=== PATIENT | female | born 1960 | race Caucasian/White ===

== ENCOUNTER → 2016-06-24 | Outpatient (CLI) | payer OTHER ==
[~2016-06-24] MED LIST: ALBU17IN INH; BIOT2500 PO; BUPIVACAINE HCL 0.25% 10 ML VIAL As Ordered ONE; BUPIVACAINE HCL 0.25% 30 ML VIAL As Ordered ONE; CALCTAB29 PO; FEXO180T58 PO; IPRASOL4 INH; MOME50SP; MULT1TAB10 PO; OXYC-517 PO; OXYC1TAB23 PO; PROBCAP4 PO; PROM50TA2 PO; QVAR80AE7 INH; SING10TA32 PO; SKEL-29 PO; TRIAMCINOLONE ACETONIDE SUSP 40 MG/ML VIAL (J3301) As Ordered ONE; VITA100037 PO; diazePAM 5 MG TAB As Ordered ONE; oxyCODONE 5MG TAB As Ordered ONE
--- NOTE | 2016-06-26 00:18 | ECWPNPC ---
PATIENT NAME: JOSE EDUARDO DICK : 1960 GENDER: FEMALE VISIT DATE: 06/24/2016 DISCHARGE DATE: 06/24/16 1151 VISIT LOCKED DATE TIME: PHYSICIAN: ZEINA SCHMIDT RESOURCE: ZEINA SCHMIDT REASON FOR APPOINTMENT 1. TPI NECK HISTORY OF PRESENT ILLNESS HISTORY OF PRESENT ILLNESS: PAIN THE PATIENT DESCRIBES THE PAIN... FALL RISK SCREENING: SCREENING :NO FALLS IN THE PAST YEAR CURRENT MEDICATIONS TAKING NASONEX 50 MCG/ACT SUSPENSION 2 SPRAYS IN EACH NOSTRIL NASALLY ONCE A DAY, NOTES: 06-23-16 AM TAKING FEXOFENADINE HCL 180 MG TABLET 1 TABLET NEEDED ORALLY ONCE A DAY, NOTES: 06-23-16 1500 TAKING PROBIOTIC - TABLET DELAYED RELEASE ORALLY ONCE DAILY, NOTES: 06-23-16 1900 TAKING PROMETHAZINE HCL 25 MG TABLET 1 TABLET NEEDED ORALLY EVERY 12 HRS, NOTES: COUPLE WEEKS AGO TAKING VITAMIN D-3 2000 MG ONCE A DAY, NOTES: 06-23-16 AM TAKING CALCIUM/VITAMIN D/MINERALS 600-200 MG-UNIT TABLET 1 TABLET WITH FOOD ORALLY ONCE DAILY, NOTES: 06-23-16 AM TAKING HYDROCODONE-ACETAMINOPHEN 5-325 MG TABLET 1 TABLET NEEDED FOR PAIN ORALLY EVERY 6 HRS; MDD 2, NOTES: OUT OF MEDS TAKING SKELAXIN 800 MG TABLET 1 TABLET ORALLY THREE TIMES A DAY NEEDED FOR SPASMS AND PAIN MDD3, NOTES: OUT OF MEDS TAKING TYLENOL/CODEINE #3 300-30 MG TABLET 1 TABLET NEEDED FOR PAIN ORALLY EVERY 6 HRS MDD2, NOTES: 06-23-16 1800 TAKING QVAR 80 MCG/ACT AEROSOL SOLUTION 1 PUFF INHALATION TWICE A DAY, NOTES: 06-24-16 0800 TAKING VENTOLIN HFA 108 (90 BASE) MCG/ACT AEROSOL SOLUTION 2 PUFFS NEEDED INHALATION EVERY 4 HRS, NOTES: NONE TAKING SINGULAIR 10 MG TABLET 1 TABLET IN THE EVENING ORALLY ONCE A DAY, NOTES: 06-23-16 2230 DISCONTINUED OXYCODONE HCL 5 MG CAPSULE 1 CAPSULE NEEDED ORALLY EVERY 6 HRS (MDD;2) MEDICATION LIST REVIEWED AND RECONCILED WITH THE PATIENT PAST MEDICAL HISTORY CELIAC DISEASE ASTHMA MILD INTERMITTENT DEPRESSION CERVICAL RADICULOPATHY BILATERAL DUPLICATE URETERS ALLERGIES BETADINE: HIVES/BREATHING PROBLEM: ALLERGY FLEXERIL: HEART STOPS: ALLERGY NAPROXEN: ANAPHYLAXIS/HIVES: ALLERGY ASPIRIN: HIVES: ALLERGY MOTRIN: HIVES: ALLERGY COMPAZINE: UNKNOWN: ALLERGY MORPHINE SULFATE: HIVES: ALLERGY PAXIL: THROAT SWELLING: ALLERGY TRAMADOL: SEIZURES: ALLERGY WELLBUTRIN: HIVES: ALLERGY CYMBALTA: ANAPHYLAXIS: ALLERGY AMOXICILLIN: HIVES: ALLERGY IV DYE: BREATHING PROBLEMS: ALLERGY FENTANYL: THROAT SWELLING: ALLERGY METOCLOPRAMIDE HCL: SEIZURES: ALLERGY ZOLOFT: THROAT SWELLING: ALLERGY SOCIAL HISTORY GENERAL: TOBACCO USE ARE YOU A:NONSMOKER LEARNING BARRIERS / SPECIAL NEEDS ORIENTED TO PLAN OF CARE: PATIENT, PAIN MANAGEMENT PATIENT, ORIENTED TO PLAN OF CARE: PATIENT, PAIN MANAGEMENT PATIENT. NEW PATIENT PAIN DIARY TODAY'S VISITNOTES FROM 0-10, WHAT LEVEL IS YOUR PAIN TODAY?0 PAIN CLINIC PFS, CLERGY, PUBLIC HEALTH REFERRALS PFS REFERRAL NEEDED?NO CLERGY REFERRAL NEEDED?NO PUBLIC HEALTH REFERRAL NEEDED?NO WAS THE PROVIDER NOTIFIED OF ANY PERTINENT INFO?NO PFS REFERRAL NEEDED?NO CLERGY REFERRAL NEEDED?NO PUBLIC HEALTH REFERRAL NEEDED?NO WAS THE PROVIDER NOTIFIED OF ANY PERTINENT INFO?NO REVIEW OF SYSTEMS CONSTITUTIONAL: ANY CHANGE IN YOUR MEDICAL CONDITION? YES, SURGERY IN MAY . CHILLS NO . FEVER NO . INFECTION: DO YOU HAVE NEW INFECTIONS? NO . DO YOU HAVE HISTORY OF MRSA? NO . MUSCULOSKELETAL: ANY NEW PATTERNS OF PAIN OR NUMBNESS? NO . GASTROENTEROLOGY: ANY NEW CHANGE IN BOWEL CONTROL? NO . GENITOURINARY: ANY NEW CHANGE IN BLADDER CONTROL? NO . IS THERE A CHANCE YOU COULD BE ? NO . HEMATOLOGY/LYMPH: DO YOU TAKE ANY BLOOD THINNERS? (FOR EXAMPLE- COUMADIN, PLAVIX, AGGRENOX, PLATEL, PRADAXA, OR XARELTO) NO . WHEN WAS YOUR LAST DOSE? DATE: TIME: . NEUROLOGY: HAVE YOU FALLEN IN THE PAST 6 MONTHS? NO . ANY NEW EXTREMITY NUMBNESS OR WEAKNESS? NO . CARDIOLOGY: DO YOU HAVE A PACEMAKER OR DEFIBRILLATOR? NO . RESPIRATORY: HAVE YOU BEEN SICK IN THE PAST WEEK? NO . FEVER NO . FLU LIKE SYMPTOMS? NO . COUGH NO . INTEGUMENTARY: DO YOU HAVE ANY RASHES OR OPEN SORES? NO . ALLERGIC/IMMUNO: ARE YOU ALLERGIC TO SHELLFISH OR IV DYE? YES, IV DYE . ANY NEW ALLERGIES? NO . PSYCHIATRIC: DO YOU HAVE THOUGHTS OF HURTING YOURSELF OR SOMEONE ELSE? NO . ARE YOU ABUSED, NEGLECTED, OR IN AN UNSAFE ENVIRONMENT? NO . ENDOCRINOLOGY: ARE YOU DIABETIC? NO . OTHER: DO YOU NEED ANY PRESCRIPTIONS? YES . IF YES, PLEASE LIST: SKELAXIN, HYDROCODONE, TYLENOL#3 . ANY NEW PROBLEMS WITH YOUR MEDICATIONS? NO . WHEN DID YOU LAST EAT? 06-23-16 1900 . WHEN DID YOU LAST DRINK? 06-24-16 0200 . WHAT DID YOU LAST DRINK? WATER . NAME OF PERSON DRIVING YOU HOME? RADHA . DO YOU HAVE ANY OTHER QUESTIONS OR CONCERNS NO . REVIEWED BY: PROVIDER: . VITAL SIGNS WT 196 LBS, HT 63 IN, BMI 34.72 INDEX, BP 123/93 MM HG, HR 83 /MIN, RR 18 /MIN, TEMP 96.0 F, OXYGEN SAT % 98, NA INITIALS TL 1015, REVIEWED BY: CM. ASSESSMENTS MYALGIA - M79.1 (PRIMARY) TREATMENT OTHERS REFILL HYDROCODONE-ACETAMINOPHEN TABLET, 5-325 MG, 1 TABLET NEEDED FOR PAIN, ORALLY, EVERY 6 HRS; MDD 2, 30 DAY(S), 10, REFILLS 0 PROCEDURES PN TRIGGER POINT INJECTION WITH STEROIDS PRE PROCEDURE DIAGNOSIS 1. MYALGIA 2. PAIN AT LEFT NECK AREA POST PROCEDURE DIAGNOSIS 1. MYALGIA 2. PAIN AT LEFT NECK AREA PROCEDURE TRIGGER POINT INJECTION AT LEFT NECK AREA SURGEON DR. ZEINA SCHMIDT REJECTED ITEMS CLERK NONE ANESTHESIA LOCAL PRE PROCEDURE NOTE THE PATIENT HAS A HISTORY OF CHRONIC PAIN AT THE LEFT NECK AREA. I EVALUATE THE PATIENT AND REVIEWED THE CHART. THERE IS EVIDENCE OF BANDS OF TISSUE WITH RESTRICTION OF MOVEMENT AND PRESENCE OF TRIGGER POINT AT THE AFFECTED AREA. I WENT OVER THE RISKS, ALTERNATIVES, AND BENEFITS ASSOCIATED WITH THIS PROCEDURE. THE PATIENT WOULD LIKE TO PROCEED AND GIVE CONSENT TO PERFORMED THE PROCEDURE. THE PATIENT DENIES UNEXPLAINABLE WEIGHT LOSS, FEVER, CHILLS, OR NEW CHANGES IN URINARY OR BOWEL CONTROL DESCRIPTION OF PROCEDURE THE PATIENT WAS BROUGHT TO THE PROCEDURE ROOM AND PLACED IN THE SITTING POSITION. THE AREA WAS CLEANED WITH ALCOHOL. THE PROCEDURE WAS DONE USING ASEPTIC STERILE TECHNIQUE. I CHECKED LATERALITY AND THE LEVEL WHERE THE PROCEDURE WAS GOING TO BE PERFORMED WITH THE PATIENT AND THE SUPPORTING STAFF AT THE MOMENT OF THE TIME OUT IN THE PROCEDURE ROOM. USING A 25-GAUGE NEEDLE, TRIGGER POINTS WERE INJECTED AT THE LEFT NECK AREA WITH A TOTAL OF 40 ML OF BUPIVACAINE 0.25% AND KENALOG 40 MG. THERE WAS NO EVIDENCE OF BLOOD, PARESTHESIA OR CEREBROSPINAL FLUID DURING THE PROCEDURE. THE PATIENT WAS SENT TO THE RECOVERY ROOM. THE PATIENT WAS MOVING THE EXTREMITIES AND DOING WELL. THERE WAS NO COMPLICATION DURING THE PROCEDURE POST PROCEDURE NOTE THE PATIENT WILL BE SEEN IN A FOLLOW UP IN THE NEXT FEW WEEKS. INSTRUCTIONS WERE GIVEN, QUESTIONS WERE ANSWERED, AND THE PATIENT EXPRESSED UNDERSTANDING AND AGREES WITH THE PLAN. INSTRUCTIONS WERE GIVEN, QUESTIONS WERE ANSWERED, PATIENT REPORTS UNDERSTANDING AND AGREES WITH THE PLAN. I, JANETTE AREVALO, DOCUMENTED THE ABOVE INFORMATION ACTING A SCRIBE FOR DR. SCHMIDT. I HAVE REVIEWED THE ABOVE DOCUMENT, WRITTEN BY JANETTE AREVALO SCRIBE AND I VERIFY THAT IT IS ACCURATE. PROCEDURE CODES 23111 INJ TRIGGER POINT / MUSCL FOLLOW UP 3 WEEKS ELECTRONICALLY SIGNED BY ZEINA SCHMIDT MD ON 06/25/2016 AT 08:13 PM EST DISCLAIMER : THIS IS A VISIT SUMMARY EXTRACTED FROM THE [employer] CHART. IT IS NOT A COPY OF THE [employer] PROGRESS NOTE. YAN
== END ==
LOC: M PAIN 10:00
PROVIDERS: ATTEND Anesthesiology
DX: G89.29 Other chronic pain (principal); M54.12 Radiculopathy, cervical region; M79.1 Myalgia; K90.0 Celiac disease; J45.909 Unspecified asthma, uncomplicated; F32.9 Major depressive disorder, single episode, unspecified; Z88.5 Allergy status to narcotic agent; Z88.1 Allergy status to other antibiotic agents; Z91.041 Radiographic dye allergy status; Z88.8 Allergy status to other drugs, medicaments and biological substances; Z79.891 Long term (current) use of opiate analgesic; Z79.899 Other long term (current) drug therapy
CPT/HCPCS: 20552; J3301

== ENCOUNTER → 2016-07-18 | Outpatient (CLI) | payer OTHER ==
[~2016-07-18] MED LIST changes: -BUPIVACAINE HCL 0.25% 10 ML VIAL As Ordered ONE; -BUPIVACAINE HCL 0.25% 30 ML VIAL As Ordered ONE; -TRIAMCINOLONE ACETONIDE SUSP 40 MG/ML VIAL (J3301) As Ordered ONE; -diazePAM 5 MG TAB As Ordered ONE; -oxyCODONE 5MG TAB As Ordered ONE
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
== END ==
LOC: M PAIN 09:20
PROVIDERS: ATTEND Nurse Practitioner Family
DX: Z09 Encounter for follow-up examination after completed treatment for conditions other than malignant neoplasm (principal); G89.29 Other chronic pain; M79.1 Myalgia; M54.81 Occipital neuralgia; K90.0 Celiac disease; J45.909 Unspecified asthma, uncomplicated; F32.9 Major depressive disorder, single episode, unspecified; Z88.3 Allergy status to other anti-infective agents; Z88.8 Allergy status to other drugs, medicaments and biological substances; Z88.6 Allergy status to analgesic agent; Z88.5 Allergy status to narcotic agent; Z91.041 Radiographic dye allergy status; Z79.891 Long term (current) use of opiate analgesic; Z79.899 Other long term (current) drug therapy

== ENCOUNTER → 2016-08-26 | Outpatient (CLI) | payer OTHER ==
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
== END ==
LOC: M PAIN 11:00
PROVIDERS: ATTEND Nurse Practitioner Family
DX: Z09 Encounter for follow-up examination after completed treatment for conditions other than malignant neoplasm (principal); G89.29 Other chronic pain; M79.1 Myalgia; M54.81 Occipital neuralgia; K90.0 Celiac disease; J45.20 Mild intermittent asthma, uncomplicated; F32.9 Major depressive disorder, single episode, unspecified; Z88.8 Allergy status to other drugs, medicaments and biological substances; Z88.6 Allergy status to analgesic agent; Z88.5 Allergy status to narcotic agent; Z88.1 Allergy status to other antibiotic agents; Z91.041 Radiographic dye allergy status; B97.4 Respiratory syncytial virus as the cause of diseases classified elsewhere; Z79.899 Other long term (current) drug therapy

== ENCOUNTER → 2016-09-12 | Outpatient (CLI) | payer OTHER ==
--- NOTE | 2016-09-12 16:09 | REP ---
Paranasal sinuses, five views: The frontal, ethmoid, maxillary and sphenoid sinuses are clear. The skull base and sella are unremarkable. The orbital rims are unremarkable. The adenoids are not hypertrophied. Impression: Negative paranasal sinus series. Signed by Keo Leonard MD 09/12/2016 04:01 P
== END ==
LOC: M LRY 15:26
PROVIDERS: ATTEND Nurse Practitioner Family
DX: R09.81 Nasal congestion (principal)

== ENCOUNTER → 2016-10-30 | Outpatient (CLI) | payer OTHER ==
[~2016-10-30] MED LIST changes: +PERC5TAB6 PO
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
== END ==
LOC: M PAIN 14:20
PROVIDERS: ATTEND Nurse Practitioner Family
DX: G89.29 Other chronic pain (principal); M79.1 Myalgia; M54.81 Occipital neuralgia; K90.0 Celiac disease; J45.20 Mild intermittent asthma, uncomplicated; F32.9 Major depressive disorder, single episode, unspecified; F41.9 Anxiety disorder, unspecified; R56.9 Unspecified convulsions; M85.80 Other specified disorders of bone density and structure, unspecified site; Z91.041 Radiographic dye allergy status; Z88.3 Allergy status to other anti-infective agents; Z88.6 Allergy status to analgesic agent; Z88.5 Allergy status to narcotic agent; Z88.8 Allergy status to other drugs, medicaments and biological substances; Z79.899 Other long term (current) drug therapy

== ENCOUNTER 2016-11-08 14:18 | Emergency (ER) | payer OTHER ==
[~2016-11-08] VITALS: Ht 160 cm; Wt 88.5 kg
[~2016-11-08 14:18] MED LIST changes: -PERC5TAB6 PO
[2016-11-08] MEDS ORDERED: PERCOCET 5MG/325MG TAB PO ONE (15:15)
--- NOTE | 2016-11-08 15:50 | REP ---
CT Head without contrast HISTORY: Trauma COMPARISON: 01/20/2016 There is no intraparenchymal hemorrhage, acute infarct, mass or midline shift. The ventricular system is normal in appearance. There is no extra cerebral collection. There is no fracture. The visualized sinuses are clear. IMPRESSION: There is no intracranial lesion. Signed by Garry Tobar MD 11/08/2016 03:41 P
[2016-11-08 16:06] VITALS: BP 135/77
[2016-11-08] MEDS ORDERED: PERC5TAB6 PO (16:16)
--- NOTE | 2016-11-09 08:54 | REP ---
CT CERVICAL SPINE WITHOUT CONTRAST: HISTORY: Trauma. COMPARISON: 09/16/2015 There is no acute fracture. Disc bulges are present at the C3-4 and C4-5 levels. Posterior osteophytes are present at the C5-6 level. A disc bulge with associated osteophyte formation is present at the C6-7 level. There is minimal narrowing of the spinal canal. Uncinate process and/or facet hypertrophy are present at the C2-3 and C4-5 through C6-7 levels. These findings produce minimal to mild narrowing of the neural foramina. There is fusion of the C5 and C6 vertebral bodies. The C4-5 and C6-7 intervertebral discs are decreased in height, consistent with disc degeneration. There is loss of the normal lordotic curve. IMPRESSION: 1. There is no acute fracture or subluxation. 2. There is cervical spondylosis at the C3-4 through C6-7 levels. Signed by Garry Tobar MD 11/09/2016 08:59 A
== END 2016-11-08 16:52 | disposition home or self-care (01) ==
LOC: EDBD 14:18 → EDSEX 14:18 → M ED 15:25
DX: S13.4XXA Sprain of ligaments of cervical spine, initial encounter (principal); S09.90XA Unspecified injury of head, initial encounter; V43.62XA Car passenger injured in collision with other type car in traffic accident, initial encounter; Y92.410 Unspecified street and highway as the place of occurrence of the external cause; Y93.89 Activity, other specified; Y99.9 Unspecified external cause status; M47.12 Other spondylosis with myelopathy, cervical region; G89.29 Other chronic pain; J45.909 Unspecified asthma, uncomplicated; Z86.73 Personal history of transient ischemic attack (TIA), and cerebral infarction without residual deficits; Z79.899 Other long term (current) drug therapy; Z88.1 Allergy status to other antibiotic agents; Z88.5 Allergy status to narcotic agent; Z88.6 Allergy status to analgesic agent; Z88.8 Allergy status to other drugs, medicaments and biological substances; Z91.09 Other allergy status, other than to drugs and biological substances

== ENCOUNTER → 2016-11-17 | Outpatient (CLI) | payer OTHER ==
[~2016-11-17] MED LIST changes: +PERC5TAB6 PO
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
== END ==
LOC: M PAIN 08:30
PROVIDERS: ATTEND Anesthesiology
DX: M96.1 Postlaminectomy syndrome, not elsewhere classified (principal); M79.1 Myalgia; M54.2 Cervicalgia; K90.0 Celiac disease; J45.20 Mild intermittent asthma, uncomplicated; F32.9 Major depressive disorder, single episode, unspecified; Z91.041 Radiographic dye allergy status; Z88.6 Allergy status to analgesic agent; Z88.5 Allergy status to narcotic agent; Z88.1 Allergy status to other antibiotic agents; Z88.8 Allergy status to other drugs, medicaments and biological substances; Z79.899 Other long term (current) drug therapy

== ENCOUNTER → 2016-11-18 | Outpatient (CLI) | payer OTHER ==
--- NOTE | 2016-11-19 09:24 | REP ---
MRI CERVICAL SPINE WITHOUT CONTRAST: HISTORY: Neck pain. COMPARISON: 09/24/2015. A disc bulge is present at the C3-4 level. There is minimal effacement of the thecal sac without spinal cord compression. The C3 neural foramina are patent. A disc bulge with associated osteophyte formation is present at the C4-5 level. There is moderate effacement of the thecal sac without spinal cord compression. Bilateral uncinate process hypertrophy is present. This produces mild narrowing of the C4 neural foramina. There is fusion of the C5 and 6 vertebral bodies. Posterior osteophytes are present. There is minimal spinal cord compression. Uncinate process hypertrophy is present on the left. This produces mild narrowing of the left C5 neural foramen. The right C5 neural foramen is patent. A disc bulge with associated osteophyte formation is present at the C6-7 level. There is moderate effacement of the thecal sac without spinal cord compression. Bilateral uncinate process hypertrophy is present. This produces mild narrowing of the C6 neural foramina. There is no other disc bulge or herniation. The remaining neural foramina are patent. The spinal cord is normal in signal intensity. The C4-5 and C6-7 intervertebral discs are decreased in height consistent with disc degeneration. Normal signal intensity is present in the cervical vertebral bodies. There is no subluxation. IMPRESSION: 1. The patient is status post C5-6 anterior spinal fusion. There is anatomic alignment of the cervical spine. 2. There is cervical spondylosis at the C4-5 through C6-7 levels most significant at the C5-6 level where there is minimal spinal cord compression. There is no significant change compared to the previous study. Signed by Garry Tobar MD 11/19/2016 09:30 A
== END ==
LOC: M RAD 18:04
PROVIDERS: ATTEND Family Medicine
DX: M47.812 Spondylosis without myelopathy or radiculopathy, cervical region (principal)

== ENCOUNTER → 2016-11-19 | Outpatient (REF) | payer OTHER ==
[2016-11-19 20:21] LABS: ALBUMIN 3.9 GM/DL (3.2-5.2); ALBUMIN/GLOBULIN RATIO 1.11 (1.00-1.93); ALKALINE PHOSPHATASE 79 U/L (45-117); ALT/SGPT 54 U/L (12-78); ANION GAP 6 MEQ/L (8-16); AST/SGOT 20 U/L (15-37); BILIRUBIN,TOTAL 0.3 MG/DL (0.2-1.0); BLOOD UREA NITROGEN 12 MG/DL (7-18); CALCIUM LEVEL 9.4 MG/DL (8.5-10.1); CARBON DIOXIDE LEVEL 31 MEQ/L (21-32); CHLORIDE LEVEL 100 MEQ/L (98-107); GLOMERULAR FILTRATION RATE > 60.0 (>51); GLUCOSE, FASTING 87 MG/DL (70-105); SODIUM LEVEL 137 MEQ/L (136-145); TOTAL PROTEIN 7.4 GM/DL (6.4-8.2)
== END ==
LOC: M SFHCLERA 16:20
PROVIDERS: ATTEND Family Medicine
DX: M79.7 Fibromyalgia (principal)

== ENCOUNTER → 2016-12-01 | Outpatient (CLI) | payer OTHER ==
[~2016-12-01] MED LIST changes: +PERC5TAB12 PO; -PERC5TAB6 PO; -PROM50TA2 PO; +PROM50TA4 PO; +QVAR1AER2 INH; -QVAR80AE7 INH; -SKEL-29 PO; +SKEL800T97 PO; -VITA100037 PO; +VITA100067 PO
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
== END ==
LOC: M PAIN 14:00
PROVIDERS: ATTEND Nurse Practitioner Family
DX: G89.29 Other chronic pain (principal); M79.7 Fibromyalgia; M47.22 Other spondylosis with radiculopathy, cervical region; K90.0 Celiac disease; J45.20 Mild intermittent asthma, uncomplicated; F32.9 Major depressive disorder, single episode, unspecified; Z88.0 Allergy status to penicillin; Z88.6 Allergy status to analgesic agent; Z88.5 Allergy status to narcotic agent; Z88.8 Allergy status to other drugs, medicaments and biological substances; Z79.899 Other long term (current) drug therapy; Z79.891 Long term (current) use of opiate analgesic; Z79.52 Long term (current) use of systemic steroids; Z79.51 Long term (current) use of inhaled steroids

== ENCOUNTER → 2016-12-19 | Outpatient (CLI) | payer OTHER ==
[~2016-12-19] MED LIST changes: +BUPIVACAINE HCL 0.25% 10 ML VIAL As Ordered ONE; +BUPIVACAINE HCL 0.25% 30 ML VIAL As Ordered ONE; +TRIAMCINOLONE ACETONIDE SUSP 40 MG/ML VIAL (J3301) As Ordered ONE; +diazePAM 5 MG TAB As Ordered ONE
--- NOTE | 2016-12-31 00:25 | ECWPNPC ---
PATIENT NAME: JOSE EDUARDO DICK : 1960 GENDER: FEMALE VISIT DATE: 12/19/2016 DISCHARGE DATE: 12/19/16 1611 VISIT LOCKED DATE TIME: PHYSICIAN: ZEINA SCHMIDT RESOURCE: ZEINA SCHMIDT REASON FOR APPOINTMENT 1. TPI HISTORY OF PRESENT ILLNESS HISTORY OF PRESENT ILLNESS: PAIN THE PATIENT DESCRIBES THE PAIN... FALL RISK SCREENING: SCREENING :NO FALLS IN THE PAST YEAR CURRENT MEDICATIONS TAKING NASONEX 50 MCG/ACT SUSPENSION 2 SPRAYS IN EACH NOSTRIL NASALLY ONCE A DAY, NOTES: 12-18-16 0800 TAKING FEXOFENADINE HCL 180 MG TABLET 1 TABLET ORALLY BID, NOTES: 12-18-16 1200 TAKING PROBIOTIC - TABLET DELAYED RELEASE ORALLY ONCE DAILY, NOTES: 12-18-16 1830 TAKING PROMETHAZINE HCL 25 MG TABLET 1 TABLET NEEDED ORALLY EVERY 12 HRS, NOTES: NONE RECENT TAKING VITAMIN D-3 2000 UNITS ONCE A DAY, NOTES: 12-18-16 1800 TAKING CALCIUM/VITAMIN D/MINERALS 600-200 MG-UNIT TABLET 1 TABLET WITH FOOD ORALLY ONCE DAILY, NOTES: NONE RECENT TAKING QVAR 80 MCG/ACT AEROSOL SOLUTION 2 PUFFS INHALATION TWICE A DAY, NOTES: 12-18-162199 TAKING VENTOLIN HFA 108 (90 BASE) MCG/ACT AEROSOL SOLUTION 2 PUFFS NEEDED INHALATION EVERY 4 HRS, NOTES: NONE NEEDED TAKING SINGULAIR 10 MG TABLET 1 TABLET IN THE EVENING ORALLY ONCE A DAY, NOTES: 12-19-16 0100 TAKING IPRATROPIUM-ALBUTEROL 0.5-2.5 (3) MG/3ML SOLUTION 3 ML INHALATION EVERY 4 HRS NEEDED TAKING BENADRYL 25 MG CAPSULE 1 CAPSULE NEEDED ORALLY NIGHTLY, NOTES: NONE NEEDED TAKING SKELAXIN 800 MG TABLET 1 TABLET ORALLY THREE TIMES A DAY NEEDED FOR SPASMS AND PAIN MDD3, NOTES: 12-18-16 0730 TAKING NORCO 5-325 MG TABLET 1 TABLET NEEDED ORALLY Q8H PRN MDD3, NOTES: 12-18-162199 TAKING DIFLUCAN 150 MG TABLET 1 TABLET ORALLY QOD, NOTES: 12-17-16 NOT-TAKING TYLENOL WITH CODEINE #3 300-30 MG TABLET 1 TABLET NEEDED FOR PAIN ORALLY EVERY 6 HRS MDD2 NOT-TAKING OXYCODONE-ACETAMINOPHEN 5-325 MG TABLET 1 TABLET NEEDED ORALLY EVERY 6 HRS (MDD:4) NOT-TAKING PREDNISONE 10 MG TABLET 1 TABLET FOR SEVEN DAYS, THEN 1/2 TABLET FOR SEVEN DAYS ORALLY ONCE A DAY DISCONTINUED SKELAXIN 800 MG TABLET 1 TABLET ORALLY BID PRN MEDICATION LIST REVIEWED AND RECONCILED WITH THE PATIENT PAST MEDICAL HISTORY CELIAC DISEASE ASTHMA MILD INTERMITTENT DEPRESSION CERVICAL RADICULOPATHY BILATERAL DUPLICATE URETERS RSV ALLERGIES BETADINE: HIVES/BREATHING PROBLEM: ALLERGY FLEXERIL: HEART STOPS: ALLERGY NAPROXEN: ANAPHYLAXIS/HIVES: ALLERGY ASPIRIN: HIVES: ALLERGY MOTRIN: HIVES: ALLERGY COMPAZINE: UNKNOWN: ALLERGY MORPHINE SULFATE: HIVES: ALLERGY PAXIL: THROAT SWELLING: ALLERGY TRAMADOL: SEIZURES: ALLERGY WELLBUTRIN: HIVES: ALLERGY CYMBALTA: ANAPHYLAXIS: ALLERGY AMOXICILLIN: HIVES: ALLERGY IV DYE: BREATHING PROBLEMS: ALLERGY FENTANYL: THROAT SWELLING: ALLERGY METOCLOPRAMIDE HCL: SEIZURES: ALLERGY ZOLOFT: THROAT SWELLING: ALLERGY DILUTING SOLUTION FOR ALLERGY SHOTS: SWELLING: ALLERGY REVIEW OF SYSTEMS REVIEWED BY: PROVIDER: . CONSTITUTIONAL: ANY CHANGE IN YOUR MEDICAL CONDITION? NO . CHILLS NO . FEVER NO . INFECTION: DO YOU HAVE NEW INFECTIONS? NO . DO YOU HAVE HISTORY OF MRSA? NO . MUSCULOSKELETAL: ANY NEW PATTERNS OF PAIN OR NUMBNESS? NO . GASTROENTEROLOGY: ANY NEW CHANGE IN BOWEL CONTROL? NO . GENITOURINARY: ANY NEW CHANGE IN BLADDER CONTROL? NO . IS THERE A CHANCE YOU COULD BE ? NO . HEMATOLOGY/LYMPH: DO YOU TAKE ANY BLOOD THINNERS? (FOR EXAMPLE- COUMADIN, PLAVIX, AGGRENOX, PLATEL, PRADAXA, OR XARELTO) NO . WHEN WAS YOUR LAST DOSE? DATE: TIME: . NEUROLOGY: HAVE YOU FALLEN IN THE PAST 6 MONTHS? NO . ANY NEW EXTREMITY NUMBNESS OR WEAKNESS? NO . CARDIOLOGY: DO YOU HAVE A PACEMAKER OR DEFIBRILLATOR? NO . RESPIRATORY: HAVE YOU BEEN SICK IN THE PAST WEEK? NO . FEVER NO . FLU LIKE SYMPTOMS? NO . COUGH NO . INTEGUMENTARY: DO YOU HAVE ANY RASHES OR OPEN SORES? NO . ALLERGIC/IMMUNO: ARE YOU ALLERGIC TO SHELLFISH OR IV DYE? YES, IV DYE . ANY NEW ALLERGIES? NO . PSYCHIATRIC: DO YOU HAVE THOUGHTS OF HURTING YOURSELF OR SOMEONE ELSE? NO . ARE YOU ABUSED, NEGLECTED, OR IN AN UNSAFE ENVIRONMENT? NO . ENDOCRINOLOGY: ARE YOU DIABETIC? NO . OTHER: DO YOU NEED ANY PRESCRIPTIONS? YES, . IF YES, PLEASE LIST: HYDROCODONE . ANY NEW PROBLEMS WITH YOUR MEDICATIONS? NO . WHEN DID YOU LAST EAT? 12-19-16 0230 . WHEN DID YOU LAST DRINK? 12-19-16 1000 . WHAT DID YOU LAST DRINK? WATER . NAME OF PERSON DRIVING YOU HOME? RADHA DELCID . DO YOU HAVE ANY OTHER QUESTIONS OR CONCERNS NO . VITAL SIGNS WT 201.0 LBS, HT 63 IN, BMI 35.60 INDEX, BP 141/78 MM HG, HR 88 /MIN, RR 18 /MIN, TEMP 97.6 F, OXYGEN SAT % 98%, NA INITIALS TL 1330, REVIEWED BY: CM. ASSESSMENTS MYALGIA - M79.1 (PRIMARY) PROCEDURES PN TRIGGER POINT INJECTION WITH STEROIDS PRE PROCEDURE DIAGNOSIS 1. MYALGIA 2. PAIN AT LEFT NECK AREA POST PROCEDURE DIAGNOSIS 1. MYALGIA 2. PAIN AT LEFT NECK AREA PROCEDURE TRIGGER POINT INJECTION AT LEFT NECK AREA SURGEON DR. ZEINA SCHMIDT SENIOR ATTORNEY NONE ANESTHESIA LOCAL PRE PROCEDURE NOTE THE PATIENT HAS A HISTORY OF CHRONIC PAIN AT THE LEFT NECK AREA. I EVALUATE THE PATIENT AND REVIEWED THE CHART. THERE IS EVIDENCE OF BANDS OF TISSUE WITH RESTRICTION OF MOVEMENT AND PRESENCE OF TRIGGER POINT AT THE AFFECTED AREA. I WENT OVER THE RISKS, ALTERNATIVES, AND BENEFITS ASSOCIATED WITH THIS PROCEDURE. THE PATIENT WOULD LIKE TO PROCEED AND GIVE CONSENT TO PERFORMED THE PROCEDURE. THE PATIENT DENIES UNEXPLAINABLE WEIGHT LOSS, FEVER, CHILLS, OR NEW CHANGES IN URINARY OR BOWEL CONTROL DESCRIPTION OF PROCEDURE THE PATIENT WAS BROUGHT TO THE PROCEDURE ROOM AND PLACED IN THE SITTING POSITION. THE AREA WAS CLEANED WITH ALCOHOL. THE PROCEDURE WAS DONE USING ASEPTIC STERILE TECHNIQUE. I CHECKED LATERALITY AND THE LEVEL WHERE THE PROCEDURE WAS GOING TO BE PERFORMED WITH THE PATIENT AND THE SUPPORTING STAFF AT THE MOMENT OF THE TIME OUT IN THE PROCEDURE ROOM. USING A 25-GAUGE NEEDLE, TRIGGER POINTS WERE INJECTED AT THE LEFT KNEE AREA WITH A TOTAL OF 40 ML OF BUPIVACAINE 0.25% AND KENALOG 40 MG. THERE WAS NO EVIDENCE OF BLOOD, PARESTHESIA OR CEREBROSPINAL FLUID DURING THE PROCEDURE. THE PATIENT WAS SENT TO THE RECOVERY ROOM. THE PATIENT WAS MOVING THE EXTREMITIES AND DOING WELL. THERE WAS NO COMPLICATION DURING THE PROCEDURE POST PROCEDURE NOTE THE PATIENT WILL BE SEEN IN A FOLLOW UP IN THE NEXT FEW WEEKS. INSTRUCTIONS WERE GIVEN, QUESTIONS WERE ANSWERED, AND THE PATIENT EXPRESSED UNDERSTANDING AND AGREES WITH THE PLAN. I, PATTY HERMOSILLO, DOCUMENTED THE ABOVE INFORMATION ACTING A SCRIBE FOR DR. SCHMIDT. I, DR. SCHMIDT, HAVE REVIEWED THE ABOVE DOCUMENT, SCRIBED BY PATTY HERMOSILLO, AND I VERIFY THAT IT IS ACCURATE PROCEDURE CODES 45842 INJ TRIGGER POINT / [facility] DISPOSITION & COMMUNICATION FOLLOW UP 3 WEEKS ELECTRONICALLY SIGNED BY ZEINA SCHMIDT MD ON 12/30/2016 AT 08:58 PM EDT DISCLAIMER : THIS IS A VISIT SUMMARY EXTRACTED FROM THE [employer] CHART. IT IS NOT A COPY OF THE [employer] PROGRESS NOTE. MTDD
== END ==
LOC: M PAIN 13:00
PROVIDERS: ATTEND Anesthesiology
DX: G89.29 Other chronic pain (principal); M54.2 Cervicalgia; M79.1 Myalgia; K90.0 Celiac disease; J45.20 Mild intermittent asthma, uncomplicated; F32.9 Major depressive disorder, single episode, unspecified; E66.9 Obesity, unspecified; Z68.35 Body mass index [BMI] 35.0-35.9, adult; F41.9 Anxiety disorder, unspecified; Z91.041 Radiographic dye allergy status; Z88.1 Allergy status to other antibiotic agents; Z88.3 Allergy status to other anti-infective agents; Z88.8 Allergy status to other drugs, medicaments and biological substances; Z88.6 Allergy status to analgesic agent; Z88.5 Allergy status to narcotic agent; Z79.899 Other long term (current) drug therapy

== ENCOUNTER → 2017-01-02 | Outpatient (CLI) | payer OTHER, MEDICAID ==
[~2017-01-02] MED LIST changes: -BUPIVACAINE HCL 0.25% 10 ML VIAL As Ordered ONE; -BUPIVACAINE HCL 0.25% 30 ML VIAL As Ordered ONE; -TRIAMCINOLONE ACETONIDE SUSP 40 MG/ML VIAL (J3301) As Ordered ONE; -diazePAM 5 MG TAB As Ordered ONE
--- NOTE | 2017-01-02 20:04 | REP ---
HISTORY: Nausea COMPARISON: None. FINDINGS: KUB shows the intestinal gas pattern to be nonspecific. The organ silhouettes insofar as delineated are unremarkable. There is no evidence of free intraperitoneal air. IMPRESSION: Nonspecific. Signed by Miller Jett DO 01/03/2017 09:15 A
== END ==
LOC: M LRY 18:35
PROVIDERS: ATTEND Nurse Practitioner Family
DX: R11.0 Nausea (principal)

== ENCOUNTER → 2017-01-05 | Outpatient (CLI) | payer OTHER ==
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
== END ==
LOC: M PAIN 14:00
PROVIDERS: ATTEND Nurse Practitioner Family
DX: M79.7 Fibromyalgia (principal); M47.812 Spondylosis without myelopathy or radiculopathy, cervical region; G89.29 Other chronic pain; F32.9 Major depressive disorder, single episode, unspecified; J45.41 Moderate persistent asthma with (acute) exacerbation; F41.9 Anxiety disorder, unspecified; K90.0 Celiac disease; Z79.899 Other long term (current) drug therapy; Z88.8 Allergy status to other drugs, medicaments and biological substances; Z88.6 Allergy status to analgesic agent; Z88.5 Allergy status to narcotic agent; Z88.0 Allergy status to penicillin; Z91.041 Radiographic dye allergy status

== ENCOUNTER → 2017-01-14 | Outpatient (CLI) | payer OTHER ==
[~2017-01-14] MED LIST changes: +BUPIVACAINE HCL 0.25% 10 ML VIAL As Ordered ONE; +BUPIVACAINE HCL 0.25% 30 ML VIAL As Ordered ONE; +TRIAMCINOLONE ACETONIDE SUSP 40 MG/ML VIAL (J3301) As Ordered ONE; +diazePAM 5 MG TAB As Ordered ONE; +oxyCODONE 5MG TAB As Ordered ONE
--- NOTE | 2017-02-03 01:08 | ECWPNPC ---
PATIENT NAME: JOSE EDUARDO DICK : 1960 GENDER: FEMALE VISIT DATE: 01/14/2017 DISCHARGE DATE: 01/14/17 1117 VISIT LOCKED DATE TIME: PHYSICIAN: ZEINA SCHMIDT RESOURCE: ZEINA SCHMIDT REASON FOR APPOINTMENT 1. TPI HISTORY OF PRESENT ILLNESS HISTORY OF PRESENT ILLNESS: PAIN THE PATIENT DESCRIBES THE PAIN... FALL RISK SCREENING: SCREENING :NO FALLS IN THE PAST YEAR CURRENT MEDICATIONS TAKING VENTOLIN HFA 108 (90 BASE) MCG/ACT AEROSOL SOLUTION 2 PUFFS NEEDED INHALATION EVERY 4 HRS, NOTES: 01/09 TAKING SINGULAIR 10 MG TABLET 1 TABLET IN THE EVENING ORALLY ONCE A DAY, NOTES: 01/14/17 0630 TAKING IPRATROPIUM-ALBUTEROL 0.5-2.5 (3) MG/3ML SOLUTION 3 ML INHALATION EVERY 4 HRS NEEDED, NOTES: NONE RECENT TAKING BENADRYL 25 MG CAPSULE 1 CAPSULE NEEDED ORALLY NIGHTLY, NOTES: NONE RECENT TAKING ZOFRAN ODT 4 MG TABLET DISINTEGRATING 1 TABLET ON THE TONGUE AND ALLOW TO DISSOLVE ORALLY EVERY 8 HRS, NOTES: 2 WEEKS AGO TAKING TYLENOL WITH CODEINE #3 300-30 MG TABLET 1 TABLET NEEDED ORALLY EVERY 8H PRN MDD3, NOTES: 01/13/17 1100 TAKING NORCO 5-325 MG TABLET 1 TABLET NEEDED ORALLY Q8H PRN MDD3, NOTES: 3 WEEKS AGO TAKING QVAR 80 MCG/ACT AEROSOL SOLUTION 2 PUFFS INHALATION TWICE A DAY, NOTES: 01/13/17 2330 NOT-TAKING NASONEX 50 MCG/ACT SUSPENSION 2 SPRAYS IN EACH NOSTRIL NASALLY ONCE A DAY NOT-TAKING FEXOFENADINE HCL 180 MG TABLET 1 TABLET ORALLY BID NOT-TAKING PROBIOTIC - TABLET DELAYED RELEASE ORALLY ONCE DAILY NOT-TAKING PROMETHAZINE HCL 25 MG TABLET 1 TABLET NEEDED ORALLY EVERY 12 HRS NOT-TAKING VITAMIN D-3 2000 UNITS ONCE A DAY NOT-TAKING CALCIUM/VITAMIN D/MINERALS 600-200 MG-UNIT TABLET 1 TABLET WITH FOOD ORALLY ONCE DAILY NOT-TAKING SKELAXIN 800 MG TABLET 1 TABLET ORALLY THREE TIMES A DAY NEEDED FOR SPASMS AND PAIN MDD3 NOT-TAKING DIFLUCAN 150 MG TABLET 1 TABLET ORALLY QOD NOT-TAKING POLYETHYLENE GLYCOL 3350 - POWDER 1 CAPFUL ORALLY MIX WITH 8 OZ OF LIQUID ONCE DAILY NOT-TAKING TYLENOL WITH CODEINE #3 300-30 MG TABLET 1 TABLET NEEDED FOR PAIN ORALLY EVERY 6 HRS MDD2 NOT-TAKING OXYCODONE-ACETAMINOPHEN 5-325 MG TABLET 1 TABLET NEEDED ORALLY EVERY 6 HRS (MDD:4) NOT-TAKING PREDNISONE 10 MG TABLET 1 TABLET FOR SEVEN DAYS, THEN 1/2 TABLET FOR SEVEN DAYS ORALLY ONCE A DAY MEDICATION LIST REVIEWED AND RECONCILED WITH THE PATIENT PAST MEDICAL HISTORY CELIAC DISEASE ASTHMA MILD INTERMITTENT DEPRESSION CERVICAL RADICULOPATHY BILATERAL DUPLICATE URETERS RSV ALLERGIES BETADINE: HIVES/BREATHING PROBLEM: ALLERGY FLEXERIL: HEART STOPS: ALLERGY NAPROXEN: ANAPHYLAXIS/HIVES: ALLERGY ASPIRIN: HIVES: ALLERGY MOTRIN: HIVES: ALLERGY COMPAZINE: UNKNOWN: ALLERGY MORPHINE SULFATE: HIVES: ALLERGY PAXIL: THROAT SWELLING: ALLERGY TRAMADOL: SEIZURES: ALLERGY WELLBUTRIN: HIVES: ALLERGY CYMBALTA: ANAPHYLAXIS: ALLERGY AMOXICILLIN: HIVES: ALLERGY IV DYE: BREATHING PROBLEMS: ALLERGY FENTANYL: THROAT SWELLING: ALLERGY METOCLOPRAMIDE HCL: SEIZURES: ALLERGY ZOLOFT: THROAT SWELLING: ALLERGY DILUTING SOLUTION FOR ALLERGY SHOTS: SWELLING: ALLERGY FLU SHOT: SWELLING: ALLERGY REVIEW OF SYSTEMS REVIEWED BY: PROVIDER: . CONSTITUTIONAL: ANY CHANGE IN YOUR MEDICAL CONDITION? NO . CHILLS NO . FEVER NO . INFECTION: DO YOU HAVE NEW INFECTIONS? NO . DO YOU HAVE HISTORY OF MRSA? NO . MUSCULOSKELETAL: ANY NEW PATTERNS OF PAIN OR NUMBNESS? NO . GASTROENTEROLOGY: ANY NEW CHANGE IN BOWEL CONTROL? NO . GENITOURINARY: ANY NEW CHANGE IN BLADDER CONTROL? NO . IS THERE A CHANCE YOU COULD BE ? NO . HEMATOLOGY/LYMPH: DO YOU TAKE ANY BLOOD THINNERS? (FOR EXAMPLE- COUMADIN, PLAVIX, AGGRENOX, PLATEL, PRADAXA, OR XARELTO) NO . WHEN WAS YOUR LAST DOSE? DATE: TIME: . NEUROLOGY: HAVE YOU FALLEN IN THE PAST 6 MONTHS? NO . ANY NEW EXTREMITY NUMBNESS OR WEAKNESS? NO . CARDIOLOGY: DO YOU HAVE A PACEMAKER OR DEFIBRILLATOR? NO . RESPIRATORY: HAVE YOU BEEN SICK IN THE PAST WEEK? NO . FEVER NO . FLU LIKE SYMPTOMS? NO . COUGH NO . INTEGUMENTARY: DO YOU HAVE ANY RASHES OR OPEN SORES? NO . ALLERGIC/IMMUNO: ARE YOU ALLERGIC TO SHELLFISH OR IV DYE? YES, IV DYE . ANY NEW ALLERGIES? NO . PSYCHIATRIC: DO YOU HAVE THOUGHTS OF HURTING YOURSELF OR SOMEONE ELSE? NO . ARE YOU ABUSED, NEGLECTED, OR IN AN UNSAFE ENVIRONMENT? NO . ENDOCRINOLOGY: ARE YOU DIABETIC? NO . OTHER: DO YOU NEED ANY PRESCRIPTIONS? YES . IF YES, PLEASE LIST: HYDROCODONE . ANY NEW PROBLEMS WITH YOUR MEDICATIONS? NO . WHEN DID YOU LAST EAT? 01/13/17 1900 . WHEN DID YOU LAST DRINK? WATER . WHAT DID YOU LAST DRINK? 01/14/17 0630 . NAME OF PERSON DRIVING YOU HOME? MOM--RADHA . DO YOU HAVE ANY OTHER QUESTIONS OR CONCERNS NO . VITAL SIGNS WT 200 LBS, HT 63 IN, BMI 35.42 INDEX, BP 130/77 MM HG, HR 80 /MIN, RR 18 /MIN, TEMP 97.2 F, OXYGEN SAT % 98%, NA INITIALS AW 0850, REVIEWED BY: ERASMO. ASSESSMENTS MYALGIA - M79.1 (PRIMARY) TREATMENT OTHERS REFILL NORCO TABLET, 5-325 MG, 1 TABLET NEEDED, ORALLY, Q8H PRN MDD3, 7 DAY(S), 21, REFILLS 0, NOTES: 3 WEEKS AGO PROCEDURES PN TRIGGER POINT INJECTION WITH STEROIDS PRE PROCEDURE DIAGNOSIS 1. MYALGIA 2. PAIN AT LEFT NECK AREA POST PROCEDURE DIAGNOSIS 1. MYALGIA 2. PAIN AT LEFT NECK AREA PROCEDURE TRIGGER POINT INJECTION AT LEFT NECK AREA SURGEON DR. ZEINA SCHMIDT ELECTRIC REFRIGERATOR SERVICER NONE ANESTHESIA LOCAL PRE PROCEDURE NOTE THE PATIENT HAS A HISTORY OF CHRONIC PAIN AT THE LEFT NECK AREA. I EVALUATE THE PATIENT AND REVIEWED THE CHART. THERE IS EVIDENCE OF BANDS OF TISSUE WITH RESTRICTION OF MOVEMENT AND PRESENCE OF TRIGGER POINT AT THE AFFECTED AREA. I WENT OVER THE RISKS, ALTERNATIVES, AND BENEFITS ASSOCIATED WITH THIS PROCEDURE. THE PATIENT WOULD LIKE TO PROCEED AND GIVE CONSENT TO PERFORMED THE PROCEDURE. THE PATIENT DENIES UNEXPLAINABLE WEIGHT LOSS, FEVER, CHILLS, OR NEW CHANGES IN URINARY OR BOWEL CONTROL DESCRIPTION OF PROCEDURE THE PATIENT WAS BROUGHT TO THE PROCEDURE ROOM AND PLACED IN THE SITTING POSITION. THE AREA WAS CLEANED WITH ALCOHOL. THE PROCEDURE WAS DONE USING ASEPTIC STERILE TECHNIQUE. I CHECKED LATERALITY AND THE LEVEL WHERE THE PROCEDURE WAS GOING TO BE PERFORMED WITH THE PATIENT AND THE SUPPORTING STAFF AT THE MOMENT OF THE TIME OUT IN THE PROCEDURE ROOM. USING A 25-GAUGE NEEDLE, TRIGGER POINTS WERE INJECTED AT THE LEFT NECK AREA WITH A TOTAL OF 40 ML OF BUPIVACAINE 0.25% AND KENALOG 40 MG. THERE WAS NO EVIDENCE OF BLOOD, PARESTHESIA OR CEREBROSPINAL FLUID DURING THE PROCEDURE. THE PATIENT WAS SENT TO THE RECOVERY ROOM. THE PATIENT WAS MOVING THE EXTREMITIES AND DOING WELL. THERE WAS NO COMPLICATION DURING THE PROCEDURE POST PROCEDURE NOTE THE PATIENT WILL BE SEEN IN A FOLLOW UP IN THE NEXT FEW WEEKS. INSTRUCTIONS WERE GIVEN, QUESTIONS WERE ANSWERED, AND THE PATIENT EXPRESSED UNDERSTANDING AND AGREES WITH THE PLAN. I, PATTY HERMOSILLO, DOCUMENTED THE ABOVE INFORMATION ACTING A SCRIBE FOR DR. SCHMIDT. I, DR. SCHMIDT, HAVE REVIEWED THE ABOVE DOCUMENT, SCRIBED BY PATTY HERMOSILLO, AND I VERIFY THAT IT IS ACCURATE PROCEDURE CODES 09227 INJ TRIGGER POINT / MUSCL DISPOSITION & COMMUNICATION FOLLOW UP 3 WEEKS ELECTRONICALLY SIGNED BY ZEINA SCHMIDT MD ON 02/02/2017 AT 11:19 AM EDT DISCLAIMER : THIS IS A VISIT SUMMARY EXTRACTED FROM THE [email or web address] CHART. IT IS NOT A COPY OF THE [employer] PROGRESS NOTE. YAN
== END ==
LOC: M PAIN 08:30
PROVIDERS: ATTEND Anesthesiology
DX: G89.29 Other chronic pain (principal); M54.2 Cervicalgia; M79.1 Myalgia; K90.0 Celiac disease; J45.41 Moderate persistent asthma with (acute) exacerbation; F32.9 Major depressive disorder, single episode, unspecified; E66.9 Obesity, unspecified; Z68.35 Body mass index [BMI] 35.0-35.9, adult; F41.9 Anxiety disorder, unspecified; Z88.3 Allergy status to other anti-infective agents; Z88.6 Allergy status to analgesic agent; Z88.5 Allergy status to narcotic agent; Z88.1 Allergy status to other antibiotic agents; Z91.041 Radiographic dye allergy status; Z88.8 Allergy status to other drugs, medicaments and biological substances; Z88.7 Allergy status to serum and vaccine; Z79.899 Other long term (current) drug therapy
CPT/HCPCS: 20552; J3301

== ENCOUNTER → 2017-02-16 | Outpatient (REF) | payer OTHER ==
[~2017-02-16] MED LIST changes: -BUPIVACAINE HCL 0.25% 10 ML VIAL As Ordered ONE; -BUPIVACAINE HCL 0.25% 30 ML VIAL As Ordered ONE; -TRIAMCINOLONE ACETONIDE SUSP 40 MG/ML VIAL (J3301) As Ordered ONE; -diazePAM 5 MG TAB As Ordered ONE; -oxyCODONE 5MG TAB As Ordered ONE
[2017-02-16 12:30] LABS: BASO % 0.5 % (0.0-1.0); EOS # 0.2 K/mm3 (0.0-0.50); EOS % 1.6 % (0.0-3.0); LARGE UNSTAINED CELL # 0.1 K/mm3 (0.0-0.4); LARGE UNSTAINED CELL % 1.2 % (0.0-4.0); LYMPH # 2.1 K/mm3 (1.5-4.5); LYMPH % 18.8 % (24.0-44.0); MEAN CORPUSCULAR HGB CONC 32.5 g/dl (32.0-36.5); MEAN CORPUSCULAR VOLUME 89.3 fl (80.0-96.0); MONO # 0.4 K/mm3 (0.0-0.8); MONO % 3.9 % (0.0-5.0); NEUTROPHILS # 7.6 K/mm3 (1.8-7.7); PLATELET COUNT, AUTOMATED 208 k/mm3 (150-450); RED CELL DISTRIBUTION WIDTH 13.8 % (11.5-14.5); WHITE BLOOD COUNT 10.3 K/mm3 (4.0-10.0)
[2017-02-16 12:37] LABS: ALBUMIN 3.7 GM/DL (3.2-5.2); ALBUMIN/GLOBULIN RATIO 1.03 (1.00-1.93); ALKALINE PHOSPHATASE 85 U/L (45-117); ALT/SGPT 47 U/L (12-78); ANION GAP 9 MEQ/L (8-16); AST/SGOT 15 U/L (15-37); BILIRUBIN,TOTAL 0.5 MG/DL (0.2-1.0); BLOOD UREA NITROGEN 7 MG/DL (7-18); CALCIUM LEVEL 9.2 MG/DL (8.5-10.1); CARBON DIOXIDE LEVEL 29 MEQ/L (21-32); CHLORIDE LEVEL 106 MEQ/L (98-107); GLOMERULAR FILTRATION RATE > 60.0 (>51); GLUCOSE, FASTING 97 MG/DL (70-105); POTASSIUM SERUM 4.2 MEQ/L (3.5-5.1); SODIUM LEVEL 144 MEQ/L (136-145); TOTAL PROTEIN 7.3 GM/DL (6.4-8.2)
== END ==
LOC: M SFHCLERA 10:45
PROVIDERS: ATTEND Family Medicine
DX: R19.7 Diarrhea, unspecified (principal)

== ENCOUNTER → 2017-02-24 | Outpatient (CLI) | payer OTHER ==
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
== END ==
LOC: M PAIN 13:45
PROVIDERS: ATTEND Nurse Practitioner Family
DX: G89.29 Other chronic pain (principal); M47.812 Spondylosis without myelopathy or radiculopathy, cervical region; M79.7 Fibromyalgia; J45.41 Moderate persistent asthma with (acute) exacerbation; F41.9 Anxiety disorder, unspecified; Z88.3 Allergy status to other anti-infective agents; Z88.8 Allergy status to other drugs, medicaments and biological substances; Z88.6 Allergy status to analgesic agent; Z88.5 Allergy status to narcotic agent; Z88.1 Allergy status to other antibiotic agents; Z91.041 Radiographic dye allergy status; Z88.7 Allergy status to serum and vaccine; Z91.018 Allergy to other foods; Z79.899 Other long term (current) drug therapy

== ENCOUNTER → 2017-03-12 | Outpatient (CLI) | payer OTHER ==
[~2017-03-12] MED LIST changes: +BUPIVACAINE HCL 0.25% 10 ML VIAL As Ordered ONE; +BUPIVACAINE HCL 0.25% 30 ML VIAL As Ordered ONE; +TRIAMCINOLONE ACETONIDE SUSP 40 MG/ML VIAL (J3301) As Ordered ONE; +diazePAM 5 MG TAB As Ordered ONE; +oxyCODONE 5MG TAB As Ordered ONE
--- NOTE | 2017-03-17 00:38 | ECWPNPC ---
PATIENT NAME: JOSE EDUARDO DICK : 1960 GENDER: FEMALE VISIT DATE: 03/12/2017 DISCHARGE DATE: 03/12/17 1124 VISIT LOCKED DATE TIME: PHYSICIAN: ZEINA SCHMIDT RESOURCE: ZEINA SCHMIDT REASON FOR APPOINTMENT 1. TPI HISTORY OF PRESENT ILLNESS HISTORY OF PRESENT ILLNESS: PAIN THE PATIENT DESCRIBES THE PAIN... FALL RISK SCREENING: SCREENING :NO FALLS IN THE PAST YEAR CURRENT MEDICATIONS TAKING VENTOLIN HFA 108 (90 BASE) MCG/ACT AEROSOL SOLUTION 2 PUFFS NEEDED INHALATION EVERY 4 HRS, NOTES: 03-09-172099 TAKING SINGULAIR 10 MG TABLET 1 TABLET IN THE EVENING ORALLY ONCE A DAY, NOTES: 03-11-172199 TAKING IPRATROPIUM-ALBUTEROL 0.5-2.5 (3) MG/3ML SOLUTION 3 ML INHALATION EVERY 4 HRS NEEDED, NOTES: 03-09-172099 TAKING BENADRYL 25 MG CAPSULE 1 CAPSULE NEEDED ORALLY NIGHTLY, NOTES: A COUPLE DAYS TAKING ZOFRAN ODT 4 MG TABLET DISINTEGRATING 1 TABLET ON THE TONGUE AND ALLOW TO DISSOLVE ORALLY EVERY 8 HRS, NOTES: NOT LATELY TAKING QVAR 80 MCG/ACT AEROSOL SOLUTION 2 PUFFS INHALATION TWICE A DAY, NOTES: 03-11-172099 TAKING NORCO 5-325 MG TABLET 1 TABLET NEEDED ORALLY Q8H PRN MDD3, NOTES: 03-09-172099 TAKING SKELAXIN 800 MG TABLET 1 TABLET ORALLY THREE TIMES A DAY NEEDED FOR SPASMS AND PAIN MDD3, NOTES: 03-11-17 1400 TAKING TYLENOL WITH CODEINE #3 300-30 MG TABLET 1 TABLET NEEDED ORALLY EVERY 8H PRN MDD3, NOTES: 03-11-17 1500 TAKING NASONEX 50 MCG/ACT SUSPENSION 2 SPRAYS IN EACH NOSTRIL NASALLY ONCE A DAY, NOTES: 03-11-17 1900 TAKING FEXOFENADINE HCL 180 MG TABLET 1 TABLET ORALLY BID, NOTES: 03-11-17 0900 TAKING PROBIOTIC - TABLET DELAYED RELEASE ORALLY ONCE DAILY, NOTES: 03-11-17 1700 TAKING VITAMIN D-3 2000 UNITS ONCE A DAY, NOTES: 03-11-17 1800 TAKING CALCIUM/VITAMIN D/MINERALS 600-200 MG-UNIT TABLET 1 TABLET WITH FOOD ORALLY ONCE DAILY, NOTES: 03-11-17 1200 TAKING AZELASTINE HCL 0.1 % SOLUTION 1 PUFF IN EACH NOSTRIL NASALLY TWICE A DAY, NOTES: 03-11-17 0900 NOT-TAKING PREDNISONE 20 MG TABLET 1 TABLET ORALLY ONCE A DAY NOT-TAKING PROMETHAZINE HCL 25 MG TABLET 1 TABLET NEEDED ORALLY EVERY 12 HRS NOT-TAKING DIFLUCAN 150 MG TABLET 1 TABLET ORALLY QOD NOT-TAKING POLYETHYLENE GLYCOL 3350 - POWDER 1 CAPFUL ORALLY MIX WITH 8 OZ OF LIQUID ONCE DAILY NOT-TAKING TYLENOL WITH CODEINE #3 300-30 MG TABLET 1 TABLET NEEDED FOR PAIN ORALLY EVERY 6 HRS MDD2 NOT-TAKING OXYCODONE-ACETAMINOPHEN 5-325 MG TABLET 1 TABLET NEEDED ORALLY EVERY 6 HRS (MDD:4) NOT-TAKING PREDNISONE 10 MG TABLET 1 TABLET FOR SEVEN DAYS, THEN 1/2 TABLET FOR SEVEN DAYS ORALLY ONCE A DAY MEDICATION LIST REVIEWED AND RECONCILED WITH THE PATIENT PAST MEDICAL HISTORY CELIAC DISEASE ASTHMA MILD INTERMITTENT DEPRESSION CERVICAL RADICULOPATHY BILATERAL DUPLICATE URETERS RSV ALLERGIES BETADINE: HIVES/BREATHING PROBLEM: ALLERGY FLEXERIL: HEART STOPS: ALLERGY NAPROXEN: ANAPHYLAXIS/HIVES: ALLERGY ASPIRIN: HIVES: ALLERGY MOTRIN: HIVES: ALLERGY COMPAZINE: UNKNOWN: ALLERGY MORPHINE SULFATE: HIVES: ALLERGY PAXIL: THROAT SWELLING: ALLERGY TRAMADOL: SEIZURES: ALLERGY WELLBUTRIN: HIVES: ALLERGY CYMBALTA: ANAPHYLAXIS: ALLERGY AMOXICILLIN: HIVES: ALLERGY IV DYE: BREATHING PROBLEMS: ALLERGY FENTANYL: THROAT SWELLING: ALLERGY METOCLOPRAMIDE HCL: SEIZURES: ALLERGY ZOLOFT: THROAT SWELLING: ALLERGY DILUTING SOLUTION FOR ALLERGY SHOTS: SWELLING: ALLERGY FLU SHOT: SWELLING: ALLERGY WATERMELON: BRIGHT RED SKIN, IBS FLARE UP, NAUSEA VOMITING: ALLERGY GABAPENTIN: CONFUSION: SIDE EFFECTS NSAIDS: ANAPHYLAXIS: SIDE EFFECTS REVIEW OF SYSTEMS REVIEWED BY: PROVIDER: . CONSTITUTIONAL: ANY CHANGE IN YOUR MEDICAL CONDITION? NO . CHILLS NO . FEVER NO . INFECTION: DO YOU HAVE NEW INFECTIONS? NO . DO YOU HAVE HISTORY OF MRSA? NO . MUSCULOSKELETAL: ANY NEW PATTERNS OF PAIN OR NUMBNESS? NO . GASTROENTEROLOGY: ANY NEW CHANGE IN BOWEL CONTROL? NO . GENITOURINARY: ANY NEW CHANGE IN BLADDER CONTROL? NO . IS THERE A CHANCE YOU COULD BE ? NO . HEMATOLOGY/LYMPH: DO YOU TAKE ANY BLOOD THINNERS? (FOR EXAMPLE- COUMADIN, PLAVIX, AGGRENOX, PLATEL, PRADAXA, OR XARELTO) NO . WHEN WAS YOUR LAST DOSE? DATE: TIME: . NEUROLOGY: HAVE YOU FALLEN IN THE PAST 6 MONTHS? NO . ANY NEW EXTREMITY NUMBNESS OR WEAKNESS? NO . CARDIOLOGY: DO YOU HAVE A PACEMAKER OR DEFIBRILLATOR? NO . RESPIRATORY: HAVE YOU BEEN SICK IN THE PAST WEEK? NO . FEVER NO . FLU LIKE SYMPTOMS? NO . COUGH NO . INTEGUMENTARY: DO YOU HAVE ANY RASHES OR OPEN SORES? NO . ALLERGIC/IMMUNO: ARE YOU ALLERGIC TO SHELLFISH OR IV DYE? YES . ANY NEW ALLERGIES? NO . PSYCHIATRIC: DO YOU HAVE THOUGHTS OF HURTING YOURSELF OR SOMEONE ELSE? NO . ARE YOU ABUSED, NEGLECTED, OR IN AN UNSAFE ENVIRONMENT? NO . ENDOCRINOLOGY: ARE YOU DIABETIC? NO . OTHER: DO YOU NEED ANY PRESCRIPTIONS? NO . IF YES, PLEASE LIST: ____ . ANY NEW PROBLEMS WITH YOUR MEDICATIONS? NO . WHEN DID YOU LAST EAT? ____LAST NIGHT . WHEN DID YOU LAST DRINK? ____THIS MORNING AT 0600 . WHAT DID YOU LAST DRINK? ____WATER . NAME OF PERSON DRIVING YOU HOME? ____MOTHER . DO YOU HAVE ANY OTHER QUESTIONS OR CONCERNS NO . VITAL SIGNS WT 200 LBS, HT 63 IN, BMI 35.42 INDEX, BP 139/91 MM HG, HR 90 /MIN, RR 18 /MIN, TEMP 98.0 F, OXYGEN SAT % 95%, SAFE IN ENV? (Y/N) YES, NA INITIALS AW 0958, REVIEWED BY: KG. ASSESSMENTS MYALGIA - M79.1 (PRIMARY) PROCEDURES PN TRIGGER POINT INJECTION WITH STEROIDS PRE PROCEDURE DIAGNOSIS 1. MYALGIA 2. PAIN AT LEFT NECK AREA POST PROCEDURE DIAGNOSIS 1. MYALGIA 2. PAIN AT LEFT NECK AREA PROCEDURE TRIGGER POINT INJECTION AT LEFT NECK AREA SURGEON DR. ZEINA SCHMIDT DISPLAY DEPARTMENT MANAGER NONE ANESTHESIA LOCAL PRE PROCEDURE NOTE THE PATIENT HAS A HISTORY OF CHRONIC PAIN AT THE LEFT NECK AREA. I EVALUATE THE PATIENT AND REVIEWED THE CHART. THERE IS EVIDENCE OF BANDS OF TISSUE WITH RESTRICTION OF MOVEMENT AND PRESENCE OF TRIGGER POINT AT THE AFFECTED AREA. I WENT OVER THE RISKS, ALTERNATIVES, AND BENEFITS ASSOCIATED WITH THIS PROCEDURE. THE PATIENT WOULD LIKE TO PROCEED AND GIVE CONSENT TO PERFORMED THE PROCEDURE. THE PATIENT DENIES UNEXPLAINABLE WEIGHT LOSS, FEVER, CHILLS, OR NEW CHANGES IN URINARY OR BOWEL CONTROL DESCRIPTION OF PROCEDURE THE PATIENT WAS BROUGHT TO THE PROCEDURE ROOM AND PLACED IN THE SITTING POSITION. THE AREA WAS CLEANED WITH ALCOHOL. THE PROCEDURE WAS DONE USING ASEPTIC STERILE TECHNIQUE. I CHECKED LATERALITY AND THE LEVEL WHERE THE PROCEDURE WAS GOING TO BE PERFORMED WITH THE PATIENT AND THE SUPPORTING STAFF AT THE MOMENT OF THE TIME OUT IN THE PROCEDURE ROOM. USING A 25-GAUGE NEEDLE, TRIGGER POINTS WERE INJECTED AT THE LEFT NECK AREA WITH A TOTAL OF 40 ML OF BUPIVACAINE 0.25% AND KENALOG 40 MG. THERE WAS NO EVIDENCE OF BLOOD, PARESTHESIA OR CEREBROSPINAL FLUID DURING THE PROCEDURE. THE PATIENT WAS SENT TO THE RECOVERY ROOM. THE PATIENT WAS MOVING THE EXTREMITIES AND DOING WELL. THERE WAS NO COMPLICATION DURING THE PROCEDURE POST PROCEDURE NOTE THE PATIENT WILL BE SEEN IN A FOLLOW UP IN THE NEXT FEW WEEKS. INSTRUCTIONS WERE GIVEN, QUESTIONS WERE ANSWERED, AND THE PATIENT EXPRESSED UNDERSTANDING AND AGREES WITH THE PLAN. I, PATTY HERMOSILLO, DOCUMENTED THE ABOVE INFORMATION ACTING A SCRIBE FOR DR. SCHMIDT. I HAVE REVIEWED THE ABOVE DOCUMENT, WRITTEN BY PATTY GARCIA AND I VERIFY THAT IT IS ACCURATE PROCEDURE CODES 43829 INJ TRIGGER POINT 06/09 [facility] [place] [facility] COMMUNICATION FOLLOW UP 3 WEEKS ELECTRONICALLY SIGNED BY ZEINA SCHMIDT MD ON 03/16/2017 AT 03:00 PM EDT DISCLAIMER : THIS IS A VISIT SUMMARY EXTRACTED FROM THE [employer] CHART. IT IS NOT A COPY OF THE [employer] PROGRESS NOTE. YAN
== END ==
LOC: M PAIN 10:00
PROVIDERS: ATTEND Anesthesiology
DX: G89.29 Other chronic pain (principal); M54.2 Cervicalgia; M79.1 Myalgia; J45.20 Mild intermittent asthma, uncomplicated; F32.9 Major depressive disorder, single episode, unspecified; F41.9 Anxiety disorder, unspecified; Z88.1 Allergy status to other antibiotic agents; Z88.3 Allergy status to other anti-infective agents; Z88.5 Allergy status to narcotic agent; Z88.6 Allergy status to analgesic agent; Z88.7 Allergy status to serum and vaccine; Z91.041 Radiographic dye allergy status; Z91.018 Allergy to other foods; Z79.891 Long term (current) use of opiate analgesic; Z79.899 Other long term (current) drug therapy
CPT/HCPCS: 20552; J3301

== ENCOUNTER → 2017-05-12 | Outpatient (CLI) | payer OTHER, MEDICAID ==
[~2017-05-12] MED LIST changes: -BUPIVACAINE HCL 0.25% 10 ML VIAL As Ordered ONE; -BUPIVACAINE HCL 0.25% 30 ML VIAL As Ordered ONE; -TRIAMCINOLONE ACETONIDE SUSP 40 MG/ML VIAL (J3301) As Ordered ONE; -diazePAM 5 MG TAB As Ordered ONE; -oxyCODONE 5MG TAB As Ordered ONE
--- NOTE | 2017-05-12 14:53 | REP ---
LEFT KNEE, FIVE VIEWS: HISTORY: Remote patellar fracture. COMPARISON: 10/08/2015. There is no acute fracture or dislocation. The joint spaces are normal in appearance. The osteophyte is present on the inferior patella. IMPRESSION: There is no acute fracture or dislocation. Signed by Garry Tobar MD 05/12/2017 02:56 P
== END ==
LOC: M LRY 13:33
PROVIDERS: ATTEND Physician Assistant
DX: S89.92XA Unspecified injury of left lower leg, initial encounter (principal); X58.XXXA Exposure to other specified factors, initial encounter; Y92.89 Other specified places as the place of occurrence of the external cause; Y93.89 Activity, other specified; Y99.8 Other external cause status

== ENCOUNTER → 2017-09-14 | Outpatient (CLI) | payer OTHER | END | disposition home or self-care (01) | LOC: M PAIN 09:00 | DX: G89.29 Other chronic pain (principal); M79.7 Fibromyalgia; M47.812 Spondylosis without myelopathy or radiculopathy, cervical region; J45.901 Unspecified asthma with (acute) exacerbation; F33.9 Major depressive disorder, recurrent, unspecified; K90.0 Celiac disease; M54.12 Radiculopathy, cervical region; Z79.899 Other long term (current) drug therapy; Z88.0 Allergy status to penicillin; Z88.5 Allergy status to narcotic agent; Z88.6 Allergy status to analgesic agent; Z88.8 Allergy status to other drugs, medicaments and biological substances; Z91.018 Allergy to other foods; Z91.041 Radiographic dye allergy status | CPT/HCPCS: G0463 ==

== ENCOUNTER → 2017-09-18 | Outpatient (CLI) | payer OTHER ==
[~2017-09-18] MED LIST changes: -ALBU17IN INH; -BIOT2500 PO; +BUPIVACAINE HCL 0.25% 10 ML VIAL As Ordered; +BUPIVACAINE HCL 0.25% 30 ML VIAL As Ordered; -CALCTAB29 PO; -FEXO180T58 PO; -IPRASOL4 INH; -MOME50SP; -MULT1TAB10 PO; +ONDANSETRON 4 MG ORAL DISINTEGRATING TAB (Q0162 PER 1MG) As Ordered; -OXYC-517 PO; -OXYC1TAB23 PO; -PERC5TAB12 PO; -PROBCAP4 PO; -PROM50TA4 PO; -QVAR1AER2 INH; -SING10TA32 PO; -SKEL800T97 PO; +TRIAMCINOLONE ACETONIDE SUSP 40 MG/ML VIAL (J3301) As Ordered; -VITA100067 PO; +diazePAM 5 MG TAB As Ordered; +oxyCODONE 5MG TAB As Ordered
== END ==
LOC: M PAIN 09:15
DX: G89.29 Other chronic pain (principal); M79.1 Myalgia; J45.20 Mild intermittent asthma, uncomplicated; F32.9 Major depressive disorder, single episode, unspecified; M54.12 Radiculopathy, cervical region; K90.0 Celiac disease; Z79.891 Long term (current) use of opiate analgesic; Z79.899 Other long term (current) drug therapy; Z88.6 Allergy status to analgesic agent; Z88.5 Allergy status to narcotic agent; Z88.0 Allergy status to penicillin; Z88.8 Allergy status to other drugs, medicaments and biological substances; Z91.041 Radiographic dye allergy status; Z91.018 Allergy to other foods
CPT/HCPCS: J3301

== ENCOUNTER 2017-11-13 10:47 | Outpatient (RCR) | payer OTHER | END 2017-12-05 | LOC: M PT 10:47 | DX: Z47.89 Encounter for other orthopedic aftercare (principal); M70.62 Trochanteric bursitis, left hip | CPT/HCPCS: 97010 ==

== ENCOUNTER → 2017-11-24 | Outpatient (CLI) | payer OTHER | LOC: M PAIN 15:15 | DX: M79.7 Fibromyalgia (principal); M47.812 Spondylosis without myelopathy or radiculopathy, cervical region; J45.909 Unspecified asthma, uncomplicated; Z79.891 Long term (current) use of opiate analgesic; Z79.899 Other long term (current) drug therapy; Z88.8 Allergy status to other drugs, medicaments and biological substances; Z91.041 Radiographic dye allergy status; Z88.7 Allergy status to serum and vaccine; Z91.018 Allergy to other foods | CPT/HCPCS: G0463 ==

== ENCOUNTER 2017-12-01 17:39 | Emergency (ER) | payer OTHER ==
[2017-12-01 19:48] LABS: HEMATOCRIT 42.8 % (36.0-47.0); HEMOGLOBIN 13.9 g/dl (12.0-15.5); MEAN CORPUSCULAR HEMOGLOBIN 27.7 pg (27.0-33.0); MEAN CORPUSCULAR HGB CONC 32.5 g/dl (32.0-36.5); MEAN CORPUSCULAR VOLUME 85.3 fl (80.0-96.0); PLATELET COUNT, AUTOMATED 224 10^3/uL (150-450); RED BLOOD COUNT 5.02 10^6/uL (4.00-5.40); RED CELL DISTRIBUTION WIDTH 14.8 % (11.5-14.5); WHITE BLOOD COUNT 9.7 10^3/uL (4.0-10.0)
[2017-12-01 20:12] LABS: ALBUMIN 3.7 GM/DL (3.2-5.2); ALBUMIN/GLOBULIN RATIO 0.95 (1.00-1.93); ALKALINE PHOSPHATASE 89 U/L (45-117); ALT/SGPT 35 U/L (12-78); ANION GAP 5 MEQ/L (8-16); AST/SGOT 12 U/L (7-37); BILIRUBIN,DIRECT < 0.1 MG/DL (0.0-0.2); BILIRUBIN,TOTAL 0.3 MG/DL (0.2-1.0); BLOOD UREA NITROGEN 12 MG/DL (7-18); CARBON DIOXIDE LEVEL 31 MEQ/L (21-32); CHLORIDE LEVEL 105 MEQ/L (98-107); CREATININE FOR GFR 0.92 MG/DL (0.55-1.30); GLOMERULAR FILTRATION RATE > 60.0 (>51); GLUCOSE, FASTING 88 MG/DL (70-100); LIPASE 125 U/L (73-393); POTASSIUM SERUM 3.8 MEQ/L (3.5-5.1); SODIUM LEVEL 141 MEQ/L (136-145); TOTAL PROTEIN 7.6 GM/DL (6.4-8.2)
== END 2017-12-01 20:44 | disposition home or self-care (01) ==
LOC: M ED 17:39
DX: R53.83 Other fatigue (principal); M79.1 Myalgia; T45.1X5A Adverse effect of antineoplastic and immunosuppressive drugs, initial encounter; M19.90 Unspecified osteoarthritis, unspecified site; K58.9 Irritable bowel syndrome, unspecified; J45.909 Unspecified asthma, uncomplicated; K57.92 Diverticulitis of intestine, part unspecified, without perforation or abscess without bleeding; F32.9 Major depressive disorder, single episode, unspecified; Q63.8 Other specified congenital malformations of kidney; Z86.73 Personal history of transient ischemic attack (TIA), and cerebral infarction without residual deficits; Z88.0 Allergy status to penicillin; Z88.8 Allergy status to other drugs, medicaments and biological substances; Z88.1 Allergy status to other antibiotic agents; Z88.6 Allergy status to analgesic agent; Z88.5 Allergy status to narcotic agent; Z91.02 Food additives allergy status; Z79.899 Other long term (current) drug therapy
CPT/HCPCS: 83690

== ENCOUNTER → 2017-12-04 | Outpatient (CLI) | payer OTHER | LOC: M PAIN 10:30 | DX: M53.3 Sacrococcygeal disorders, not elsewhere classified (principal); G89.29 Other chronic pain; K90.0 Celiac disease; J45.20 Mild intermittent asthma, uncomplicated; F32.9 Major depressive disorder, single episode, unspecified; Z79.899 Other long term (current) drug therapy; Z88.1 Allergy status to other antibiotic agents; Z88.5 Allergy status to narcotic agent; Z88.6 Allergy status to analgesic agent; Z88.7 Allergy status to serum and vaccine; Z88.8 Allergy status to other drugs, medicaments and biological substances; Z91.041 Radiographic dye allergy status; Z91.018 Allergy to other foods | CPT/HCPCS: G0463 ==

== ENCOUNTER 2017-12-08 11:40 | Outpatient (RCR) | payer OTHER | END 2018-01-05 | LOC: M PT 12-10 10:10 | DX: Z51.89 Encounter for other specified aftercare (principal); M70.62 Trochanteric bursitis, left hip ==

== ENCOUNTER → 2017-12-23 | Outpatient (CLI) | payer OTHER ==
[~2017-12-23] MED LIST changes: -BUPIVACAINE HCL 0.25% 10 ML VIAL As Ordered; +ISOVUE-M 300 61% 15ML VIAL (Q9967) As Ordered; +LIDOCAINE 1% SDV INJ 30 ML VIAL As Ordered; -ONDANSETRON 4 MG ORAL DISINTEGRATING TAB (Q0162 PER 1MG) As Ordered; +ONDANSETRON 4MG/2ML VIAL (J2405) As Ordered; +diphenhydrAMINE 25 MG CAP As Ordered; +diphenhydrAMINE INJ 50MG/ML VIAL (J1200) As Ordered
== END ==
LOC: M PAIN 11:30
DX: G89.29 Other chronic pain (principal); M46.1 Sacroiliitis, not elsewhere classified; J45.20 Mild intermittent asthma, uncomplicated; F32.9 Major depressive disorder, single episode, unspecified; Z79.899 Other long term (current) drug therapy; Z88.1 Allergy status to other antibiotic agents; Z88.5 Allergy status to narcotic agent; Z88.6 Allergy status to analgesic agent; Z88.8 Allergy status to other drugs, medicaments and biological substances; Z88.7 Allergy status to serum and vaccine; Z91.041 Radiographic dye allergy status; Z91.018 Allergy to other foods; Z87.19 Personal history of other diseases of the digestive system
CPT/HCPCS: J3301

== ENCOUNTER → 2018-01-06 | Outpatient (CLI) | payer OTHER | LOC: M PAIN 11:15 | DX: M53.3 Sacrococcygeal disorders, not elsewhere classified (principal); M79.7 Fibromyalgia; J45.909 Unspecified asthma, uncomplicated; F32.9 Major depressive disorder, single episode, unspecified; K90.0 Celiac disease; Z79.899 Other long term (current) drug therapy; Z88.1 Allergy status to other antibiotic agents; Z88.5 Allergy status to narcotic agent; Z88.6 Allergy status to analgesic agent; Z88.7 Allergy status to serum and vaccine; Z88.8 Allergy status to other drugs, medicaments and biological substances; Z91.041 Radiographic dye allergy status; Z91.018 Allergy to other foods | CPT/HCPCS: G0463 ==

== ENCOUNTER → 2018-03-25 | Outpatient (CLI) | payer OTHER | LOC: M RAD 17:12 | DX: M12.9 Arthropathy, unspecified (principal); M54.42 Lumbago with sciatica, left side | CPT/HCPCS: 72148 ==

== ENCOUNTER → 2018-04-01 | Outpatient (CLI) | payer OTHER | LOC: M PAIN 15:00 | DX: M79.7 Fibromyalgia (principal); M53.3 Sacrococcygeal disorders, not elsewhere classified; J45.20 Mild intermittent asthma, uncomplicated; F32.9 Major depressive disorder, single episode, unspecified; Z79.899 Other long term (current) drug therapy; Z88.1 Allergy status to other antibiotic agents; Z88.5 Allergy status to narcotic agent; Z88.6 Allergy status to analgesic agent; Z88.7 Allergy status to serum and vaccine; Z88.8 Allergy status to other drugs, medicaments and biological substances; Z91.018 Allergy to other foods; Z91.041 Radiographic dye allergy status; Z87.19 Personal history of other diseases of the digestive system | CPT/HCPCS: G0463 ==

== ENCOUNTER → 2018-04-21 | Outpatient (CLI) | payer OTHER ==
[~2018-04-21] MED LIST changes: -ISOVUE-M 300 61% 15ML VIAL (Q9967) As Ordered; -diphenhydrAMINE INJ 50MG/ML VIAL (J1200) As Ordered
== END ==
LOC: M PAIN 09:30
DX: G89.29 Other chronic pain (principal); M46.1 Sacroiliitis, not elsewhere classified; M53.88 Other specified dorsopathies, sacral and sacrococcygeal region; J45.20 Mild intermittent asthma, uncomplicated; F32.9 Major depressive disorder, single episode, unspecified; Z79.899 Other long term (current) drug therapy; Z88.1 Allergy status to other antibiotic agents; Z88.5 Allergy status to narcotic agent; Z88.6 Allergy status to analgesic agent; Z88.7 Allergy status to serum and vaccine; Z88.8 Allergy status to other drugs, medicaments and biological substances; Z91.041 Radiographic dye allergy status; Z91.018 Allergy to other foods; Z87.19 Personal history of other diseases of the digestive system
CPT/HCPCS: J3301

== ENCOUNTER → 2018-05-08 | Outpatient (CLI) | payer OTHER | LOC: M LRY 14:12 | DX: R05 Cough (principal) | CPT/HCPCS: 71046 ==

== ENCOUNTER → 2018-07-08 | Outpatient (CLI) | payer BC, OTHER ==
[~2018-07-08] MED LIST changes: +ALBU17IN INH; +BIOT2500 PO; -BUPIVACAINE HCL 0.25% 30 ML VIAL As Ordered; +CALCTAB29 PO; +FEXO180T58 PO; +FOLI1TAB11 PO; +IPRA0.00 INH; -LIDOCAINE 1% SDV INJ 30 ML VIAL As Ordered; +METH5INJ SUBQ; +MOME50SP; +MULT1TAB10 PO; -ONDANSETRON 4MG/2ML VIAL (J2405) As Ordered; +OXYC-517 PO; +OXYC1TAB23 PO; +PERC5TAB12 PO; +PROBCAP4 PO; +PROM50TA4 PO; +QVAR80AE10 INH; +SING10TA32 PO; +SKEL800T97 PO; -TRIAMCINOLONE ACETONIDE SUSP 40 MG/ML VIAL (J3301) As Ordered; +VITA100067 PO; +ZOFR4TAB14 PO; -diazePAM 5 MG TAB As Ordered; -diphenhydrAMINE 25 MG CAP As Ordered; -oxyCODONE 5MG TAB As Ordered
--- NOTE | 2018-07-08 09:23 | REP ---
Clinical: Trauma. Contusion. Technique: Frontal view of the chest with multiple views of the right hemithorax. Findings: Frontal view of the chest demonstrates no acute cardiopulmonary process. Multiple views of the right hemithorax demonstrates no obvious acute rib fracture or pathology. Impression: Normal right rib series Electronically Signed by Curtis Yu MD 07/08/2018 09:14 A
== END ==
LOC: M WUC 08:54
PROVIDERS: ATTEND Physician Assistant
DX: S20.221A Contusion of right back wall of thorax, initial encounter (principal); W18.30XA Fall on same level, unspecified, initial encounter; Y92.009 Unspecified place in unspecified non-institutional (private) residence as the place of occurrence of the external cause

== ENCOUNTER → 2018-07-09 | Outpatient (CLI) | payer MEDICARE ==
--- NOTE | 2018-07-19 00:30 | ECWPNPC ---
PATIENT NAME: JOSE EDUARDO DICK : 1960 GENDER: FEMALE VISIT DATE: 07/09/2018 DISCHARGE DATE: 07/09/18 0957 VISIT LOCKED DATE TIME: PHYSICIAN: SONJA DÍAZ RESOURCE: SONJA DÍAZ REASON FOR APPOINTMENT 1. POST PROC-SIJ HISTORY OF PRESENT ILLNESS HISTORY OF PRESENT ILLNESS: HAD LEFT SIJ 04/21/18.OVERALL VERY HELPFUL.OVER THE PAST TWO WEEKS PAIN HAS ESCALATED.RATING PAIN VAS 8/10.PAIN IS LOCATED IN LEFT LOW BACK.PAIN HAS ESCALATED OVER THE PAST 5 DAYS AFTER A FALL ONE WEEK AGO. PAIN THE PATIENT DESCRIBES THE PAIN... FALL RISK SCREENING: SCREENING :NO FALLS IN THE PAST YEAR CURRENT MEDICATIONS TAKING SINGULAIR 10 MG TABLET 1 TABLET IN THE EVENING ORALLY ONCE A DAY TAKING IPRATROPIUM-ALBUTEROL 0.5-2.5 (3) MG/3ML SOLUTION 3 ML INHALATION EVERY 4 HRS NEEDED TAKING BENADRYL 25 MG CAPSULE 1 CAPSULE NEEDED ORALLY NIGHTLY TAKING NASONEX 50 MCG/ACT SUSPENSION 2 SPRAYS IN EACH NOSTRIL NASALLY ONCE A DAY TAKING FEXOFENADINE HCL 180 MG TABLET 1 TABLET ORALLY ONCE A DAY TAKING PROBIOTIC - TABLET DELAYED RELEASE ORALLY ONCE DAILY TAKING VITAMIN D-3 2000 UNITS ONCE A DAY TAKING BIOTIN W/ VITAMINS C & E 1250-7.5-7.5 MCG-MG-UNT TABLET CHEWABLE ORALLY DAILY TAKING DAPSONE 25 MG TABLET 1 TABLET ORALLY ONCE A DAY NEEDED TAKING MULTIVITAMIN ADULTS - TABLET ORALLY DAILY TAKING QVAR 80 MCG/ACT AEROSOL SOLUTION 2 PUFFS INHALATION TWICE A DAY TAKING VENTOLIN HFA 108 (90 BASE) MCG/ACT AEROSOL SOLUTION 2 PUFFS NEEDED INHALATION EVERY 6 HRS TAKING CALCIUM/VITAMIN D/MINERALS 600-200 MG-UNIT TABLET 1 TABLET WITH FOOD ORALLY ONCE DAILY TAKING ZOFRAN ODT 4 MG TABLET DISINTEGRATING 1 TABLET ON THE TONGUE AND ALLOW TO DISSOLVE ORALLY EVERY 8 HRS PRN TAKING METAXALONE 800 MG TABLET 1 TABLET ORALLY BEFORE BEDTIME PRN TAKING TYLENOL WITH CODEINE #3 300-30 MG TABLET 1 TABLET NEEDED ORALLY 1 PO QHS PRN MDD1 TAKING NORCO 5-325 MG TABLET 1 TABLET NEEDED ORALLY Q8H PRN MDD3 NOT-TAKING PREDNISONE 20 MG TABLET 1 TABLET ORALLY BID NOT-TAKING MUCINEX DM 30-600 MG TABLET EXTENDED RELEASE 12 HOUR 1 TABLET NEEDED ORALLY EVERY 12 HRS NOT-TAKING NETI POT SINUS WASH 2300-700 MG KIT DIRECTED NASALLY BID DISCONTINUED NYSTATIN 399935 UNIT/ML SUSPENSION 4 ML MOUTH/THROAT FOUR TIMES A DAY DISCONTINUED PREDNISONE 10 MG TABLET TAKE 5 TABS QD X 2 DAYS, 4 TABS QD X 2 DAYS, 3 TABS QD X 2 DAYS, 2 TABS QD X 2 DAYS, 1 TAB QD X 2 DA ORALLY DAILY DISCONTINUED TESSALON PERLES 100 MG CAPSULE 1 CAPSULE NEEDED ORALLY THREE TIMES A DAY MEDICATION LIST REVIEWED AND RECONCILED WITH THE PATIENT PAST MEDICAL HISTORY CELIAC DISEASE ASTHMA MILD INTERMITTENT DEPRESSION CERVICAL RADICULOPATHY BILATERAL DUPLICATE URETERS RSV ALLERGIES BETADINE: HIVES/BREATHING PROBLEM: ALLERGY FLEXERIL: HEART STOPS: ALLERGY NAPROXEN: ANAPHYLAXIS/HIVES: ALLERGY ASPIRIN: HIVES: ALLERGY MOTRIN: ANAPHYLAXIS/HIVES: ALLERGY COMPAZINE: UNKNOWN: ALLERGY MORPHINE SULFATE: HIVES: ALLERGY PAXIL: THROAT SWELLING: ALLERGY TRAMADOL: SEIZURES: ALLERGY WELLBUTRIN: HIVES: ALLERGY CYMBALTA: ANAPHYLAXIS: ALLERGY AMOXICILLIN: HIVES: ALLERGY FENTANYL: THROAT SWELLING: ALLERGY METOCLOPRAMIDE HCL: SEIZURES: ALLERGY ZOLOFT: THROAT SWELLING: ALLERGY DILUTING SOLUTION FOR ALLERGY SHOTS: SWELLING: ALLERGY WATERMELON: BRIGHT RED SKIN, IBS FLARE UP, NAUSEA VOMITING: ALLERGY NSAIDS: ANAPHYLAXIS: SIDE EFFECTS METHOTREXATE: SORES IN MOUTH, BODY ACHES; LOWER RBC'S COUNT: SIDE EFFECTS FLU VACCINE: SWELLING AT SITE: SIDE EFFECTS INFLUENZA VAC SPLIT QUAD: SWELLING AT SITE: SIDE EFFECTS IV CONTRAST DYE GABAPENTIN: CONFUSION: SIDE EFFECTS WATERMELON FLAVOR: IBS FLARE-UP; REDDENED SKIN: ALLERGY SURGICAL HISTORY TONSILECTOMY 1974 HYSTERECTOMY 1990 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 2 SON(S) , 1 DAUGHTER(S) . DAD- A. FIB, DEMENTIA, ARTHRITISSISTER- THYROID DISEASESISTER - CELIAC, SUICIDEDAUGHTER - A FIBYOUNGEST SON - SEVERE ASTHMA, NIGHTTIME EPILEPSY. SOCIAL HISTORY GENERAL: TOBACCO USE ARE YOU A:NONSMOKER VAPORNO E-CIGARETTENO BMI CARE GOAL FOLLOW-UP ABOVE NORMAL BMI FOLLOW-UPDIETARY MANAGEMENT EDUCATION, GUIDANCE, AND COUNSELING ALCOHOL SCREENING DID YOU HAVE A DRINK CONTAINING ALCOHOL IN THE PAST YEAR?NO POINTS0 INTERPRETATIONNEGATIVE RECREATIONAL DRUG USE DRUG USE?NO CAFFEINE CAFFEINE USE?YES HOW OFTEN AND HOW MUCH? 16 OZ PEPSI PER DAY HIV / HEP-C SCREENING HIV TEST OFFERED TO PATIENT:YES DATE OFFERED:04/06/2018 TEST ACCEPTED:NO REASON:PATIENT DECLINED BROCHURE PROVIDED TO PATIENTYES HEP-C TEST OFFERED TO PATIENT:YES DATE OFFERED:04/06/2018 TEST ACCEPTED:NO REASON:PATIENT DECLINED BUDDHIST [id number] SIKHISM LANGUAGE EGYPTIAN. LEARNING BARRIERS / SPECIAL NEEDS BARRIERS TO LEARNING?NO HEARING IMPAIRED?NO VISION IMPAIRED?YES :CORRECTIVE LENSES GLASSES COGNITIVELY IMPAIRED?NO READINESS TO LEARN?YES LEARNING PREFERENCES?NO LEARNING CAPABILITIES PRESENT?YES EMOTIONAL BARRIERS?NO SPECIAL DEVICES?NO GUIDE WINDER NEEDED?NO OCCUPATION: UNEMPLOYED. DIET: GLUTEN FREE. EXERCISE: WALKS. MARITAL STATUS: . OTHERS AT HOME: FATHER, MOTHER. NEW PATIENT PAIN DIARY FROM 0-10, WHAT LEVEL IS YOUR PAIN TODAY?6 PAIN CLINIC PFS, CLERGY, PUBLIC HEALTH REFERRALS PFS REFERRAL NEEDED?NO CLERGY REFERRAL NEEDED?NO PUBLIC HEALTH REFERRAL NEEDED?NO HAS THE PATIENT BEEN EDUCATED REGARDING HIS/HER PLAN OF CARE?YES HAS THE PATIENT BEEN EDUCATED REGARDING PAIN, THE RISK FOR PAIN, THE IMPORTANCE OF EFFECTIVE PAIN MANAGEMENT, AND THE PAIN ASSESSMENT PROCESS?YES ADVANCE DIRECTIVE ADVANCE DIRECTIVE DISCUSSED WITH PATIENT:YES HCP - LEIGHANN DICK (); ADVISED PATIENT TO BRING TO NECT APPOINTMENT. REVIEWED WITH PATIENT 04/21/18 0945 JS. HOSPITALIZATION/MAJOR DIAGNOSTIC PROCEDURE ACUTE DIVERTICULITIS 06/23 SURGERY RELATED PNEUMONIA / BRONCHIATUS / FLU (2 DAY STAY EACH TIME) 06/2017 REVIEW OF SYSTEMS REVIEWED BY: PROVIDER: SONJA APARICIO . CONSTITUTIONAL: ANY CHANGE IN YOUR MEDICAL CONDITION? NO . CHILLS NO . FEVER NO . INFECTION: DO YOU HAVE NEW INFECTIONS? NO . DO YOU HAVE HISTORY OF MRSA? NO . MUSCULOSKELETAL: ANY NEW PATTERNS OF PAIN OR NUMBNESS? NO . GASTROENTEROLOGY: ANY NEW CHANGE IN BOWEL CONTROL? NO . GENITOURINARY: ANY NEW CHANGE IN BLADDER CONTROL? NO . IS THERE A CHANCE YOU COULD BE ? NO . HEMATOLOGY/LYMPH: DO YOU TAKE ANY BLOOD THINNERS? (FOR EXAMPLE- COUMADIN, PLAVIX, AGGRENOX, PLATEL, PRADAXA, OR XARELTO) NO . WHEN WAS YOUR LAST DOSE? DATE: TIME: . NEUROLOGY: HAVE YOU FALLEN IN THE PAST 12 MONTHS? NO . ANY NEW EXTREMITY NUMBNESS OR WEAKNESS? NO . CARDIOLOGY: DO YOU HAVE A PACEMAKER OR DEFIBRILLATOR? NO . RESPIRATORY: HAVE YOU BEEN SICK IN THE PAST WEEK? NO . FEVER NO . FLU LIKE SYMPTOMS? NO . COUGH NO . INTEGUMENTARY: DO YOU HAVE ANY RASHES OR OPEN SORES? NO . ALLERGIC/IMMUNO: ARE YOU ALLERGIC TO IV DYE? YES . ANY NEW ALLERGIES? NO . PSYCHIATRIC: DO YOU HAVE THOUGHTS OF HURTING YOURSELF OR SOMEONE ELSE? NO . ARE YOU ABUSED, NEGLECTED, OR IN AN UNSAFE ENVIRONMENT? NO . ENDOCRINOLOGY: ARE YOU DIABETIC? NO . OTHER: DO YOU NEED ANY PRESCRIPTIONS? YES . IF YES, PLEASE LIST: TYLENOL #3, SKELAXIN . ANY NEW PROBLEMS WITH YOUR MEDICATIONS? NO . WHEN DID YOU LAST EAT? ____ . WHEN DID YOU LAST DRINK? ____ . WHAT DID YOU LAST DRINK? ____ . NAME OF PERSON DRIVING YOU HOME? ____ . DO YOU HAVE ANY OTHER QUESTIONS OR CONCERNS YES - WOULD IT BE BETTER TO DO ANOTHER BLOCK OR WAIT UNTIL PAIN INCREASES? . VITAL SIGNS WT 204.6 LBS, HT 63 IN, BMI 36.24 INDEX, BP 153/92 MM HG, HR 80 /MIN, RR 18 /MIN, TEMP 96.5 F, OXYGEN SAT % 99%, NA INITIALS SC 08:52, REVIEWED BY: MAR. EXAMINATION GENERAL EXAMINATION: GENERAL APPEARANCE:ALERT. PSYCHAFFECT NORMAL. LUNGS:LUNG WARREN ARE CLEAR TO AUSCULTATION BILATERALLY. GOOD MOVEMENT OF AIR. HEART:S1, S2 IN A REGULAR RATE AND RHYTHM. NO SIGNIFICANT MURMURS, RUBS OR GALLOPS NOTED. LUMBAR SACRAL SPINESPECIFIC POINT TENDERNESS OVER LEFT SIJ , MUSCLE STRENGTH TESTING 5/5 BILATERAL LOWER EXTREMITIES. ASSESSMENTS FIBROMYALGIA - M79.7 (PRIMARY) SACROILIITIS - M46.1 TREATMENT FIBROMYALGIA REFILL TYLENOL WITH CODEINE #3 TABLET, 300-30 MG, 1 TABLET NEEDED, ORALLY, 1 PO QHS PRN MDD1, 30 DAY(S), 30, REFILLS 0 REFILL METAXALONE TABLET, 800 MG, 1 TABLET, ORALLY, BEFORE BEDTIME PRN, 30 DAY(S), 30, REFILLS 2 NOTES: LEFT SIJ, ISTOP REGISTRY REVIEWED AND DEMONSTRATES COMPLLIANCE. BRINGS IN MEDICATIONS WHICH IS APPROPRIATE FOR WHAT WAS DISPENSED. RECENT URINE TOXICOLOGY REVIEWED. NO UNAUTHORIZED MEDICATIONS. NO ILLICIT SUBSTANCES AND PRESCRIBED MEDICATIONS WERE PRESENT. , RISKS AND BENEFITS OF NARCOTIC/OPIOD MEDICATIONS WERE REVIEWED WITH PATIENT - THIS INCLUDES BUT IS NOT LIMITED TO RISK OF DEPENDANCE/DEVELOPMENT OF ADDICTION, MOOD DISTURBANCE AND DEPRESSION, OSTEOPOROSIS, HORMONAL AND LABIDAL CHANGES, RESPIRATORY DEPRESSION AND . PATIENT IS ADVISED NOT TO DRIVE OR DRINK ALCOHOL WHILE ON THESE MEDICATIONS. PREVENTIVE MEDICINE PAIN CLINIC TEACHING: PROCEDURE TEACHING PRE-PROCEDURE INSTRUCTIONS REVIEWED WITH PT. VERBALIZED UNDERSTANDING.. PROCEDURE CODES FA211 ESTABILISHED PATIENT [facility] CHARGE DISPOSITION & COMMUNICATION FOLLOW UP POST (REASON: LEFT SIJ) ELECTRONICALLY SIGNED BY MARKUS KENNY ON 07/18/2018 AT 03:50 PM EST DISCLAIMER : THIS IS A VISIT SUMMARY EXTRACTED FROM THE [employer] CHART. IT IS NOT A COPY OF THE [employer] PROGRESS NOTE. YAN
== END ==
LOC: M PAIN 09:45
PROVIDERS: ATTEND Nurse Practitioner Family
DX: M79.7 Fibromyalgia (principal); M46.1 Sacroiliitis, not elsewhere classified; K90.0 Celiac disease; J45.20 Mild intermittent asthma, uncomplicated; F32.9 Major depressive disorder, single episode, unspecified; Q62.5 Duplication of ureter; M54.12 Radiculopathy, cervical region; Z79.899 Other long term (current) drug therapy; Z98.1 Arthrodesis status; Z90.710 Acquired absence of both cervix and uterus; Z88.6 Allergy status to analgesic agent; Z88.5 Allergy status to narcotic agent; Z88.8 Allergy status to other drugs, medicaments and biological substances; Z88.7 Allergy status to serum and vaccine; Z91.041 Radiographic dye allergy status; Z88.0 Allergy status to penicillin; Z91.018 Allergy to other foods

== ENCOUNTER → 2018-07-21 | Outpatient (CLI) | payer BC, OTHER ==
[~2018-07-21] MED LIST changes: +BUPIVACAINE HCL 0.25% 30 ML VIAL As Ordered ONE; +LIDOCAINE 1% SDV INJ 30 ML VIAL As Ordered ONE; +ONDANSETRON 4MG/2ML VIAL (J2405) As Ordered ONE; +TRIAMCINOLONE ACETONIDE SUSP 40 MG/ML VIAL (J3301) As Ordered ONE; +diazePAM 5 MG TAB As Ordered ONE; +diphenhydrAMINE 25 MG CAP As Ordered ONE; +oxyCODONE 5MG TAB As Ordered ONE
--- NOTE | 2018-07-21 15:02 | REP ---
FLUOROSCOPIC GUIDANCE FOR LEFT SI JOINT INJECTION: 07/21/2018. Clinical history: Low back pain. Findings: Six images from C-arm fluoroscopy provided to Dr. Spangler of the pain clinic for left SI joint injection were reviewed. These images show needle at the lower, mid and upper aspects of the joint. Fluoroscopy time: 34 seconds. Electronically Signed by Bin Allen MD 07/21/2018 03:28 P
--- NOTE | 2018-08-09 00:12 | ECWPNPC ---
PATIENT NAME: JOSE EDUARDO DICK : 1960 GENDER: FEMALE VISIT DATE: 07/21/2018 DISCHARGE DATE: 07/21/18 1111 VISIT LOCKED DATE TIME: PHYSICIAN: ZEINA SCHMIDT MD RESOURCE: ZEINA SCHMIDT MD REASON FOR APPOINTMENT 1. LEFT SIJ HISTORY OF PRESENT ILLNESS HISTORY OF PRESENT ILLNESS: PAIN THE PATIENT DESCRIBES THE PAIN... FALL RISK SCREENING: SCREENING : NO FALLS IN THE PAST YEAR. CURRENT MEDICATIONS TAKING SINGULAIR 10 MG TABLET 1 TABLET IN THE EVENING ORALLY ONCE A DAY, NOTES: 07-20-18 AM TAKING IPRATROPIUM-ALBUTEROL 0.5-2.5 (3) MG/3ML SOLUTION 3 ML INHALATION NEBULIZER EVERY 4 HRS NEEDED, NOTES: NONE IN A MONTH TAKING BENADRYL 25 MG CAPSULE 1 CAPSULE NEEDED ORALLY NIGHTLY, NOTES: NONE IN FEW WEEKS TAKING NASONEX 50 MCG/ACT SUSPENSION 2 SPRAYS IN EACH NOSTRIL NASALLY ONCE A DAY, NOTES: 07/20/182099 TAKING FEXOFENADINE HCL 180 MG TABLET 1 TABLET ORALLY ONCE A DAY, NOTES: 1999 TAKING PROBIOTIC - TABLET DELAYED RELEASE ORALLY ONCE DAILY, NOTES: 07/20/181999 TAKING VITAMIN D-3 2000 UNITS ONCE A DAY, NOTES: 07/20/181999 TAKING BIOTIN W/ VITAMINS C & E 1250-7.5-7.5 MCG-MG-UNT TABLET CHEWABLE ORALLY DAILY, NOTES: 07/20/18 0800 TAKING DAPSONE 25 MG TABLET 1 TABLET ORALLY ONCE A DAY NEEDED, NOTES: NONE IN 2 YEARS TAKING MULTIVITAMIN ADULTS - TABLET ORALLY DAILY, NOTES: 07/20/181999 TAKING QVAR 80 MCG/ACT AEROSOL SOLUTION 2 PUFFS INHALATION TWICE A DAY, NOTES: 07/21/18 0700 TAKING VENTOLIN HFA 108 (90 BASE) MCG/ACT AEROSOL SOLUTION 2 PUFFS NEEDED INHALATION EVERY 6 HRS, NOTES: A WEEK AGO TAKING CALCIUM/VITAMIN D/MINERALS 600-200 MG-UNIT TABLET 1 TABLET WITH FOOD ORALLY ONCE DAILY, NOTES: 07/20/181999 TAKING ZOFRAN ODT 4 MG TABLET DISINTEGRATING 1 TABLET ON THE TONGUE AND ALLOW TO DISSOLVE ORALLY EVERY 8 HRS PRN, NOTES: 3 WEEKS AGO TAKING NORCO 5-325 MG TABLET 1 TABLET NEEDED ORALLY Q8H PRN MDD3, NOTES: NONE IN >1MONTH TAKING TYLENOL WITH CODEINE #3 300-30 MG TABLET 1 TABLET NEEDED ORALLY 1 PO QHS PRN MDD1, NOTES: 07/20/18 1600 TAKING METAXALONE 800 MG TABLET 1 TABLET ORALLY BEFORE BEDTIME PRN, NOTES: 07/20/18 1200 NOT-TAKING PREDNISONE 20 MG TABLET 1 TABLET ORALLY BID NOT-TAKING MUCINEX DM 30-600 MG TABLET EXTENDED RELEASE 12 HOUR 1 TABLET NEEDED ORALLY EVERY 12 HRS NOT-TAKING NETI POT SINUS WASH 2300-700 MG KIT DIRECTED NASALLY BID MEDICATION LIST REVIEWED AND RECONCILED WITH THE PATIENT PAST MEDICAL HISTORY CELIAC DISEASE ASTHMA MILD INTERMITTENT DEPRESSION CERVICAL RADICULOPATHY BILATERAL DUPLICATE URETERS RSV ALLERGIES BETADINE: HIVES/BREATHING PROBLEM: ALLERGY FLEXERIL: HEART STOPS: ALLERGY NAPROXEN: ANAPHYLAXIS/HIVES: ALLERGY ASPIRIN: HIVES: ALLERGY MOTRIN: ANAPHYLAXIS/HIVES: ALLERGY COMPAZINE: UNKNOWN: ALLERGY MORPHINE SULFATE: HIVES: ALLERGY PAXIL: THROAT SWELLING: ALLERGY TRAMADOL: SEIZURES: ALLERGY WELLBUTRIN: HIVES: ALLERGY CYMBALTA: ANAPHYLAXIS: ALLERGY AMOXICILLIN: HIVES: ALLERGY FENTANYL: THROAT SWELLING: ALLERGY METOCLOPRAMIDE HCL: SEIZURES: ALLERGY ZOLOFT: THROAT SWELLING: ALLERGY DILUTING SOLUTION FOR ALLERGY SHOTS: SWELLING: ALLERGY WATERMELON: BRIGHT RED SKIN, IBS FLARE UP, NAUSEA VOMITING: ALLERGY NSAIDS: ANAPHYLAXIS: SIDE EFFECTS METHOTREXATE: SORES IN MOUTH, BODY ACHES; LOWER RBC'S COUNT: SIDE EFFECTS FLU VACCINE: SWELLING AT SITE: SIDE EFFECTS INFLUENZA VAC SPLIT QUAD: SWELLING AT SITE: SIDE EFFECTS IV CONTRAST DYE GABAPENTIN: CONFUSION: SIDE EFFECTS WATERMELON FLAVOR: IBS FLARE-UP; REDDENED SKIN: ALLERGY SURGICAL HISTORY TONSILECTOMY 1974 HYSTERECTOMY 1990 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 2 SON(S) , 1 DAUGHTER(S) . DAD- A. FIB, DEMENTIA, ARTHRITISSISTER- THYROID DISEASESISTER - CELIAC, SUICIDEDAUGHTER - A FIBYOUNGEST SON - SEVERE ASTHMA, NIGHTTIME EPILEPSY. SOCIAL HISTORY GENERAL: TOBACCO USE ARE YOU A:NONSMOKER VAPORNO E-CIGARETTENO BMI CARE GOAL FOLLOW-UP ABOVE NORMAL BMI FOLLOW-UPDIETARY MANAGEMENT EDUCATION, GUIDANCE, AND COUNSELING ALCOHOL SCREENING DID YOU HAVE A DRINK CONTAINING ALCOHOL IN THE PAST YEAR?NO POINTS0 INTERPRETATIONNEGATIVE RECREATIONAL DRUG USE DRUG USE?NO CAFFEINE CAFFEINE USE?YES HOW OFTEN AND HOW MUCH? 16 OZ PEPSI PER DAY HIV / HEP-C SCREENING HIV TEST OFFERED TO PATIENT:YES DATE OFFERED:04/06/2018 TEST ACCEPTED:NO REASON:PATIENT DECLINED BROCHURE PROVIDED TO PATIENTYES HEP-C TEST OFFERED TO PATIENT:YES DATE OFFERED:04/06/2018 TEST ACCEPTED:NO REASON:PATIENT DECLINED GNOSTICIST [id number] HOLINESS LANGUAGE SPANISH. 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 DIET: GLUTEN FREE. EXERCISE: WALKS. MARITAL STATUS: . OTHERS AT HOME: FATHER, MOTHER. NEW PATIENT PAIN DIARY FROM 0-10, WHAT LEVEL IS YOUR PAIN TODAY?6 PAIN CLINIC PFS, CLERGY, PUBLIC HEALTH REFERRALS PFS REFERRAL NEEDED?NO CLERGY REFERRAL NEEDED?NO PUBLIC HEALTH REFERRAL NEEDED?NO HAS THE PATIENT BEEN EDUCATED REGARDING HIS/HER PLAN OF CARE?YES HAS THE PATIENT BEEN EDUCATED REGARDING PAIN, THE RISK FOR PAIN, THE IMPORTANCE OF EFFECTIVE PAIN MANAGEMENT, AND THE PAIN ASSESSMENT PROCESS?YES ADVANCE DIRECTIVE ADVANCE DIRECTIVE DISCUSSED WITH PATIENT:YES HCP - LEIGHANN DICK () REVIEWED WITH PATIENT 04/21/18 0958 JSREVIEWED WITH PT 07/21/18 0909 BV. HOSPITALIZATION/MAJOR DIAGNOSTIC PROCEDURE ACUTE DIVERTICULITIS 06/23 SURGERY RELATED PNEUMONIA / BRONCHIATUS / FLU (2 DAY STAY EACH TIME) 06/2017 REVIEW OF SYSTEMS REVIEWED BY: PROVIDER: . CONSTITUTIONAL: ANY CHANGE IN YOUR MEDICAL CONDITION? NO . CHILLS NO . FEVER NO . INFECTION: DO YOU HAVE NEW INFECTIONS? NO . DO YOU HAVE HISTORY OF MRSA? NO . MUSCULOSKELETAL: ANY NEW PATTERNS OF PAIN OR NUMBNESS? NO . GASTROENTEROLOGY: ANY NEW CHANGE IN BOWEL CONTROL? NO . GENITOURINARY: ANY NEW CHANGE IN BLADDER CONTROL? NO . IS THERE A CHANCE YOU COULD BE ? NO . HEMATOLOGY/LYMPH: DO YOU TAKE ANY BLOOD THINNERS? (FOR EXAMPLE- COUMADIN, PLAVIX, AGGRENOX, PLATEL, PRADAXA, OR XARELTO) NO . WHEN WAS YOUR LAST DOSE? DATE: TIME: . NEUROLOGY: HAVE YOU FALLEN IN THE PAST 12 MONTHS? NO . ANY NEW EXTREMITY NUMBNESS OR WEAKNESS? NO . CARDIOLOGY: DO YOU HAVE A PACEMAKER OR DEFIBRILLATOR? NO . RESPIRATORY: HAVE YOU BEEN SICK IN THE PAST WEEK? NO . FEVER NO . FLU LIKE SYMPTOMS? NO . COUGH NO . INTEGUMENTARY: DO YOU HAVE ANY RASHES OR OPEN SORES? NO . ALLERGIC/IMMUNO: ARE YOU ALLERGIC TO IV DYE? NO . ANY NEW ALLERGIES? NO . PSYCHIATRIC: DO YOU HAVE THOUGHTS OF HURTING YOURSELF OR SOMEONE ELSE? NO . ARE YOU ABUSED, NEGLECTED, OR IN AN UNSAFE ENVIRONMENT? NO . ENDOCRINOLOGY: ARE YOU DIABETIC? NO . OTHER: DO YOU NEED ANY PRESCRIPTIONS? NO . IF YES, PLEASE LIST: ____ . ANY NEW PROBLEMS WITH YOUR MEDICATIONS? NO . WHEN DID YOU LAST EAT? ____ . WHEN DID YOU LAST DRINK? ____ . WHAT DID YOU LAST DRINK? ____ . NAME OF PERSON DRIVING YOU HOME? ____ . DO YOU HAVE ANY OTHER QUESTIONS OR CONCERNS NO . VITAL SIGNS WT 206.4 LBS, HT 63 IN, BMI 36.56 INDEX, BP 141/81 MM HG, HR 82 /MIN, RR 18 /MIN, TEMP 97.9 F, OXYGEN SAT % 100%, NA INITIALS AW 0851, REVIEWED BY: BV. ASSESSMENTS SACROILIITIS, NOT ELSEWHERE CLASSIFIED - M46.1 (PRIMARY) TREATMENT SACROILIITIS, NOT ELSEWHERE CLASSIFIED [facility] FLUORO GUIDANCE (PAIN)[id number] PROCEDURES PN SI PRE PROCEDURE DIAGNOSIS SACROILIITIS, SACROILIAC JOINT DYSFUNCTION POST PROCEDURE DIAGNOSIS SACROILIITIS, SACROILIAC JOINT DYSFUNCTION PROCEDURE LEFT SACROILIAC JOINT BLOCK SURGEON DR. ZEINA SCHMIDT SWIMMING POOL SERVICER NONE ANESTHESIA LOCAL PRE PROCEDURE NOTE PATIENT WITH HISTORY OF CHRONIC LOW BACK PAIN. I EVALUATED THE PATIENT AND REVIEWED THE CHART. I WENT OVER THE RISKS, ALTERNATIVES, AND BENEFITS ASSOCIATED WITH THIS PROCEDURE. THE PATIENT WOULD LIKE TO PROCEED AND GAVE CONSENT TO PERFORM THE PROCEDURE. THE PATIENT DENIES UNEXPLAINABLE WEIGHT LOSS, FEVER, CHILLS, OR NEW CHANGES IN URINARY OR BOWEL CONTROL DESCRIPTION OF PROCEDURE THE PATIENT WAS BROUGHT TO THE PROCEDURE ROOM AND PLACED IN THE PRONE POSITION. THE LUMBOSACRAL AREA WAS CLEANED WITH CHLORAPREP SOLUTION AND DRAPED ASEPTICALLY. THE PROCEDURE WAS DONE UNDER STERILE CONDITIONS. I CHECKED LATERALITY AND THE LEVEL WHERE THE PROCEDURE WAS GOING TO BE PERFORMED WITH THE PATIENT AND THE SUPPORTING STAFF AT THE MOMENT OF THE TIME OUT IN THE PROCEDURE ROOM. UNDER FLUOROSCOPIC GUIDANCE, TARGET POINT WAS SELECTED AT THE LOWER BORDER OF THE LEFT SACROILIAC JOINT. TARGET POINT WAS SELECTED AFTER MEDIAL ROTATION AND TILT OF THE MAGNIFIER OF THE C-ARM. LIDOCAINE WAS USED TO NUMB THE SKIN AND SUBCUTANEOUS TISSUE BELOW IT. A SPINAL NEEDLE, 22-GAUGE, WAS ADVANCED UNDER FLUOROSCOPIC GUIDANCE AND FOLLOWING PATIENT FEEDBACK UNTIL THE TARGET AREA WAS TOUCHED. THE POSITION OF THE NEEDLE WAS VERIFIED WITH AP AND LATERAL VIEWS. NO DYE WAS USED. A SOLUTION OF 20 MG OF KENALOG WAS INJECTED IN LEFT JOINT WITH 3 ML OF BUPIVACAINE 0.125%. THERE WAS NO EVIDENCE OF BLOOD, PARESTHESIA OR CEREBROSPINAL FLUID DURING THE PROCEDURE. THE PATIENT WAS SENT TO THE RECOVERY ROOM. THE PATIENT WAS MOVING THE EXTREMITIES AND DOING WELL. THERE WAS NO COMPLICATION DURING THE PROCEDURE. FLUOROSCOPY TIME WAS 34 SECONDS POST PROCEDURE NOTE THE PATIENT WILL BE SEEN IN A FOLLOW UP IN THE NEXT FEW WEEKS. INSTRUCTIONS WERE GIVEN, QUESTIONS WERE ANSWERED, AND THE PATIENT EXPRESSED UNDERSTANDING AND AGREED WITH THE PLAN. I, ERLIN GALO, DOCUMENTED THE ABOVE INFORMATION ACTING A SCRIBE FOR DR. SCHMIDT. I HAVE REVIEWED THE ABOVE DOCUMENT, WRITTEN BY ERLIN RAZOIBKaren AND I VERIFY THAT IT IS ACCURATE. PROCEDURE CODES 6045F RADXPS IN END [id number] [id number] INJECT SACROILIAC JOINT, MODIFIERS: LT DISPOSITION & COMMUNICATION FOLLOW UP 3 WEEKS ELECTRONICALLY SIGNED BY ZEINA SCHMIDT MD, MD ON 08/08/2018 AT 12:47 PM EST DISCLAIMER : THIS IS A VISIT SUMMARY EXTRACTED FROM THE [employer] CHART. IT IS NOT A COPY OF THE [employer] PROGRESS NOTE. MTDD
== END ==
LOC: M PAIN 08:45
PROVIDERS: ATTEND Anesthesiology
DX: G89.29 Other chronic pain (principal); M46.1 Sacroiliitis, not elsewhere classified; M53.88 Other specified dorsopathies, sacral and sacrococcygeal region; J45.909 Unspecified asthma, uncomplicated; F32.9 Major depressive disorder, single episode, unspecified; Z79.899 Other long term (current) drug therapy; Z88.1 Allergy status to other antibiotic agents; Z88.5 Allergy status to narcotic agent; Z88.6 Allergy status to analgesic agent; Z88.7 Allergy status to serum and vaccine; Z88.8 Allergy status to other drugs, medicaments and biological substances; Z91.02 Food additives allergy status; Z91.018 Allergy to other foods; Z91.041 Radiographic dye allergy status; Z87.19 Personal history of other diseases of the digestive system
CPT/HCPCS: G0260; J2405; J3301

== ENCOUNTER → 2018-09-09 | Outpatient (CLI) | payer BC, OTHER ==
[~2018-09-09] MED LIST changes: +ACET650S3 PR; -BUPIVACAINE HCL 0.25% 30 ML VIAL As Ordered ONE; +HYDROCODONE-ACETAMIN; -LIDOCAINE 1% SDV INJ 30 ML VIAL As Ordered ONE; -ONDANSETRON 4MG/2ML VIAL (J2405) As Ordered ONE; -TRIAMCINOLONE ACETONIDE SUSP 40 MG/ML VIAL (J3301) As Ordered ONE; -diazePAM 5 MG TAB As Ordered ONE; -diphenhydrAMINE 25 MG CAP As Ordered ONE; -oxyCODONE 5MG TAB As Ordered ONE
--- NOTE | 2018-09-18 00:24 | ECWPNPC ---
PATIENT NAME: JOSE EDUARDO DICK : 1960 GENDER: FEMALE VISIT DATE: 09/09/2018 DISCHARGE DATE: 09/09/18 1157 VISIT LOCKED DATE TIME: PHYSICIAN: SONJA DÍAZ RESOURCE: SONJA DÍAZ REASON FOR APPOINTMENT 1. POST PROC HISTORY OF PRESENT ILLNESS HISTORY OF PRESENT ILLNESS: HERE FOR POST PROCEDURE .HAD LEFT SIJ ON 07/21/18.REPORTING >6 WEEKS IMPROVEMENT IN PAIN.HAS HAD A SEVERE FLARE UP OF LEFT LOW BACK PAIN OVER THE PAST 2 WEEKS.RATING PAIN VAS 8/10. PAIN THE PATIENT DESCRIBES THE PAIN... FALL RISK SCREENING: SCREENING :NO FALLS REPORTED IN THE LAST YEAR CURRENT MEDICATIONS TAKING SINGULAIR 10 MG TABLET 1 TABLET IN THE EVENING ORALLY ONCE A DAY TAKING IPRATROPIUM-ALBUTEROL 0.5-2.5 (3) MG/3ML SOLUTION 3 ML INHALATION NEBULIZER EVERY 4 HRS NEEDED TAKING BENADRYL 25 MG CAPSULE 1 CAPSULE NEEDED ORALLY NIGHTLY, NOTES: NONE IN FEW WEEKS TAKING NASONEX 50 MCG/ACT SUSPENSION 2 SPRAYS IN EACH NOSTRIL NASALLY ONCE A DAY TAKING FEXOFENADINE HCL 180 MG TABLET 1 TABLET ORALLY ONCE A DAY TAKING PROBIOTIC - TABLET DELAYED RELEASE ORALLY ONCE DAILY TAKING VITAMIN D-3 2000 UNITS ONCE A DAY TAKING BIOTIN W/ VITAMINS C & E 1250-7.5-7.5 MCG-MG-UNT TABLET CHEWABLE ORALLY DAILY TAKING DAPSONE 25 MG TABLET 1 TABLET ORALLY ONCE A DAY NEEDED, NOTES: NONE IN 2 YEARS TAKING MULTIVITAMIN ADULTS - TABLET ORALLY DAILY TAKING QVAR 80 MCG/ACT AEROSOL SOLUTION 2 PUFFS INHALATION TWICE A DAY TAKING VENTOLIN HFA 108 (90 BASE) MCG/ACT AEROSOL SOLUTION 2 PUFFS NEEDED INHALATION EVERY 6 HRS TAKING CALCIUM/VITAMIN D/MINERALS 600-200 MG-UNIT TABLET 1 TABLET WITH FOOD ORALLY ONCE DAILY TAKING ZOFRAN ODT 4 MG TABLET DISINTEGRATING 1 TABLET ON THE TONGUE AND ALLOW TO DISSOLVE ORALLY EVERY 8 HRS PRN TAKING TYLENOL WITH CODEINE #3 300-30 MG TABLET 1 TABLET NEEDED ORALLY 1 PO QHS PRN MDD1 TAKING METAXALONE 800 MG TABLET 1 TABLET ORALLY BEFORE BEDTIME PRN TAKING NORCO 5-325 MG TABLET 1 TABLET NEEDED ORALLY Q8H PRN MDD3 NOT-TAKING DEXAMETHASONE SODIUM PHOSPHATE 0.1 % SOLUTION 2 DROPS INTO RIGHT EAR OTIC THREE TIMES A DAY NOT-TAKING PREDNISONE 10 MG TABLET 4 TABS X 3 DAYS, THEN 3 TABS X 3 DAYS, THEN 2 TABS X 3 DAYS THEN 1 TAB X 3 DAYS THEN OFF ORALLY ONCE A DAY NOT-TAKING PREDNISONE 20 MG TABLET 1 TABLET ORALLY BID NOT-TAKING MUCINEX DM 30-600 MG TABLET EXTENDED RELEASE 12 HOUR 1 TABLET NEEDED ORALLY EVERY 12 HRS NOT-TAKING NETI POT SINUS WASH 2300-700 MG KIT DIRECTED NASALLY BID MEDICATION LIST REVIEWED AND RECONCILED WITH THE PATIENT PAST MEDICAL HISTORY CELIAC DISEASE ASTHMA MILD INTERMITTENT DEPRESSION CERVICAL RADICULOPATHY BILATERAL DUPLICATE URETERS RSV ALLERGIES BETADINE: HIVES/BREATHING PROBLEM - ALLERGY FLEXERIL: HEART STOPS - ALLERGY NAPROXEN: ANAPHYLAXIS/HIVES - ALLERGY ASPIRIN: HIVES - ALLERGY MOTRIN: ANAPHYLAXIS/HIVES - ALLERGY COMPAZINE: UNKNOWN - ALLERGY MORPHINE SULFATE: HIVES - ALLERGY PAXIL: THROAT SWELLING - ALLERGY TRAMADOL: SEIZURES - ALLERGY WELLBUTRIN: HIVES - ALLERGY CYMBALTA: ANAPHYLAXIS - ALLERGY AMOXICILLIN: HIVES - ALLERGY FENTANYL: THROAT SWELLING - ALLERGY METOCLOPRAMIDE HCL: SEIZURES - ALLERGY ZOLOFT: THROAT SWELLING - ALLERGY DILUTING SOLUTION FOR ALLERGY SHOTS: SWELLING - ALLERGY WATERMELON: BRIGHT RED SKIN, IBS FLARE UP, NAUSEA VOMITING - ALLERGY NSAIDS: ANAPHYLAXIS - SIDE EFFECTS METHOTREXATE: SORES IN MOUTH, BODY ACHES; LOWER RBC'S COUNT - SIDE EFFECTS FLU VACCINE: SWELLING AT SITE - SIDE EFFECTS INFLUENZA VAC SPLIT QUAD: SWELLING AT SITE - SIDE EFFECTS IV CONTRAST DYE GABAPENTIN: CONFUSION - SIDE EFFECTS WATERMELON FLAVOR: IBS FLARE-UP; REDDENED SKIN - ALLERGY SURGICAL HISTORY TONSILECTOMY 1974 HYSTERECTOMY 1990 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 2 SON(S) , 1 DAUGHTER(S) . DAD- A. FIB, DEMENTIA, ARTHRITIS\NSISTER- THYROID DISEASE\NSISTER - CELIAC, SUICIDE\NDAUGHTER - A FIB\NYOUNGEST SON - SEVERE ASTHMA, NIGHTTIME EPILEPSY. SOCIAL HISTORY GENERAL: TOBACCO USE ARE YOU A:NONSMOKER LATEX QUESTIONNAIRE LATEX ALLERGY : HAVE YOU EVER DEVELOPED ANY TYPE OF REACTION AFTER HANDLING LATEX PRODUCTS SUCH RUBBER GLOVES, CONDOMS, DIAPHRAGMS, BALLOONS, SOCKS, OR UNDERWEAR?NO LATEX ALLERGY : HAVE YOU EVER DEVELOPED ANY TYPE OF REACTION DURING OR AFTER DENTAL APPOINTMENT, VAGINAL/RECTAL EXAMINATION, SURGICAL PROCEDURE, OR ANY OTHER EXPOSURE?NO LATEX RISK : HAVE YOU EVER HAD ANY DIFFICULTY BREATHING OR HIVES AFTER EATING OR HANDLING ANY FRUITS, OR VEGETABLES; SUCH KIWI, BANANAS, STONE FRUITS, OR CHESTNUTSNO LATEX RISK : DO YOU HAVE A PREVIOUS PERSONAL HISTORY OF MORE THAN NINE SURGERIES, SPINA BIFIDA, OR REPEATED CATHERTIZATIONS? NO LATEX RISK : ARE YOU FREQUENTLY EXPOSED TO LATEX PRODUCTS IN YOUR OCCUPATION?NO DATE ASKED : 09/09/2018 BMI CARE GOAL FOLLOW-UP ABOVE NORMAL BMI FOLLOW-UPDIETARY MANAGEMENT EDUCATION, GUIDANCE, AND COUNSELING ALCOHOL SCREENING DID YOU HAVE A DRINK CONTAINING ALCOHOL IN THE PAST YEAR?NO POINTS0 INTERPRETATIONNEGATIVE RECREATIONAL DRUG USE DRUG USE?NO CAFFEINE CAFFEINE USE?YES HOW OFTEN AND HOW MUCH? 16 OZ PEPSI PER DAY SEXUAL HX HAD SEX IN THE LAST 12 MONTHS (VAGINAL, ORAL, OR ANAL)?YES WITHMEN ONLY PREVENTION STRATEGIES DISCUSSED:OTHER USE PROTECTION?NO HAVE YOU EVER HAD AN STD?NO HIV / HEP-C SCREENING HIV TEST OFFERED TO PATIENT:YES DATE OFFERED:04/06/2018 TEST ACCEPTED:NO HEP-C TEST OFFERED TO PATIENT:YES DATE OFFERED:04/06/2018 REASON:PATIENT DECLINED TEST ACCEPTED:NO REASON:PATIENT DECLINED BROCHURE PROVIDED TO PATIENTYES [employer]OASTRIAN [id number] [employer]ERIAN LANGUAGE LANGUAGES SPOKEN:UZBEK EDUCATION LEVEL OF EDUCATION:COLLEGE LEARNING BARRIERS / SPECIAL NEEDS CHANGE FROM LAST VISIT?NO BARRIERS TO LEARNING?NO HEARING IMPAIRED?NO VISION IMPAIRED?YES COGNITIVELY IMPAIRED?NO :CORRECTIVE LENSES GLASSES READINESS TO LEARN?YES LEARNING PREFERENCES?NO LEARNING CAPABILITIES PRESENT?YES EMOTIONAL BARRIERS?NO SPECIAL DEVICES?NO [employer] SUPERVISOR NEEDED?NO DOMESTIC VIOLENCE DO YOU FEEL SAFE IN YOUR ENVIRONMENT?YES OCCUPATION: UNEMPLOYED. DIET: GLUTEN FREE. EXERCISE: WALKS. MARITAL STATUS: . OTHERS AT HOME: FATHER, MOTHER. NEW PATIENT PAIN DIARY FROM 0-10, WHAT LEVEL IS YOUR PAIN TODAY?6 PAIN CLINIC PFS, CLERGY, PUBLIC HEALTH REFERRALS PFS REFERRAL NEEDED?NO CLERGY REFERRAL NEEDED?NO PUBLIC HEALTH REFERRAL NEEDED?NO HAS THE PATIENT BEEN EDUCATED REGARDING HIS/HER PLAN OF CARE?YES HAS THE PATIENT BEEN EDUCATED REGARDING PAIN, THE RISK FOR PAIN, THE IMPORTANCE OF EFFECTIVE PAIN MANAGEMENT, AND THE PAIN ASSESSMENT PROCESS?YES ADVANCE DIRECTIVE ADVANCE DIRECTIVE DISCUSSED WITH PATIENT:YES HCP - LEIGHANN Stiles KAPIL () REVIEWED WITH PATIENT 04/21/18 0920 JSREVIEWED WITH PT 07/21/18 0909 BV. HOSPITALIZATION/MAJOR DIAGNOSTIC PROCEDURE ACUTE DIVERTICULITIS 06/23 SURGERY RELATED PNEUMONIA / BRONCHIATUS / FLU (2 DAY STAY EACH TIME) 06/2017 REVIEW OF SYSTEMS REVIEWED BY: PROVIDER: SONJA APARICIO . CONSTITUTIONAL: ANY CHANGE IN YOUR MEDICAL CONDITION? NO . CHILLS NO . FEVER NO . INFECTION: DO YOU HAVE NEW INFECTIONS? NO . DO YOU HAVE HISTORY OF MRSA? NO . MUSCULOSKELETAL: ANY NEW PATTERNS OF PAIN OR NUMBNESS? NO . GASTROENTEROLOGY: ANY NEW CHANGE IN BOWEL CONTROL? NO . GENITOURINARY: ANY NEW CHANGE IN BLADDER CONTROL? YES, LOST ALL BLADDER CONTROL YESTERDAY, WENT TO ED DUE TO PAIN ISSUES . IS THERE A CHANCE YOU COULD BE ? NO . HEMATOLOGY/LYMPH: DO YOU TAKE ANY BLOOD THINNERS? (FOR EXAMPLE- COUMADIN, PLAVIX, AGGRENOX, PLATEL, PRADAXA, OR XARELTO) NO . WHEN WAS YOUR LAST DOSE? DATE: TIME: . NEUROLOGY: HAVE YOU FALLEN IN THE PAST 12 MONTHS? NO . ANY NEW EXTREMITY NUMBNESS OR WEAKNESS? NO . CARDIOLOGY: DO YOU HAVE A PACEMAKER OR DEFIBRILLATOR? NO . RESPIRATORY: HAVE YOU BEEN SICK IN THE PAST WEEK? NO . FEVER NO . FLU LIKE SYMPTOMS? NO . COUGH NO . INTEGUMENTARY: DO YOU HAVE ANY RASHES OR OPEN SORES? NO . ALLERGIC/IMMUNO: ARE YOU ALLERGIC TO IV DYE? YES . ANY NEW ALLERGIES? NO . PSYCHIATRIC: DO YOU HAVE THOUGHTS OF HURTING YOURSELF OR SOMEONE ELSE? NO . ARE YOU ABUSED, NEGLECTED, OR IN AN UNSAFE ENVIRONMENT? NO . ENDOCRINOLOGY: ARE YOU DIABETIC? NO . OTHER: DO YOU NEED ANY PRESCRIPTIONS? TYLENOL 3, SKELAXIN 800 . IF YES, PLEASE LIST: ____ . ANY NEW PROBLEMS WITH YOUR MEDICATIONS? NO . WHEN DID YOU LAST EAT? ____ . WHEN DID YOU LAST DRINK? ____ . WHAT DID YOU LAST DRINK? ____ . NAME OF PERSON DRIVING YOU HOME? ____ . DO YOU HAVE ANY OTHER QUESTIONS OR CONCERNS PT IN ED LAST NIGHT, CONCERNED WITH PAIN AND WHAT IS AGGRAVATING IT, WALKING AND LIFTING AT WORK . VITAL SIGNS WT 202 LBS, HT 63 IN, BMI 35.78 INDEX, BP 163/93 MM HG, HR 115 /MIN, RR 18 /MIN, TEMP 97.6 F, OXYGEN SAT % 98%, SAFE IN ENV? (Y/N) Y, NA INITIALS IN 09:01, REVIEWED BY: LILLY. EXAMINATION GENERAL EXAMINATION: GENERAL APPEARANCE: ALERT. PSYCH AFFECT NORMAL. LUNGS: LUNG WARREN ARE CLEAR TO AUSCULTATION BILATERALLY. GOOD MOVEMENT OF AIR. HEART: S1, S2 IN A REGULAR RATE AND RHYTHM. NO SIGNIFICANT MURMURS, RUBS OR GALLOPS NOTED. LUMBAR SACRAL SPINESPECIFIC POINT TENDERNESS OVER LEFT L3/4-L4/5 LUMBAR FACETS , MUSCLE STRENGTH TESTING 5/5 BILATERAL LOWER EXTREMITIES. DIAGNOSTIC TESTS REVIEWED MRI L/S SPINE-03/25/18. ASSESSMENTS FIBROMYALGIA - M79.7 (PRIMARY) SACROILIITIS - M46.1 OSTEOARTHRITIS OF SPINE WITH RADICULOPATHY, CERVICAL REGION - M47.22 TREATMENT FIBROMYALGIA REFILL TYLENOL WITH CODEINE #3 TABLET, 300-30 MG, 1 TABLET NEEDED, ORALLY, 1 PO QHS PRN MDD1, 30 DAY(S), 30, REFILLS 2 REFILL METAXALONE TABLET, 800 MG, 1 TABLET, ORALLY, BEFORE BEDTIME PRN, 30 DAY(S), 30, REFILLS 2 NOTES: LEFT L3/4-L4/5 THERAPEUTIC FACET BLOCK, ISTOP REGISTRY REVIEWED AND DEMONSTRATES COMPLLIANCE. BRINGS IN MEDICATIONS WHICH IS APPROPRIATE FOR WHAT WAS DISPENSED. RECENT URINE TOXICOLOGY REVIEWED. NO UNAUTHORIZED MEDICATIONS. NO ILLICIT SUBSTANCES AND PRESCRIBED MEDICATIONS WERE PRESENT. URINE TOX TODAY, RISKS AND BENEFITS OF NARCOTIC/OPIOD MEDICATIONS WERE REVIEWED WITH PATIENT - THIS INCLUDES BUT IS NOT LIMITED TO RISK OF DEPENDANCE/DEVELOPMENT OF ADDICTION, MOOD DISTURBANCE AND DEPRESSION, OSTEOPOROSIS, HORMONAL AND LABIDAL CHANGES, RESPIRATORY DEPRESSION AND . PATIENT IS ADVISED NOT TO DRIVE OR DRINK ALCOHOL WHILE ON THESE MEDICATIONS. PROCEDURE CODES FA211 ESTABILISHED PATIENT [facility] CHARGE DISPOSITION & COMMUNICATION FOLLOW UP 2WKS POST (REASON: LEFT L3/4-L4/5 THERAPEUTIC FACET BLOCK) ELECTRONICALLY SIGNED BY MARKUS KENNY ON 09/17/2018 AT 03:38 PM EDT DISCLAIMER : THIS IS A VISIT SUMMARY EXTRACTED FROM THE [employer] CHART. IT IS NOT A COPY OF THE [employer] PROGRESS NOTE. MTDD
== END ==
LOC: M PAIN 09:00
PROVIDERS: ATTEND Nurse Practitioner Family
DX: M79.7 Fibromyalgia (principal); M46.1 Sacroiliitis, not elsewhere classified; M47.22 Other spondylosis with radiculopathy, cervical region; J44.9 Chronic obstructive pulmonary disease, unspecified; F32.9 Major depressive disorder, single episode, unspecified; Z79.899 Other long term (current) drug therapy; Z88.1 Allergy status to other antibiotic agents; Z88.5 Allergy status to narcotic agent; Z88.6 Allergy status to analgesic agent; Z88.7 Allergy status to serum and vaccine; Z88.8 Allergy status to other drugs, medicaments and biological substances; Z91.041 Radiographic dye allergy status; Z91.018 Allergy to other foods; Z86.79 Personal history of other diseases of the circulatory system

== ENCOUNTER → 2018-09-30 | Outpatient (CLI) | payer BC ==
--- NOTE | 2018-09-30 12:03 | REPMRS ---
Patient History The patient states she has not had a clinical breast exam in over a year. Family history of colorectal cancer at age 80 in father. No Hormone Replacement Therapy 3D TOMOSYNTHESIS WAS PERFORMED. Digital Woman Screen Mammo: September 30, 2018 - Exam #: [id number] Bilateral CC and MLO view(s) were taken. Technologist: Daniela Colrey, Technologist Prior study comparison: March 04, 2016, digital woman screen mammo performed at [facility]. 2009, bilateral screening mammogram. FINDINGS: The breast tissue is heterogeneously dense. This may lower the sensitivity of mammography. There has been no change in the appearance of the mammogram from the prior studies. There is a moderate amount of residual fibroglandular tissue which is fairly symmetric. There is no interval development of dominant mass, areas of architectural distortion, or clustered microcalcification typical of malignancy. Assessment: BI-RADS/ACR category 1 mammogram. Negative Mammogram. Recommendation Routine screening mammogram in 1 year (for women over age 40). This mammogram was interpreted with the aid of an FDA-approved computer-aided dectection system. Electronically Signed By: Keo Lopez MD 09/30/18 [id number]
--- NOTE | 2018-10-04 11:25 | DEXA ---
AP SPINE L1 - L4 1.015 -1.4 -0.6 LT FEMUR TOTAL 1.000 -0.1 0.7 LT NECK 0.887 -1.1 0.0 RT FEMUR TOTAL 0.950 -0.5 0.3 RT NECK 0.781 -1.9 -0.8 TOTAL BODY TOTAL OTHER COMMENTS: There is low bone density of the spine and hips. The density of the spine has decreased 11.6% since 03/04/2016. The density of the left hip has decreased 2.3% since 03/04/2016. The density of the right hip has decreased 5.1% since 03/04/2016. The decreased density of the spine does represent a significant change. The decreased density of the left hip does represent a significant change. The decreased density of the right hip does represent a significant change. FOLLOW-UP: Recommendation for the next bone density exam: 2 years. YAN
== END ==
LOC: M WHC 10:54
PROVIDERS: ATTEND Family Medicine
DX: Z12.31 Encounter for screening mammogram for malignant neoplasm of breast (principal); Z13.820 Encounter for screening for osteoporosis; Z80.0 Family history of malignant neoplasm of digestive organs; M85.89 Other specified disorders of bone density and structure, multiple sites

== ENCOUNTER → 2018-10-13 | Outpatient (CLI) | payer BC ==
[~2018-10-13] MED LIST changes: +BUPIVACAINE HCL 0.25% 30 ML VIAL As Ordered ONE; +ISOVUE-M 300 61% 15ML VIAL (Q9967) As Ordered ONE; +LIDOCAINE 1% SDV INJ 30 ML VIAL As Ordered ONE; +ONDANSETRON 4 MG ORAL DISINTEGRATING TAB (Q0162 PER 1MG) As Ordered ONE; +TRIAMCINOLONE ACETONIDE SUSP 40 MG/ML VIAL (J3301) As Ordered ONE; +diazePAM 5 MG TAB As Ordered ONE; +diphenhydrAMINE 25 MG CAP As Ordered ONE; +oxyCODONE 5MG TAB As Ordered ONE
--- NOTE | 2018-10-13 15:46 | REP ---
Partial lumbar spine series: Single view. History: Therapeutic L lumbar injection for pain. 22 seconds of fluoroscopy time is reported. Findings: A single last image hold fluoroscopically obtained spot radiograph of the lumbar spine documents needle position for lumbar facet injection procedure. Electronically Signed by Duane Smith MD 10/13/2018 03:35 P
--- NOTE | 2018-10-30 23:40 | ECWPNPC ---
PATIENT NAME: JOSE EDUARDO DICK : 1960 GENDER: FEMALE VISIT DATE: 10/13/2018 DISCHARGE DATE: 10/13/18 1529 VISIT LOCKED DATE TIME: PHYSICIAN: ZEINA SCHMIDT MD RESOURCE: ZEINA SCHMIDT MD REASON FOR APPOINTMENT 1. LEFT L5-S1 THERAPEUTIC FACET BLOCK HISTORY OF PRESENT ILLNESS HISTORY OF PRESENT ILLNESS: PAIN THE PATIENT DESCRIBES THE PAIN... FALL RISK SCREENING: SCREENING :NO FALLS REPORTED IN THE LAST YEAR CURRENT MEDICATIONS TAKING SINGULAIR 10 MG TABLET 1 TABLET IN THE EVENING ORALLY ONCE A DAY, NOTES: 10/12/18899 TAKING IPRATROPIUM-ALBUTEROL 0.5-2.5 (3) MG/3ML SOLUTION 3 ML INHALATION NEBULIZER EVERY 4 HRS NEEDED, NOTES: MONTH AGO TAKING BENADRYL 25 MG CAPSULE 1 CAPSULE NEEDED ORALLY NIGHTLY, NOTES: MONTH AGO TAKING NASONEX 50 MCG/ACT SUSPENSION 2 SPRAYS IN EACH NOSTRIL NASALLY ONCE A DAY, NOTES: 10/12/18899 TAKING FEXOFENADINE HCL 180 MG TABLET 1 TABLET ORALLY ONCE A DAY, NOTES: 10/12/181999 TAKING PROBIOTIC - TABLET DELAYED RELEASE ORALLY ONCE DAILY, NOTES: 10/12/181999 TAKING VITAMIN D-3 2000 UNITS ONCE A DAY, NOTES: 10/12/181999 TAKING BIOTIN W/ VITAMINS C & E 1250-7.5-7.5 MCG-MG-UNT TABLET CHEWABLE ORALLY DAILY, NOTES: 10/12/181999 TAKING DAPSONE 25 MG TABLET 1 TABLET ORALLY ONCE A DAY NEEDED, NOTES: NONE IN 3 YEARS TAKING MULTIVITAMIN ADULTS - TABLET ORALLY DAILY, NOTES: 10/12/181999 TAKING QVAR 80 MCG/ACT AEROSOL SOLUTION 2 PUFFS INHALATION TWICE A DAY, NOTES: 10/12/182129 TAKING VENTOLIN HFA 108 (90 BASE) MCG/ACT AEROSOL SOLUTION 2 PUFFS NEEDED INHALATION EVERY 6 HRS, NOTES: 3 WEEKS AGO TAKING ZOFRAN ODT 4 MG TABLET DISINTEGRATING 1 TABLET ON THE TONGUE AND ALLOW TO DISSOLVE ORALLY EVERY 8 HRS PRN, NOTES: 10/08/18 TAKING NORCO 5-325 MG TABLET 1 TABLET NEEDED ORALLY Q8H PRN MDD3, NOTES: 2 WEEKS AGO TAKING METAXALONE 800 MG TABLET 1 TABLET ORALLY BID, NOTES: 10/11/18 TAKING TYLENOL WITH CODEINE #3 300-30 MG TABLET 1 TABLET NEEDED ORALLY Q8HR PRN MDD3, NOTES: 10/11/18 TAKING CALCIUM 600 MG TABLET 1 TABLET WITH MEALS ORALLY TWICE A DAY, NOTES: 10/12/181999 NOT-TAKING CALCIUM , NOTES: DUPLICATE MEDICATION LIST REVIEWED AND RECONCILED WITH THE PATIENT PAST MEDICAL HISTORY CELIAC DISEASE ASTHMA MILD INTERMITTENT DEPRESSION CERVICAL RADICULOPATHY BILATERAL DUPLICATE URETERS RSV ALLERGIES BETADINE: HIVES/BREATHING PROBLEM - ALLERGY FLEXERIL: HEART STOPS - ALLERGY NAPROXEN: ANAPHYLAXIS/HIVES - ALLERGY ASPIRIN: HIVES - ALLERGY MOTRIN: ANAPHYLAXIS/HIVES - ALLERGY COMPAZINE: UNKNOWN - ALLERGY MORPHINE SULFATE: HIVES - ALLERGY PAXIL: THROAT SWELLING - ALLERGY TRAMADOL: SEIZURES - ALLERGY WELLBUTRIN: HIVES - ALLERGY CYMBALTA: ANAPHYLAXIS - ALLERGY AMOXICILLIN: HIVES - ALLERGY FENTANYL: THROAT SWELLING - ALLERGY METOCLOPRAMIDE HCL: SEIZURES - ALLERGY ZOLOFT: THROAT SWELLING - ALLERGY DILUTING SOLUTION FOR ALLERGY SHOTS: SWELLING - ALLERGY WATERMELON: BRIGHT RED SKIN, IBS FLARE UP, NAUSEA VOMITING - ALLERGY NSAIDS: ANAPHYLAXIS - SIDE EFFECTS METHOTREXATE: SORES IN MOUTH, BODY ACHES; LOWER RBC'S COUNT - SIDE EFFECTS FLU VACCINE: SWELLING AT SITE - SIDE EFFECTS INFLUENZA VAC SPLIT QUAD: SWELLING AT SITE - SIDE EFFECTS IV CONTRAST DYE GABAPENTIN: CONFUSION - SIDE EFFECTS WATERMELON FLAVOR: IBS FLARE-UP; REDDENED SKIN - ALLERGY SURGICAL HISTORY TONSILECTOMY 1974 HYSTERECTOMY 1990 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 2 SON(S) , 1 DAUGHTER(S) . DAD- A. FIB, DEMENTIA, ARTHRITIS\\\\NSISTER- THYROID DISEASE\\\\NSISTER - CELIAC, SUICIDE\\\\NDAUGHTER - A FIB\\\\NYOUNGEST SON - SEVERE ASTHMA, NIGHTTIME EPILEPSY. SOCIAL HISTORY GENERAL: TOBACCO USE ARE YOU A:NONSMOKER HIV / HEP-C SCREENING HIV TEST OFFERED TO PATIENT:YES DATE OFFERED:04/06/2018 TEST ACCEPTED:NO HEP-C TEST OFFERED TO PATIENT:YES DATE OFFERED:04/06/2018 REASON:PATIENT DECLINED TEST ACCEPTED:NO REASON:PATIENT DECLINED BROCHURE PROVIDED TO PATIENTYES OTHERS AT HOME: FATHER, MOTHER. EDUCATION LEVEL OF EDUCATION:COLLEGE DIET: GLUTEN FREE. LANGUAGE LANGUAGES SPOKEN:BULGARIAN DOMESTIC VIOLENCE DO YOU FEEL SAFE IN YOUR ENVIRONMENT?YES NEW PATIENT PAIN DIARY FROM 0-10, WHAT LEVEL IS YOUR PAIN TODAY?6 BMI CARE GOAL FOLLOW-UP ABOVE NORMAL BMI FOLLOW-UPDIETARY MANAGEMENT EDUCATION, GUIDANCE, AND COUNSELING RECREATIONAL DRUG USE DRUG USE?NO EXERCISE: WALKS. LEARNING BARRIERS / SPECIAL NEEDS CHANGE FROM LAST VISIT?NO BARRIERS TO LEARNING?NO HEARING IMPAIRED?NO VISION IMPAIRED?YES COGNITIVELY IMPAIRED?NO :CORRECTIVE LENSES GLASSES READINESS TO LEARN?YES LEARNING PREFERENCES?NO LEARNING CAPABILITIES PRESENT?YES EMOTIONAL BARRIERS?NO SPECIAL DEVICES?NO PODIATRIST ASSISTANT NEEDED?NO PAIN CLINIC PFS, CLERGY, PUBLIC HEALTH REFERRALS PFS REFERRAL NEEDED?NO CLERGY REFERRAL NEEDED?NO PUBLIC HEALTH REFERRAL NEEDED?NO HAS THE PATIENT BEEN EDUCATED REGARDING HIS/HER PLAN OF CARE?YES HAS THE PATIENT BEEN EDUCATED REGARDING PAIN, THE RISK FOR PAIN, THE IMPORTANCE OF EFFECTIVE PAIN MANAGEMENT, AND THE PAIN ASSESSMENT PROCESS?YES LATEX QUESTIONNAIRE LATEX ALLERGY : HAVE YOU EVER DEVELOPED ANY TYPE OF REACTION AFTER HANDLING LATEX PRODUCTS SUCH RUBBER GLOVES, CONDOMS, DIAPHRAGMS, BALLOONS, SOCKS, OR UNDERWEAR?NO LATEX ALLERGY : HAVE YOU EVER DEVELOPED ANY TYPE OF REACTION DURING OR AFTER DENTAL APPOINTMENT, VAGINAL/RECTAL EXAMINATION, SURGICAL PROCEDURE, OR ANY OTHER EXPOSURE?NO DATE ASKED : 09/09/2018 LATEX RISK : HAVE YOU EVER HAD ANY DIFFICULTY BREATHING OR HIVES AFTER EATING OR HANDLING ANY FRUITS, OR VEGETABLES; SUCH KIWI, BANANAS, STONE FRUITS, OR CHESTNUTSNO LATEX RISK : DO YOU HAVE A PREVIOUS PERSONAL HISTORY OF MORE THAN NINE SURGERIES, SPINA BIFIDA, OR REPEATED CATHERTIZATIONS? NO LATEX RISK : ARE YOU FREQUENTLY EXPOSED TO LATEX PRODUCTS IN YOUR OCCUPATION?NO CAFFEINE CAFFEINE USE?YES HOW OFTEN AND HOW MUCH? 16 OZ PEPSI PER DAY ADVANCE DIRECTIVE ADVANCE DIRECTIVE DISCUSSED WITH PATIENT:YES HCP - LEIGHANN DICK () [facility] [id number] DRUZE MARITAL STATUS: . ALCOHOL SCREENING DID YOU HAVE A DRINK CONTAINING ALCOHOL IN THE PAST YEAR?NO POINTS0 INTERPRETATIONNEGATIVE OCCUPATION: UNEMPLOYED. SEXUAL HX HAD SEX IN THE LAST 12 MONTHS (VAGINAL, ORAL, OR ANAL)?YES WITHMEN ONLY PREVENTION STRATEGIES DISCUSSED:OTHER USE PROTECTION?NO HAVE YOU EVER HAD AN STD?NO REVIEWED WITH PATIENT 04/21/18 0945 JSREVIEWED WITH PT 07/21/18 0909 BVREVIEWED WITH PATIENT 10/13/18 1249 JS. HOSPITALIZATION/MAJOR DIAGNOSTIC PROCEDURE ACUTE DIVERTICULITIS 06/23 SURGERY RELATED PNEUMONIA / BRONCHIATUS / FLU (2 DAY STAY EACH TIME) 06/2017 REVIEW OF SYSTEMS REVIEWED BY: PROVIDER: . CONSTITUTIONAL: ANY CHANGE IN YOUR MEDICAL CONDITION? NO . CHILLS NO . FEVER NO . INFECTION: DO YOU HAVE NEW INFECTIONS? NO . DO YOU HAVE HISTORY OF MRSA? NO . MUSCULOSKELETAL: ANY NEW PATTERNS OF PAIN OR NUMBNESS? NO . GASTROENTEROLOGY: ANY NEW CHANGE IN BOWEL CONTROL? NO . GENITOURINARY: ANY NEW CHANGE IN BLADDER CONTROL? NO . IS THERE A CHANCE YOU COULD BE ? NO . HEMATOLOGY/LYMPH: DO YOU TAKE ANY BLOOD THINNERS? (FOR EXAMPLE- COUMADIN, PLAVIX, AGGRENOX, PLATEL, PRADAXA, OR XARELTO) NO . WHEN WAS YOUR LAST DOSE? DATE: TIME: . NEUROLOGY: HAVE YOU FALLEN IN THE PAST 12 MONTHS? NO . ANY NEW EXTREMITY NUMBNESS OR WEAKNESS? NO . CARDIOLOGY: DO YOU HAVE A PACEMAKER OR DEFIBRILLATOR? NO . RESPIRATORY: HAVE YOU BEEN SICK IN THE PAST WEEK? NO . FEVER NO . FLU LIKE SYMPTOMS? NO . COUGH NO . INTEGUMENTARY: DO YOU HAVE ANY RASHES OR OPEN SORES? NO . ALLERGIC/IMMUNO: ARE YOU ALLERGIC TO IV DYE? YES . ANY NEW ALLERGIES? NO . PSYCHIATRIC: DO YOU HAVE THOUGHTS OF HURTING YOURSELF OR SOMEONE ELSE? NO . ARE YOU ABUSED, NEGLECTED, OR IN AN UNSAFE ENVIRONMENT? NO . ENDOCRINOLOGY: ARE YOU DIABETIC? NO . OTHER: DO YOU NEED ANY PRESCRIPTIONS? NO . IF YES, PLEASE LIST: ____ . ANY NEW PROBLEMS WITH YOUR MEDICATIONS? NO . WHEN DID YOU LAST EAT? ____10/13/18 0100 . WHEN DID YOU LAST DRINK? ____10/13/18 0730 . WHAT DID YOU LAST DRINK? ____WATER . NAME OF PERSON DRIVING YOU HOME? ____ARDHA DELCID . DO YOU HAVE ANY OTHER QUESTIONS OR CONCERNS NO . VITAL SIGNS WT 204.4 LBS, HT 63 IN, BMI 36.20 INDEX, BP 145/103 MM HG, REPEAT BP 158/100MANUAL, HR 84 /MIN, RR 18 /MIN, TEMP 98.0 F, OXYGEN SAT % 100%, SAFE IN ENV? (Y/N) YES, NA INITIALS WV 11:09, REVIEWED BY: BONITARWillis IS AWARE OF PT'S BP10/13/18 1312 REPEAT B/P 134/96 MANUAL RIGHT ARM AD. ASSESSMENTS SPONDYLOSIS OF LUMBOSACRAL REGION WITHOUT MYELOPATHY OR RADICULOPATHY - M47.817 (PRIMARY) TREATMENT OTHERS NOTES: FACET JOINT INJECTION MATERIAL WAS PRINTED,FACET JOINT INJECTION: YOUR EXPERIENCE MATERIAL WAS PRINTED. PROCEDURES PN LUMBAR FACET BLOCK THERAPEUTIC PRE PROCEDURE DIAGNOSIS LUMBOSACRAL SPONDYLOSIS POST PROCEDURE DIAGNOSIS LUMBOSACRAL SPONDYLOSIS PROCEDURE LEFT L5-S1 LUMBAR FACET THERAPEUTIC BLOCK SURGEON DR. ZEINA SCHMIDT [employer] NONE ANESTHESIA LOCAL PRE PROCEDURE NOTE THE PATIENT HAS A HISTORY OF CHRONIC LOW BACK PAIN. I EVALUATE THE PATIENT AND REVIEWED THE CHART. I WENT OVER THE RISKS, ALTERNATIVES, AND BENEFITS ASSOCIATED WITH THIS PROCEDURE. THE PATIENT WOULD LIKE TO PROCEED AND GIVE CONSENT TO PERFORMED THE PROCEDURE. THE PATIENT DENIES UNEXPLAINABLE WEIGHT LOSS, FEVER, CHILLS, OR NEW CHANGES IN URINARY OR BOWEL CONTROL DESCRIPTION OF PROCEDURE THE PATIENT WAS BROUGHT TO THE PROCEDURE ROOM AND PLACED IN THE PRONE POSITION. THE LUMBOSACRAL AREA WAS CLEANED WITH CHLORAPREP SOLUTION AND DRAPED ASEPTICALLY. THE PROCEDURE WAS DONE UNDER STERILE CONDITIONS. I CHECKED LATERALITY AND THE LEVEL WHERE THE PROCEDURE WAS GOING TO BE PERFORMED WITH THE PATIENT AND THE SUPPORTING STAFF AT THE MOMENT OF THE TIME OUT IN THE PROCEDURE ROOM. UNDER FLUOROSCOPIC GUIDANCE, THE TARGET POINT WAS SELECTED AT THE LEFT L5-S1 FACET JOINT. TARGET POINT WAS SELECTED AFTER LATERAL ROTATION AND TILT OF THE MAGNIFIER OF THE C-ARM. LIDOCAINE 0.5% WAS USED TO NUMB THE SKIN AND THE SUBCUTANEOUS TISSUE BELOW IT. SPINAL NEEDLES, 22-GAUGE, WERE ADVANCED UNDER FLUOROSCOPIC GUIDANCE AND FOLLOWING PATIENT FEEDBACK UNTIL THE TARGETS WERE TOUCHED. THE POSITION OF THE NEEDLES WAS VERIFIED WITH AP AND LATERAL VIEWS. AFTER PROPER POSITION OF THE NEEDLES WAS ACHIEVED, ISOVUE-M DYE 30% 0.1 ML WAS INJECTED SHOWING ADEQUATE SPREAD OF THE DYE. THEN A SOLUTION OF 1.9 ML OF BUPIVACAINE 0.125% OF KENALOG 10 MG WAS INJECTED AT EACH SITE. THERE WAS NO EVIDENCE OF BLOOD, PARESTHESIA OR CEREBROSPINAL FLUID DURING THE PROCEDURE. THE PATIENT WAS SENT TO THE RECOVERY ROOM. THE PATIENT WAS MOVING THE EXTREMITIES AND DOING WELL. THERE WAS NO COMPLICATION DURING THE PROCEDURE. FLUOROSCOPY TIME WAS 22 SECONDS POST PROCEDURE NOTE THE PATIENT WILL BE SEEN IN A FOLLOW UP IN THE NEXT FEW WEEKS. INSTRUCTIONS WERE GIVEN, QUESTIONS WERE ANSWERED, AND THE PATIENT EXPRESSED UNDERSTANDING AND AGREES WITH THE PLAN. I, ERLIN GALO, DOCUMENTED THE ABOVE INFORMATION ACTING A SCRIBE FOR DR. SCHMIDT. I HAVE REVIEWED THE ABOVE DOCUMENT, WRITTEN BY ERLIN RAZOIBKaren AND I VERIFY THAT IT IS ACCURATE. DIAGNOSTIC IM[facility] FACET BLOCK (PAIN)[id number] PROCEDURE CODES 6045F RADXPS IN END [id number] PXD [id number] INJ PARAVERT F JNT L/S 1 LEV, MODIFIERS: LT DISPOSITION & COMMUNICATION FOLLOW UP 3 WEEKS ELECTRONICALLY SIGNED BY ZEINA SCHMIDT MD, MD ON 10/30/2018 AT 04:07 PM EDT DISCLAIMER : THIS IS A VISIT SUMMARY EXTRACTED FROM THE [employer] CHART. IT IS NOT A COPY OF THE [facility] PROGRESS NOTE. MTDD
== END ==
LOC: M PAIN 11:00
PROVIDERS: ATTEND Anesthesiology
DX: G89.29 Other chronic pain (principal); M47.817 Spondylosis without myelopathy or radiculopathy, lumbosacral region; J45.909 Unspecified asthma, uncomplicated; F32.9 Major depressive disorder, single episode, unspecified; Z79.899 Other long term (current) drug therapy; Z88.1 Allergy status to other antibiotic agents; Z88.3 Allergy status to other anti-infective agents; Z88.5 Allergy status to narcotic agent; Z88.6 Allergy status to analgesic agent; Z88.7 Allergy status to serum and vaccine; Z88.8 Allergy status to other drugs, medicaments and biological substances; Z91.018 Allergy to other foods; Z91.041 Radiographic dye allergy status; Z86.79 Personal history of other diseases of the circulatory system
CPT/HCPCS: 64493; J3301; Q0162; Q9967

== ENCOUNTER → 2018-11-05 | Outpatient (CLI) | payer BC ==
[~2018-11-05] MED LIST changes: -BUPIVACAINE HCL 0.25% 30 ML VIAL As Ordered ONE; -ISOVUE-M 300 61% 15ML VIAL (Q9967) As Ordered ONE; -LIDOCAINE 1% SDV INJ 30 ML VIAL As Ordered ONE; -ONDANSETRON 4 MG ORAL DISINTEGRATING TAB (Q0162 PER 1MG) As Ordered ONE; -TRIAMCINOLONE ACETONIDE SUSP 40 MG/ML VIAL (J3301) As Ordered ONE; -diazePAM 5 MG TAB As Ordered ONE; -diphenhydrAMINE 25 MG CAP As Ordered ONE; -oxyCODONE 5MG TAB As Ordered ONE
--- NOTE | 2018-11-23 02:25 | ECWPNPC ---
PATIENT NAME: JOSE EDUARDO DICK : 1960 GENDER: FEMALE VISIT DATE: 11/05/2018 DISCHARGE DATE: 11/05/18 1149 VISIT LOCKED DATE TIME: PHYSICIAN: SONJA DÍAZ RESOURCE: SONJA DÍAZ REASON FOR APPOINTMENT 1. POST PROC HISTORY OF PRESENT ILLNESS HISTORY OF PRESENT ILLNESS: HERE FOR POST PROCEDURE F/U.HAD LEFT L5/S1 THERAPEUTIC FACET BLOCK ON 10/13/18.HAS NOT NEEDED TO TAKE PAIN MEDICATION OR MUSCLE RELAXANT FREQUENTLY.RATING PAIN VAS 4/10. PAIN THE PATIENT DESCRIBES THE PAIN... FALL RISK SCREENING: SCREENING :NO FALLS REPORTED IN THE LAST YEAR CURRENT MEDICATIONS TAKING SINGULAIR 10 MG TABLET 1 TABLET IN THE EVENING ORALLY ONCE A DAY TAKING IPRATROPIUM-ALBUTEROL 0.5-2.5 (3) MG/3ML SOLUTION 3 ML INHALATION NEBULIZER EVERY 4 HRS NEEDED TAKING BENADRYL 25 MG CAPSULE 1 CAPSULE NEEDED ORALLY NIGHTLY TAKING NASONEX 50 MCG/ACT SUSPENSION 2 SPRAYS IN EACH NOSTRIL NASALLY ONCE A DAY TAKING FEXOFENADINE HCL 180 MG TABLET 1 TABLET ORALLY ONCE A DAY TAKING PROBIOTIC - TABLET DELAYED RELEASE ORALLY ONCE DAILY TAKING VITAMIN D-3 2000 UNITS ONCE A DAY TAKING BIOTIN W/ VITAMINS C & E 1250-7.5-7.5 MCG-MG-UNT TABLET CHEWABLE ORALLY DAILY TAKING DAPSONE 25 MG TABLET 1 TABLET ORALLY ONCE A DAY NEEDED, NOTES: NONE IN 3 YEARS TAKING MULTIVITAMIN ADULTS - TABLET ORALLY DAILY TAKING QVAR 80 MCG/ACT AEROSOL SOLUTION 2 PUFFS INHALATION TWICE A DAY TAKING VENTOLIN HFA 108 (90 BASE) MCG/ACT AEROSOL SOLUTION 2 PUFFS NEEDED INHALATION EVERY 6 HRS TAKING ZOFRAN ODT 4 MG TABLET DISINTEGRATING 1 TABLET ON THE TONGUE AND ALLOW TO DISSOLVE ORALLY EVERY 8 HRS PRN TAKING NORCO 5-325 MG TABLET 1 TABLET NEEDED ORALLY Q8H PRN MDD3 TAKING METAXALONE 800 MG TABLET 1 TABLET ORALLY BID NEEDED, NOTES: TAKING ONCE A DAY TAKING TYLENOL WITH CODEINE #3 300-30 MG TABLET 1 TABLET NEEDED ORALLY Q8HR PRN MDD3 TAKING CALCIUM 0153-2842 MG-UNIT TABLET CHEWABLE 2 CAPSULES ORALLY ONCE A DAY NOT-TAKING CALCIUM 600 MG TABLET 1 TABLET WITH MEALS ORALLY TWICE A DAY, NOTES: 10/12/181999 NOT-TAKING CALCIUM , NOTES: DUPLICATE MEDICATION LIST REVIEWED AND RECONCILED WITH THE PATIENT PAST MEDICAL HISTORY CELIAC DISEASE ASTHMA MILD INTERMITTENT DEPRESSION CERVICAL RADICULOPATHY BILATERAL DUPLICATE URETERS RSV ALLERGIES BETADINE: HIVES/BREATHING PROBLEM - ALLERGY FLEXERIL: HEART STOPS - ALLERGY NAPROXEN: ANAPHYLAXIS/HIVES - ALLERGY ASPIRIN: HIVES - ALLERGY MOTRIN: ANAPHYLAXIS/HIVES - ALLERGY COMPAZINE: UNKNOWN - ALLERGY MORPHINE SULFATE: HIVES - ALLERGY PAXIL: THROAT SWELLING - ALLERGY TRAMADOL: SEIZURES - ALLERGY WELLBUTRIN: HIVES - ALLERGY CYMBALTA: ANAPHYLAXIS - ALLERGY AMOXICILLIN: HIVES - ALLERGY FENTANYL: THROAT SWELLING - ALLERGY METOCLOPRAMIDE HCL: SEIZURES - ALLERGY ZOLOFT: THROAT SWELLING - ALLERGY DILUTING SOLUTION FOR ALLERGY SHOTS: SWELLING - ALLERGY WATERMELON: BRIGHT RED SKIN, IBS FLARE UP, NAUSEA VOMITING - ALLERGY NSAIDS: ANAPHYLAXIS - SIDE EFFECTS METHOTREXATE: SORES IN MOUTH, BODY ACHES; LOWER RBC'S COUNT - SIDE EFFECTS FLU VACCINE: SWELLING AT SITE - SIDE EFFECTS INFLUENZA VAC SPLIT QUAD: SWELLING AT SITE - SIDE EFFECTS IV CONTRAST DYE GABAPENTIN: CONFUSION - SIDE EFFECTS WATERMELON FLAVOR: IBS FLARE-UP; REDDENED SKIN - ALLERGY SURGICAL HISTORY TONSILECTOMY 1973 HYSTERECTOMY 1990 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 2 SON(S) , 1 DAUGHTER(S) . DAD- A. FIB, DEMENTIA, ARTHRITIS\\\\NSISTER- THYROID DISEASE\\\\NSISTER - CELIAC, SUICIDE\\\\NDAUGHTER - A FIB\\\\NYOUNGEST SON - SEVERE ASTHMA, NIGHTTIME EPILEPSY. SOCIAL HISTORY GENERAL: TOBACCO USE ARE YOU A:NONSMOKER HIV / HEP-C SCREENING HIV TEST OFFERED TO PATIENT:YES DATE OFFERED:04/06/2018 TEST ACCEPTED:NO HEP-C TEST OFFERED TO PATIENT:YES DATE OFFERED:04/06/2018 REASON:PATIENT DECLINED TEST ACCEPTED:NO REASON:PATIENT DECLINED BROCHURE PROVIDED TO PATIENTYES OTHERS AT HOME: FATHER, MOTHER. EDUCATION LEVEL OF EDUCATION:COLLEGE DIET: GLUTEN FREE. LANGUAGE LANGUAGES SPOKEN:NEPALI DOMESTIC VIOLENCE DO YOU FEEL SAFE IN YOUR ENVIRONMENT?YES NEW PATIENT PAIN DIARY FROM 0-10, WHAT LEVEL IS YOUR PAIN TODAY?6 BMI CARE GOAL FOLLOW-UP ABOVE NORMAL BMI FOLLOW-UPDIETARY MANAGEMENT EDUCATION, GUIDANCE, AND COUNSELING RECREATIONAL DRUG USE DRUG USE?NO EXERCISE: WALKS. LEARNING BARRIERS / SPECIAL NEEDS CHANGE FROM LAST VISIT?NO BARRIERS TO LEARNING?NO HEARING IMPAIRED?NO VISION IMPAIRED?YES COGNITIVELY IMPAIRED?NO :CORRECTIVE LENSES GLASSES READINESS TO LEARN?YES LEARNING PREFERENCES?NO LEARNING CAPABILITIES PRESENT?YES EMOTIONAL BARRIERS?NO SPECIAL DEVICES?NO ROAD SUPERVISOR OF ENGINES NEEDED?NO PAIN CLINIC PFS, CLERGY, PUBLIC HEALTH REFERRALS PFS REFERRAL NEEDED?NO CLERGY REFERRAL NEEDED?NO PUBLIC HEALTH REFERRAL NEEDED?NO HAS THE PATIENT BEEN EDUCATED REGARDING HIS/HER PLAN OF CARE?YES HAS THE PATIENT BEEN EDUCATED REGARDING PAIN, THE RISK FOR PAIN, THE IMPORTANCE OF EFFECTIVE PAIN MANAGEMENT, AND THE PAIN ASSESSMENT PROCESS?YES LATEX QUESTIONNAIRE LATEX ALLERGY : HAVE YOU EVER DEVELOPED ANY TYPE OF REACTION AFTER HANDLING LATEX PRODUCTS SUCH RUBBER GLOVES, CONDOMS, DIAPHRAGMS, BALLOONS, SOCKS, OR UNDERWEAR?NO LATEX ALLERGY : HAVE YOU EVER DEVELOPED ANY TYPE OF REACTION DURING OR AFTER DENTAL APPOINTMENT, VAGINAL/RECTAL EXAMINATION, SURGICAL PROCEDURE, OR ANY OTHER EXPOSURE?NO DATE ASKED : 09/09/2018 LATEX RISK : HAVE YOU EVER HAD ANY DIFFICULTY BREATHING OR HIVES AFTER EATING OR HANDLING ANY FRUITS, OR VEGETABLES; SUCH KIWI, BANANAS, STONE FRUITS, OR CHESTNUTSNO LATEX RISK : DO YOU HAVE A PREVIOUS PERSONAL HISTORY OF MORE THAN NINE SURGERIES, SPINA BIFIDA, OR REPEATED CATHERTIZATIONS? NO LATEX RISK : ARE YOU FREQUENTLY EXPOSED TO LATEX PRODUCTS IN YOUR OCCUPATION?NO CAFFEINE CAFFEINE USE?YES HOW OFTEN AND HOW MUCH? 16 OZ PEPSI PER DAY ADVANCE DIRECTIVE ADVANCE DIRECTIVE DISCUSSED WITH PATIENT:YES HCP - LEIGHANN DICK () TAOIST [id number] BUDDHISM MARITAL STATUS: . ALCOHOL SCREENING DID YOU HAVE A DRINK CONTAINING ALCOHOL IN THE PAST YEAR?NO POINTS0 INTERPRETATIONNEGATIVE OCCUPATION: UNEMPLOYED. SEXUAL HX HAD SEX IN THE LAST 12 MONTHS (VAGINAL, ORAL, OR ANAL)?YES WITHMEN ONLY PREVENTION STRATEGIES DISCUSSED:OTHER USE PROTECTION?NO HAVE YOU EVER HAD AN STD?NO REVIEWED WITH PATIENT 04/21/18 0945 JSREVIEWED WITH PT 07/21/18 0909 BVREVIEWED WITH PATIENT 10/13/18 1249 JS. HOSPITALIZATION/MAJOR DIAGNOSTIC PROCEDURE ACUTE DIVERTICULITIS 06/23 SURGERY RELATED PNEUMONIA / BRONCHITIS / FLU (2 DAY STAY EACH TIME) 06/2017 REVIEW OF SYSTEMS REVIEWED BY: PROVIDER: SONJA APARICIO . CONSTITUTIONAL: ANY CHANGE IN YOUR MEDICAL CONDITION? NO . CHILLS NO . FEVER NO . INFECTION: DO YOU HAVE NEW INFECTIONS? NO . DO YOU HAVE HISTORY OF MRSA? NO . MUSCULOSKELETAL: ANY NEW PATTERNS OF PAIN OR NUMBNESS? NO . GASTROENTEROLOGY: ANY NEW CHANGE IN BOWEL CONTROL? NO . GENITOURINARY: ANY NEW CHANGE IN BLADDER CONTROL? NO . IS THERE A CHANCE YOU COULD BE ? NO . HEMATOLOGY/LYMPH: DO YOU TAKE ANY BLOOD THINNERS? (FOR EXAMPLE- COUMADIN, PLAVIX, AGGRENOX, PLATEL, PRADAXA, OR XARELTO) NO . WHEN WAS YOUR LAST DOSE? DATE: TIME: . NEUROLOGY: HAVE YOU FALLEN IN THE PAST 12 MONTHS? NO . ANY NEW EXTREMITY NUMBNESS OR WEAKNESS? NO . CARDIOLOGY: DO YOU HAVE A PACEMAKER OR DEFIBRILLATOR? NO . RESPIRATORY: HAVE YOU BEEN SICK IN THE PAST WEEK? NO . FEVER NO . FLU LIKE SYMPTOMS? NO . COUGH NO . INTEGUMENTARY: DO YOU HAVE ANY RASHES OR OPEN SORES? NO . ALLERGIC/IMMUNO: ARE YOU ALLERGIC TO IV DYE? YES . ANY NEW ALLERGIES? NO . PSYCHIATRIC: DO YOU HAVE THOUGHTS OF HURTING YOURSELF OR SOMEONE ELSE? NO . ARE YOU ABUSED, NEGLECTED, OR IN AN UNSAFE ENVIRONMENT? NO . ENDOCRINOLOGY: ARE YOU DIABETIC? NO . OTHER: DO YOU NEED ANY PRESCRIPTIONS? NO . IF YES, PLEASE LIST: ____ . ANY NEW PROBLEMS WITH YOUR MEDICATIONS? NO . WHEN DID YOU LAST EAT? ____ . WHEN DID YOU LAST DRINK? ____ . WHAT DID YOU LAST DRINK? ____ . NAME OF PERSON DRIVING YOU HOME? ____ . DO YOU HAVE ANY OTHER QUESTIONS OR CONCERNS NO . VITAL SIGNS WT 196.8 LBS, HT 63 IN, BMI 34.86 INDEX, BP 126/59 MM HG, HR 64 /MIN, RR 18 /MIN, TEMP 97.2 F, OXYGEN SAT % 100%, NA INITIALS SC 10:51. EXAMINATION GENERAL EXAMINATION: GENERAL APPEARANCE:AWAKE,ALERT ,PLEAASANT . PSYCHAFFECT NORMAL . LUNGS:LUNG WARREN ARE CLEAR TO AUSCULTATION BILATERALLY. GOOD MOVEMENT OF AIR . HEART:S1, S2 IN A REGULAR RATE AND RHYTHM. NO SIGNIFICANT MURMURS, RUBS OR GALLOPS NOTED . ASSESSMENTS SPONDYLOSIS OF LUMBOSACRAL REGION WITHOUT MYELOPATHY OR RADICULOPATHY - M47.817 (PRIMARY) TREATMENT SPONDYLOSIS OF LUMBOSACRAL REGION WITHOUT MYELOPATHY OR RADICULOPATHY CONTINUE NORCO TABLET, 5-325 MG, 1 TABLET NEEDED, ORALLY, Q8H PRN MDD3 CONTINUE METAXALONE TABLET, 800 MG, 1 TABLET, ORALLY, BID NEEDED, NOTES: TAKING ONCE A DAY CONTINUE TYLENOL WITH CODEINE #3 TABLET, 300-30 MG, 1 TABLET NEEDED, ORALLY, Q8HR PRN MDD3 NOTES: ISTOP REGISTRY REVIEWED AND DEMONSTRATES COMPLLIANCE. BRINGS IN MEDICATIONS WHICH IS APPROPRIATE FOR WHAT WAS DISPENSED. RECENT URINE TOXICOLOGY REVIEWED. NO UNAUTHORIZED MEDICATIONS. NO ILLICIT SUBSTANCES AND PRESCRIBED MEDICATIONS WERE PRESENT. , RISKS AND BENEFITS OF NARCOTIC/OPIOD MEDICATIONS WERE REVIEWED WITH PATIENT - THIS INCLUDES BUT IS NOT LIMITED TO RISK OF DEPENDANCE/DEVELOPMENT OF ADDICTION, MOOD DISTURBANCE AND DEPRESSION, OSTEOPOROSIS, HORMONAL AND LABIDAL CHANGES, RESPIRATORY DEPRESSION AND . PATIENT IS ADVISED NOT TO DRIVE OR DRINK ALCOHOL WHILE ON THESE MEDICATIONS. PROCEDURE CODES FA211 ESTABILISHED PATIENT [facility] CHARGE DISPOSITION & COMMUNICATION FOLLOW UP 3 MONTHS ELECTRONICALLY SIGNED BY MARKUS KENNY ON 11/22/2018 AT 03:10 PM EDT DISCLAIMER : THIS IS A VISIT SUMMARY EXTRACTED FROM THE [employer]ICAL[employer]KS CHART. IT IS NOT A COPY OF THE [employer]KS PROGRESS NOTE. MTDD
== END ==
LOC: M PAIN 10:45
PROVIDERS: ATTEND Nurse Practitioner Family
DX: M47.817 Spondylosis without myelopathy or radiculopathy, lumbosacral region (principal); J45.20 Mild intermittent asthma, uncomplicated; Z86.59 Personal history of other mental and behavioral disorders; Z88.1 Allergy status to other antibiotic agents; Z88.5 Allergy status to narcotic agent; Z88.6 Allergy status to analgesic agent; Z88.3 Allergy status to other anti-infective agents; Z88.7 Allergy status to serum and vaccine; Z91.018 Allergy to other foods; Z91.041 Radiographic dye allergy status; Z79.899 Other long term (current) drug therapy

== ENCOUNTER → 2019-01-13 | Outpatient (REF) | payer BC ==
[2019-01-13 20:10] LABS: BASO # 0.1 10^3/uL (0.0-0.2); BASO % 0.5 % (0.0-1.0); EOS # 0.2 10^3/uL (0.0-0.50); EOS % 1.9 % (0.0-3.0); HEMATOCRIT 40.6 % (36.0-47.0); LYMPH # 3.1 10^3/uL (1.5-4.5); LYMPH % 27.2 % (24.0-44.0); MEAN CORPUSCULAR HEMOGLOBIN 27.1 pg (27.0-33.0); MEAN CORPUSCULAR VOLUME 84.8 fl (80.0-96.0); MONO # 0.8 10^3/uL (0.0-0.8); MONO % 6.9 % (0.0-5.0); NEUTROPHILS # 7.2 10^3/uL (1.8-7.7); PLATELET COUNT, AUTOMATED 225 10^3/uL (150-450); RED BLOOD COUNT 4.79 10^6/uL (4.00-5.40); WHITE BLOOD COUNT 11.4 10^3/uL (4.0-10.0)
[2019-01-13 20:21] LABS: BLOOD UREA NITROGEN 11 MG/DL (7-18); CALCIUM LEVEL 9.4 MG/DL (8.5-10.1); CARBON DIOXIDE LEVEL 29 MEQ/L (21-32); CHLORIDE LEVEL 107 MEQ/L (98-107); CREATININE FOR GFR 0.96 MG/DL (0.55-1.30); GLOMERULAR FILTRATION RATE > 60.0 (>51); GLUCOSE, FASTING 80 MG/DL (70-100); POTASSIUM SERUM 3.8 MEQ/L (3.5-5.1); SODIUM LEVEL 143 MEQ/L (136-145)
== END ==
LOC: M SFHCLERA 15:06
PROVIDERS: ATTEND Family Medicine
DX: R11.0 Nausea (principal)

== ENCOUNTER → 2019-02-02 | Outpatient (CLI) | payer BC | LOC: M PAIN 11:15 | PROVIDERS: ATTEND Nurse Practitioner Family | DX: M47.817 Spondylosis without myelopathy or radiculopathy, lumbosacral region (principal); G89.29 Other chronic pain; J45.20 Mild intermittent asthma, uncomplicated; Z86.59 Personal history of other mental and behavioral disorders; Z88.1 Allergy status to other antibiotic agents; Z88.5 Allergy status to narcotic agent; Z88.6 Allergy status to analgesic agent; Z88.7 Allergy status to serum and vaccine; Z88.8 Allergy status to other drugs, medicaments and biological substances; Z91.018 Allergy to other foods; Z91.041 Radiographic dye allergy status; Z79.899 Other long term (current) drug therapy ==

== ENCOUNTER 2019-04-05 23:30 | Emergency (ER) | payer BC ==
[~2019-04-05] VITALS: Ht 160 cm; Wt 88.2 kg
[2019-04-05] MEDS ORDERED: ACET1TAB16 PO (23:42)
[2019-04-06 00:48] LABS: BASO % 0.5 % (0.0-1.0); EOS # 0.2 10^3/uL (0.0-0.5); HEMOGLOBIN 13.3 g/dl (12.0-15.5); LYMPH # 2.1 10^3/uL (1.5-5.0); LYMPH % 26.8 % (24.0-44.0); MEAN CORPUSCULAR HGB CONC 31.7 g/dl (32.0-36.5); MEAN CORPUSCULAR VOLUME 85.2 fl (80.0-96.0); MONO # 0.6 10^3/uL (0.0-0.8); MONO % 7.7 % (0.0-5.0); NEUTROPHILS # 4.9 10^3/uL (1.5-8.5); NEUTROPHILS % 61.9 % (36.0-66.0); PLATELET COUNT, AUTOMATED 228 10^3/uL (150-450); RED BLOOD COUNT 4.93 10^6/uL (4.00-5.40); WHITE BLOOD COUNT 7.9 10^3/uL (4.0-10.0)
[2019-04-06 01:04] LABS: ALBUMIN 3.8 GM/DL (3.2-5.2); ALT/SGPT 27 U/L (12-78); BILIRUBIN,DIRECT < 0.1 MG/DL (0.0-0.2); BILIRUBIN,TOTAL 0.3 MG/DL (0.2-1.0); CK-MB VALUE MASS 1.3 NG/ML (<3.6); CPK CREATINE PHOSPHOKINASE 72 U/L (26-192); INR 1.01; LIPASE 65 U/L (73-393); MB/CK RELATIVE INDEX 1.81 (< OR =4); TROPONIN I < 0.02 NG/ML (< 0.10)
[2019-04-06] MEDS ORDERED: methylPREDNISolone INJ 125 MG/2 ML VIAL (J2930) IV ONE (01:45)
[2019-04-06] MEDS ORDERED: IPRATROPIUM 0.5MG/ALBUTEROL 2.5MG INH SOL UD 3ML (DUONEB)(J7620) NEB ONE (01:45)
[2019-04-06 02:16] LABS: POTASSIUM SERUM 3.9 MEQ/L (3.5-5.1)
[2019-04-06] MEDS ORDERED: PRED20TA PO (03:58)
[2019-04-06 04:09] VITALS: BP 121/61
--- NOTE | 2019-04-06 08:03 | REP ---
Clinical: Chest pain . Comparison: 05/08/2018 . Findings: The mediastinum and cardiac silhouette are stable and within normal limits for portable technique. The lung sun are clear without acute consolidation, effusion, or pneumothorax. Skeletal structures are intact. Impression: No acute cardiopulmonary process appreciated. Electronically Signed by Curtis Yu MD 04/06/2019 07:55 A
--- NOTE | 2019-04-07 06:55 | ECGEPIP ---
[facility] - ED Test Date: 2019-04-05 Pat Name: JOSE EDUARDO DICK Department: Room: - Gender: Female Obstetrics Specialist: CT : 1960 Requested By: LAURA Oleary Order Number: [id number] Reading MD: Nellie Raymundo Measurements Intervals Vaughn Rate: 71 P: 49 MA: 175 QRS: 27 QRSD: 101 T: 41 QT: 395 QTc: 431 Interpretive Statements SINUS RHYTHM NSTTW abnormalities LOW VOLTAGE LIMB NO PRIOR Electronically Signed on 04-07-2019 6:55:08 EDT by Nellie Raymundo
== END 2019-04-06 04:37 | disposition home or self-care (01) ==
LOC: M ED 23:30
DX: J45.901 Unspecified asthma with (acute) exacerbation (principal); R05 Cough; Z79.51 Long term (current) use of inhaled steroids; Z79.52 Long term (current) use of systemic steroids; Z88.0 Allergy status to penicillin; Z88.8 Allergy status to other drugs, medicaments and biological substances; Z88.5 Allergy status to narcotic agent
CPT/HCPCS: 36415; 71045; 80047; 80076; 82550; 82553; 83690; 84132; 84484; 85025; 85610; 93005; 93041; 94760; 96374; 99285; J2930

== ENCOUNTER → 2019-05-23 | Outpatient (CLI) | payer BC ==
[~2019-05-23] MED LIST changes: +ACET1TAB16 PO; +BUPIVACAINE HCL 0.25% 30 ML VIAL As Ordered ONE; +LIDOCAINE 1% SDV INJ 30 ML VIAL As Ordered ONE; +PRED20TA PO
--- NOTE | 2019-05-23 13:15 | REP ---
Partial lumbar spine series: Single view . History: Injection procedure for pain. 27 seconds of fluoroscopy time is reported. Findings: A single fluoroscopically obtained last image hold procedural spot radiograph of the lumbar spine documents needle position and contrast injection associated with injection procedure. Electronically Signed by Duane Smith MD 05/23/2019 01:07 P
--- NOTE | 2019-05-25 02:09 | ECWPNPC ---
PATIENT NAME: JOSE EDUARDO DICK : 1960 GENDER: FEMALE VISIT DATE: 05/23/2019 DISCHARGE DATE: 05/23/19 1302 VISIT LOCKED DATE TIME: PHYSICIAN: ZEINA SCHMIDT MD RESOURCE: ZEINA SCHMIDT MD REASON FOR APPOINTMENT 1. LEFT L3/4, L4/5 DIAGNOSTIC FACET BLOCK HISTORY OF PRESENT ILLNESS HISTORY OF PRESENT ILLNESS: PAIN THE PATIENT DESCRIBES THE PAIN... FALL RISK SCREENING: SCREENING :NO FALLS REPORTED IN THE LAST YEAR CURRENT MEDICATIONS TAKING SINGULAIR 10 MG TABLET 1 TABLET IN THE EVENING ORALLY ONCE A DAY, NOTES: 05/22 2030 TAKING BENADRYL 25 MG CAPSULE 1 CAPSULE NEEDED ORALLY NIGHTLY, NOTES: NONE RECENT TAKING NASONEX 50 MCG/ACT SUSPENSION 2 SPRAYS IN EACH NOSTRIL NASALLY ONCE A DAY, NOTES: 05/22 06 TAKING FEXOFENADINE HCL 180 MG TABLET 1 TABLET ORALLY ONCE A DAY, NOTES: 05/22 07 TAKING PROBIOTIC - TABLET DELAYED RELEASE ORALLY ONCE DAILY, NOTES: 05/22 2000 TAKING VITAMIN D-3 2000 UNITS ONCE A DAY, NOTES: 05/22 1500 TAKING BIOTIN W/ VITAMINS C & E 1250-7.5-7.5 MCG-MG-UNT TABLET CHEWABLE ORALLY DAILY, NOTES: 05/22 1500 TAKING MULTIVITAMIN ADULTS - TABLET ORALLY DAILY, NOTES: 05/22 2000 TAKING VENTOLIN HFA 108 (90 BASE) MCG/ACT AEROSOL SOLUTION 2 PUFFS NEEDED INHALATION EVERY 6 HRS, NOTES: 05/22 530 TAKING CALCIUM 2182-0309 MG-UNIT TABLET CHEWABLE 1 CAPSULE ORALLY ONCE A DAY, NOTES: 05/22 1500 TAKING ZOFRAN ODT 4 MG TABLET DISINTEGRATING 1 TABLET ON THE TONGUE AND ALLOW TO DISSOLVE ORALLY EVERY 8 HRS PRN, NOTES: NONE RECENT TAKING NORCO 5-325 MG TABLET 1 TABLET NEEDED ORALLY Q8H PRN MDD3, NOTES: 05/19 TAKING QVAR REDIHALER 80 MCG/ACT AEROSOL BREATH ACTIVATED INHALE 2 PUFFS (160 MCG) BY INHALATION ROUTE TWICE A DAY. INHALATION , NOTES: 05/22 0500 TAKING IPRATROPIUM-ALBUTEROL 0.5-2.5 (3) MG/3ML SOLUTION 3 ML INHALATION EVERY 6 HRS, NOTES: 05/22 0800 TAKING CLONAZEPAM 0.5 MG TABLET 1 TABLET AT BEDTIME NEEDED ORALLY DIRECTED, NOTES: HAS NOT STARTED YET TAKING TYLENOL WITH CODEINE #3 300-30 MG TABLET 1 TABLET NEEDED ORALLY Q8HR PRN MDD3, NOTES: 05/21 1500 TAKING METAXALONE 800 MG TABLET 1 TABLET ORALLY BID NEEDED, NOTES: 05/21 1500 TAKING DICYCLOMINE HCL 20 MG TABLET 1 TABLET ORALLY FOUR TIMES DAILY NEEDED, NOTES: 1 WEEK AGO NOT-TAKING HYDROXYZINE HCL 25 MG TABLET 1 TABLET NEEDED ANXIETY ORALLY EVERY 8 HRS NOT-TAKING ERYTHROMYCIN 5 MG/GM OINTMENT 1 APPLICATION INTO THE LOWER EYELID OF AFFECTED EYE OPHTHALMIC FOUR TIMES A DAY NOT-TAKING PREDNISONE 20 MG TABLET 2 TABLET ORALLY ONCE A DAY, NOTES: FOR 4 DAYS TIL 04-09-19 NOT-TAKING PREDNISONE 20 MG TABLET 2 TABLET ORALLY ONCE A DAY NOT-TAKING AZITHROMYCIN 250 MG TABLET 2 TABLET ON THE FIRST DAY, THEN 1 TABLET DAILY FOR 4 DAYS ORALLY ONCE A DAY NOT-TAKING DIFLUCAN 150 MG TABLET 2 TABLETS ORALLY TAKE 1 TABLET, REPEAT IN 72 HOURS NOT-TAKING DAPSONE 25 MG TABLET 1 TABLET ORALLY ONCE A DAY NEEDED, NOTES: NONE IN 3 YEARS NOT-TAKING DOXYCYCLINE MONOHYDRATE 100 MG CAPSULE 1 CAPSULE ORALLY TWICE DAILY DISCONTINUED QVAR 80 MCG/ACT AEROSOL SOLUTION 2 PUFFS INHALATION TWICE A DAY, NOTES: DUPLICATE DISCONTINUED DIFLUCAN 150 MG TABLET DIRECTED ORALLY DAILY DISCONTINUED ALBUTEROL SULFATE HFA 108 (90 BASE) MCG/ACT AEROSOL SOLUTION 2 PUFFS NEEDED INHALATION EVERY 6 HRS, NOTES: DUPLICATE DISCONTINUED CALCIUM 600 MG TABLET 1 TABLET WITH MEALS ORALLY TWICE A DAY, NOTES: DUPLICATE DISCONTINUED CALCIUM , NOTES: DUPLICATE MEDICATION LIST REVIEWED AND RECONCILED WITH THE PATIENT PAST MEDICAL HISTORY CELIAC DISEASE ASTHMA MILD INTERMITTENT DEPRESSION CERVICAL RADICULOPATHY BILATERAL DUPLICATE URETERS RSV IBS ALLERGIES BETADINE: HIVES/BREATHING PROBLEM - ALLERGY FLEXERIL: HEART STOPS - ALLERGY NAPROXEN: ANAPHYLAXIS/HIVES - ALLERGY ASPIRIN: HIVES - ALLERGY MOTRIN: ANAPHYLAXIS/HIVES - ALLERGY COMPAZINE: UNKNOWN - ALLERGY MORPHINE SULFATE: HIVES - ALLERGY PAXIL: THROAT SWELLING - ALLERGY TRAMADOL: SEIZURES - ALLERGY WELLBUTRIN: HIVES - ALLERGY CYMBALTA: ANAPHYLAXIS - ALLERGY AMOXICILLIN: HIVES - ALLERGY FENTANYL: THROAT SWELLING - ALLERGY METOCLOPRAMIDE HCL: SEIZURES - ALLERGY ZOLOFT: THROAT SWELLING - ALLERGY DILUTING SOLUTION FOR ALLERGY SHOTS: SWELLING - ALLERGY WATERMELON: BRIGHT RED SKIN, IBS FLARE UP, NAUSEA VOMITING - ALLERGY NSAIDS: ANAPHYLAXIS - SIDE EFFECTS METHOTREXATE: SORES IN MOUTH, BODY ACHES; LOWER RBC'S COUNT - SIDE EFFECTS FLU VACCINE: SWELLING AT SITE - SIDE EFFECTS INFLUENZA VAC SPLIT QUAD: SWELLING AT SITE - SIDE EFFECTS IV CONTRAST DYE GABAPENTIN: CONFUSION - SIDE EFFECTS WATERMELON FLAVOR: IBS FLARE-UP; REDDENED SKIN - ALLERGY SURGICAL HISTORY TONSILECTOMY 1974 HYSTERECTOMY 1990 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 2 SON(S) , 1 DAUGHTER(S) . DAD- A. FIB, DEMENTIA, ARTHRITIS\\\\NSISTER- THYROID DISEASE\\\\NSISTER - CELIAC, SUICIDE\\\\NDAUGHTER - A FIB\\\\NYOUNGEST SON - SEVERE ASTHMA, NIGHTTIME EPILEPSY. SOCIAL HISTORY GENERAL: TOBACCO USE ARE YOU A:NONSMOKER HIV / HEP-C SCREENING HIV TEST OFFERED TO PATIENT:YES DATE OFFERED:04/04/2019 TEST ACCEPTED:NO HEP-C TEST OFFERED TO PATIENT:NO REASON:PATIENT DECLINED BROCHURE PROVIDED TO PATIENTYES OTHERS AT HOME: FATHER, MOTHER. EDUCATION LEVEL OF EDUCATION:COLLEGE DIET: GLUTEN FREE. LANGUAGE LANGUAGES SPOKEN:SRI LANKAN DOMESTIC VIOLENCE DO YOU FEEL SAFE IN YOUR ENVIRONMENT?YES BMI CARE GOAL FOLLOW-UP ABOVE NORMAL BMI FOLLOW-UPDIETARY MANAGEMENT EDUCATION, GUIDANCE, AND COUNSELING RECREATIONAL DRUG USE DRUG USE?NO EXERCISE: WALKS. 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 CLINIC PFS, CLERGY, PUBLIC HEALTH REFERRALS PFS REFERRAL NEEDED?NO CLERGY REFERRAL NEEDED?NO PUBLIC HEALTH REFERRAL NEEDED?NO HAS THE PATIENT BEEN EDUCATED REGARDING HIS/HER PLAN OF CARE?YES HAS THE PATIENT BEEN EDUCATED REGARDING PAIN, THE RISK FOR PAIN, THE IMPORTANCE OF EFFECTIVE PAIN MANAGEMENT, AND THE PAIN ASSESSMENT PROCESS?YES LATEX QUESTIONNAIRE LATEX ALLERGY : HAVE YOU EVER DEVELOPED ANY TYPE OF REACTION AFTER HANDLING LATEX PRODUCTS SUCH RUBBER GLOVES, CONDOMS, DIAPHRAGMS, BALLOONS, SOCKS, OR UNDERWEAR?NO LATEX ALLERGY : HAVE YOU EVER DEVELOPED ANY TYPE OF REACTION DURING OR AFTER DENTAL APPOINTMENT, VAGINAL/RECTAL EXAMINATION, SURGICAL PROCEDURE, OR ANY OTHER EXPOSURE?NO LATEX RISK : HAVE YOU EVER HAD ANY DIFFICULTY BREATHING OR HIVES AFTER EATING OR HANDLING ANY FRUITS, OR VEGETABLES; SUCH KIWI, BANANAS, STONE FRUITS, OR CHESTNUTSNO LATEX RISK : DO YOU HAVE A PREVIOUS PERSONAL HISTORY OF MORE THAN NINE SURGERIES, SPINA BIFIDA, OR REPEATED CATHERIZATIONS? NO LATEX RISK : ARE YOU FREQUENTLY EXPOSED TO LATEX PRODUCTS IN YOUR OCCUPATION?YES DATE ASKED : 05/23/2019 CAFFEINE CAFFEINE USE?YES HOW OFTEN AND HOW MUCH? 16 OZ PEPSI PER DAY ADVANCE DIRECTIVE ADVANCE DIRECTIVE DISCUSSED WITH PATIENT:YES HCP - LEIGHANN DICK () [phone](H) [phone] (C) CHRISTIAN [id number] LATTER-DAY MARITAL STATUS: . ALCOHOL SCREENING DID YOU HAVE A DRINK CONTAINING ALCOHOL IN THE PAST YEAR?NO POINTS0 INTERPRETATIONNEGATIVE OCCUPATION: UNEMPLOYED. SEXUAL HX HAD SEX IN THE LAST 12 MONTHS (VAGINAL, ORAL, OR ANAL)?YES WITHMEN ONLY PREVENTION STRATEGIES DISCUSSED:OTHER USE PROTECTION?NO HAVE YOU EVER HAD AN STD?NO REVIEWED WITH PATIENT 04/21/18 0945 JSREVIEWED WITH PT 07/21/18 0909 BVREVIEWED WITH PATIENT 10/13/18 1249 JSPRE-SCREENING PHONE CALL COMPLETED 05/18/19 1257 JS05/23/19 1010 REVIEWED WITH PT. AD. HOSPITALIZATION/MAJOR DIAGNOSTIC PROCEDURE ACUTE DIVERTICULITIS 06/23 SURGERY RELATED PNEUMONIA / BRONCHITIS / FLU (2 DAY STAY EACH TIME) 06/2017 ASTHMA/PNEUMONIA - UNSURE OF YEARS REVIEW OF SYSTEMS REVIEWED BY: PROVIDER: . CONSTITUTIONAL: ANY CHANGE IN YOUR MEDICAL CONDITION? NO . CHILLS NO . FEVER NO . INFECTION: DO YOU HAVE NEW INFECTIONS? NO . DO YOU HAVE HISTORY OF MRSA? NO . MUSCULOSKELETAL: ANY NEW PATTERNS OF PAIN OR NUMBNESS? NO . GASTROENTEROLOGY: ANY NEW CHANGE IN BOWEL CONTROL? NO . GENITOURINARY: ANY NEW CHANGE IN BLADDER CONTROL? NO . IS THERE A CHANCE YOU COULD BE ? NO . HEMATOLOGY/LYMPH: DO YOU TAKE ANY BLOOD THINNERS? (FOR EXAMPLE- COUMADIN, PLAVIX, AGGRENOX, PLATEL, PRADAXA, OR XARELTO) NO . WHEN WAS YOUR LAST DOSE? DATE: TIME: . NEUROLOGY: HAVE YOU FALLEN IN THE PAST 12 MONTHS? NO . ANY NEW EXTREMITY NUMBNESS OR WEAKNESS? NO . CARDIOLOGY: DO YOU HAVE A PACEMAKER OR DEFIBRILLATOR? NO . RESPIRATORY: HAVE YOU BEEN SICK IN THE PAST WEEK? NO . FEVER NO . FLU LIKE SYMPTOMS? NO . COUGH NO . INTEGUMENTARY: DO YOU HAVE ANY RASHES OR OPEN SORES? NO . ALLERGIC/IMMUNO: ARE YOU ALLERGIC TO IV DYE? YES PER DR. SCHMIDT WE WILL NOT USE CONTRAST DYE DURING THE PROCEDURE. . ANY NEW ALLERGIES? NO . PSYCHIATRIC: DO YOU HAVE THOUGHTS OF HURTING YOURSELF OR SOMEONE ELSE? NO . ARE YOU ABUSED, NEGLECTED, OR IN AN UNSAFE ENVIRONMENT? NO . ENDOCRINOLOGY: ARE YOU DIABETIC? NO . OTHER: DO YOU NEED ANY PRESCRIPTIONS? NO . IF YES, PLEASE LIST: ____ . ANY NEW PROBLEMS WITH YOUR MEDICATIONS? NO . WHEN DID YOU LAST EAT? 05/22 2000 . WHEN DID YOU LAST DRINK? 05/23 06 . WHAT DID YOU LAST DRINK? WATER . NAME OF PERSON DRIVING YOU HOME? LEIGHANN-SPOUSE . DO YOU HAVE ANY OTHER QUESTIONS OR CONCERNS NO PT HAS NOT HAD ANY VACCINES IN THE PAST 30 DAYS . VITAL SIGNS WT 198 LBS, HT 63 IN, BMI 35.07 INDEX, BP 172/90 MM HG, REPEAT BP 158/94 MM HG, HR 70 /MIN, RR 18 /MIN, TEMP 97.1 F, OXYGEN SAT % 99%, SAFE IN ENV? (Y/N) Y, NA INITIALS MA 09:26, REVIEWED BY: ERASMO. ASSESSMENTS SPONDYLOSIS WITHOUT MYELOPATHY OR RADICULOPATHY, LUMBAR REGION - M47.816 (PRIMARY) PROCEDURES PN LUMBAR FACET BLOCK DIAGNOSTIC PRE PROCEDURE DIAGNOSIS LUMBAR SPONDYLOSIS POST PROCEDURE DIAGNOSIS LUMBAR SPONDYLOSIS PROCEDURE LEFT L3-L4 AND LEFT L4-L5 FACET BLOCK DIAGNOSTIC NUMBER [address] ZEINA SCHMIDT IC DESIGNER GATE ARRAYS NONE ANESTHESIA LOCAL PRE PROCEDURE NOTE THE PATIENT WITH HISTORY OF CHRONIC LOW BACK PAIN. I EVALUATED THE PATIENT AND REVIEWED THE CHART. I WENT OVER THE RISKS, ALTERNATIVES, AND BENEFITS ASSOCIATED WITH THIS PROCEDURE. THE PATIENT WOULD LIKE TO PROCEED AND GAVE CONSENT TO PERFORM THE PROCEDURE. AGREED WITH THE PATIENT WE ARE DOING THIS PROCEDURE TO DETERMINE IF THE PATIENT IS A CANDIDATE FOR A RADIOFREQUENCY ABLATION OF THE FACETS JOINTS. THE PATIENT DENIES UNEXPLAINABLE WEIGHT LOSS, FEVER, CHILLS, OR NEW CHANGES IN URINARY OR BOWEL CONTROL DESCRIPTION OF PROCEDURE THE PATIENT WAS BROUGHT TO THE PROCEDURE ROOM AND PLACED IN THE PRONE POSITION. THE LUMBOSACRAL AREA WAS CLEANED WITH CHLORAPREP SOLUTION AND DRAPED ASEPTICALLY. THE PROCEDURE WAS DONE UNDER STERILE CONDITIONS. I CHECKED LATERALITY AND THE LEVEL WHERE THE PROCEDURE WAS GOING TO BE PERFORMED WITH THE PATIENT AND THE SUPPORTING STAFF AT THE MOMENT OF THE TIME OUT IN THE PROCEDURE ROOM. UNDER FLUOROSCOPIC GUIDANCE, TARGETS WERE SELECTED AT THE INTERSECTION OF THE LEFT TRANSVERSE PROCESS OF L4, L5 AND ALA OF S1 WITH ITS RESPECTIVE SUPERIOR ARTICULAR PROCESS. LIDOCAINE WAS USED TO NUMB THE SKIN AND THE SUBCUTANEOUS TISSUE BELOW IT. SPINAL NEEDLE, 22-GAUGE WAS ADVANCED UNDER FLUOROSCOPIC GUIDANCE AND FOLLOWING PATIENT FEEDBACK UNTIL THE TARGETS WERE REACHED. POSITION OF THE NEEDLES WAS VERIFIED WITH AP AND LATERAL VIEWS. THEN A SOLUTION OF 0.4 ML OF BUPIVACAINE 0.25% WAS INJECTED AT EACH SITE. THERE WAS NO EVIDENCE OF BLOOD, PARESTHESIA OR CEREBROSPINAL FLUID DURING THE PROCEDURE. THE PATIENT WAS SENT TO THE RECOVERY ROOM. THE PATIENT WAS MOVING THE EXTREMITIES AND DOING WELL. THERE WAS NO COMPLICATION DURING THE PROCEDURE. FLUOROSCOPY TIME WAS 27 SECONDS POST PROCEDURE NOTE I AM LOOKING FOR LONG LASTING PAIN RELIEF WITH THIS INTERVENTION. THE PATIENT WILL DOCUMENT HIS PAIN LEVEL AND RESPONSE TO THIS PROCEDURE EVERY 30 MINUTES. THE PATIENT WILL BE SEEN IN A FOLLOW UP IN THE NEXT FEW WEEKS. DEPENDING ON THE LUMBAR FACET BLOCK RESULTS, I MAY CONSIDER DOING TRIGGER POINT INJECTIONS IN THE FUTURE. FURTHER DETERMINATION FOR HIS CASE WILL BE DONE AT THE NEXT VISIT. INSTRUCTIONS WERE GIVEN, QUESTIONS WERE ANSWERED, AND THE PATIENT EXPRESSED UNDERSTANDING AND AGREED WITH THE PLAN. I, CHEIKH RECIO, DOCUMENTED THE ABOVE INFORMATION ACTING A SCRIBE FOR DR. SCHMIDT. I HAVE REVIEWED THE ABOVE DOCUMENT, WRITTEN BY CHEIKH RECIO SCRIBKaren AND I VERIFY THAT IT IS ACCURATE. DIAGNOSTIC IM[facility] FACET BLOCK (PAIN)[id number] PROCEDURE CODES 11307 INJ PARAVERT F JNT L/S 1 LEV, [place]: [place] [address] INJ PARAVERT F JNT L/S 2 LEV, MODIFIERS: LT [id number] RADXPS IN END [id number] PXD DISPOSITION & COMMUNICATION FOLLOW UP 3 WEEKS ELECTRONICALLY SIGNED BY ZEINA SCHMIDT MD, MD ON 05/24/2019 AT 05:20 PM EST DISCLAIMER : THIS IS A VISIT SUMMARY EXTRACTED FROM THE [employer] CHART. IT IS NOT A COPY OF THE [employer] PROGRESS NOTE. YAN
== END ==
LOC: M PAIN 09:15
PROVIDERS: ATTEND Anesthesiology
DX: M47.816 Spondylosis without myelopathy or radiculopathy, lumbar region (principal); J45.20 Mild intermittent asthma, uncomplicated; Z86.59 Personal history of other mental and behavioral disorders; Z88.1 Allergy status to other antibiotic agents; Z88.3 Allergy status to other anti-infective agents; Z88.5 Allergy status to narcotic agent; Z88.6 Allergy status to analgesic agent; Z88.7 Allergy status to serum and vaccine; Z88.8 Allergy status to other drugs, medicaments and biological substances; Z91.018 Allergy to other foods; Z91.041 Radiographic dye allergy status; Z79.899 Other long term (current) drug therapy

== ENCOUNTER → 2019-06-06 | Outpatient (CLI) | payer BC ==
[~2019-06-06] MED LIST changes: -BUPIVACAINE HCL 0.25% 30 ML VIAL As Ordered ONE; -LIDOCAINE 1% SDV INJ 30 ML VIAL As Ordered ONE
--- NOTE | 2019-06-10 01:24 | ECWPNPC ---
PATIENT NAME: JOSE EDUARDO DICK : 1960 GENDER: FEMALE VISIT DATE: 06/06/2019 DISCHARGE DATE: 06/06/19 1033 VISIT LOCKED DATE TIME: PHYSICIAN: SONJA DÍAZ RESOURCE: SONJA DÍAZ REASON FOR APPOINTMENT 1. POST PROC HISTORY OF PRESENT ILLNESS HISTORY OF PRESENT ILLNESS: HERE FOR POST PROCEDURE F/U.HAD LEFT L3/4-L4/5 LFBDX ON 05/23/19.REPORTING SEVERE INCREASE IN PAIN DURING PROCEDURE AND AFTER PROCEDURE.HAS LEFT LOW BACK PAIN THAT RADIATES INTO LEFT LEG.RATING PAIN VAS 7-10/10.USING TYLENOL #3 OR HYDROCODONE 5/325 PERIODICALLY AND INFREQUENTLY FOR SEVERE PAIN EPISODES. PAIN THE PATIENT DESCRIBES THE PAIN... FALL RISK SCREENING: SCREENING :NO FALLS REPORTED IN THE LAST YEAR CURRENT MEDICATIONS TAKING SINGULAIR 10 MG TABLET 1 TABLET IN THE EVENING ORALLY ONCE A DAY TAKING BENADRYL 25 MG CAPSULE 1 CAPSULE NEEDED ORALLY NIGHTLY TAKING NASONEX 50 MCG/ACT SUSPENSION 2 SPRAYS IN EACH NOSTRIL NASALLY ONCE A DAY TAKING FEXOFENADINE HCL 180 MG TABLET 1 TABLET ORALLY ONCE A DAY TAKING PROBIOTIC - TABLET DELAYED RELEASE ORALLY ONCE DAILY TAKING VITAMIN D-3 2000 UNITS ONCE A DAY TAKING BIOTIN W/ VITAMINS C & E 1250-7.5-7.5 MCG-MG-UNT TABLET CHEWABLE ORALLY DAILY TAKING MULTIVITAMIN ADULTS - TABLET ORALLY DAILY TAKING VENTOLIN HFA 108 (90 BASE) MCG/ACT AEROSOL SOLUTION 2 PUFFS NEEDED INHALATION EVERY 6 HRS TAKING CALCIUM 4201-1302 MG-UNIT TABLET CHEWABLE 1 CAPSULE ORALLY ONCE A DAY TAKING ZOFRAN ODT 4 MG TABLET DISINTEGRATING 1 TABLET ON THE TONGUE AND ALLOW TO DISSOLVE ORALLY EVERY 8 HRS PRN TAKING QVAR REDIHALER 80 MCG/ACT AEROSOL BREATH ACTIVATED INHALE 2 PUFFS (160 MCG) BY INHALATION ROUTE TWICE A DAY. INHALATION TAKING IPRATROPIUM-ALBUTEROL 0.5-2.5 (3) MG/3ML SOLUTION 3 ML INHALATION EVERY 6 HRS TAKING CLONAZEPAM 0.5 MG TABLET 1 TABLET AT BEDTIME NEEDED ORALLY DIRECTED, NOTES: HAS NOT STARTED YET TAKING TYLENOL WITH CODEINE #3 300-30 MG TABLET 1 TABLET NEEDED ORALLY Q8HR PRN MDD3 TAKING METAXALONE 800 MG TABLET 1 TABLET ORALLY BID NEEDED TAKING DICYCLOMINE HCL 20 MG TABLET 1 TABLET ORALLY FOUR TIMES DAILY NEEDED TAKING CARISOPRODOL 350 MG TABLET 1 TABLET NEEDED ORALLY FOR SPASMS AND PAIN EVERY 8 HOURS NEEDED MDD 2 TAKING NORCO 5-325 MG TABLET 1 TABLET NEEDED ORALLY Q8H PRN MDD3 NOT-TAKING HYDROXYZINE HCL 25 MG TABLET 1 TABLET NEEDED ANXIETY ORALLY EVERY 8 HRS NOT-TAKING ERYTHROMYCIN 5 MG/GM OINTMENT 1 APPLICATION INTO THE LOWER EYELID OF AFFECTED EYE OPHTHALMIC FOUR TIMES A DAY NOT-TAKING PREDNISONE 20 MG TABLET 2 TABLET ORALLY ONCE A DAY, NOTES: FOR 4 DAYS TIL 04-09-19 NOT-TAKING PREDNISONE 20 MG TABLET 2 TABLET ORALLY ONCE A DAY NOT-TAKING AZITHROMYCIN 250 MG TABLET 2 TABLET ON THE FIRST DAY, THEN 1 TABLET DAILY FOR 4 DAYS ORALLY ONCE A DAY NOT-TAKING DIFLUCAN 150 MG TABLET 2 TABLETS ORALLY TAKE 1 TABLET, REPEAT IN 72 HOURS NOT-TAKING DAPSONE 25 MG TABLET 1 TABLET ORALLY ONCE A DAY NEEDED, NOTES: NONE IN 3 YEARS NOT-TAKING DOXYCYCLINE MONOHYDRATE 100 MG CAPSULE 1 CAPSULE ORALLY TWICE DAILY MEDICATION LIST REVIEWED AND RECONCILED WITH THE PATIENT PAST MEDICAL HISTORY CELIAC DISEASE ASTHMA MILD INTERMITTENT DEPRESSION CERVICAL RADICULOPATHY BILATERAL DUPLICATE URETERS RSV IBS ALLERGIES BETADINE: HIVES/BREATHING PROBLEM - ALLERGY FLEXERIL: HEART STOPS - ALLERGY NAPROXEN: ANAPHYLAXIS/HIVES - ALLERGY ASPIRIN: HIVES - ALLERGY MOTRIN: ANAPHYLAXIS/HIVES - ALLERGY COMPAZINE: UNKNOWN - ALLERGY MORPHINE SULFATE: HIVES - ALLERGY PAXIL: THROAT SWELLING - ALLERGY TRAMADOL: SEIZURES - ALLERGY WELLBUTRIN: HIVES - ALLERGY CYMBALTA: ANAPHYLAXIS - ALLERGY AMOXICILLIN: HIVES - ALLERGY FENTANYL: THROAT SWELLING - ALLERGY METOCLOPRAMIDE HCL: SEIZURES - ALLERGY ZOLOFT: THROAT SWELLING - ALLERGY DILUTING SOLUTION FOR ALLERGY SHOTS: SWELLING - ALLERGY WATERMELON: BRIGHT RED SKIN, IBS FLARE UP, NAUSEA VOMITING - ALLERGY NSAIDS: ANAPHYLAXIS - SIDE EFFECTS METHOTREXATE: SORES IN MOUTH, BODY ACHES; LOWER RBC'S COUNT - SIDE EFFECTS FLU VACCINE: SWELLING AT SITE - SIDE EFFECTS INFLUENZA VAC SPLIT QUAD: SWELLING AT SITE - SIDE EFFECTS IV CONTRAST DYE GABAPENTIN: CONFUSION - SIDE EFFECTS WATERMELON FLAVOR: IBS FLARE-UP; REDDENED SKIN - ALLERGY SURGICAL HISTORY TONSILECTOMY 1973 HYSTERECTOMY 1990 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 2 SON(S) , 1 DAUGHTER(S) . DAD- A. FIB, DEMENTIA, ARTHRITIS\\\\NSISTER- THYROID DISEASE\\\\NSISTER - CELIAC, SUICIDE\\\\NDAUGHTER - A FIB\\\\NYOUNGEST SON - SEVERE ASTHMA, NIGHTTIME EPILEPSY. SOCIAL HISTORY GENERAL: TOBACCO USE ARE YOU A:NONSMOKER HIV / HEP-C SCREENING HIV TEST OFFERED TO PATIENT:YES DATE OFFERED:04/04/2019 TEST ACCEPTED:NO HEP-C TEST OFFERED TO PATIENT:NO REASON:PATIENT DECLINED BROCHURE PROVIDED TO PATIENTYES OTHERS AT HOME: FATHER, MOTHER. EDUCATION LEVEL OF EDUCATION:COLLEGE DIET: GLUTEN FREE. LANGUAGE LANGUAGES SPOKEN:ROMANSH DOMESTIC VIOLENCE DO YOU FEEL SAFE IN YOUR ENVIRONMENT?YES BMI CARE GOAL FOLLOW-UP ABOVE NORMAL BMI FOLLOW-UPDIETARY MANAGEMENT EDUCATION, GUIDANCE, AND COUNSELING RECREATIONAL DRUG USE DRUG USE?NO EXERCISE: WALKS. LEARNING BARRIERS / SPECIAL NEEDS CHANGE FROM LAST VISIT?NO BARRIERS TO LEARNING?NO HEARING IMPAIRED?NO VISION IMPAIRED?YES COGNITIVELY IMPAIRED?NO :CORRECTIVE LENSES GLASSES READINESS TO LEARN?YES LEARNING PREFERENCES?NO LEARNING CAPABILITIES PRESENT?YES EMOTIONAL BARRIERS?NO SPECIAL DEVICES?NO MANAGING DIRECTOR NEEDED?NO PAIN CLINIC PFS, CLERGY, PUBLIC HEALTH REFERRALS PFS REFERRAL NEEDED?NO CLERGY REFERRAL NEEDED?NO PUBLIC HEALTH REFERRAL NEEDED?NO HAS THE PATIENT BEEN EDUCATED REGARDING HIS/HER PLAN OF CARE?YES HAS THE PATIENT BEEN EDUCATED REGARDING PAIN, THE RISK FOR PAIN, THE IMPORTANCE OF EFFECTIVE PAIN MANAGEMENT, AND THE PAIN ASSESSMENT PROCESS?YES LATEX QUESTIONNAIRE LATEX ALLERGY : HAVE YOU EVER DEVELOPED ANY TYPE OF REACTION AFTER HANDLING LATEX PRODUCTS SUCH RUBBER GLOVES, CONDOMS, DIAPHRAGMS, BALLOONS, SOCKS, OR UNDERWEAR?NO LATEX ALLERGY : HAVE YOU EVER DEVELOPED ANY TYPE OF REACTION DURING OR AFTER DENTAL APPOINTMENT, VAGINAL/RECTAL EXAMINATION, SURGICAL PROCEDURE, OR ANY OTHER EXPOSURE?NO LATEX RISK : HAVE YOU EVER HAD ANY DIFFICULTY BREATHING OR HIVES AFTER EATING OR HANDLING ANY FRUITS, OR VEGETABLES; SUCH KIWI, BANANAS, STONE FRUITS, OR CHESTNUTSNO LATEX RISK : DO YOU HAVE A PREVIOUS PERSONAL HISTORY OF MORE THAN NINE SURGERIES, SPINA BIFIDA, OR REPEATED CATHERIZATIONS? NO LATEX RISK : ARE YOU FREQUENTLY EXPOSED TO LATEX PRODUCTS IN YOUR OCCUPATION?YES DATE ASKED : 05/23/2019 CAFFEINE CAFFEINE USE?YES HOW OFTEN AND HOW MUCH? 16 OZ PEPSI PER DAY ADVANCE DIRECTIVE ADVANCE DIRECTIVE DISCUSSED WITH PATIENT:YES HCP - LEIGHANN Stiles [facility] () [phone](H) [phone] (C) MANDAEN [id number] RESTORATION MARITAL STATUS: . ALCOHOL SCREENING DID YOU HAVE A DRINK CONTAINING ALCOHOL IN THE PAST YEAR?NO POINTS0 INTERPRETATIONNEGATIVE OCCUPATION: UNEMPLOYED. SEXUAL HX HAD SEX IN THE LAST 12 MONTHS (VAGINAL, ORAL, OR ANAL)?YES WITHMEN ONLY PREVENTION STRATEGIES DISCUSSED:OTHER USE PROTECTION?NO HAVE YOU EVER HAD AN STD?NO REVIEWED WITH PATIENT 04/21/18 0945 JSREVIEWED WITH PT 07/21/18 0909 BVREVIEWED WITH PATIENT 10/13/18 1249 JSPRE-SCREENING PHONE CALL COMPLETED 05/18/19 1257 JS05/23/19 1010 REVIEWED WITH PT. ADREVIEWED WITH PATIENT 06/06/19 0947 JS. HOSPITALIZATION/MAJOR DIAGNOSTIC PROCEDURE ACUTE DIVERTICULITIS 06/23 SURGERY RELATED PNEUMONIA / BRONCHITIS / FLU (2 DAY STAY EACH TIME) 06/2017 ASTHMA/PNEUMONIA - UNSURE OF YEARS REVIEW OF SYSTEMS REVIEWED BY: PROVIDER: SONJA APARICIO . CONSTITUTIONAL: ANY CHANGE IN YOUR MEDICAL CONDITION? NO . CHILLS NO . FEVER NO . INFECTION: DO YOU HAVE NEW INFECTIONS? NO . DO YOU HAVE HISTORY OF MRSA? NO . MUSCULOSKELETAL: ANY NEW PATTERNS OF PAIN OR NUMBNESS? YES, STATES INCREASED PAIN SINCE THE PROCEDURE . GASTROENTEROLOGY: ANY NEW CHANGE IN BOWEL CONTROL? NO . GENITOURINARY: ANY NEW CHANGE IN BLADDER CONTROL? NO . IS THERE A CHANCE YOU COULD BE ? NO . HEMATOLOGY/LYMPH: DO YOU TAKE ANY BLOOD THINNERS? (FOR EXAMPLE- COUMADIN, PLAVIX, AGGRENOX, PLATEL, PRADAXA, OR XARELTO) NO . WHEN WAS YOUR LAST DOSE? DATE: TIME: . NEUROLOGY: HAVE YOU FALLEN IN THE PAST 12 MONTHS? NO . ANY NEW EXTREMITY NUMBNESS OR WEAKNESS? NO . CARDIOLOGY: DO YOU HAVE A PACEMAKER OR DEFIBRILLATOR? NO . RESPIRATORY: HAVE YOU BEEN SICK IN THE PAST WEEK? NO . FEVER NO . FLU LIKE SYMPTOMS? NO . COUGH NO . INTEGUMENTARY: DO YOU HAVE ANY RASHES OR OPEN SORES? NO . ALLERGIC/IMMUNO: ARE YOU ALLERGIC TO IV DYE? YES . ANY NEW ALLERGIES? NO . PSYCHIATRIC: DO YOU HAVE THOUGHTS OF HURTING YOURSELF OR SOMEONE ELSE? NO . ARE YOU ABUSED, NEGLECTED, OR IN AN UNSAFE ENVIRONMENT? NO . ENDOCRINOLOGY: ARE YOU DIABETIC? NO . OTHER: DO YOU NEED ANY PRESCRIPTIONS? YES . IF YES, PLEASE LIST: ____WANTS TO DISCUSS OPTIONS . ANY NEW PROBLEMS WITH YOUR MEDICATIONS? NO . WHEN DID YOU LAST EAT? ____ . WHEN DID YOU LAST DRINK? ____ . WHAT DID YOU LAST DRINK? ____ . NAME OF PERSON DRIVING YOU HOME? ____ . DO YOU HAVE ANY OTHER QUESTIONS OR CONCERNS NO . VITAL SIGNS WT 199.4 LBS, HT 63 IN, BMI 35.32 INDEX, BP 144/81 MM HG, HR 84 /MIN, RR 18 /MIN, TEMP 97.3 F, OXYGEN SAT % 98%, SAFE IN ENV? (Y/N) YES, NA INITIALS SC 09:44, REVIEWED BY: BONITA. EXAMINATION GENERAL EXAMINATION: GENERAL ALERT. PSYCH AFFECT NORMAL. LUNGS: LUNG WARREN ARE CLEAR TO AUSCULTATION BILATERALLY. GOOD MOVEMENT OF AIR. HEART: S1, S2 IN A REGULAR RATE AND RHYTHM. NO SIGNIFICANT MURMURS, RUBS OR GALLOPS NOTED. FOR BILAT. SIJ SPECIFIC POINT TENDERNESS OVER LEFT SIJ.POSITIVE PIERO TESTING LEFT LEG. DIAGNOSTIC TESTS REVIEWED MRI L/S SPINE-03/25/18. ASSESSMENTS SACROILIITIS, NOT ELSEWHERE CLASSIFIED - M46.1 (PRIMARY) TREATMENT SACROILIITIS, NOT ELSEWHERE CLASSIFIED CONTINUE NORCO TABLET, 5-325 MG, 1 TABLET NEEDED, ORALLY, Q8H PRN MDD3 CONTINUE TYLENOL WITH CODEINE #3 TABLET, 300-30 MG, 1 TABLET NEEDED, ORALLY, Q8HR PRN MDD3 NOTES: LEFT SIJ, ISTOP REGISTRY REVIEWED AND DEMONSTRATES COMPLLIANCE.BRINGS IN MEDICATIONS WHICH IS APPROPRIATE FOR WHAT WAS DISPENSED. RECENT URINE TOXICOLOGY REVIEWED. NO UNAUTHORIZED MEDICATIONS. NO ILLICIT SUBSTANCES AND PRESCRIBED MEDICATIONS WERE PRESENT. URINE TOX TODAY, RISKS OF NARCOTIC/OPIOD MEDICATIONS INCLUDES BUT IS NOT LIMITED TO RISK OF DEPENDANCE/DEVELOPMENT OF ADDICTION, MOOD DISTURBANCE AND DEPRESSION, OSTEOPOROSIS, HORMONAL AND LABIDAL CHANGES, RESPIRATORY DEPRESSION AND . PATIENT IS ADVISED NOT TO DRIVE OR DRINK ALCOHOL WHILE ON THESE MEDICATIONS. PREVENTIVE MEDICINE PAIN CLINIC TEACHING: PROCEDURE TEACHING REVIEWED INFORMATION ON SACROILIAC JOINT INJECTION PROCEDURE WITH PATIENT. ALSO REVIEWED PRE-PROCEDURE INSTRUCTIONS. PATIENT VERBALIZED AN UNDERSTANDING. TAYOKIMBERLYLEE L 06/06/2019 11:27:02 AM > . PROCEDURE CODES FA211 ESTABILISHED PATIENT [facility] CHARGE DISPOSITION & COMMUNICATION FOLLOW UP POST (REASON: LEFT SIJ) ELECTRONICALLY SIGNED BY MARKUS KENNY ON 06/09/2019 AT 01:49 PM EST DISCLAIMER : THIS IS A VISIT SUMMARY EXTRACTED FROM THE [employer] CHART. IT IS NOT A COPY OF THE [employer] PROGRESS NOTE. YAN
== END ==
LOC: M PAIN 09:45
PROVIDERS: ATTEND Nurse Practitioner Family
DX: M46.1 Sacroiliitis, not elsewhere classified (principal)

== ENCOUNTER → 2019-06-15 | Outpatient (CLI) | payer BC ==
[~2019-06-15] MED LIST changes: +BUPIVACAINE HCL 0.25% 30 ML VIAL As Ordered ONE; +LIDOCAINE 1% SDV INJ 30 ML VIAL As Ordered ONE; +ONDANSETRON 4 MG ORAL DISINTEGRATING TAB (Q0162 PER 1MG) As Ordered ONE; +TRIAMCINOLONE ACETONIDE SUSP 40 MG/ML VIAL (J3301) As Ordered ONE; +diazePAM 5 MG TAB As Ordered ONE; +diphenhydrAMINE 25 MG CAP As Ordered ONE; +oxyCODONE 5MG TAB As Ordered ONE
--- NOTE | 2019-06-15 16:39 | REP ---
Left SI joint series: Three views. History: Left sacroiliac joint injection for pain. 12 seconds of fluoroscopy time is reported. Findings: A sequence of three last image hold fluoroscopically obtained spot radiographs of the left SI joint document various needle positions. Electronically Signed by Duane Smith MD 06/15/2019 04:30 P
--- NOTE | 2019-06-22 23:26 | ECWPNPC ---
PATIENT NAME: JOSE EDUARDO DICK : 1960 GENDER: FEMALE VISIT DATE: 06/15/2019 DISCHARGE DATE: 06/15/19 1621 VISIT LOCKED DATE TIME: PHYSICIAN: ZEINA SCHMIDT MD RESOURCE: ZEINA SCHMIDT MD REASON FOR APPOINTMENT 1. LEFT SIJ HISTORY OF PRESENT ILLNESS HISTORY OF PRESENT ILLNESS: PAIN THE PATIENT DESCRIBES THE PAIN... FALL RISK SCREENING: SCREENING :NO FALLS REPORTED IN THE LAST YEAR CURRENT MEDICATIONS TAKING SINGULAIR 10 MG TABLET 1 TABLET IN THE EVENING ORALLY ONCE A DAY, NOTES: 06/14 2300 TAKING BENADRYL 25 MG CAPSULE 1 CAPSULE NEEDED ORALLY NIGHTLY, NOTES: 3-4 WEEKS AGO TAKING NASONEX 50 MCG/ACT SUSPENSION 2 SPRAYS IN EACH NOSTRIL NASALLY ONCE A DAY, NOTES: 06/14 07 TAKING FEXOFENADINE HCL 180 MG TABLET 1 TABLET ORALLY ONCE A DAY, NOTES: 06/14 09 TAKING PROBIOTIC - TABLET DELAYED RELEASE ORALLY ONCE DAILY, NOTES: 06/14 1800 TAKING VITAMIN D-3 2000 UNITS ONCE A DAY, NOTES: 06/14 1800 TAKING BIOTIN W/ VITAMINS C & E 1250-7.5-7.5 MCG-MG-UNT TABLET CHEWABLE ORALLY DAILY, NOTES: 06/14 1800 TAKING MULTIVITAMIN ADULTS - TABLET ORALLY DAILY, NOTES: 06/14 1800 TAKING VENTOLIN HFA 108 (90 BASE) MCG/ACT AEROSOL SOLUTION 2 PUFFS NEEDED INHALATION EVERY 6 HRS, NOTES: NONE RECENT TAKING CALCIUM 6373-2063 MG-UNIT TABLET CHEWABLE 1 CAPSULE ORALLY ONCE A DAY, NOTES: 06/14 1800 TAKING ZOFRAN ODT 4 MG TABLET DISINTEGRATING 1 TABLET ON THE TONGUE AND ALLOW TO DISSOLVE ORALLY EVERY 8 HRS PRN, NOTES: NONE RECENT TAKING QVAR REDIHALER 80 MCG/ACT AEROSOL BREATH ACTIVATED INHALE 2 PUFFS (160 MCG) BY INHALATION ROUTE TWICE A DAY. INHALATION , NOTES: 06/15 529 TAKING IPRATROPIUM-ALBUTEROL 0.5-2.5 (3) MG/3ML SOLUTION 3 ML INHALATION EVERY 6 HRS, NOTES: NONE RECENT TAKING CLONAZEPAM 0.5 MG TABLET 1 TABLET AT BEDTIME NEEDED ORALLY DIRECTED, NOTES: > 1 WEEK AGO TAKING METAXALONE 800 MG TABLET 1 TABLET ORALLY BID NEEDED, NOTES: 06/14 529 TAKING DICYCLOMINE HCL 20 MG TABLET 1 TABLET ORALLY FOUR TIMES DAILY NEEDED, NOTES: NONE RECENT TAKING CARISOPRODOL 350 MG TABLET 1 TABLET NEEDED ORALLY FOR SPASMS AND PAIN EVERY 8 HOURS NEEDED MDD 2, NOTES: NONE RECENT TAKING NORCO 5-325 MG TABLET 1 TABLET NEEDED ORALLY Q8H PRN MDD3, NOTES: 06/13 2199 TAKING TYLENOL WITH CODEINE #3 300-30 MG TABLET 1 TABLET NEEDED ORALLY Q8HR PRN MDD3, NOTES: 06/14 1999 NOT-TAKING HYDROXYZINE HCL 25 MG TABLET 1 TABLET NEEDED ANXIETY ORALLY EVERY 8 HRS NOT-TAKING ERYTHROMYCIN 5 MG/GM OINTMENT 1 APPLICATION INTO THE LOWER EYELID OF AFFECTED EYE OPHTHALMIC FOUR TIMES A DAY NOT-TAKING PREDNISONE 20 MG TABLET 2 TABLET ORALLY ONCE A DAY, NOTES: FOR 4 DAYS TIL 04-09-19 NOT-TAKING PREDNISONE 20 MG TABLET 2 TABLET ORALLY ONCE A DAY NOT-TAKING AZITHROMYCIN 250 MG TABLET 2 TABLET ON THE FIRST DAY, THEN 1 TABLET DAILY FOR 4 DAYS ORALLY ONCE A DAY NOT-TAKING DIFLUCAN 150 MG TABLET 2 TABLETS ORALLY TAKE 1 TABLET, REPEAT IN 72 HOURS NOT-TAKING DAPSONE 25 MG TABLET 1 TABLET ORALLY ONCE A DAY NEEDED, NOTES: NONE IN 3 YEARS NOT-TAKING DOXYCYCLINE MONOHYDRATE 100 MG CAPSULE 1 CAPSULE ORALLY TWICE DAILY MEDICATION LIST REVIEWED AND RECONCILED WITH THE PATIENT PAST MEDICAL HISTORY CELIAC DISEASE ASTHMA MILD INTERMITTENT DEPRESSION CERVICAL RADICULOPATHY BILATERAL DUPLICATE URETERS RSV IBS LOW BACK PAIN ANXIETY MYALGIA FIBROMYALGIA POST LAMINECTOMY SYNDROME OBESITY ALLERGIC RHINITIS INFLAMMATORY POLYARTHRITIS SACROILIITIS ALLERGIES BETADINE: HIVES/BREATHING PROBLEM - ALLERGY FLEXERIL: HEART STOPS - ALLERGY NAPROXEN: ANAPHYLAXIS/HIVES - ALLERGY ASPIRIN: HIVES - ALLERGY MOTRIN: ANAPHYLAXIS/HIVES - ALLERGY COMPAZINE: UNKNOWN - ALLERGY MORPHINE SULFATE: HIVES - ALLERGY PAXIL: THROAT SWELLING - ALLERGY TRAMADOL: SEIZURES - ALLERGY WELLBUTRIN: HIVES - ALLERGY CYMBALTA: ANAPHYLAXIS - ALLERGY AMOXICILLIN: HIVES - ALLERGY FENTANYL: THROAT SWELLING - ALLERGY METOCLOPRAMIDE HCL: SEIZURES - ALLERGY ZOLOFT: THROAT SWELLING - ALLERGY DILUTING SOLUTION FOR ALLERGY SHOTS: SWELLING - ALLERGY WATERMELON: BRIGHT RED SKIN, IBS FLARE UP, NAUSEA VOMITING - ALLERGY NSAIDS: ANAPHYLAXIS - SIDE EFFECTS METHOTREXATE: SORES IN MOUTH, BODY ACHES; LOWER RBC'S COUNT - SIDE EFFECTS FLU VACCINE: SWELLING AT SITE - SIDE EFFECTS INFLUENZA VAC SPLIT QUAD: SWELLING AT SITE - SIDE EFFECTS IV CONTRAST DYE: HIVES, BREATHING DIFFICULTIES - ALLERGY GABAPENTIN: CONFUSION - SIDE EFFECTS WATERMELON FLAVOR: IBS FLARE-UP; REDDENED SKIN - ALLERGY SURGICAL HISTORY TONSILLECTOMY 1974 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 FIB, DEMENTIA, ARTHRITIS, VERTIGO, PASSSED AWAY FROM METATASTIC COLON CAMOM-HYPERLIPIDEMIA, DEMENTIA\\\\NSISTER- THYROID DISEASE, HEART MURMUR\\\\NSISTER - CELIAC, SUICIDE\\\\SISTER-MULTIPLE KIDNEY STONES, HEART MURMUR////SISTER-SEVERE UTERINE FIBROIDS, LUNGS ISSUES DUE TO SMOKING, DEPRESSIONDAUGHTER - A FIB\\\\NYOUNGEST SON - SEVERE ASTHMA, NIGHTTIME EPILEPSY. SOCIAL HISTORY GENERAL: TOBACCO USE ARE YOU A:NONSMOKER HIV / HEP-C SCREENING HIV TEST OFFERED TO PATIENT:YES DATE OFFERED: 04/04/19 HEP-C TEST OFFERED TO PATIENT: 2019 WAS NEG EDUCATION LEVEL OF EDUCATION:NOT FINISHED COLLEGE 6 YEARS OF COLLEGE DIET: GLUTEN FREE. LANGUAGE LANGUAGES SPOKEN:PORTUGUESE DOMESTIC VIOLENCE DO YOU FEEL SAFE IN YOUR ENVIRONMENT?YES RECREATIONAL DRUG USE DRUG USE?NO EXERCISE: WALKS. LEARNING BARRIERS / SPECIAL NEEDS VISION IMPAIRED?YES :CORRECTIVE LENSES PAIN CLINIC PFS, CLERGY, PUBLIC HEALTH REFERRALS HAS THE PATIENT BEEN EDUCATED REGARDING HIS/HER PLAN OF CARE?YES HAS THE PATIENT BEEN EDUCATED REGARDING PAIN, THE RISK FOR PAIN, THE IMPORTANCE OF EFFECTIVE PAIN MANAGEMENT, AND THE PAIN ASSESSMENT PROCESS?YES LATEX QUESTIONNAIRE LATEX ALLERGY : HAVE YOU EVER DEVELOPED ANY TYPE OF REACTION AFTER HANDLING LATEX PRODUCTS SUCH RUBBER GLOVES, CONDOMS, DIAPHRAGMS, BALLOONS, SOCKS, OR UNDERWEAR?NO LATEX ALLERGY : HAVE YOU EVER DEVELOPED ANY TYPE OF REACTION DURING OR AFTER DENTAL APPOINTMENT, VAGINAL/RECTAL EXAMINATION, SURGICAL PROCEDURE, OR ANY OTHER EXPOSURE?NO LATEX RISK : HAVE YOU EVER HAD ANY DIFFICULTY BREATHING OR HIVES AFTER EATING OR HANDLING ANY FRUITS, OR VEGETABLES; SUCH KIWI, BANANAS, STONE FRUITS, OR CHESTNUTSNO LATEX RISK : DO YOU HAVE A PREVIOUS PERSONAL HISTORY OF MORE THAN NINE SURGERIES, SPINA BIFIDA, OR REPEATED CATHERIZATIONS? NO LATEX RISK : ARE YOU FREQUENTLY EXPOSED TO LATEX PRODUCTS IN YOUR OCCUPATION?YES DATE ASKED : 06/15/2019 CAFFEINE CAFFEINE USE?YES HOW OFTEN AND HOW MUCH? 1 CAN PEPSI/DAY ADVANCE DIRECTIVE ADVANCE DIRECTIVE DISCUSSED WITH PATIENT:YES 06/15/2019 STATES SHE HAS HCP- LEIGHANN [phone] PT WILL BRING A COPY IN TO US [employer]QUE [id number] CHEONDOISM MARITAL STATUS: . 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 REVIEWED WITH PATIENT 04/21/18 0945 JSREVIEWED WITH PT 07/21/18 0909 BVREVIEWED WITH PATIENT 10/13/18 1249 JSPRE-SCREENING PHONE CALL COMPLETED 05/18/19 1257 JS05/23/19 1010 REVIEWED WITH PT. ADREVIEWED WITH PATIENT 06/06/19 0947 JS. HOSPITALIZATION/MAJOR DIAGNOSTIC PROCEDURE SURGERIES ASTHMA/PNEUMONIA ? ACUTE DIVERTICULITIS 06/2015 PNEUMONIA/BRONCHITIS/FLU 06/2017 REVIEW OF SYSTEMS REVIEWED BY: PROVIDER: . CONSTITUTIONAL: ANY CHANGE IN YOUR MEDICAL CONDITION? NO . CHILLS NO . FEVER NO . INFECTION: DO YOU HAVE NEW INFECTIONS? NO . DO YOU HAVE HISTORY OF MRSA? NO . MUSCULOSKELETAL: ANY NEW PATTERNS OF PAIN OR NUMBNESS? NO . GASTROENTEROLOGY: ANY NEW CHANGE IN BOWEL CONTROL? NO . GENITOURINARY: ANY NEW CHANGE IN BLADDER CONTROL? NO . IS THERE A CHANCE YOU COULD BE ? NO . HEMATOLOGY/LYMPH: DO YOU TAKE ANY BLOOD THINNERS? (FOR EXAMPLE- COUMADIN, PLAVIX, AGGRENOX, PLATEL, PRADAXA, OR XARELTO) NO . WHEN WAS YOUR LAST DOSE? DATE: TIME: . NEUROLOGY: HAVE YOU FALLEN IN THE PAST 12 MONTHS? NO . ANY NEW EXTREMITY NUMBNESS OR WEAKNESS? NO . CARDIOLOGY: DO YOU HAVE A PACEMAKER OR DEFIBRILLATOR? NO . RESPIRATORY: HAVE YOU BEEN SICK IN THE PAST WEEK? NO . FEVER NO . FLU LIKE SYMPTOMS? NO . COUGH NO . INTEGUMENTARY: DO YOU HAVE ANY RASHES OR OPEN SORES? NO . ALLERGIC/IMMUNO: ARE YOU ALLERGIC TO IV DYE? YES . ANY NEW ALLERGIES? NO . PSYCHIATRIC: DO YOU HAVE THOUGHTS OF HURTING YOURSELF OR SOMEONE ELSE? NO . ARE YOU ABUSED, NEGLECTED, OR IN AN UNSAFE ENVIRONMENT? NO . ENDOCRINOLOGY: ARE YOU DIABETIC? NO . OTHER: DO YOU NEED ANY PRESCRIPTIONS? NO . IF YES, PLEASE LIST: ____ . ANY NEW PROBLEMS WITH YOUR MEDICATIONS? NO . WHEN DID YOU LAST EAT? 06/15 0530 . WHEN DID YOU LAST DRINK? 06/15 1030 . WHAT DID YOU LAST DRINK? WATER . NAME OF PERSON DRIVING YOU HOME? LEIGHANN DICK . DO YOU HAVE ANY OTHER QUESTIONS OR CONCERNS NO PT HAS NOT HAD ANY VACCINES IN THE PAST 30 DAYS . VITAL SIGNS WT 198.4 LBS, HT 63 IN, BMI 35.14 INDEX, BP 141/82 MM HG, HR 70 /MIN, RR 18 /MIN, TEMP 96.9 F, OXYGEN SAT % 100%, SAFE IN ENV? (Y/N) Y, NA INITIALS SC 13:30, REVIEWED BY: AD. ASSESSMENTS SACROILIITIS, NOT ELSEWHERE CLASSIFIED - M46.1 (PRIMARY) TREATMENT SACROILIITIS, NOT ELSEWHERE CLASSIFIED [facility] FLUORO GUIDANCE (PAIN)[id number] PROCEDURES PN SI PRE PROCEDURE DIAGNOSIS SACROILIITIS, SACROILIAC JOINT DYSFUNCTION POST PROCEDURE DIAGNOSIS SACROILIITIS, SACROILIAC JOINT DYSFUNCTION PROCEDURE LEFT SACROILIAC JOINT BLOCK SURGEON DR. ZEINA SCHMIDT BLUEPRINT TRIMMER NONE ANESTHESIA LOCAL PRE PROCEDURE NOTE PATIENT WITH HISTORY OF CHRONIC LOW BACK PAIN. I EVALUATED THE PATIENT AND REVIEWED THE CHART. I WENT OVER THE RISKS, ALTERNATIVES, AND BENEFITS ASSOCIATED WITH THIS PROCEDURE. THE PATIENT WOULD LIKE TO PROCEED AND GAVE CONSENT TO PERFORM THE PROCEDURE. THE PATIENT DENIES UNEXPLAINABLE WEIGHT LOSS, FEVER, CHILLS, OR NEW CHANGES IN URINARY OR BOWEL CONTROL DESCRIPTION OF PROCEDURE THE PATIENT WAS BROUGHT TO THE PROCEDURE ROOM AND PLACED IN THE PRONE POSITION. THE LUMBOSACRAL AREA WAS CLEANED WITH CHLORAPREP SOLUTION AND DRAPED ASEPTICALLY. THE PROCEDURE WAS DONE UNDER STERILE CONDITIONS. I CHECKED LATERALITY AND THE LEVEL WHERE THE PROCEDURE WAS GOING TO BE PERFORMED WITH THE PATIENT AND THE SUPPORTING STAFF AT THE MOMENT OF THE TIME OUT IN THE PROCEDURE ROOM. UNDER FLUOROSCOPIC GUIDANCE, TARGET POINT WAS SELECTED AT THE LOWER BORDER OF THE LEFT SACROILIAC JOINT. TARGET POINT WAS SELECTED AFTER MEDIAL ROTATION AND TILT OF THE MAGNIFIER OF THE C-ARM. LIDOCAINE WAS USED TO NUMB THE SKIN AND SUBCUTANEOUS TISSUE BELOW IT. A SPINAL NEEDLE, 22-GAUGE, WAS ADVANCED UNDER FLUOROSCOPIC GUIDANCE AND FOLLOWING PATIENT FEEDBACK UNTIL THE TARGET AREA WAS TOUCHED. THE POSITION OF THE NEEDLE WAS VERIFIED WITH AP AND LATERAL VIEWS. AFTER PROPER POSITION OF THE NEEDLE WAS ACHIEVED, ISOVUE M DYE 30%, 0.25 ML, WAS INJECTED SHOWING SPREAD OF THE DYE. THEN, A SOLUTION OF 40 MG OF KENALOG WAS INJECTED IN LEFT JOINT WITH 3 ML OF BUPIVACAINE 0.125%. THERE WAS NO EVIDENCE OF BLOOD, PARESTHESIA OR CEREBROSPINAL FLUID DURING THE PROCEDURE. THE PATIENT WAS SENT TO THE RECOVERY ROOM. THE PATIENT WAS MOVING THE EXTREMITIES AND DOING WELL. THERE WAS NO COMPLICATION DURING THE PROCEDURE. FLUOROSCOPY TIME WAS 12 SECONDS POST PROCEDURE NOTE THE PATIENT WILL BE SEEN IN A FOLLOW UP IN THE NEXT FEW WEEKS. I LOOK FORWARD TO LONG-LASTING PAIN RELIEF WITH THIS PROCEDURE. INSTRUCTIONS WERE GIVEN, QUESTIONS WERE ANSWERED, AND THE PATIENT EXPRESSED UNDERSTANDING AND AGREED WITH THE PLAN. I, DAWNA DANG, DOCUMENTED THE ABOVE INFORMATION ACTING A SCRIBE FOR DR. SCHMIDT. I HAVE REVIEWED THE ABOVE DOCUMENT, WRITTEN BY RADHA MAHMOOD, AND I VERIFY THAT IT IS ACCURATE PROCEDURE CODES 83314 INJECT SACROILIAC JOINT, MODIFIERS: LT [id number] RADXPS IN END [id number] PXD DISPOSITION & COMMUNICATION FOLLOW UP 3 WEEKS ELECTRONICALLY SIGNED BY ZEINA SCHMIDT MD, MD ON 06/22/2019 AT 11:29 AM EST DISCLAIMER : THIS IS A VISIT SUMMARY EXTRACTED FROM THE [employer] CHART. IT IS NOT A COPY OF THE [employer] PROGRESS NOTE. YAN
== END ==
LOC: M PAIN 13:15
PROVIDERS: ATTEND Anesthesiology
DX: M46.1 Sacroiliitis, not elsewhere classified (principal); J45.20 Mild intermittent asthma, uncomplicated; Z86.59 Personal history of other mental and behavioral disorders; M79.7 Fibromyalgia; Z88.1 Allergy status to other antibiotic agents; Z88.3 Allergy status to other anti-infective agents; Z88.5 Allergy status to narcotic agent; Z88.6 Allergy status to analgesic agent; Z88.7 Allergy status to serum and vaccine; Z88.8 Allergy status to other drugs, medicaments and biological substances; Z91.018 Allergy to other foods; Z91.041 Radiographic dye allergy status; Z79.899 Other long term (current) drug therapy
CPT/HCPCS: G0260; J3301; Q0162

== ENCOUNTER → 2019-06-30 | Outpatient (CLI) | payer BC ==
[~2019-06-30] MED LIST changes: -BUPIVACAINE HCL 0.25% 30 ML VIAL As Ordered ONE; -LIDOCAINE 1% SDV INJ 30 ML VIAL As Ordered ONE; -ONDANSETRON 4 MG ORAL DISINTEGRATING TAB (Q0162 PER 1MG) As Ordered ONE; -TRIAMCINOLONE ACETONIDE SUSP 40 MG/ML VIAL (J3301) As Ordered ONE; -diazePAM 5 MG TAB As Ordered ONE; -diphenhydrAMINE 25 MG CAP As Ordered ONE; -oxyCODONE 5MG TAB As Ordered ONE
--- NOTE | 2019-07-01 02:00 | ECWPNPC ---
PATIENT NAME: JOSE EDUARDO DICK : 1960 GENDER: FEMALE VISIT DATE: 06/30/2019 DISCHARGE DATE: 06/30/19 1139 VISIT LOCKED DATE TIME: PHYSICIAN: SONJA DÍAZ RESOURCE: SONJA DÍAZ REASON FOR APPOINTMENT 1. POST SIJ HISTORY OF PRESENT ILLNESS HISTORY OF PRESENT ILLNESS: HERE FOR POST PROCEDURE F/U.HAD LEFT SIJ ON 06/15/2019.REPORTING SIGNIFICANT REDUCTION IN PAIN POST PROCEDURE.RATING PAIN VAS 2/10.USING TYLENOL #3 OR HYDROCODONE 5/325 PERIODICALLY AND INFREQUENTLY FOR SEVERE PAIN EPISODES. PAIN THE PATIENT DESCRIBES THE PAIN... FALL RISK SCREENING: SCREENING :NO FALLS REPORTED IN THE LAST YEAR CURRENT MEDICATIONS TAKING SINGULAIR 10 MG TABLET 1 TABLET IN THE EVENING ORALLY ONCE A DAY TAKING BENADRYL 25 MG CAPSULE 1 CAPSULE NEEDED ORALLY NIGHTLY TAKING NASONEX 50 MCG/ACT SUSPENSION 2 SPRAYS IN EACH NOSTRIL NASALLY ONCE A DAY TAKING FEXOFENADINE HCL 180 MG TABLET 1 TABLET ORALLY ONCE A DAY TAKING PROBIOTIC - TABLET DELAYED RELEASE ORALLY ONCE DAILY TAKING VITAMIN D-3 2000 UNITS ONCE A DAY TAKING BIOTIN W/ VITAMINS C & E 1250-7.5-7.5 MCG-MG-UNT TABLET CHEWABLE ORALLY DAILY TAKING MULTIVITAMIN ADULTS - TABLET ORALLY DAILY TAKING VENTOLIN HFA 108 (90 BASE) MCG/ACT AEROSOL SOLUTION 2 PUFFS NEEDED INHALATION EVERY 6 HRS TAKING CALCIUM 1286-8168 MG-UNIT TABLET CHEWABLE 1 CAPSULE ORALLY ONCE A DAY TAKING ZOFRAN ODT 4 MG TABLET DISINTEGRATING 1 TABLET ON THE TONGUE AND ALLOW TO DISSOLVE ORALLY EVERY 8 HRS PRN TAKING QVAR REDIHALER 80 MCG/ACT AEROSOL BREATH ACTIVATED INHALE 2 PUFFS (160 MCG) BY INHALATION ROUTE TWICE A DAY. INHALATION TAKING IPRATROPIUM-ALBUTEROL 0.5-2.5 (3) MG/3ML SOLUTION 3 ML INHALATION EVERY 6 HRS TAKING CLONAZEPAM 0.5 MG TABLET 1 TABLET AT BEDTIME NEEDED ORALLY DIRECTED TAKING DICYCLOMINE HCL 20 MG TABLET 1 TABLET ORALLY FOUR TIMES DAILY NEEDED TAKING TYLENOL WITH CODEINE #3 300-30 MG TABLET 1 TABLET NEEDED ORALLY Q8HR PRN MDD3 TAKING METAXALONE 800 MG TABLET 1 TABLET ORALLY BID NEEDED TAKING CARISOPRODOL 350 MG TABLET 1 TABLET NEEDED ORALLY FOR SPASMS AND PAIN EVERY 8 HOURS NEEDED MDD 2 TAKING NORCO 5-325 MG TABLET 1 TABLET NEEDED ORALLY Q8H PRN MDD3 NOT-TAKING HYDROXYZINE HCL 25 MG TABLET 1 TABLET NEEDED ANXIETY ORALLY EVERY 8 HRS NOT-TAKING ERYTHROMYCIN 5 MG/GM OINTMENT 1 APPLICATION INTO THE LOWER EYELID OF AFFECTED EYE OPHTHALMIC FOUR TIMES A DAY NOT-TAKING PREDNISONE 20 MG TABLET 2 TABLET ORALLY ONCE A DAY, NOTES: FOR 4 DAYS TIL 04-09-19 NOT-TAKING PREDNISONE 20 MG TABLET 2 TABLET ORALLY ONCE A DAY NOT-TAKING AZITHROMYCIN 250 MG TABLET 2 TABLET ON THE FIRST DAY, THEN 1 TABLET DAILY FOR 4 DAYS ORALLY ONCE A DAY NOT-TAKING DIFLUCAN 150 MG TABLET 2 TABLETS ORALLY TAKE 1 TABLET, REPEAT IN 72 HOURS NOT-TAKING DAPSONE 25 MG TABLET 1 TABLET ORALLY ONCE A DAY NEEDED, NOTES: NONE IN 3 YEARS NOT-TAKING DOXYCYCLINE MONOHYDRATE 100 MG CAPSULE 1 CAPSULE ORALLY TWICE DAILY MEDICATION LIST REVIEWED AND RECONCILED WITH THE PATIENT PAST MEDICAL HISTORY CELIAC DISEASE ASTHMA MILD INTERMITTENT DEPRESSION CERVICAL RADICULOPATHY BILATERAL DUPLICATE URETERS RSV IBS LOW BACK PAIN ANXIETY MYALGIA FIBROMYALGIA POST LAMINECTOMY SYNDROME OBESITY ALLERGIC RHINITIS INFLAMMATORY POLYARTHRITIS SACROILIITIS ALLERGIES BETADINE: HIVES/BREATHING PROBLEM - ALLERGY FLEXERIL: HEART STOPS - ALLERGY NAPROXEN: ANAPHYLAXIS/HIVES - ALLERGY ASPIRIN: HIVES - ALLERGY MOTRIN: ANAPHYLAXIS/HIVES - ALLERGY COMPAZINE: UNKNOWN - ALLERGY MORPHINE SULFATE: HIVES - ALLERGY PAXIL: THROAT SWELLING - ALLERGY TRAMADOL: SEIZURES - ALLERGY WELLBUTRIN: HIVES - ALLERGY CYMBALTA: ANAPHYLAXIS - ALLERGY AMOXICILLIN: HIVES - ALLERGY FENTANYL: THROAT SWELLING - ALLERGY METOCLOPRAMIDE HCL: SEIZURES - ALLERGY ZOLOFT: THROAT SWELLING - ALLERGY DILUTING SOLUTION FOR ALLERGY SHOTS: SWELLING - ALLERGY WATERMELON: BRIGHT RED SKIN, IBS FLARE UP, NAUSEA VOMITING - ALLERGY NSAIDS: ANAPHYLAXIS - SIDE EFFECTS METHOTREXATE: SORES IN MOUTH, BODY ACHES; LOWER RBC'S COUNT - SIDE EFFECTS FLU VACCINE: SWELLING AT SITE - SIDE EFFECTS INFLUENZA VAC SPLIT QUAD: SWELLING AT SITE - SIDE EFFECTS IV CONTRAST DYE: HIVES, BREATHING DIFFICULTIES - ALLERGY GABAPENTIN: CONFUSION - SIDE EFFECTS WATERMELON FLAVOR: IBS FLARE-UP; REDDENED SKIN - ALLERGY SURGICAL HISTORY TONSILLECTOMY 1974 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 FIB, DEMENTIA, ARTHRITIS, VERTIGO, PASSSED AWAY FROM METATASTIC COLON CAMOM-HYPERLIPIDEMIA, DEMENTIA\\\\NSISTER- THYROID DISEASE, HEART MURMUR\\\\NSISTER - CELIAC, SUICIDE\\\\SISTER-MULTIPLE KIDNEY STONES, HEART MURMUR////SISTER-SEVERE UTERINE FIBROIDS, LUNGS ISSUES DUE TO SMOKING, DEPRESSIONDAUGHTER - A FIB\\\\NYOUNGEST SON - SEVERE ASTHMA, NIGHTTIME EPILEPSY. SOCIAL HISTORY GENERAL: TOBACCO USE ARE YOU A:NONSMOKER HIV / HEP-C SCREENING HIV TEST OFFERED TO PATIENT:YES DATE OFFERED: 04/04/19 HEP-C TEST OFFERED TO PATIENT: 2019 WAS NEG EDUCATION LEVEL OF EDUCATION:NOT FINISHED COLLEGE 6 YEARS OF COLLEGE DIET: GLUTEN FREE. LANGUAGE LANGUAGES SPOKEN:BURKINAN DOMESTIC VIOLENCE DO YOU FEEL SAFE IN YOUR ENVIRONMENT?YES RECREATIONAL DRUG USE DRUG USE?NO EXERCISE: WALKS. LEARNING BARRIERS / SPECIAL NEEDS VISION IMPAIRED?YES :CORRECTIVE LENSES PAIN CLINIC PFS, CLERGY, PUBLIC HEALTH REFERRALS HAS THE PATIENT BEEN EDUCATED REGARDING HIS/HER PLAN OF CARE?YES HAS THE PATIENT BEEN EDUCATED REGARDING PAIN, THE RISK FOR PAIN, THE IMPORTANCE OF EFFECTIVE PAIN MANAGEMENT, AND THE PAIN ASSESSMENT PROCESS?YES LATEX QUESTIONNAIRE LATEX ALLERGY : HAVE YOU EVER DEVELOPED ANY TYPE OF REACTION AFTER HANDLING LATEX PRODUCTS SUCH RUBBER GLOVES, CONDOMS, DIAPHRAGMS, BALLOONS, SOCKS, OR UNDERWEAR?NO LATEX ALLERGY : HAVE YOU EVER DEVELOPED ANY TYPE OF REACTION DURING OR AFTER DENTAL APPOINTMENT, VAGINAL/RECTAL EXAMINATION, SURGICAL PROCEDURE, OR ANY OTHER EXPOSURE?NO LATEX RISK : HAVE YOU EVER HAD ANY DIFFICULTY BREATHING OR HIVES AFTER EATING OR HANDLING ANY FRUITS, OR VEGETABLES; SUCH KIWI, BANANAS, STONE FRUITS, OR CHESTNUTSNO LATEX RISK : DO YOU HAVE A PREVIOUS PERSONAL HISTORY OF MORE THAN NINE SURGERIES, SPINA BIFIDA, OR REPEATED CATHERIZATIONS? NO LATEX RISK : ARE YOU FREQUENTLY EXPOSED TO LATEX PRODUCTS IN YOUR OCCUPATION?YES DATE ASKED : 06/15/2019 CAFFEINE CAFFEINE USE?YES HOW OFTEN AND HOW MUCH? 1 CAN PEPSI/DAY ADVANCE DIRECTIVE ADVANCE DIRECTIVE DISCUSSED WITH PATIENT:YES 06/15/2201/29/2020 STATES SHE HAS HCP- LEIGHANN [phone] PT WILL BRING A COPY IN TO US NONDENOMINATIONAL [id number] PENTECOSTALISM MARITAL STATUS: . 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 REVIEWED WITH PATIENT 04/21/18 0945 JSREVIEWED WITH PT 07/21/18 0909 BVREVIEWED WITH PATIENT 10/13/18 1249 JSPRE-SCREENING PHONE CALL COMPLETED 05/18/19 1257 JS05/23/19 1010 REVIEWED WITH PT. ADREVIEWED WITH PATIENT 06/06/19 0947 JSREVIEWED WITH PATIENT 06/30/2019 1124 JS. HOSPITALIZATION/MAJOR DIAGNOSTIC PROCEDURE SURGERIES ASTHMA/PNEUMONIA ? ACUTE DIVERTICULITIS 06/2015 PNEUMONIA/BRONCHITIS/FLU 06/2017 REVIEW OF SYSTEMS REVIEWED BY: PROVIDER: SONJA APARICIO . CONSTITUTIONAL: ANY CHANGE IN YOUR MEDICAL CONDITION? NO . CHILLS NO . FEVER NO . INFECTION: DO YOU HAVE NEW INFECTIONS? NO . DO YOU HAVE HISTORY OF MRSA? NO . MUSCULOSKELETAL: ANY NEW PATTERNS OF PAIN OR NUMBNESS? NO . GASTROENTEROLOGY: ANY NEW CHANGE IN BOWEL CONTROL? NO . GENITOURINARY: ANY NEW CHANGE IN BLADDER CONTROL? NO . IS THERE A CHANCE YOU COULD BE ? NO . HEMATOLOGY/LYMPH: DO YOU TAKE ANY BLOOD THINNERS? (FOR EXAMPLE- COUMADIN, PLAVIX, AGGRENOX, PLATEL, PRADAXA, OR XARELTO) NO . WHEN WAS YOUR LAST DOSE? DATE: TIME: . NEUROLOGY: HAVE YOU FALLEN IN THE PAST 12 MONTHS? NO . ANY NEW EXTREMITY NUMBNESS OR WEAKNESS? NO . CARDIOLOGY: DO YOU HAVE A PACEMAKER OR DEFIBRILLATOR? NO . RESPIRATORY: HAVE YOU BEEN SICK IN THE PAST WEEK? NO . FEVER NO . FLU LIKE SYMPTOMS? NO . COUGH NO . INTEGUMENTARY: DO YOU HAVE ANY RASHES OR OPEN SORES? NO . ALLERGIC/IMMUNO: ARE YOU ALLERGIC TO IV DYE? YES . ANY NEW ALLERGIES? NO . PSYCHIATRIC: DO YOU HAVE THOUGHTS OF HURTING YOURSELF OR SOMEONE ELSE? NO . ARE YOU ABUSED, NEGLECTED, OR IN AN UNSAFE ENVIRONMENT? NO . ENDOCRINOLOGY: ARE YOU DIABETIC? NO . OTHER: DO YOU NEED ANY PRESCRIPTIONS? YES . IF YES, PLEASE LIST: ____TYLENOL #3 . ANY NEW PROBLEMS WITH YOUR MEDICATIONS? NO . WHEN DID YOU LAST EAT? ____ . WHEN DID YOU LAST DRINK? ____ . WHAT DID YOU LAST DRINK? ____ . NAME OF PERSON DRIVING YOU HOME? ____ . DO YOU HAVE ANY OTHER QUESTIONS OR CONCERNS NO . VITAL SIGNS WT 194 LBS, HT 63 IN, BMI 34.36 INDEX, BP 137/79 MM HG, HR 69 /MIN, RR 18 /MIN, TEMP 97.0 F, OXYGEN SAT % 100%, SAFE IN ENV? (Y/N) YES, NA INITIALS AW 1117, REVIEWED BY: BONITA. EXAMINATION GENERAL EXAMINATION: GENERAL ALERT. PSYCH AFFECT NORMAL. LUNGS: LUNG WARREN ARE CLEAR TO AUSCULTATION BILATERALLY. GOOD MOVEMENT OF AIR. HEART: S1, S2 IN A REGULAR RATE AND RHYTHM. NO SIGNIFICANT MURMURS, RUBS OR GALLOPS NOTED. ASSESSMENTS FIBROMYALGIA - M79.7 (PRIMARY) SACROILIITIS, NOT ELSEWHERE CLASSIFIED - M46.1 TREATMENT FIBROMYALGIA NOTES: FOLLOWING WITH DR. MARTINES FOR RIGHT KNEE PAIN OVER THE PAST MONTH. SHE WAS TOLD TO CALL THEM IF PAIN AND SWELLING PERSISTED AFTER BEING DIAGNOSED WITH BURSITIS IN HER RIGHT KNEE. DR. MARTINES OFFICE CONTACTED US REGARDING PATIENT'S REQUEST FOR PAIN MEDICATION. AT THAT POINT, WE CALLED IN HER USUAL PAIN MEDICATIONS THAT WE USE TO TREAT NEEDED FOR PERSISTENT LOW BACK PAIN. SHE RECEIVED EVERYTHING BUT TYLENOL 3, WHICH IS THE MEDICATION THAT SHE USUALLY USES FOR CHRONIC PAIN. SHE WILL BE DISCUSSING PAIN TREATMENT FOR ACUTE RIGHT KNEE PAIN SECONDARY TO BURSITIS WITH DR. MARTINES TODAY. PROCEDURE CODES FA211 ESTABILISHED PATIENT [facility] CHARGE DISPOSITION & COMMUNICATION FOLLOW UP 2 MONTHS (REASON: CHRONIC LOW BACK PAIN) ELECTRONICALLY SIGNED BY MARKUS KENNY ON 06/30/2019 AT 11:48 AM EST DISCLAIMER : THIS IS A VISIT SUMMARY EXTRACTED FROM THE [employer] CHART. IT IS NOT A COPY OF THE [employer] PROGRESS NOTE. YAN
== END ==
LOC: M PAIN 10:45
PROVIDERS: ATTEND Nurse Practitioner Family
DX: M79.7 Fibromyalgia (principal); M46.1 Sacroiliitis, not elsewhere classified

== ENCOUNTER → 2019-06-30 | Outpatient (CLI) | payer BC ==
[~2019-06-30] MED LIST changes: +ACET-683 PO; +AZIT-12 PO; +CARI1TAB7; +DIFL150T PO; +HYDR-3713
--- NOTE | 2019-07-01 01:38 | REP ---
Clinical: Bursitis. Technique: AP, lateral, bilateral oblique and sunrise views of the right knee. Findings: Fontana view demonstrates increase sclerosis, fraying and subtle spurring along the anterior margin of the patella with mild prepatellar soft tissue swelling. Remainder of the examination demonstrates relatively generalized age-related changes without further arthritic findings. Impression: Patellar arthropathy. Electronically Signed by Curtis Yu MD 07/01/2019 01:29 A
== END ==
LOC: M LRY 14:37
PROVIDERS: ATTEND Nurse Practitioner Family
DX: M70.51 Other bursitis of knee, right knee (principal)

== ENCOUNTER 2019-07-04 13:44 | Emergency (ER) | payer BC ==
[~2019-07-04] VITALS: Ht 160 cm; Wt 88.9 kg
[~2019-07-04 13:44] MED LIST changes: -ACET-683 PO; -AZIT-12 PO; -CARI1TAB7; -DIFL150T PO; -HYDR-3713
[2019-07-04] MEDS ORDERED: CARI1TAB7 (16:13)
[2019-07-04] MEDS ORDERED: ACET-683 PO (16:13)
[2019-07-04] MEDS ORDERED: HYDR-3713 (16:13)
[2019-07-04] MEDS ORDERED: predniSONE 20 MG TAB PO ONE (18:00)
[2019-07-04] MEDS: IPRATROPIUM 0.5MG/ALBUTEROL 2.5MG INH SOL UD 3ML (DUONEB)(J7620) NEB PRN ×3 (18:08→18:35)
[2019-07-04 18:10] LABS: VENOUS BASE EXCESS -0.6 (-2.0-2.0); VENOUS O2 SATURATION 73.3 % (60.0-80.0); VENOUS PARTIAL PRESSURE CO2 50.4 mmHg (38.0-50.0); VENOUS PARTIAL PRESSURE O2 41.1 mmHg (30.0-50.0); VENOUS PH 7.331 UNITS (7.330-7.430); VENOUS STANDARD HCO3 23.4 MEQ/L; VENOUS TOTAL CO2 27.6 MEQ/L (24.0-28.0)
[2019-07-04 18:18] LABS: BASO # 0.1 10^3/uL (0.0-0.2); BASO % 0.4 % (0.0-1.0); EOS # 0.1 10^3/uL (0.0-0.5); HEMATOCRIT 47.6 % (36.0-47.0); HEMOGLOBIN 14.4 g/dl (12.0-15.5); LYMPH # 2.5 10^3/uL (1.5-5.0); LYMPH % 19.4 % (24.0-44.0); MEAN CORPUSCULAR HEMOGLOBIN 26.2 pg (27.0-33.0); MEAN CORPUSCULAR HGB CONC 30.3 g/dl (32.0-36.5); MEAN CORPUSCULAR VOLUME 86.7 fl (80.0-96.0); MONO # 0.8 10^3/uL (0.0-0.8); MONO % 6.1 % (0.0-5.0); NEUTROPHILS # 9.2 10^3/uL (1.5-8.5); NEUTROPHILS % 72.7 % (36.0-66.0); PLATELET COUNT, AUTOMATED 242 10^3/uL (150-450); RED BLOOD COUNT 5.49 10^6/uL (4.00-5.40); WHITE BLOOD COUNT 12.7 10^3/uL (4.0-10.0)
[2019-07-04 18:41] LABS: BLOOD UREA NITROGEN 13 MG/DL (7-18); CALCIUM LEVEL 9.7 MG/DL (8.5-10.1); CARBON DIOXIDE LEVEL 29 MEQ/L (21-32); CHLORIDE LEVEL 104 MEQ/L (98-107); CREATININE FOR GFR 0.98 MG/DL (0.55-1.30); GLOMERULAR FILTRATION RATE > 60.0 (>51); GLUCOSE, FASTING 99 MG/DL (70-100); POTASSIUM SERUM 3.6 MEQ/L (3.5-5.1); SODIUM LEVEL 139 MEQ/L (136-145)
[2019-07-04 18:42] LABS: INFLUENZA A AMPLIFICATION NEGATIVE (NEGATIVE); INFLUENZA B AMPLIFICATION NEGATIVE (NEGATIVE)
--- NOTE | 2019-07-04 18:59 | REP ---
The PA and lateral chest: Comparison is 05/08/2018. The lung sun are clear. The cardiac size is normal. The candi, mediastinum, and skeletal structures are unremarkable. Impression: Negative PA and lateral chest. There is no interval change. Electronically Signed by Keo Leonard MD 07/04/2019 06:50 P
[2019-07-04] MEDS ORDERED: PRED20TA PO (19:18)
[2019-07-04] MEDS ORDERED: AZIT-12 PO (19:18)
[2019-07-04] MEDS ORDERED: DIFL150T PO (19:20)
[2019-07-04 19:25] VITALS: BP 123/72
[2019-07-04] MEDS ORDERED: AZITHROMYCIN 250 MG TAB PO ONE (19:30)
== END 2019-07-04 19:32 | disposition home or self-care (01) ==
LOC: M ED 13:44
DX: J45.901 Unspecified asthma with (acute) exacerbation (principal); J06.9 Acute upper respiratory infection, unspecified; Z86.73 Personal history of transient ischemic attack (TIA), and cerebral infarction without residual deficits; K90.0 Celiac disease; K58.9 Irritable bowel syndrome, unspecified; M13.80 Other specified arthritis, unspecified site; Z88.0 Allergy status to penicillin; Z88.1 Allergy status to other antibiotic agents; Z88.5 Allergy status to narcotic agent; Z88.6 Allergy status to analgesic agent; Z88.8 Allergy status to other drugs, medicaments and biological substances; Z91.041 Radiographic dye allergy status; Z79.51 Long term (current) use of inhaled steroids; Z79.899 Other long term (current) drug therapy

== ENCOUNTER 2019-07-18 13:44 | Emergency (ER) | payer BC ==
[~2019-07-18] VITALS: Ht 160 cm; Wt 87.6 kg
[~2019-07-18 13:44] MED LIST changes: +ACET-683 PO; +AZIT-12 PO; +CARI1TAB7; +DIFL150T PO; +HYDR-3713
[2019-07-18 13:45] VITALS: BP 137/81
[2019-07-18 15:05] LABS: BASO # 0.1 10^3/uL (0.0-0.2); BASO % 0.4 % (0.0-1.0); EOS # 0.3 10^3/uL (0.0-0.5); EOS % 2.4 % (0.0-3.0); HEMATOCRIT 47.6 % (36.0-47.0); HEMOGLOBIN 14.7 g/dl (12.0-15.5); LYMPH # 2.3 10^3/uL (1.5-5.0); LYMPH % 19.5 % (24.0-44.0); MEAN CORPUSCULAR HEMOGLOBIN 26.5 pg (27.0-33.0); MEAN CORPUSCULAR HGB CONC 30.9 g/dl (32.0-36.5); MEAN CORPUSCULAR VOLUME 85.8 fl (80.0-96.0); MONO # 0.6 10^3/uL (0.0-0.8); MONO % 5.1 % (0.0-5.0); NEUTROPHILS # 8.2 10^3/uL (1.5-8.5); NEUTROPHILS % 71.4 % (36.0-66.0); PLATELET COUNT, AUTOMATED 233 10^3/uL (150-450); RED BLOOD COUNT 5.55 10^6/uL (4.00-5.40); WHITE BLOOD COUNT 11.5 10^3/uL (4.0-10.0)
[2019-07-18 15:19] LABS: INR 0.93; PROTHROMBIN TIME 12.2 SECONDS (11.8-14.0)
[2019-07-18 15:20] LABS: PARTIAL THROMBOPLASTIN TIME 24.2 SECONDS (25.0-38.4)
[2019-07-18 15:44] LABS: ALBUMIN 3.5 GM/DL (3.2-5.2); ALT/SGPT 38 U/L (12-78); BILIRUBIN,DIRECT 0.1 MG/DL (0.0-0.2); BILIRUBIN,TOTAL 0.4 MG/DL (0.2-1.0); BLOOD UREA NITROGEN 10 MG/DL (7-18); CALCIUM LEVEL 9.6 MG/DL (8.5-10.1); CARBON DIOXIDE LEVEL 29 MEQ/L (21-32); CHLORIDE LEVEL 106 MEQ/L (98-107); CK-MB VALUE MASS < 1.0 NG/ML (<3.6); CPK CREATINE PHOSPHOKINASE 35 U/L (26-192); CREATININE FOR GFR 0.88 MG/DL (0.55-1.30); FREE T4 1.16 NG/DL (0.76-1.46); GLOMERULAR FILTRATION RATE > 60.0 (>51); GLUCOSE, FASTING 81 MG/DL (70-100); LIPASE 105 U/L (73-393); MB/CK RELATIVE INDEX 2.86 (< OR =4); POTASSIUM SERUM 4.2 MEQ/L (3.5-5.1); SODIUM LEVEL 142 MEQ/L (136-145); TROPONIN I < 0.02 NG/ML (< 0.10)
[2019-07-18 16:43] LABS: D-DIMER QUANT < 270 ng/ml (<500)
--- NOTE | 2019-07-18 17:06 | REP ---
Clinical: Chest pain . Comparison: 07/04/2019 . Technique: PA and lateral. Findings: The mediastinum and cardiac silhouette are normal. The lung sun are clear and without acute consolidation, effusion, or pneumothorax. The skeletal structures are intact and normal. Impression: 1. No acute cardiopulmonary process. Electronically Signed by Curtis Yu MD 07/18/2019 04:56 P
[2019-07-18 18:09] LABS: CK-MB VALUE MASS < 1.0 NG/ML (<3.6); CPK CREATINE PHOSPHOKINASE 27 U/L (26-192); TROPONIN I < 0.02 NG/ML (< 0.10)
--- NOTE | 2019-07-18 19:56 | ECGEPIP ---
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
--- NOTE | 2019-07-18 20:02 | ECGEPIP ---
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
== END 2019-07-18 19:18 | disposition home or self-care (01) ==
LOC: M ED 13:44
DX: R07.9 Chest pain, unspecified (principal); F41.1 Generalized anxiety disorder; R94.31 Abnormal electrocardiogram [ECG] [EKG]; M54.2 Cervicalgia; K21.9 Gastro-esophageal reflux disease without esophagitis; J45.909 Unspecified asthma, uncomplicated; Z88.0 Allergy status to penicillin; Z88.1 Allergy status to other antibiotic agents; Z88.2 Allergy status to sulfonamides; Z88.5 Allergy status to narcotic agent; Z88.6 Allergy status to analgesic agent; Z88.8 Allergy status to other drugs, medicaments and biological substances; Z79.51 Long term (current) use of inhaled steroids; Z79.899 Other long term (current) drug therapy

== ENCOUNTER → 2019-08-12 | Outpatient (CLI) | payer BC ==
[~2019-08-12] MED LIST changes: +METHACHOLINE KIT (J7674) INH ONE
--- NOTE | 2019-08-12 13:36 | PFTRPT ---
Site: [facility], [address] [place], [address] ID: [id number] Name: JOSE EDUARDO DICK Visit Date: 08/12/2019 Second ID: [id number] Referring Doctor: Al RAMEY, Shivani Cortez Reviewing Doctor: Veto Pearson MD Insurance Coordinator: Shena MAURO RRT Age: 59 : 1960 Sex: Female Race: Height: 63.00 Inches Weight: 195.00 Lbs BSA: 1.91 Order IDs: [id number] Requested Test(s): <RESP-PFT.METH CHAL> Diagnosis: R06.00 of albuterol for postbronchodilator. Review Status: Not Reviewed Pre-Bronch Post-Bronch Pred Actual %Pred Actual %Chng SPIROMETRY FVC (L) 3.26 2.91 89 2.91 FEV1 (L) 2.54 2.59 101 2.60 FEV1/FVC (%) 79 89 112 89 FEF 25% (L/sec) 4.94 6.16 124 5.52 -10 FEF 50% (L/sec) 3.71 4.90 132 4.23 -13 FEF 75% (L/sec) 1.28 1.70 132 2.12 24 FEF 25-75% (L/sec) 2.41 3.86 160 3.76 -2 FEF Max (L/sec) 6.29 6.27 99 5.58 -11 FIVC (L) 2.63 2.89 10 FIF 50% (L/sec) 3.68 5.40 146 5.78 7 FIF Max (L/sec) 5.58 5.93 6 Expiratory Time (sec) 6.37 6.35 Back Extrap Vol (L) 0.11 0.11 4 Time To FEFmax (sec) 0.091 0.104 14
== END ==
LOC: M CARPUL 08-10 13:47
PROVIDERS: ATTEND Internal Medicine Pulmonary Disease
DX: R06.00 Dyspnea, unspecified (principal)
CPT/HCPCS: 94070; J7674

== ENCOUNTER → 2019-08-29 | Outpatient (CLI) | payer BC ==
[~2019-08-29] MED LIST changes: -METHACHOLINE KIT (J7674) INH ONE
--- NOTE | 2019-08-30 05:25 | ECWPNPC ---
PATIENT NAME: JOSE EDUARDO DICK : 1960 GENDER: FEMALE VISIT DATE: 08/29/2019 DISCHARGE DATE: 08/29/19 0949 VISIT LOCKED DATE TIME: PHYSICIAN: SONJA DÍAZ RESOURCE: SONJA DÍAZ REASON FOR APPOINTMENT 1. BACK HISTORY OF PRESENT ILLNESS HISTORY OF PRESENT ILLNESS: HERE FOR FOLLOW-UP OF CHRONIC LOW BACK PAIN. FOLLOWING WITH [facility] FOR PERSISTENT NECK AND BACK PAIN. RECENTLY STARTED PHYSICAL THERAPY. DOING HOME STRETCHING AND FINDS THIS IS HELPFUL. USES PAIN MEDICATIONS INFREQUENTLY FOR SEVERE PAIN EPISODES. RATING PAIN LEVEL A 7/10. DESCRIBES HER PAIN INTERMITTENT, ACHING AND SHARP. PAIN IS AGGRAVATED WITH INCREASED ACTIVITY. PAIN THE PATIENT DESCRIBES THE PAIN... FALL RISK SCREENING: SCREENING :NO FALLS REPORTED IN THE LAST YEAR CURRENT MEDICATIONS TAKING SINGULAIR 10 MG TABLET 1 TABLET IN THE EVENING ORALLY ONCE A DAY TAKING BENADRYL 25 MG CAPSULE 1 CAPSULE NEEDED ORALLY NIGHTLY TAKING NASONEX 50 MCG/ACT SUSPENSION 2 SPRAYS IN EACH NOSTRIL NASALLY ONCE A DAY TAKING FEXOFENADINE HCL 180 MG TABLET 1 TABLET ORALLY ONCE A DAY TAKING PROBIOTIC - TABLET DELAYED RELEASE ORALLY ONCE DAILY TAKING VITAMIN D-3 2000 UNITS ONCE A DAY TAKING MULTIVITAMIN ADULTS - TABLET ORALLY DAILY TAKING VENTOLIN HFA 108 (90 BASE) MCG/ACT AEROSOL SOLUTION 2 PUFFS NEEDED INHALATION EVERY 6 HRS TAKING CALCIUM 7418-2673 MG-UNIT TABLET CHEWABLE 1 CAPSULE ORALLY ONCE A DAY TAKING ZOFRAN ODT 4 MG TABLET DISINTEGRATING 1 TABLET ON THE TONGUE AND ALLOW TO DISSOLVE ORALLY EVERY 8 HRS PRN TAKING QVAR REDIHALER 80 MCG/ACT AEROSOL BREATH ACTIVATED INHALE 2 PUFFS (160 MCG) BY INHALATION ROUTE TWICE A DAY. INHALATION TAKING CLONAZEPAM 0.5 MG TABLET 1 TABLET AT BEDTIME NEEDED ORALLY DIRECTED TAKING DICYCLOMINE HCL 20 MG TABLET 1 TABLET ORALLY FOUR TIMES DAILY NEEDED TAKING METAXALONE 800 MG TABLET 1 TABLET ORALLY BID NEEDED TAKING CARISOPRODOL 350 MG TABLET 1 TABLET NEEDED ORALLY FOR SPASMS AND PAIN EVERY 8 HOURS NEEDED MDD 2 TAKING NORCO 5-325 MG TABLET 1 TABLET NEEDED ORALLY Q8H PRN MDD3 TAKING IPRATROPIUM-ALBUTEROL 0.5-2.5 (3) MG/3ML SOLUTION 3 ML INHALATION EVERY 6 HRS TAKING TYLENOL WITH CODEINE #3 300-30 MG TABLET 1 TABLET NEEDED ORALLY Q8HR PRN MDD3 NOT-TAKING BIOTIN W/ VITAMINS C & E 1250-7.5-7.5 MCG-MG-UNT TABLET CHEWABLE ORALLY DAILY MEDICATION LIST REVIEWED AND RECONCILED WITH THE PATIENT PAST MEDICAL HISTORY CELIAC DISEASE ASTHMA MILD INTERMITTENT DEPRESSION CERVICAL RADICULOPATHY BILATERAL DUPLICATE URETERS RSV IBS LOW BACK PAIN ANXIETY MYALGIA FIBROMYALGIA POST LAMINECTOMY SYNDROME OBESITY ALLERGIC RHINITIS INFLAMMATORY POLYARTHRITIS SACROILIITIS LEFT KNEE PAIN ALLERGIES BETADINE: HIVES/BREATHING PROBLEM - ALLERGY FLEXERIL: HEART STOPS - ALLERGY NAPROXEN: ANAPHYLAXIS/HIVES - ALLERGY ASPIRIN: HIVES - ALLERGY MOTRIN: ANAPHYLAXIS/HIVES - ALLERGY COMPAZINE: UNKNOWN - ALLERGY MORPHINE SULFATE: HIVES - ALLERGY PAXIL: THROAT SWELLING - ALLERGY TRAMADOL: SEIZURES - ALLERGY WELLBUTRIN: HIVES - ALLERGY CYMBALTA: ANAPHYLAXIS - ALLERGY AMOXICILLIN: HIVES - ALLERGY FENTANYL: THROAT SWELLING - ALLERGY METOCLOPRAMIDE HCL: SEIZURES - ALLERGY ZOLOFT: THROAT SWELLING - ALLERGY DILUTING SOLUTION FOR ALLERGY SHOTS: SWELLING - ALLERGY WATERMELON: BRIGHT RED SKIN, IBS FLARE UP, NAUSEA VOMITING - ALLERGY NSAIDS: ANAPHYLAXIS - SIDE EFFECTS METHOTREXATE: SORES IN MOUTH, BODY ACHES; LOWER RBC'S COUNT - SIDE EFFECTS FLU VACCINE: SWELLING AT SITE - SIDE EFFECTS INFLUENZA VAC SPLIT QUAD: SWELLING AT SITE - SIDE EFFECTS IV CONTRAST DYE: HIVES, BREATHING DIFFICULTIES - ALLERGY GABAPENTIN: CONFUSION - SIDE EFFECTS WATERMELON FLAVOR: IBS FLARE-UP; REDDENED SKIN - ALLERGY SURGICAL HISTORY TONSILLECTOMY 1974 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 FIB, DEMENTIA, ARTHRITIS, VERTIGO, PASSSED AWAY FROM METATASTIC COLON CAMOM-HYPERLIPIDEMIA, DEMENTIA, HEART MURMUR \\\\NSISTER- THYROID DISEASE, HEART MURMUR\\\\NSISTER - CELIAC, SUICIDE\\\\SISTER-MULTIPLE KIDNEY STONES, HEART MURMUR////SISTER-SEVERE UTERINE FIBROIDS, LUNGS ISSUES DUE TO SMOKING, DEPRESSIONDAUGHTER - A FIB\\\\NYOUNGEST SON - SEVERE ASTHMA, NIGHTTIME EPILEPSY. SOCIAL HISTORY GENERAL: TOBACCO USE ARE YOU A:NONSMOKER HIV / HEP-C SCREENING HIV TEST OFFERED TO PATIENT:YES DATE OFFERED:07/05/2019 TEST ACCEPTED:NO HEP-C TEST OFFERED TO PATIENT:NO REASON:PATIENT DECLINED BROCHURE PROVIDED TO PATIENTNO OTHERS AT HOME: SPOUSE. EDUCATION LEVEL OF EDUCATION:NOT FINISHED COLLEGE 6 YEARS OF COLLEGE DIET: GLUTEN FREE. LANGUAGE LANGUAGES SPOKEN:SWEDISH DOMESTIC VIOLENCE DO YOU FEEL SAFE IN YOUR ENVIRONMENT?YES BMI CARE GOAL FOLLOW-UP ABOVE NORMAL BMI FOLLOW-UPDIETARY MANAGEMENT EDUCATION, GUIDANCE, AND COUNSELING, DIETARY NEEDS EDUCATION RECREATIONAL DRUG USE DRUG USE?NO EXERCISE: WALKS. LEARNING BARRIERS / SPECIAL NEEDS CHANGE FROM LAST VISIT?NO BARRIERS TO LEARNING?NO HEARING IMPAIRED?NO VISION IMPAIRED?YES COGNITIVELY IMPAIRED?NO :CORRECTIVE LENSES READINESS TO LEARN?YES LEARNING PREFERENCES?NO LEARNING CAPABILITIES PRESENT?YES EMOTIONAL BARRIERS?NO SPECIAL DEVICES?NO CONTRACTOR BUYER NEEDED?NO PAIN CLINIC PFS, CLERGY, PUBLIC HEALTH REFERRALS HAS THE PATIENT BEEN EDUCATED REGARDING HIS/HER PLAN OF CARE?YES HAS THE PATIENT BEEN EDUCATED REGARDING PAIN, THE RISK FOR PAIN, THE IMPORTANCE OF EFFECTIVE PAIN MANAGEMENT, AND THE PAIN ASSESSMENT PROCESS?YES LATEX QUESTIONNAIRE LATEX ALLERGY : HAVE YOU EVER DEVELOPED ANY TYPE OF REACTION AFTER HANDLING LATEX PRODUCTS SUCH RUBBER GLOVES, CONDOMS, DIAPHRAGMS, BALLOONS, SOCKS, OR UNDERWEAR?NO LATEX ALLERGY : HAVE YOU EVER DEVELOPED ANY TYPE OF REACTION DURING OR AFTER DENTAL APPOINTMENT, VAGINAL/RECTAL EXAMINATION, SURGICAL PROCEDURE, OR ANY OTHER EXPOSURE?NO LATEX RISK : HAVE YOU EVER HAD ANY DIFFICULTY BREATHING OR HIVES AFTER EATING OR HANDLING ANY FRUITS, OR VEGETABLES; SUCH KIWI, BANANAS, STONE FRUITS, OR CHESTNUTSNO LATEX RISK : DO YOU HAVE A PREVIOUS PERSONAL HISTORY OF MORE THAN NINE SURGERIES, SPINA BIFIDA, OR REPEATED CATHERIZATIONS? NO LATEX RISK : ARE YOU FREQUENTLY EXPOSED TO LATEX PRODUCTS IN YOUR OCCUPATION?YES DATE ASKED : 08/29/2019 CAFFEINE CAFFEINE USE?YES HOW OFTEN AND HOW MUCH? 1 CAN PEPSI/DAY ADVANCE DIRECTIVE ADVANCE DIRECTIVE DISCUSSED WITH PATIENT:YES STATES SHE HAS HCP- LEIGHANN [phone] PT WILL BRING A COPY IN TO US CONGREGATIONAL [id number] EPISCOPALIAN MARITAL STATUS: . 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 SEXUAL HX HAD SEX IN THE LAST 12 MONTHS (VAGINAL, ORAL, OR ANAL)?YES WITHMEN ONLY PREVENTION STRATEGIES DISCUSSED:OTHER USE PROTECTION?NO HAVE YOU EVER HAD AN STD?NO HOSPITALIZATION/MAJOR DIAGNOSTIC PROCEDURE SURGERIES ASTHMA/PNEUMONIA ? ACUTE DIVERTICULITIS 06/2015 PNEUMONIA/BRONCHITIS/FLU 06/2017 REVIEW OF SYSTEMS REVIEWED BY: PROVIDER: SONJA APARICIO . CONSTITUTIONAL: ANY CHANGE IN YOUR MEDICAL CONDITION? YES, CHEST PAIN X2 - WENT TO ER, IRREGULAR HEARTBEAT, NO DIAGNOSIS YET, BEING WORKED UP BY CARDIOLOGY . CHILLS NO . FEVER NO . INFECTION: DO YOU HAVE NEW INFECTIONS? NO . DO YOU HAVE HISTORY OF MRSA? NO . MUSCULOSKELETAL: ANY NEW PATTERNS OF PAIN OR NUMBNESS? NO . GASTROENTEROLOGY: ANY NEW CHANGE IN BOWEL CONTROL? NO . GENITOURINARY: ANY NEW CHANGE IN BLADDER CONTROL? NO . IS THERE A CHANCE YOU COULD BE ? NO . HEMATOLOGY/LYMPH: DO YOU TAKE ANY BLOOD THINNERS? (FOR EXAMPLE- COUMADIN, PLAVIX, AGGRENOX, PLATEL, PRADAXA, OR XARELTO) NO . WHEN WAS YOUR LAST DOSE? DATE: TIME: . NEUROLOGY: HAVE YOU FALLEN IN THE PAST 12 MONTHS? YES, STATES A FALL 2 WEEKENDS AGO DOWN THE STAIRS FROM CAT HITTING HER KNEE CAUSING HER KNEE TO GO OUT ON HER - STATES NO MAJOR INJURIES, NO ED VISIT . ANY NEW EXTREMITY NUMBNESS OR WEAKNESS? NO . CARDIOLOGY: DO YOU HAVE A PACEMAKER OR DEFIBRILLATOR? NO . RESPIRATORY: HAVE YOU BEEN SICK IN THE PAST WEEK? NO . FEVER NO . FLU LIKE SYMPTOMS? NO . COUGH NO . INTEGUMENTARY: DO YOU HAVE ANY RASHES OR OPEN SORES? YES, CUT TO RIGHT MIDDLE FINGER . ALLERGIC/IMMUNO: ARE YOU ALLERGIC TO IV DYE? YES . ANY NEW ALLERGIES? NO . PSYCHIATRIC: DO YOU HAVE THOUGHTS OF HURTING YOURSELF OR SOMEONE ELSE? NO . ARE YOU ABUSED, NEGLECTED, OR IN AN UNSAFE ENVIRONMENT? NO . ENDOCRINOLOGY: ARE YOU DIABETIC? NO . OTHER: DO YOU NEED ANY PRESCRIPTIONS? NO . IF YES, PLEASE LIST: ____ . ANY NEW PROBLEMS WITH YOUR MEDICATIONS? NO . WHEN DID YOU LAST EAT? ____ . WHEN DID YOU LAST DRINK? ____ . WHAT DID YOU LAST DRINK? ____ . NAME OF PERSON DRIVING YOU HOME? ____ . DO YOU HAVE ANY OTHER QUESTIONS OR CONCERNS NO . VITAL SIGNS WT 205 LBS, HT 63 IN, BMI 36.31 INDEX, BP 149/78 MM HG, HR 78 /MIN, RR 18 /MIN, TEMP 97.6 F, OXYGEN SAT % 97%, SAFE IN ENV? (Y/N) YES, NA INITIALS AW 0855, REVIEWED BY: BONITA. EXAMINATION GENERAL EXAMINATION: GENERALAWAKE,ALERT ,PLEASANT . PSYCHAFFECT NORMAL . LUNGS:LUNG WARREN ARE CLEAR TO AUSCULTATION BILATERALLY. GOOD MOVEMENT OF AIR . HEART:S1, S2 IN A REGULAR RATE AND RHYTHM. NO SIGNIFICANT MURMURS, RUBS OR GALLOPS NOTED . ASSESSMENTS FIBROMYALGIA - M79.7 (PRIMARY) SACROILIITIS, NOT ELSEWHERE CLASSIFIED - M46.1 TREATMENT FIBROMYALGIA CONTINUE METAXALONE TABLET, 800 MG, 1 TABLET, ORALLY, BID NEEDED CONTINUE CARISOPRODOL TABLET, 350 MG, 1 TABLET NEEDED, ORALLY FOR SPASMS AND PAIN, EVERY 8 HOURS NEEDED MDD 2 CONTINUE NORCO TABLET, 5-325 MG, 1 TABLET NEEDED, ORALLY, Q8H PRN MDD3 CONTINUE TYLENOL WITH CODEINE #3 TABLET, 300-30 MG, 1 TABLET NEEDED, ORALLY, Q8HR PRN MDD3 NOTES: ISTOP REGISTRY REVIEWED AND DEMONSTRATES COMPLLIANCE. BRINGS IN MEDICATIONS WHICH IS APPROPRIATE FOR WHAT WAS DISPENSED. RECENT URINE TOXICOLOGY REVIEWED. NO UNAUTHORIZED MEDICATIONS. NO ILLICIT SUBSTANCES AND PRESCRIBED MEDICATIONS WERE PRESENT. , RISKS OF NARCOTIC/OPIOD MEDICATIONS INCLUDES BUT IS NOT LIMITED TO RISK OF DEPENDANCE/DEVELOPMENT OF ADDICTION, MOOD DISTURBANCE AND DEPRESSION, OSTEOPOROSIS, HORMONAL AND LABIDAL CHANGES, RESPIRATORY DEPRESSION AND . PATIENT IS ADVISED NOT TO DRIVE OR DRINK ALCOHOL WHILE ON THESE MEDICATIONS. PROCEDURE CODES FA211 ESTABILISHED PATIENT [facility] FACILITY CHARGE DISPOSITION & COMMUNICATION FOLLOW UP 3 MONTHS (REASON: MED MGMNT) ELECTRONICALLY SIGNED BY MARKUS KENNY ON 08/29/2019 AT 10:08 AM EDT DISCLAIMER : THIS IS A VISIT SUMMARY EXTRACTED FROM THE [facility] CHART. IT IS NOT A COPY OF THE [facility] PROGRESS NOTE. MTDD
== END ==
LOC: M PAIN 09:00
PROVIDERS: ATTEND Nurse Practitioner Family
DX: M79.7 Fibromyalgia (principal); M46.1 Sacroiliitis, not elsewhere classified; Z79.891 Long term (current) use of opiate analgesic; Z79.899 Other long term (current) drug therapy; Z88.1 Allergy status to other antibiotic agents; Z88.3 Allergy status to other anti-infective agents; Z88.5 Allergy status to narcotic agent; Z88.6 Allergy status to analgesic agent; Z91.040 Latex allergy status; Z91.018 Allergy to other foods

== ENCOUNTER → 2019-10-08 | Outpatient (CLI) | payer BC ==
[~2019-10-08] MED LIST changes: +FLON1SPR NARES; +MOME50SP2
--- NOTE | 2019-10-08 09:57 | REP ---
Clinical: Nontraumatic right foot pain Technique: AP, lateral, bilateral oblique views right foot . Findings: Generalized age-related changes noted. Minimal joint space narrowing involving the interphalangeal joints as well as subtle increase sclerosis and joint space narrowing at the first tarsometatarsal joint. No acute fracture or dislocation. No subcutaneous emphysema. Impression: Age-related degenerative changes. Electronically Signed by Curtis Yu MD 10/08/2019 09:49 A
== END ==
LOC: M WUC 09:28
PROVIDERS: ATTEND Nurse Practitioner Family
DX: M79.671 Pain in right foot (principal); M19.071 Primary osteoarthritis, right ankle and foot

== ENCOUNTER 2019-10-13 10:13 | Emergency (ER) | payer BC ==
[~2019-10-13] VITALS: Ht 160 cm; Wt 91.9 kg
[~2019-10-13 10:13] MED LIST changes: -FLON1SPR NARES; -MOME50SP2
[2019-10-13] MEDS ORDERED: MOME50SP2 (10:24)
[2019-10-13] MEDS ORDERED: dexameTHASONE 20MG/5ML VIAL (J1100 PER 1MG) IV ONE (11:00)
[2019-10-13] MEDS: MAG SULF 1GM/100ML (MAG RUN) 1 GM in IV 1 EA IV SCH ×2 (11:19→11:50)
[2019-10-13 11:27] LABS: BASO # 0.1 10^3/uL (0.0-0.2); BASO % 0.4 % (0.0-1.0); EOS % 0.1 % (0.0-3.0); HEMATOCRIT 43.1 % (36.0-47.0); HEMOGLOBIN 13.8 g/dl (12.0-15.5); LYMPH # 1.4 10^3/uL (1.5-5.0); LYMPH % 12.4 % (24.0-44.0); MEAN CORPUSCULAR HEMOGLOBIN 27.1 pg (27.0-33.0); MEAN CORPUSCULAR VOLUME 84.5 fl (80.0-96.0); MONO # 0.5 10^3/uL (0.0-0.8); MONO % 4.5 % (0.0-5.0); NEUTROPHILS # 9.3 10^3/uL (1.5-8.5); NEUTROPHILS % 81.5 % (36.0-66.0); PLATELET COUNT, AUTOMATED 261 10^3/uL (150-450); WHITE BLOOD COUNT 11.4 10^3/uL (4.0-10.0)
--- NOTE | 2019-10-13 11:58 | REP ---
CHEST X-RAY: Two views. HISTORY: Dyspnea and cough. Comparison chest x-ray: July 18, 2019. FINDINGS: The lungs are symmetrically aerated. No focal infiltrate is seen. Pleural angles are sharp. Heart is not enlarged. The aorta somewhat tortuous. IMPRESSION: No infiltrates seen. No active disease. Electronically Signed by Duane Smith MD 10/13/2019 01:30 P
[2019-10-13 12:04] LABS: BLOOD UREA NITROGEN 16 MG/DL (7-18); CALCIUM LEVEL 9.2 MG/DL (8.5-10.1); CARBON DIOXIDE LEVEL 27 MEQ/L (21-32); CHLORIDE LEVEL 107 MEQ/L (98-107); CREATININE FOR GFR 0.93 MG/DL (0.55-1.30); GLOMERULAR FILTRATION RATE > 60.0 (>51); GLUCOSE, FASTING 112 MG/DL (70-100); POTASSIUM SERUM 4.2 MEQ/L (3.5-5.1); SODIUM LEVEL 142 MEQ/L (136-145)
[2019-10-13 12:13] VITALS: BP 132/78
[2019-10-13] MEDS ORDERED: PRED20TA PO (12:21)
[2019-10-13] MEDS ORDERED: FLON1SPR NARES (12:21)
== END 2019-10-13 12:35 | disposition home or self-care (01) ==
LOC: M ED 10:13
DX: J45.901 Unspecified asthma with (acute) exacerbation (principal); K90.0 Celiac disease; K58.9 Irritable bowel syndrome, unspecified; F41.9 Anxiety disorder, unspecified; F32.9 Major depressive disorder, single episode, unspecified; I69.344 Monoplegia of lower limb following cerebral infarction affecting left non-dominant side; Z88.5 Allergy status to narcotic agent; Z88.6 Allergy status to analgesic agent; Z88.8 Allergy status to other drugs, medicaments and biological substances; Z88.0 Allergy status to penicillin; Z79.899 Other long term (current) drug therapy; Z79.51 Long term (current) use of inhaled steroids
CPT/HCPCS: 71046; 80048; 85025; 94760; 96374; 99284; J1100; J3475

== ENCOUNTER → 2019-10-18 | Outpatient (CLI) | payer BC ==
[~2019-10-18] MED LIST changes: +ALB2.5NEB NEB; +ALIG4CAP PO; +BIOT1CAP2 PO; +CALC600T61 PO; +CLON0.5T17 PO; +FLON1SPR NARES; +MOME50SP2; +NORC1TAB7 PO; +ONDA4TAB6 PO; +PRED10TA2; +VITALIQ27 MC
== END ==
LOC: M LABSMTC 13:21
PROVIDERS: ATTEND Family Medicine
DX: Z11.59 Encounter for screening for other viral diseases (principal); Z20.828 Contact with and (suspected) exposure to other viral communicable diseases
CPT/HCPCS: C9803; U0003

== ENCOUNTER → 2019-11-29 | Outpatient (CLI) | payer BC ==
[~2019-11-29] MED LIST changes: -ALB2.5NEB NEB; -ALIG4CAP PO; -BIOT1CAP2 PO; -CALC600T61 PO; -CLON0.5T17 PO; -NORC1TAB7 PO; -ONDA4TAB6 PO; -PRED10TA2; -VITALIQ27 MC
--- NOTE | 2019-12-01 03:59 | ECWPNPC ---
PATIENT NAME: JOSE EDUARDO DICK : 1960 GENDER: FEMALE VISIT DATE: 11/29/2019 DISCHARGE DATE: 11/29/19918 VISIT LOCKED DATE TIME: PHYSICIAN: SONJA DÍAZ RESOURCE: SONJA DÍAZ REASON FOR APPOINTMENT 1. BACK HISTORY OF PRESENT ILLNESS GENERAL: -. FALL RISK SCREENING: SCREENING :ONE FALL WITHOUT INJURY IN THE PAST YEAR PAIN SCREENING: PATIENT HAS A COMPLAINT OF ACUTE OR CHRONIC PAIN :YES LOCATION OF PAIN:LOW BACK LEFT SIDE INTENSITY OF PAIN (SCALE OF 1 TO 10):6 WHAT DOES YOUR PAIN FEEL LIKE:ACHING, BURNING, CONTINOUS, SHARP, SHOOTING NURSING NOTE: -. PAIN CENTER INTAKE QUESTIONS: DO YOU HAVE A HISTORY OF MRSA? :NO DO YOU TAKE A BLOOD THINNERS? :NO DO YOU HAVE ANY BLEEDING DISORDERS? :NO ANY NEW NUMBNESS OR WEAKNESS IN YOUR LEGS OR ARMS? :NO ANY PACEMAKER,DEFIBRILLATOR, OR DORSAL COLUMN STIMULATOR? :NO DO YOU HAVE ANY RASHES OR OPEN SORES? :NO ARE YOU ALLERGIC TO IV DYE? :YES ARE YOU DIABETIC? :NO ANY NEW PROBLEMS WITH YOUR MEDICATIONS? :NO HAVE YOU RECEIVED A VACCINE IN THE PAST 30 DAYS? :NO DO YOU PLAN TO RECEIVE A VACCINE IN THE NEXT 21 DAYS? :NO DO YOU NEED ANY PRESCRIPTION? :NO DO YOU TAKE ANY IMMUNOSUPPRESSIVE MEDICATIONS? :NO IS THERE A CHANCE YOU COULD BE ? :NO ARE YOU BREAST FEEDING? :NO HISTORY OF PRESENT ILLNESS: HERE FOR FOLLOW-UP OF CHRONIC LOW BACK PAIN. FOLLOWING WITH [facility] FOR PERSISTENT NECK AND BACK PAIN. USING [id number] LIDODERM PATCH AND FINDING IT VERY HELPFUL. USES PAIN MEDICATIONS INFREQUENTLY FOR SEVERE PAIN EPISODES. RATING PAIN LEVEL A 7/10. DESCRIBES HER PAIN INTERMITTENT, ACHING AND SHARP. PAIN IS AGGRAVATED WITH INCREASED ACTIVITY. PAIN THE PATIENT DESCRIBES THE PAIN... CURRENT MEDICATIONS TAKING SINGULAIR 10 MG TABLET 1 TABLET IN THE EVENING ORALLY ONCE A DAY TAKING BENADRYL 25 MG CAPSULE 1 CAPSULE NEEDED ORALLY NIGHTLY TAKING FEXOFENADINE HCL 180 MG TABLET 1 TABLET ORALLY ONCE A DAY TAKING PROBIOTIC - TABLET DELAYED RELEASE ORALLY ONCE DAILY TAKING VITAMIN D-3 2000 UNITS ONCE A DAY TAKING MULTIVITAMIN ADULTS - TABLET ORALLY DAILY TAKING VENTOLIN HFA 108 (90 BASE) MCG/ACT AEROSOL SOLUTION 2 PUFFS NEEDED INHALATION EVERY 6 HRS TAKING CALCIUM 5929-4463 MG-UNIT TABLET CHEWABLE 1 CAPSULE ORALLY ONCE A DAY TAKING QVAR REDIHALER 80 MCG/ACT AEROSOL BREATH ACTIVATED INHALE 2 PUFFS (160 MCG) BY INHALATION ROUTE TWICE A DAY. INHALATION TAKING CLONAZEPAM 0.5 MG TABLET 1 TABLET AT BEDTIME NEEDED ORALLY DIRECTED TAKING DICYCLOMINE HCL 20 MG TABLET 1 TABLET ORALLY FOUR TIMES DAILY NEEDED TAKING ZOFRAN ODT 4 MG TABLET DISINTEGRATING 1 TABLET ON THE TONGUE AND ALLOW TO DISSOLVE ORALLY EVERY 8 HRS PRN TAKING TYLENOL 8 HOUR ARTHRITIS PAIN 650 MG TABLET EXTENDED RELEASE 2 TABLETS NEEDED ORALLY EVERY 8 HRS TAKING IPRATROPIUM-ALBUTEROL 0.5-2.5 (3) MG/3ML SOLUTION 3 ML INHALATION EVERY 6 HRS, NOTES: DX: J45.901 TAKING PREDNISONE 20 MG TABLET 1 TABLET ORALLY DIRECTED, NOTES: DX: J45.901TAKE 3 TABLETS FOR FIRST 3 DAYS, THEN 2 TABLETS FOR NEXT 3 DAYS, THEN 1 TABLET FOR NEXT 3 DAYS THEN STOP TAKING TYLENOL WITH CODEINE #3 300-30 MG TABLET 1 TABLET NEEDED ORALLY Q8HR PRN MDD3 TAKING METAXALONE 800 MG TABLET 1 TABLET ORALLY BID NEEDED TAKING NORCO 5-325 MG TABLET 1 TABLET NEEDED ORALLY Q8H PRN MDD3 TAKING FLUTICASONE PROPIONATE 50 MCG/ACT SUSPENSION SPRAY TWO SPRAYS IN EACH NOSTRIL EVERY DAY NASAL DAILY NOT-TAKING CARISOPRODOL 350 MG TABLET 1 TABLET NEEDED ORALLY FOR SPASMS AND PAIN EVERY 8 HOURS NEEDED MDD 2, NOTES: SOMA NOT-TAKING NYSTATIN [id number] UNIT/ML SUSPENSION 4 ML MOUTH/THROAT FOUR TIMES A DAY NOT-TAKING FLUCONAZOLE 200 MG TABLET 1 TABLET ORALLY TWO TABLETS DAY ONE THEN ONE TABLET AFTER NOT-TAKING NASONEX 50 MCG/ACT SUSPENSION 2 SPRAYS IN EACH NOSTRIL NASALLY ONCE A DAY NOT-TAKING BIOTIN W/ VITAMINS C & E 1250-7.5-7.5 MCG-MG-UNT TABLET CHEWABLE ORALLY DAILY MEDICATION LIST REVIEWED AND RECONCILED WITH THE PATIENT PAST MEDICAL HISTORY CELIAC DISEASE ASTHMA MILD INTERMITTENT DEPRESSION CERVICAL RADICULOPATHY BILATERAL DUPLICATE URETERS RSV IBS LOW BACK PAIN ANXIETY MYALGIA FIBROMYALGIA POST LAMINECTOMY SYNDROME OBESITY ALLERGIC RHINITIS INFLAMMATORY POLYARTHRITIS SACROILIITIS LEFT KNEE PAIN ALLERGIES BETADINE: HIVES/BREATHING PROBLEM - ALLERGY FLEXERIL: HEART STOPS - ALLERGY NAPROXEN: ANAPHYLAXIS/HIVES - ALLERGY ASPIRIN: HIVES - ALLERGY MOTRIN: ANAPHYLAXIS/HIVES - ALLERGY COMPAZINE: UNKNOWN - ALLERGY MORPHINE SULFATE: HIVES - ALLERGY PAXIL: THROAT SWELLING - ALLERGY TRAMADOL: SEIZURES - ALLERGY WELLBUTRIN: HIVES - ALLERGY CYMBALTA: ANAPHYLAXIS - ALLERGY AMOXICILLIN: HIVES - ALLERGY FENTANYL: THROAT SWELLING - ALLERGY METOCLOPRAMIDE HCL: SEIZURES - ALLERGY ZOLOFT: THROAT SWELLING - ALLERGY DILUTING SOLUTION FOR ALLERGY SHOTS: SWELLING - ALLERGY WATERMELON: BRIGHT RED SKIN, IBS FLARE UP, NAUSEA VOMITING - ALLERGY NSAIDS: ANAPHYLAXIS - SIDE EFFECTS METHOTREXATE: SORES IN MOUTH, BODY ACHES; LOWER RBC'S COUNT - SIDE EFFECTS FLU VACCINE: SWELLING AT SITE - SIDE EFFECTS INFLUENZA VAC SPLIT QUAD: SWELLING AT SITE - SIDE EFFECTS IV CONTRAST DYE: HIVES, BREATHING DIFFICULTIES - ALLERGY GABAPENTIN: CONFUSION - SIDE EFFECTS WATERMELON FLAVOR: IBS FLARE-UP; REDDENED SKIN - ALLERGY SURGICAL HISTORY TONSILLECTOMY 1973 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 FIB, DEMENTIA, ARTHRITIS, VERTIGO, PASSSED AWAY FROM METATASTIC COLON CAMOM-HYPERLIPIDEMIA, DEMENTIA, HEART MURMUR \\\\NSISTER- THYROID DISEASE, HEART MURMUR\\\\NSISTER - CELIAC, SUICIDE\\\\SISTER-MULTIPLE KIDNEY STONES, HEART MURMUR////SISTER-SEVERE UTERINE FIBROIDS, LUNGS ISSUES DUE TO SMOKING, DEPRESSIONDAUGHTER - A FIB\\\\NYOUNGEST SON - SEVERE ASTHMA, NIGHTTIME EPILEPSY. SOCIAL HISTORY GENERAL: TOBACCO USE ARE YOU A:NONSMOKER LATEX QUESTIONNAIRE LATEX ALLERGY : HAVE YOU EVER DEVELOPED ANY TYPE OF REACTION AFTER HANDLING LATEX PRODUCTS SUCH RUBBER GLOVES, CONDOMS, DIAPHRAGMS, BALLOONS, SOCKS, OR UNDERWEAR?NO LATEX ALLERGY : HAVE YOU EVER DEVELOPED ANY TYPE OF REACTION DURING OR AFTER DENTAL APPOINTMENT, VAGINAL/RECTAL EXAMINATION, SURGICAL PROCEDURE, OR ANY OTHER EXPOSURE?NO LATEX RISK : HAVE YOU EVER HAD ANY DIFFICULTY BREATHING OR HIVES AFTER EATING OR HANDLING ANY FRUITS, OR VEGETABLES; SUCH KIWI, BANANAS, STONE FRUITS, OR CHESTNUTSNO LATEX RISK : DO YOU HAVE A PREVIOUS PERSONAL HISTORY OF MORE THAN NINE SURGERIES, SPINA BIFIDA, OR REPEATED CATHERIZATIONS? NO LATEX RISK : ARE YOU FREQUENTLY EXPOSED TO LATEX PRODUCTS IN YOUR OCCUPATION?YES DATE ASKED : 11/29/2019 BMI CARE GOAL FOLLOW-UP ABOVE NORMAL BMI FOLLOW-UPDIETARY MANAGEMENT EDUCATION, GUIDANCE, AND COUNSELING, DIETARY NEEDS EDUCATION ALCOHOL SCREENING DID YOU HAVE A DRINK CONTAINING ALCOHOL IN THE PAST YEAR?YES HOW OFTEN DID YOU HAVE SIX OR MORE DRINKS ON ONE OCCASION IN THE PAST YEAR?NEVER (0 POINTS) HOW MANY DRINKS DID YOU HAVE ON A TYPICAL DAY WHEN YOU WERE DRINKING IN THE PAST YEAR?1 OR 2 (0 POINTS) HOW OFTEN DID YOU HAVE A DRINK CONTAINING ALCOHOL IN THE PAST YEAR?MONTHLY OR LESS (1 POINT) POINTS1 INTERPRETATIONNEGATIVE RECREATIONAL DRUG USE DRUG USE?NO CAFFEINE CAFFEINE USE?YES HOW OFTEN AND HOW MUCH? 1 CAN PEPSI/DAY SEXUAL HX HAD SEX IN THE LAST 12 MONTHS (VAGINAL, ORAL, OR ANAL)?YES WITHMEN ONLY PREVENTION STRATEGIES DISCUSSED:OTHER USE PROTECTION?NO HAVE YOU EVER HAD AN STD?NO HIV / HEP-C SCREENING HIV TEST OFFERED TO PATIENT:YES DATE OFFERED:07/05/2019 TEST ACCEPTED:NO HEP-C TEST OFFERED TO PATIENT:NO REASON:PATIENT DECLINED BROCHURE PROVIDED TO PATIENTNO [employer] [id number] MOSQUE LANGUAGE LANGUAGES SPOKEN:GERMAN EDUCATION LEVEL OF EDUCATION:NOT FINISHED COLLEGE 6 YEARS OF COLLEGE LEARNING BARRIERS / SPECIAL NEEDS CHANGE FROM LAST VISIT?NO BARRIERS TO LEARNING?NO HEARING IMPAIRED?NO VISION IMPAIRED?YES COGNITIVELY IMPAIRED?NO :CORRECTIVE LENSES READINESS TO LEARN?YES LEARNING PREFERENCES?NO LEARNING CAPABILITIES PRESENT?YES EMOTIONAL BARRIERS?NO SPECIAL DEVICES?NO TEST MAN NEEDED?NO DOMESTIC VIOLENCE DO YOU FEEL SAFE IN YOUR ENVIRONMENT?YES 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 DIET: GLUTEN FREE. EXERCISE: WALKS. MARITAL STATUS: . OTHERS AT HOME: SPOUSE. PAIN CLINIC PFS, CLERGY, PUBLIC HEALTH REFERRALS HAS THE PATIENT BEEN EDUCATED REGARDING HIS/HER PLAN OF CARE?YES HAS THE PATIENT BEEN EDUCATED REGARDING PAIN, THE RISK FOR PAIN, THE IMPORTANCE OF EFFECTIVE PAIN MANAGEMENT, AND THE PAIN ASSESSMENT PROCESS?YES ADVANCE DIRECTIVE ADVANCE DIRECTIVE DISCUSSED WITH PATIENT:YES STATES SHE HAS HCP- LEIGHANN [phone] PT WILL BRING A COPY IN TO HOSPITALIZATION/MAJOR DIAGNOSTIC PROCEDURE SURGERIES ASTHMA/PNEUMONIA ? ACUTE DIVERTICULITIS 06/2015 PNEUMONIA/BRONCHITIS/FLU 06/2017 REVIEW OF SYSTEMS CONSTITUTIONAL: ANY RECENT FEVER NO . CHILLS NO . WEIGHT CHANGE OF UNKNOWN REASONS NO . GASTROENTEROLOGY: NEW UNEXPLAINABLE CHANGES IN BOWEL CONTROL NO . CONSTIPATION NO . GENITOURINARY: ANY NEW CHANGE IN BLADDER CONTROL? NO . NEUROLOGY: NEW ONSET DIZZINESS OR NEUROLOGICAL CHANGES NOT MENTIONED NO . NEW NUMBNESS OR PAIN PATTERNS NOT MENTIONED AND PERTINENT TO TODAY'S VISIT NO . CARDIOLOGY: NEW CHEST PRESSURE NO . NEW CHEST PAIN NO . RESPIRATORY: UNEXPLAINABLE COUGH NO . NEW SHORTNESS OF BREATH NO . VITAL SIGNS WT 203.6 LBS, HT 63 IN, BMI 36.06 INDEX, BP 126/72 MM HG, HR 83 /MIN, RR 18 /MIN, TEMP 97.5 F, OXYGEN SAT % 97%, SAFE IN ENV? (Y/N) Y, NA INITIALS OK 08:54, REVIEWED BY: LILLY. EXAMINATION GENERAL EXAMINATION: GENERALAWAKE,ALERT ,PLEASANT . PSYCHAFFECT NORMAL . LUNGS:LUNG WARREN ARE CLEAR TO AUSCULTATION BILATERALLY. GOOD MOVEMENT OF AIR . HEART:S1, S2 IN A REGULAR RATE AND RHYTHM. NO SIGNIFICANT MURMURS, RUBS OR GALLOPS NOTED . ASSESSMENTS FIBROMYALGIA - M79.7 (PRIMARY) SACROILIITIS, NOT ELSEWHERE CLASSIFIED - M46.1 TREATMENT FIBROMYALGIA CONTINUE TYLENOL WITH CODEINE #3 TABLET, 300-30 MG, 1 TABLET NEEDED, ORALLY, Q8HR PRN MDD3 CONTINUE METAXALONE TABLET, 800 MG, 1 TABLET, ORALLY, BID NEEDED CONTINUE NORCO TABLET, 5-325 MG, 1 TABLET NEEDED, ORALLY, Q8H PRN MDD3 NOTES: CONTINUE HOME EXERCISE AND STRETCHING. PATIENT WILL BE HAVING MRI OF THE LS SPINE AND LEFT HIP ORDERED BY [facility]. WE WILL SEE HER BACK IN 2 MONTHS TO DISCUSS TREATMENT OPTIONS AFTER REVIEWING THIS. , ISTOP REGISTRY REVIEWED AND DEMONSTRATES COMPLLIANCE. BRINGS IN MEDICATIONS WHICH IS APPROPRIATE FOR WHAT WAS DISPENSED. RECENT URINE TOXICOLOGY REVIEWED. NO UNAUTHORIZED MEDICATIONS. NO ILLICIT SUBSTANCES AND PRESCRIBED MEDICATIONS WERE PRESENT. URINE TOX TODAY , RISKS OF NARCOTIC/OPIOD MEDICATIONS INCLUDES BUT IS NOT LIMITED TO RISK OF DEPENDANCE/DEVELOPMENT OF ADDICTION, MOOD DISTURBANCE AND DEPRESSION, OSTEOPOROSIS, HORMONAL AND LABIDAL CHANGES, RESPIRATORY DEPRESSION AND . PATIENT IS ADVISED NOT TO DRIVE OR DRINK ALCOHOL WHILE ON THESE MEDICATIONS. PREVENTIVE MEDICINE PAIN CLINIC TEACHING: THE PATIENT HAS BEEN EDUCATED REGARDING PAIN, THE RISK FOR PAIN, THE IMPORTANCE OF EFFECTIVE PAIN MANAGEMENT, AND THE PAIN ASSESSMENT PROCESS. : REVIEWED VERBAL DISCHARGE INSTRUCTIONS WITH PATIENT, PT ACKNOWLEDGED UNDERSTANDING,. DS PROCEDURE CODES FA211 ESTABILISHED PATIENT [facility] CHARGE DISPOSITION & COMMUNICATION FOLLOW UP 2 MONTHS (REASON: LEFT LOW BACK PAIN/REVIEW MRI L/S SPINE) ELECTRONICALLY SIGNED BY MARKUS KENNY ON 11/30/2019 AT 11:48 AM EDT DISCLAIMER : THIS IS A VISIT SUMMARY EXTRACTED FROM THE [id number] CHART. IT IS NOT A COPY OF THE [employer] PROGRESS NOTE. YAN
== END ==
LOC: M PAIN 09:00
PROVIDERS: ATTEND Nurse Practitioner Family
DX: M79.7 Fibromyalgia (principal); M46.1 Sacroiliitis, not elsewhere classified

== ENCOUNTER → 2020-02-03 | Outpatient (CLI) | payer BC ==
[~2020-02-03] MED LIST changes: +ALB2.5NEB NEB; +ALIG4CAP PO; +BIOT1CAP2 PO; +CALC600T61 PO; +CLON0.5T17 PO; +NORC1TAB7 PO; +ONDA4TAB6 PO; +PRED10TA2; +VITALIQ27 MC
== END ==
LOC: M LABSMTC 12:44
PROVIDERS: ATTEND Family Medicine
DX: Z11.59 Encounter for screening for other viral diseases (principal)

== ENCOUNTER → 2020-02-09 | Outpatient (REF) | payer BC ==
[2020-02-09 18:32] LABS: BASO # 0.1 10^3/uL (0.0-0.2); BASO % 0.6 % (0.0-1.0); EOS # 0.2 10^3/uL (0.0-0.5); EOS % 1.8 % (0.0-3.0); HEMATOCRIT 46.6 % (36.0-47.0); HEMOGLOBIN 13.9 g/dl (12.0-15.5); LYMPH # 1.9 10^3/uL (1.5-5.0); LYMPH % 21.7 % (24.0-44.0); MEAN CORPUSCULAR HEMOGLOBIN 27.2 pg (27.0-33.0); MEAN CORPUSCULAR HGB CONC 29.8 g/dl (32.0-36.5); MEAN CORPUSCULAR VOLUME 91.2 fl (80.0-96.0); MONO # 0.6 10^3/uL (0.0-0.8); NEUTROPHILS % 68.4 % (36.0-66.0); PLATELET COUNT, AUTOMATED 200 10^3/uL (150-450); RED BLOOD COUNT 5.11 10^6/uL (4.00-5.40); WHITE BLOOD COUNT 8.8 10^3/uL (4.0-10.0)
[2020-02-09 18:57] LABS: ALBUMIN 3.9 GM/DL (3.2-5.2); ALT/SGPT 32 U/L (12-78); BILIRUBIN,TOTAL 0.4 MG/DL (0.2-1.0); BLOOD UREA NITROGEN 12 MG/DL (7-18); C REACTIVE PROTEIN QUANTITATIV 0.81 MG/DL (0.00-0.30); CALCIUM LEVEL 9.5 MG/DL (8.5-10.1); CARBON DIOXIDE LEVEL 27 MEQ/L (21-32); CHLORIDE LEVEL 108 MEQ/L (98-107); CREATININE FOR GFR 0.93 MG/DL (0.55-1.30); GLOMERULAR FILTRATION RATE > 60.0 (>51); GLUCOSE, FASTING 81 MG/DL (70-100); POTASSIUM SERUM 4.6 MEQ/L (3.5-5.1); SODIUM LEVEL 143 MEQ/L (136-145); THYROID STIMULATING HORMONE 0.841 uIU/ML (0.358-3.740); TOTAL PROTEIN 7.2 GM/DL (6.4-8.2)
[2020-02-09 20:47] LABS: ERYTHROCYTE SEDIMENTATION RATE 3 mm/hr (0-30)
== END ==
LOC: M SFHCLERA 17:46
PROVIDERS: ATTEND Family Medicine
DX: M54.5 Low back pain (principal); E03.9 Hypothyroidism, unspecified

== ENCOUNTER 2020-03-03 13:44 | Emergency (ER) | payer BC ==
[~2020-03-03] VITALS: Ht 160 cm; Wt 92.0 kg
[~2020-03-03 13:44] MED LIST changes: -ALB2.5NEB NEB; -ALIG4CAP PO; -BIOT1CAP2 PO; -CALC600T61 PO; -CLON0.5T17 PO; -NORC1TAB7 PO; -ONDA4TAB6 PO; -PRED10TA2; -VITALIQ27 MC
[2020-03-03] MEDS ORDERED: ALB2.5NEB NEB (13:57)
[2020-03-03] MEDS ORDERED: PRED10TA2 (13:57)
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
--- NOTE | 2020-03-03 16:40 | REPVR ---
PROCEDURE INFORMATION: Exam: MR Lumbar Spine Without Contrast. Exam date and time: 03/03/2020 2:56 PM Age: 59 years old Clinical indication: Low back pain; Additional info: Back pain with saddle anesthesia, loss bowel/bladder control TECHNIQUE: Imaging protocol: Multiplanar magnetic resonance images of the lumbar spine without intravenous contrast. COMPARISON: MRI-Spine, L.S. without con 09/08/2018 7:46 PM FINDINGS: Vertebrae: Unremarkable. Spinal cord: Normal signal. No cord compression. L1-L2: No significant disc disease. No significant spinal canal stenosis. No neural foraminal stenosis. L2-L3: There is mild disc bulging. Disc bulging extends into both neural foramen causing mild bilateral neural foraminal narrowing. L3-L4: There is degenerative disc disease including disc space narrowing and dessication. There is mild disc bulging. Disc bulging extends into both neural foramen causing mild/moderate bilateral neural foraminal narrowing. There is facet arthropathy and ligamentum flavum hypertrophy. L4-L5: There is grade 1 anterior spondylolisthesis at L4/5. There is degenerative disc disease including disc space narrowing and dessication. There is moderate disc bulging. Disc bulging extends into both neural foramen causing moderate bilateral neural foraminal narrowing. There is facet arthropathy and ligamentum flavum hypertrophy. There is moderate spinal canal stenosis. L5-S1: There is disc space narrowing and desiccation. There are moderate degenerative end plate changes at this level. There is moderate disc bulging. Disc bulging extends into both neural foramen causing bilateral neuroforaminal narrowing. There is a superimposed right foraminal disc herniation. There is severe right-sided neuroforaminal narrowing. There is moderate left-sided neuroforaminal narrowing. Soft tissues: Unremarkable. The urinary bladder is moderately distended. IMPRESSION: 1. Multilevel degenerative changes causing variable degrees of spinal canal and neuroforaminal narrowing as described above, slightly progressed since prior study. No compression of the cauda equina nerve roots within the spinal canal. There is significant multilevel neural foraminal narrowing. Further investigation of patient's cauda equina syndrome is possible with postcontrast imaging if clinically indicated. 2. The urinary bladder is moderately distended. Consider Mares catheter placement if clinically indicated. 3. Obstetrician Gynecologist sagittal views of the cervical spine demonstrate questionable stenosis at C4-6. There appears to be ankylosis at C5/6. Clinical findings will determine the need for further evaluation with dedicated MRI of the cervical spine. Electronically signed by: Thierno Shields On 03/03/2020 16:40:04 PM
[2020-03-03] MEDS ORDERED: NORC1TAB7 PO (18:41)
[2020-03-03] MEDS ORDERED: PRED20TA PO (18:41)
[2020-03-03] MEDS ORDERED: predniSONE 20 MG TAB PO ONE (18:45)
[2020-03-03] MEDS ORDERED: NORCO 5/325MG TABLET (BULK FOR ED) PO ONE (18:45)
[2020-03-03 18:59] VITALS: BP 152/96
--- NOTE | 2020-03-05 07:41 | ED PDOC ---
Post-Departure Follow-Up mri ls spine faxed to dr barnett for fu Waqar Montanez MD Mar 05, 2020 07:41
== END 2020-03-03 19:02 | disposition home or self-care (01) ==
LOC: M ED 13:44
DX: M48.061 Spinal stenosis, lumbar region without neurogenic claudication (principal); M51.24 Other intervertebral disc displacement, thoracic region; M51.36 Other intervertebral disc degeneration, lumbar region; M51.37 Other intervertebral disc degeneration, lumbosacral region; R15.9 Full incontinence of feces; R32 Unspecified urinary incontinence; R20.0 Anesthesia of skin; G95.9 Disease of spinal cord, unspecified; E04.9 Nontoxic goiter, unspecified; J45.909 Unspecified asthma, uncomplicated; N80.9 Endometriosis, unspecified; Z88.1 Allergy status to other antibiotic agents; Z88.6 Allergy status to analgesic agent; Z88.8 Allergy status to other drugs, medicaments and biological substances; Z79.899 Other long term (current) drug therapy; Z79.51 Long term (current) use of inhaled steroids

== ENCOUNTER 2020-03-07 21:53 | Emergency (ER) | payer BC, OTHER ==
[~2020-03-07] VITALS: Ht 157.5 cm; Wt 90.0 kg
[~2020-03-07 21:53] MED LIST changes: +ALB2.5NEB NEB; +NORC1TAB7 PO; +PRED10TA2
[2020-03-07] MEDS ORDERED: ACETAMINOPHEN 325 MG TAB PO ONE (22:15)
[2020-03-07] MEDS ORDERED: CALC600T61 PO (22:21)
[2020-03-07] MEDS ORDERED: ONDA4TAB6 PO (22:21)
[2020-03-07] MEDS ORDERED: VITALIQ27 MC (22:21)
[2020-03-07] MEDS ORDERED: CLON0.5T17 PO (22:21)
[2020-03-07] MEDS ORDERED: ALIG4CAP PO (22:21)
[2020-03-07] MEDS ORDERED: BIOT1CAP2 PO (22:21)
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
[2020-03-07 23:56] VITALS: BP 127/66
== END 2020-03-07 23:57 | disposition home or self-care (01) ==
LOC: M ED 21:53
DX: S16.1XXA Strain of muscle, fascia and tendon at neck level, initial encounter (principal); S29.012A Strain of muscle and tendon of back wall of thorax, initial encounter; V49.40XA Driver injured in collision with unspecified motor vehicles in traffic accident, initial encounter; M50.30 Other cervical disc degeneration, unspecified cervical region; M12.9 Arthropathy, unspecified; M43.22 Fusion of spine, cervical region; J45.909 Unspecified asthma, uncomplicated; Z88.1 Allergy status to other antibiotic agents; Z88.6 Allergy status to analgesic agent; Z88.8 Allergy status to other drugs, medicaments and biological substances; Z79.899 Other long term (current) drug therapy; Z79.51 Long term (current) use of inhaled steroids

== ENCOUNTER 2020-08-02 18:37 | Emergency (ER) | payer BC, OTHER ==
[~2020-08-02] VITALS: Ht 160 cm; Wt 93.3 kg
[~2020-08-02 18:37] MED LIST changes: +ALIG4CAP PO; +BIOT1CAP2 PO; +CALC600T61 PO; +CLON0.5T17 PO; +ONDA4TAB6 PO; +VITALIQ27 MC
--- OUTSIDE RECORDS SUMMARY | 2020-08-02 18:42 | CCD ---
Author Author [facility] Organization [facility] Address Unknown Phone Unavailable Care Team Providers Care Allergist/Pediatric Pulmonologist Name Role Phone Garry Hopson Unavailable PROBLEMS Type Condition ICD9-CM Code AVG40-LB Code Onset Dates Condition S tatus SNOMED Code Notes Problem Major depressive disorder, single episode, unspecified F32.9 Active 97609542 Problem Moderate persistent asthma with acute exacerbation J45.41 Active 320322609111380 Problem Obesity (BMI 30-39.9) E66.9 Active 481536301 Problem Spondylosis of cervical region without myelopath y or radiculopathy M47.812 Active 797816528 Problem Fibromyalgia M79.7 Active 945523553 Problem Anxiety F41.9 Active 76924623 Problem Osteoarthritis of spine with radiculopathy, cervical regio n M47.22 Active 888011519 Problem 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 Active 19930 2009 Problem Celiac disease K90.0 Active 085443605 Problem Lumbago with sciatica, unspecified side M54.40 Active 929683492 Problem Postlaminectomy syndrome, not elsewhere classified M96.1 Active 32944834 Problem Allergic rhinitis J30.9 Active 98792649 Problem Other chronic pain G89.29 Active 30625819 Problem Environmental allergies Z91.09 Active 77395299 7 Problem Lumbago with sciatica, left side M54.42 Active 025188940 Problem Sacroiliitis, not elsewhere classified M46.1 A ctive 53102140 Problem Sacroiliitis M46.1 Active 41679648 Problem 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 Active 34303 3000 Problem Spondylosis of lumbosacral region without myelop athy or radiculopathy M47.817 Active 62990906 Problem Exacerbation of asthma, unsp ecified asthma severity, unspecified whether persistent J45.901 Active 797951203 Problem Adjustment disorder with anxiety F43.22 Active 80214401 Problem Adjustment disorder with depressed mood F43.21 Active 37842986 Problem 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 Active 064070889 Problem Enlarged thyroid E04.9 Active 4536990 Problem Constipation, unspecified constipation type K59.00 Active 06674755 Problem Lumbar disc herniation M51.26 Active 460020576 Problem Myalgia M79.1 Active 65728237 Problem Asthma, unspecified asthma s everity, unspecified whether complicated, unspecified whether persistent J45.909 Active 26713 7001 Problem Spondylosis without myelopathy or radiculopathy, lumbar region M47.816 Active 535328161 Problem Patellofemoral disorders, left knee M22.2X2 Acti ve 292247587748480 Problem Patellofemoral disorders, right knee M22.2X1 Act muna 139592557 Problem Thoracic disc herniation M51.24 Active 5707474 05 ALLERGIES Allergen (clinical drug ingredient) Drug/Non Drug Allergy do cumented on EMR Reaction Allergy Type Onset Date Status gabapentin Gabapentin(ND Code:[address]-07) confusion Drug Allergy Active povidone-iodine Betadine(NDC Code:[address]-94) hives/breathing problem Drug Allergy Active watermelon bright red skin, IBS flare up, nausea vomiting Non Drug Allergy Active metoclopramide Metoclopramide HCl(ND Code:[address]-20) Seizures Drug Allergy Active Amoxicillin Hives Drug Allergy Active Motrin Anaphylaxis/hives Drug Allergy Activ e Compazine unknown Drug Allergy Active Flexeril heart stops Drug Allergy Active NSAIDS Anaphylaxis Non Drug Allergy Active naproxen Naproxen(NDC Code:[address]-46) Anaphylaxis/hives Drug Al lergy Active Diluting solution for allergy shots swelling Non Drug Al lergy Active tramadol Tramadol(NDC Code:[address]-28) seizures Drug Allergy Active Wellbutrin hives Drug Allergy Active Watermelon Flavor(NDC Code:[address]-10) IBS fl are-up; reddened skin Drug Allergy Active fentanyl Fentanyl(NDC Code:[address]-13) throat swelling Drug Jean-Claude rgy Active methotrexate Methotrexate(NDC Code:[address]-15) Sor es in mouth, body aches; lower RBC's count Drug Allergy Active sertraline Zoloft([facility] Code:[address]-54) throat swelling Drug Allerg y Active aspirin Aspirin([facility] Code:[address]-70) hives Drug Allergy Active paroxetine Paxil([facility] Code:[address]-71) throat swelling Drug Allergy Active flu vaccine swelling at site Non Drug Allergy A ctive morphine Morphine Sulfate([facility] Code:[address]-39) Hives Drug A llergy Active Influenza Vac Split Quad swelling at site Drug Allergy Active Cymbalta Anaphylaxis Drug Allergy Active IV Contrast Dye Hives, breathing difficulties Drug Allergy Active ENCOUNTERS from 1962 to 2020-06-05 Encounter Location Date Provider Diagnosis [facility] [address] [place] [address] May, Garry Hopson Headache, unspecified R51.9 and Other ch ronic pain G89.29 IMMUNIZATIONS Vaccine Route Administration Date Status Influenza (18 yrs & older) Flublok IM Intramuscular Apr 05, 2020 Administered Influenza (18 yrs & older) Flublok IM Intramuscular Apr 25, 2019 Administered Pneumococcal Adult 0.5mL (Pneumovax 23) IM Intramuscular Apr 05, 2020 Administered Influenza (6mo & up) Fluzone Unknown Mar 19, 2018 Adm inistered Influenza (6mo & up) Fluzone Unknown May 12, 2017 Oth ers SOCIAL HISTORY Tobacco Use: Social History Observation Description Date Details (start date - stop date) Never Smoker Sex Assigned At : Social History Observation Description Sex Assigned At Unknown Education: Question Answer Notes Level of Education: Not Finished College 6 years of college Audit Question Answer Notes Total Score: 0 Interpretation: Alcohol Education Language: Question Answer Notes Languages spoken: Upper Sorbian Nondenominational: Question Answer Notes Nondenominational [employer] Sexual Hx: Question Answer Notes Had sex in the last 12 months (vaginal, oral, or anal)? Yes Have you ever had an STD? No Prevention Strategies discussed: Other with Men only Use protection? No Drug and Alcohol Question Answer Notes Total Score: 0 Interpretation: No problems reported Alcohol Screening: Question Answer Notes Did you have a drink containing alcohol in the past year? Ye s Points 1 Interpretation Negative How often did you have six or more drinks on one occas ion in the past year? Never (0 points) How many drinks did you have on a typica l day when you were drinking in the past year? 1 or 2 (0 points) How often did you have a drink containing alcohol in t he past year? Monthly or less (1 point) BMI Care Goal Follow-Up Question Answer Notes Above Normal BMI Follow-Up Dietary management educatio n, guidance, and counseling, Dietary needs education Tobacco Use: Question Answer Notes Are you a: never smoker REASON FOR REFERRAL No Information VITAL SIGNS No information MEDICATIONS Medication SIG (Take, Route, Frequency, Duration) Notes Start Da te End Date Status PredniSONE 20 MG 1 tablet Orally as directed October, Active Clonazepam 0.5 MG 1 tablet at bedtime as needed Orally as directed for 14 days Apr, Not-Taking [place] 5-325 MG 1 tablet as needed Orally q8h prn mdd3 for 30 da ys Dec, Active Zofran ODT 4 MG 1 tablet on the tongue and a llow to dissolve Orally every 8 hrs prn for 30 day(s) Active Tens Unit - as directed Daily for 999 days Feb, Active Fluconazole 200 MG 1 tablet Orally two tablets day one then one tablet after for 14 days Sep, Not-Taking Nystatin 438041 UNIT/ML 4 ml Mouth/Throat Four times a day for 1 4 days Sep, Active Metaxalone 800 MG 1 tablet Orally bid as needed for 30 days Active Biotin w/ Vitamins C & E 1250-7.5-7.5 MCG-MG-UNT Orally daily Not-Taking PredniSONE 10 MG 1 tablet Orally taper for 12 days Dec, Active Carisoprodol 350 MG 1 tablet as needed Orally fo r spasms and pain every 8 hours as needed MDD 2 May, Not-Taking Nasonex 50 MCG/ACT 2 sprays in each nostril Nasally Once a day Sep, Not-Taking Fluticasone Propionate 50 MCG/ACT SPRAY TWO SPRAYS IN EACH NOSTRIL EVERY DAY Nasal Daily for 30 days Active Singulair 10 mg 1 tablet in the evening Orally Once a day for 90 day( s) Active Multivitamin Adults - Orally daily Active Ipratropium-Albuterol 0.5-2.5 (3) MG/3ML 3 ml Inhalation every 6 hr s for 15 Active Qvar RediHaler 80 MCG/ACT INHALE 2 PUFFS (160 MCG) BY INHALATION ROUTE TWICE A DAY. Inhalation for 27 Active Ventolin HFA 108 (90 Base) MCG/ACT 2 puffs as needed Inhalation rafy ry 6 hrs Active Fexofenadine HCl 180 MG 1 tablet Orally Once a day Sep, Active Dicyclomine HCl 20 MG 1 tablet Orally four times daily as needed Active Tylenol 8 Hour Arthritis Pain 650 MG 2 tablets as needed Orally rafy ry 8 hrs Active Calcium 1125-0226 MG-UNIT 1 capsule Orally Once a day Active Tylenol with Codeine #3 300-30 MG 1 tablet as needed O rally q8hr prn mdd3 for 30 days Dec, Active Benadryl 25 MG 1 capsule as needed Orally nightly Active Probiotic - Orally once daily Activ e Acetaminophen-Codeine 300-30 MG 1 tablet as needed Ora lly every 8 hrs for 14 days Mar, Active Vitamin D-3 2000 units Once a day A ctive PredniSONE 20 MG 2 tablet Orally Daily for 5 days Dec, Active Hydrocodone-Acetaminophen 5-325 MG 1 tablet as needed Orally every 6 hrs for 5 days May, Active PROCEDURES No Information RESULTS No Results REASON FOR VISIT back pain and headaches MEDICAL (GENERAL) HISTORY Type Description Date Medical History Celiac Disease Medical History asthma mild intermittent Medical History Depression Medical History cervical radiculopathy Medical History bilateral duplicate ureters Medical History RSV Medical History IBS Medical History Low back pain Medical History Anxiety Medical History Myalgia Medical History Fibromyalgia Medical History Post Laminectomy Syndrome Medical History Obesity Medical History Allergic Rhinitis Medical History Inflammatory Polyarthritis Medical History Sacroiliitis Medical History Left Knee Pain Surgical History Tonsillectomy 1973 Surgical History 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 Hospitalization History Acute Diverticulitis 06/2015 Hospitalization History Pneumonia/Bronchitis/Flu 06/2017 Goals Section No Information Health Concerns No Information MEDICAL EQUIPMENT No Information MENTAL STATUS No Information FUNCTIONAL STATUS No Information ASSESSMENTS Encounter Date Diagnosis Assessment Notes Treatment Notes Treatm ent Clinical Notes May, Headache, unspecified (ICD-10 - R51.9) May, Other chronic pain (ICD-10 - G89.29) PLAN OF TREATMENT Medication Medication Name Sig Start Date Stop Date PredniSONE 20 MG 2 tablet Orally Daily for 5 days Dec, Hydrocodone-Acetaminophen 5-325 MG 1 tablet as needed Orally every 6 hrs for 5 days May, PredniSONE 10 MG 1 tablet Orally taper for 12 days Dec, Acetaminophen-Codeine 300-30 MG 1 tablet as needed Ora lly every 8 hrs for 14 days Mar, Insurance Providers Payer Name Payer Address Payer Phone Insured Name Patient Relati onship to Insured Coverage Start Date Coverage End Date [employer] P[employer] [id number] [address] JOSE EDUARDO DICK self
--- OUTSIDE RECORDS SUMMARY | 2020-08-02 18:42 | CCD | Continuity of Care Document ---
Author Author Mary AGUILAR PA Organization Unknown Address [address] [place] [address] Phone [phone] Care Team Providers Care Broadcast Technician Name Role Phone Garry Hopson DO AUTM [phone] Problems Description No Information Available Social History Type Date Description Comments Sex Unknown ETOH Use Rarely consumes alcohol Tobacco Use Start: Unknown Denies Smoking Allergies, Adverse Reactions, Alerts Active Allergies Reaction Severity Comments Date Amoxicillin 07/06/2019 Aspirin 07/06/2019 Iodine 07/06/2019 Cephalexin 07/06/2019 Compazine 07/06/2019 Cymbalta 07/06/2019 Fentanyl 07/06/2019 Flexeril 07/06/2019 Ibuprofen 07/06/2019 Metoclopramide 07/06/2019 Morphine 07/06/2019 Naproxen 07/06/2019 Paxil 07/06/2019 Tramadol 07/06/2019 Wellbutrin 07/06/2019 Zoloft 07/06/2019 Medications Active Medications SIG Qnty Indications Ordering Provide r Date Meryl Allergy 60mg Tablets as needed Unknown Alprazolam 0.25mg Tablets Dispers Unknown Biotin Plus/Calcium/Vit D3 Tablets Unknown Calcium [id number] Tablets Unknown D3-1000 25mcg (1000 Ut) Capsules Unknown Dapsone 25mg Tablets Unknown Multivitamins Capsules Unknown Nasonex 50mcg/Act Suspension 2 sprays each nares every d as needed Unknown 00 Qvar Redihaler 80mcg/Act Aerosol Unknown Probiotic Capsules Unknown Ondansetron HCL 4mg Tablets Unknown Singulair 10mg Tablets take one tablet by mouth at bedtime Unknown Skelaxin 800mg Tablets take one three times a day as needed Unknown Ventolin HFA 108(90Base) mcg/Act A erosol Unknown Immunizations Description No Information Available Vital Signs Date Vital Result Comment 05/24/2020 1:03pm Body Temperature 97.5 F 05/09/2020 10:30am Body Temperature 96.8 F Height 62.5 inches 5'2.50" Weight 199.38 lb BMI (Body Mass Index) 35.9 kg/m2 Results Description No Information Available Procedures Date Code Description Status 05/09/2020 11330 X-Ray Spine Lumbosacral Complete Inc Bending Views Min Of 6 Completed 04/25/2020 27478 Physical Therapy Eval - Mod Comp lexity Completed 03/20/2020 87665 X-Ray Spine Cervical 6 Or More V iews Completed 03/20/2020 43700 X-Ray Spine Cervical 6 Or More V iews Completed Medical Devices Description No Information Available Encounters Type Date Location Provider Dx Diagnosis Office Visit 05/24/2020 1:00p [place] M47.817 Spondyls w/o myelopathy or radiculopathy, lumbosacr region M51.37 Other intervertebral disc de generation, lumbosacral region M51.27 Other intervertebral disc di splacement, lumbosacral region M43.16 Spondylolisthesis, lumbar re gion M48.061 Spinal stenosis, lumbar amanda on without neurogenic bobby Office Visit 05/09/2020 9:30a Devi Schaffer MD M43.16 Spondylolisthesis, lumbar region M47.896 Other spondylosis, lumbar re gion Office Visit 04/26/2020 10:45a Deiv Schaffer MD M47.892 Other spondylosis, cervical region M50.321 Other cervical disc degenera tion at C4-C5 level M50.323 Other cervical disc degenera tion at C6-C7 level Office Visit 04/17/2020 1:30p Devi Schaffer MD M47.892 Other spondylosis, cervical region M54.6 Pain in thoracic spine M50.321 Other cervical disc degenera tion at C4-C5 level M50.323 Other cervical disc degenera tion at C6-C7 level Office Visit 03/20/2020 1:00p [place] Kayden Schaffer MD M54.2 Cervicalgia M54.6 Pain in thoracic spine M54.5 Low back pain M48.02 Spinal stenosis, cervical re gion Z98.1 Arthrodesis status Assessments Date Code Description Provider 05/24/2020 M47.817 Spondylosis without myelopathy or radiculopathy, lumbosacral region DEANGELO Martinez 05/24/2020 M51.37 Other intervertebral disc degene ration, lumbosacral region DEANGELO Martinez 05/24/2020 M51.27 Other intervertebral disc displa cement, lumbosacral region DEANGELO Martinez 05/24/2020 M43.16 Spondylolisthesis, lumbar region DEANGELO Martinez 05/24/2020 M48.061 Spinal stenosis, lum bar region without neurogenic claudication DEANGELO Martinez 05/09/2020 M43.16 Spondylolisthesis, lumbar region Kayden Schaffer MD 05/09/2020 M47.896 Other spondylosis, lumbar region Kayden Schaffer MD 04/26/2020 M47.892 Other spondylosis, cervical amanda on Kayden Schaffer MD 04/26/2020 M50.321 Other cervical disc degeneration at C4-C5 level Kayden Schaffer MD 04/26/2020 M50.323 Other cervical disc degeneration at C6-C7 level Kayden Schaffer MD 04/25/2020 M47.892 Other spondylosis, cervical amanda on Sandrita Loya [facility]SP[facility] 04/25/2020 M50.321 Other cervical disc degeneration at C4-C5 level Sandrita Loya MSP[facility] 04/25/2020 M50.323 Other cervical disc degeneration at C6-C7 level Sandrita Loya MSP[facility] 04/17/2020 M47.892 Other spondylosis, cervical amanda on Kayden Schaffer MD 04/17/2020 M54.6 Pain in thoracic spine Kayden Schaffer MD 04/17/2020 M50.321 Other cervical disc degeneration at C4-C5 level Kayden Schaffer MD 04/17/2020 M50.323 Other cervical disc degeneration at C6-C7 level Kayden Schaffer MD 03/20/2020 M54.2 Cervicalgia Kayden Schaffer MD 03/20/2020 M54.6 Pain in thoracic spine Kayden Schaffer MD 03/20/2020 M54.5 Low back pain Kayden Schaffer MD 03/20/2020 M48.02 Spinal stenosis, cervical region Kayden Schaffer MD 03/20/2020 Z98.1 Arthrodesis status Kayden sandy MD Plan of Treatment 05/24/2020 - DEANGELO Martinez* M47.817 Spondylosis without myelopathy or radiculopathy, lumbosacral region* Follow up:* after BLE EMG for results with SM with jazmine * M51.37 Other intervertebral disc degeneration, lumbosacral region * M51.27 Other intervertebral disc displacement, lumbosacral region * M43.16 Spondylolisthesis, lumbar region * M48.061 Spinal stenosis, lumbar region without neurogenic claudication Functional Status Description No Information Available Mental Status Description No Information Available Referrals Refer to Reason for Referral Status Appt Date Ashvin Carrera MD n/f for neck physical therapy - claim o pen and active Created [address] [place] [address], [address] [address] [phone]
--- OUTSIDE RECORDS SUMMARY | 2020-08-02 18:42 | CCD | Continuity of Care Document ---
Author Author Mary WILLARD MD Organization Unknown Address [address] [place] [address] Phone [phone] Care Team Providers Care Shear Grinder Operator Helper Name Role Phone Garry Hopson DO AUTM [phone] Problems Description No Information Available Social History [...] SIG Qnty Indications Ordering Provide r Date Ventolin HFA 108(90Base) mcg/Act A erosol Unknown Oxycodone-Acetaminophen 5-325mg Tablets Unknown Hydrocodone-Acetaminophen 5-325mg Tablets Unknown Tylenol With Codeine #3 300-30mg T ablets 1-2 tabs every 4-6 hours as needed pain Unknown Skelaxin 800mg Tablets take one three times a day as needed Unknown Singulair 10mg Tablets take one tablet by mouth at bedtime Unknown Ondansetron HCL 4mg Tablets Unknown Probiotic Capsules Unknown Qvar Redihaler 80mcg/Act Aerosol Unknown Nasonex 50mcg/Act Suspension 2 sprays each nares every d as needed Unknown 00 Multivitamins Capsules Unknown Dapsone 25mg Tablets Unknown D3-1000 25mcg (1000 Ut) Capsules Unknown Calcium [id number]-Rvoj Tablets Unknown Biotin Plus/Calcium/Vit D3 Tablets Unknown Alprazolam 0.25mg Tablets Dispers Unknown Meryl Allergy 60mg Tablets as needed Unknown Immunizations Description No Information Available Vital Signs Date Vital Result Comment 05/09/2020 10:30am Body Temperature 96.8 F Height 62.5 inches 5'2.50" Weight 199.38 lb BMI (Body Mass Index) 35.9 kg/m2 04/17/2020 1:47pm Body Temperature 96.9 F Results Description No Information Available Procedures Date Code Description Status 05/09/2020 80642 X-Ray Spine Lumbosacral Complete Inc Bending Views Min Of 6 Completed 04/25/2020 22631 Physical Therapy Eval - Mod Comp lexity Completed 03/20/2020 97029 X-Ray Spine Cervical 6 Or More V iews Completed 03/20/2020 14720 X-Ray Spine Cervical 6 Or More V iews Completed Medical Devices Description No Information Available Encounters Type Date Location Provider Dx Diagnosis Office Visit 05/09/2020 9:30a Devi Willard MD M43.16 Spondylolisthesis, lumbar region M47.896 Other spondylosis, lumbar re gion Office Visit 04/26/2020 10:45a Devi Willard MD M47.892 Other spondylosis, cervical region M50.321 Other cervical disc degenera tion at C4-C5 level M50.323 Other cervical disc degenera tion at C6-C7 level Office Visit 04/17/2020 1:30p Devi Willard MD M47.892 Other spondylosis, cervical region M54.6 Pain in thoracic spine M50.321 Other cervical disc degenera tion at C4-C5 level M50.323 Other cervical disc degenera tion at C6-C7 level Office Visit 03/20/2020 1:00p Devi Willard MD M54.2 Cervicalgia M54.6 Pain in thoracic spine M54.5 Low back pain M48.02 Spinal stenosis, cervical re gion Z98.1 Arthrodesis status Assessments Date Code Description Provider 05/09/2020 M43.16 Spondylolisthesis, lumbar region Kayden Willard MD 05/09/2020 M47.896 Other spondylosis, lumbar region Kayden Willard MD 04/26/2020 M47.892 Other spondylosis, cervical amanda on Kayden Willard MD 04/26/2020 M50.321 Other cervical disc degeneration at C4-C5 level Kayden Willard MD 04/26/2020 M50.323 Other cervical disc degeneration at C6-C7 level Kayden Willard MD 04/25/2020 M47.892 Other spondylosis, cervical amanda on Sandrita Loya, [facility] 04/25/2020 M50.321 Other cervical disc degeneration at C4-C5 level Sandrita Loya, [facility] 04/25/2020 M50.323 Other cervical disc degeneration at C6-C7 level Sandrita Loya, [facility] 04/17/2020 M47.892 Other spondylosis, cervical amanda on Kayden Willard MD 04/17/2020 M54.6 Pain in thoracic spine Kayden Willard MD 04/17/2020 M50.321 Other cervical disc degeneration at C4-C5 level Kayden Willard MD 04/17/2020 M50.323 Other cervical disc degeneration at C6-C7 level Kayden Willard MD 03/20/2020 M54.2 Cervicalgia Kayden Willard MD 03/20/2020 M54.6 Pain in thoracic spine Kayden Willard MD 03/20/2020 M54.5 Low back pain Kayden Willard MD 03/20/2020 M48.02 Spinal stenosis, cervical region Kayden Willard MD 03/20/2020 Z98.1 Arthrodesis status Kayden sandy MD Plan of Treatment Future Appointment(s):* 05/24/2020 1:00 pm - DEANGELO Martinez at [place] 05/09/2020 - Kayden Wlilard MD* M43.16 Spondylolisthesis, lumbar region* Follow up:* with [facility] for lumbar jazmine eval per [facility] * M47.896 Other spondylosis, lumbar region Functional Status Description No Information Available Mental Status Description No Information Available Referrals Refer to Reason for Referral Status Appt Date Ashvin Carrera MD n/f for neck physical therapy - claim o pen and active Created [facility], [address] [place] [address] [phone]
--- OUTSIDE RECORDS SUMMARY | 2020-08-02 18:42 | CCD ---
Author Author [facility] Organization [facility] Address Unknown Phone Unavailable Care Team Providers Care Automatic Hemmer Name Role Phone Garry Hopson Unavailable PROBLEMS Type Condition ICD9-CM Code [id number] Code Onset Dates Condition S tatus SNOMED Code Notes Problem Major depressive disorder, single episode, unspecified F32.9 Active 02982708 Problem Moderate persistent asthma with acute exacerbation J45.41 Active 236440687012114 Problem Obesity (BMI 30-39.9) E66.9 Active 665993293 Problem Spondylosis of cervical region without myelopath y or radiculopathy M47.812 Active 531606759 Problem Fibromyalgia M79.7 Active 897445601 Problem Anxiety F41.9 Active 77376866 Problem Osteoarthritis of spine with radiculopathy, cervical regio n M47.22 Active 281350247 Problem 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 Active 40380 2009 Problem Celiac disease K90.0 Active 550334370 Problem Lumbago with sciatica, unspecified side M54.40 Active 989264807 Problem Postlaminectomy syndrome, not elsewhere classified M96.1 Active 48262918 Problem Allergic rhinitis J30.9 Active 00619044 Problem Other chronic pain G89.29 Active 89252894 Problem Environmental allergies Z91.09 Active 44494268 7 Problem Lumbago with sciatica, left side M54.42 Active 664054294 Problem Sacroiliitis, not elsewhere classified M46.1 A ctive 81832633 Problem Sacroiliitis M46.1 Active 65578533 Problem 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 Active 62627 3000 Problem Spondylosis of lumbosacral region without myelop athy or radiculopathy M47.817 Active 79870253 Problem Exacerbation of asthma, unsp ecified asthma severity, unspecified whether persistent J45.901 Active 996823381 Problem Adjustment disorder with anxiety F43.22 Active 24332736 Problem Adjustment disorder with depressed mood F43.21 Active 76864096 Problem 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 Active 035715588 Problem Enlarged thyroid E04.9 Active 6313112 Problem Constipation, unspecified constipation type K59.00 Active 16725494 Problem Lumbar disc herniation M51.26 Active 288759031 Problem Myalgia M79.1 Active 71595438 Problem Asthma, unspecified asthma s everity, unspecified whether complicated, unspecified whether persistent J45.909 Active 15893 7001 Problem Spondylosis without myelopathy or radiculopathy, lumbar region M47.816 Active 227363196 Problem Patellofemoral disorders, left knee M22.2X2 Acti ve 317169569417657 Problem Patellofemoral disorders, right knee M22.2X1 Act muna 164450848 Problem Thoracic disc herniation M51.24 Active 0514738 05 ALLERGIES Allergen (clinical drug ingredient) Drug/Non Drug Allergy do cumented on EMR Reaction Allergy Type Onset Date Status gabapentin Gabapentin(NDC Code:[address]-65) confusion Drug Allergy Active povidone-iodine Betadine(NDC Code:[address]-28) hives/breathing problem Drug Allergy Active watermelon bright red skin, IBS flare up, nausea vomiting Non Drug Allergy Active metoclopramide Metoclopramide HCl(NDC Code:[address]-80) Seizures Drug Allergy Active Amoxicillin Hives Drug Allergy Active Motrin Anaphylaxis/hives Drug Allergy Activ e Compazine unknown Drug Allergy Active Flexeril heart stops Drug Allergy Active NSAIDS Anaphylaxis Non Drug Allergy Active naproxen Naproxen(NDC Code:[address]-55) Anaphylaxis/hives Drug Al lergy Active Diluting solution for allergy shots swelling Non Drug Al lergy Active tramadol Tramadol(NDC Code:[address]-54) seizures Drug Allergy Active Wellbutrin hives Drug Allergy Active Watermelon Flavor(NDC Code:[address]-33) IBS fl are-up; reddened skin Drug Allergy Active fentanyl Fentanyl(NDC Code:[address]-22) throat swelling Drug Jean-Claude rgy Active methotrexate Methotrexate([facility] Code:[address]-35) Sor es in mouth, body aches; lower RBC's count Drug Allergy Active sertraline Zoloft([facility] Code:[address]-41) throat swelling Drug Allerg y Active aspirin Aspirin([facility] Code:[address]-01) hives Drug Allergy Active paroxetine Paxil([facility] Code:[address]-90) throat swelling Drug Allergy Active flu vaccine swelling at site Non Drug Allergy A ctive morphine Morphine Sulfate([facility] Code:[address]-22) Hives Drug A llergy Active Influenza Vac Split Quad swelling at site Drug Allergy Active Cymbalta Anaphylaxis Drug Allergy Active IV Contrast Dye Hives, breathing difficulties Drug Allergy Active ENCOUNTERS from 1960 to 2020-06-20 Encounter Location Date Provider Diagnosis [facility] [address] [place] [address], Garry Hopson IMMUNIZATIONS Vaccine Route Administration Date Status Influenza [...] Education Language: Question Answer Notes Languages spoken: Latvian Hindu: Question Answer Notes Hindu 21 Anabaptism Sexual Hx: Question Answer Notes Had sex [...] as directed for 14 days Apr, Not-Taking [place] 5-325 MG 1 tablet as needed Orally [...] after for 14 days Sep, Not-Taking Nystatin 695906 UNIT/ML 4 ml Mouth/Throat Four times a [...] Orally rafy ry 8 hrs Active Calcium 6440-2674 MG-UNIT 1 capsule Orally Once a day [...] Information RESULTS No Results REASON FOR VISIT Referral MEDICAL (GENERAL) HISTORY Type Description Date Medical [...] History Left Knee Pain Surgical History Tonsillectomy 1974 Surgical History Correction of hemangioma of the [...] No Information FUNCTIONAL STATUS No Information ASSESSMENTS No Information PLAN OF TREATMENT Medication Medication Name Sig [...] Insured Coverage Start Date Coverage End Date [employer]ER BC[employer] PPO [address] [id number] JOSE EDUARDO DICK self
--- OUTSIDE RECORDS SUMMARY | 2020-08-02 18:42 | CCD | Continuity of Care Document ---
Author Author Mary AGUILAR PA Organization Unknown Address [address] [place] [address] Phone [phone] Care Team Providers Care Project Control Manager Name Role Phone Garry Hopson DO AUTM [phone] Problems Description No Information Available Social History [...] Unknown Biotin Plus/Calcium/Vit D3 Tablets Unknown Calcium [id number]-Vsnw Tablets Unknown D3-1000 25mcg (1000 Ut) Capsules [...] Available Procedures Date Code Description Status 05/09/2020 95582 X-Ray Spine Lumbosacral Complete Inc Bending Views Min Of 6 Completed 04/25/2020 46041 Physical Therapy Eval - Mod Comp lexity Completed 03/20/2020 52381 X-Ray Spine Cervical 6 Or More V iews Completed 03/20/2020 58265 X-Ray Spine Cervical 6 Or More V [...] re gion Office Visit 04/26/2020 10:45a Devi Schaffer MD M47.892 Other spondylosis, cervical [...] at C6-C7 level Office Visit 03/20/2020 1:00p [place] Kayden Schaffer MD M54.2 Cervicalgia M54.6 Pain [...] Kayden Schaffer MD 03/20/2020 Z98.1 Arthrodesis status Kaydne sandy MD Plan of Treatment 05/24/2020 - [...] - claim o pen and active Created [facility], [facility] [address] [place] [address] [phone]
--- OUTSIDE RECORDS SUMMARY | 2020-08-02 18:42 | CCD ---
Continuity of Care Document (CCD) Created on: 07/04/2020 Mary Nunes External Reference #: [id number] : [id number] Sex: Female Author Author Mary OSBORN M.D. Organization Unknown Address [address] [place] [address] Phone [phone] Care Team Providers Care Electronic Design Engineer Name Role Phone Garry Hopson M.D. AUTM [phone] Problems Active Problems Provider Date Chronic intractable migraine without aura [place] Onset: 07/04/2020 Dizziness and giddiness Louie Osborn M.D. Onset: 021 Social History Type Date Description Comments Sex Unknown Tobacco Use Start: Unknown Patient has never smoked Allergies, Adverse Reactions, Alerts Active Allergies Reaction Severity Comments Date Aspirin Throat swelling 07/04/2020 Paxil 07/04/2020 Zoloft 07/04/2020 Wellbutrin 07/04/2020 Cymbalta 07/04/2020 Compazine 07/04/2020 Cephalexin 07/04/2020 Amoxicillin 07/04/2020 Betadine 07/04/2020 Fentanyl 07/04/2020 Morphine 07/04/2020 Metoclopramide 07/04/2020 Tramadol 07/04/2020 Naproxen 07/04/2020 Ibuprofen 07/04/2020 Medications Active Medications SIG Qnty Indications Ordering Provide r Date Prednisone 20mg Tablets take 60mg x2days, then 40mg x2 day, then 20mg x2days, then 10mg x2days. then stop. 13tabs Louie Osborn M.D. 07/04/2020 Immunizations Description No Information Available Vital Signs Date Vital Result Comment 07/04/2020 1:59pm Respiratory Rate 12 /min Height 63 inches 5'3" Weight 196.00 lb BMI (Body Mass Index) 34.7 kg/m2 [place] Body Weight 115 lb Results Description No Information Available Procedures Description No Information Available Medical Devices Description No Information Available Encounters Description No Information Available Assessments Date Code Description Provider 07/04/2020 G43.719 Chronic migraine wit hout aura, intractable, without status migrainosus Louie Osborn M.D. 07/04/2020 R42 Dizziness and giddiness Louie davis M.D. 07/04/2020 F07.81 Postconcussional syndrome Louie Osborn M.D. Plan of Treatment Future Appointment(s):* 10/02/2020 11:30 am - Louie Osborn M.D. at Main office - [place] Functional Status Description No Information Available Mental Status Description No Information Available Referrals Description No Information Available
--- OUTSIDE RECORDS SUMMARY | 2020-08-02 18:42 | CCD ---
Author Author [facility] Organization [facility] Address Unknown Phone Unavailable Care Team Providers Care Software Architect Name Role Phone Garry Hopson Unavailable PROBLEMS Type Condition ICD9-CM Code TIA18-OF Code Onset Dates Condition S tatus SNOMED Code Notes Problem Major depressive disorder, single episode, unspecified F32.9 Active 93179627 Problem Moderate persistent asthma with acute exacerbation J45.41 Active 680546225714944 Problem Obesity (BMI 30-39.9) E66.9 Active 649058880 Problem Spondylosis of cervical region without myelopath y or radiculopathy M47.812 Active 971271652 Problem Fibromyalgia M79.7 Active 904225508 Problem Anxiety F41.9 Active 06856915 Problem Osteoarthritis of spine with radiculopathy, cervical regio n M47.22 Active 805880519 Problem 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 Active 71073 2009 Problem Celiac disease K90.0 Active 487680390 Problem Lumbago with sciatica, unspecified side M54.40 Active 973554236 Problem Postlaminectomy syndrome, not elsewhere classified M96.1 Active 22774968 Problem Allergic rhinitis J30.9 Active 42489331 Problem Other chronic pain G89.29 Active 05465851 Problem Environmental allergies Z91.09 Active 68562385 7 Problem Lumbago with sciatica, left side M54.42 Active 663018162 Problem Sacroiliitis, not elsewhere classified M46.1 A ctive 26911203 Problem Sacroiliitis M46.1 Active 14641035 Problem 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 Active 00737 3000 Problem Spondylosis of lumbosacral region without myelop athy or radiculopathy M47.817 Active 38458943 Problem Exacerbation of asthma, unsp ecified asthma severity, unspecified whether persistent J45.901 Active 142854034 Problem Adjustment disorder with anxiety F43.22 Active 45749589 Problem Adjustment disorder with depressed mood F43.21 Active 90943469 Problem 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 Active 332045064 Problem Enlarged thyroid E04.9 Active 7851299 Problem Constipation, unspecified constipation type K59.00 Active 04886391 Problem Lumbar disc herniation M51.26 Active 894532651 Problem Myalgia M79.1 Active 60628384 Problem Asthma, unspecified asthma s everity, unspecified whether complicated, unspecified whether persistent J45.909 Active 83126 7001 Problem Spondylosis without myelopathy or radiculopathy, lumbar region M47.816 Active 221530716 Problem Patellofemoral disorders, left knee M22.2X2 Acti ve 171786342579350 Problem Patellofemoral disorders, right knee M22.2X1 Act muna 836552944 Problem Thoracic disc herniation M51.24 Active 2425776 05 ALLERGIES Allergen (clinical drug ingredient) Drug/Non Drug Allergy do cumented on EMR Reaction Allergy Type Onset Date Status gabapentin Gabapentin(ND Code:[address]-80) confusion Drug Allergy Active povidone-iodine Betadine(NDC Code:[address]-91) hives/breathing problem Drug Allergy Active watermelon bright red skin, IBS flare up, nausea vomiting Non Drug Allergy Active metoclopramide Metoclopramide HCl(ND Code:[address]-36) Seizures Drug Allergy Active Amoxicillin Hives Drug Allergy Active Motrin Anaphylaxis/hives Drug Allergy Activ e Compazine unknown Drug Allergy Active Flexeril heart stops Drug Allergy Active NSAIDS Anaphylaxis Non Drug Allergy Active naproxen Naproxen(NDC Code:[address]-75) Anaphylaxis/hives Drug Al lergy Active Diluting solution for allergy shots swelling Non Drug Al lergy Active tramadol Tramadol(NDC Code:[address]-04) seizures Drug Allergy Active Wellbutrin hives Drug Allergy Active Watermelon Flavor(NDC Code:[address]-45) IBS fl are-up; reddened skin Drug Allergy Active fentanyl Fentanyl(NDC Code:[address]-46) throat swelling Drug Jean-Claude rgy Active methotrexate Methotrexate(NDC Code:[address]-76) Sor es in mouth, body aches; lower RBC's count Drug Allergy Active sertraline Zoloft([facility] Code:[address]-53) throat swelling Drug Allerg y Active aspirin Aspirin([facility] Code:[address]-35) hives Drug Allergy Active paroxetine Paxil([facility] Code:[address]-53) throat swelling Drug Allergy Active flu vaccine swelling at site Non Drug Allergy A ctive morphine Morphine Sulfate([facility] Code:[address]-88) Hives Drug A llergy Active Influenza Vac Split Quad swelling at site Drug Allergy Active Cymbalta Anaphylaxis Drug Allergy Active IV Contrast Dye Hives, breathing difficulties Drug Allergy Active ENCOUNTERS from 1962 to 2020-05-25 Encounter Location Date Provider Diagnosis [facility] [address] [place] [address] May, Garry Hopson Thoracic back pain, unspecified back jessa n laterality, unspecified chronicity M54.6 and Lumbago with sciatica, left side M54.42 IMMUNIZATIONS Vaccine Route Administration Date Status Influenza [...] Education Language: Question Answer Notes Languages spoken: Lithuanian Evangelical: Question Answer Notes Evangelical 21 Alevism Sexual Hx: Question Answer Notes Had sex [...] as directed for 14 days Apr, Not-Taking [place] 5-325 MG 1 tablet as needed Orally [...] after for 14 days Sep, Not-Taking Nystatin 815015 UNIT/ML 4 ml Mouth/Throat Four times a [...] Orally rafy ry 8 hrs Active Calcium 9785-7832 MG-UNIT 1 capsule Orally Once a day [...] Information RESULTS No Results REASON FOR VISIT New Refill Request MEDICAL (GENERAL) HISTORY Type Description Date Medical [...] Treatment Notes Treatm ent Clinical Notes May, Thoracic back pain, unspecif ied back pain laterality, unspecified chronicity (ICD-10 - M54.6) May, Lumbago with sciatica, left side (ICD-10 - M54.4 2) PLAN OF TREATMENT Medication Medication Name Sig [...] Insured Coverage Start Date Coverage End Date [facility] BCBS PPO [id number] [address] JOSE EDUARDO DICK self
--- OUTSIDE RECORDS SUMMARY | 2020-08-02 18:42 | CCD | Continuity of Care Document ---
Author Author Mary WILLARD MD Organization Unknown Address [address] [place] [address] Phone [phone] Care Team Providers Care Telemarketing Supervisor Name Role Phone Garry Hopson DO AUTM [phone] Problems Description No Information Available Social History [...] D3-1000 25mcg (1000 Ut) Capsules Unknown Calcium [id number] Tablets Unknown Biotin Plus/Calcium/Vit D3 Tablets Unknown [...] Available Procedures Date Code Description Status 05/09/2020 20244 X-Ray Spine Lumbosacral Complete Inc Bending Views Min Of 6 Completed 04/25/2020 79136 Physical Therapy Eval - Mod Comp lexity Completed 03/20/2020 54524 X-Ray Spine Cervical 6 Or More V iews Completed 03/20/2020 89331 X-Ray Spine Cervical 6 Or More V iews Completed Medical Devices Description No Information Available Encounters Type Date Location Provider Dx Diagnosis Office Visit 05/09/2020 9:30a Devi Willard MD M43.16 Spondylolisthesis, lumbar region M47.896 Other spondylosis, lumbar re gion Office Visit 04/17/2020 1:30p Devi Willard MD [...] M47.892 Other spondylosis, cervical amanda on Sandrita DodgeMarie Samiraelina, [facility] 04/25/2020 M50.321 Other cervical disc degeneration at C4-C5 level Sandrita MMarie Samiraelina, [facility] 04/25/2020 M50.323 Other cervical disc degeneration at C6-C7 level Sandrita EchoMarie Loya, [facility] 04/17/2020 M47.892 Other spondylosis, cervical amanda on [...] Treatment Future Appointment(s):* 05/24/2020 1:00 pm - ELINA Martinez at [place] 05/09/2020 - Kayden Willard MD* M43.16 Spondylolisthesis, lumbar region* Follow up:* with [facility] for lumbar jazmine eval per [facility] * M47.896 Other spondylosis, lumbar region Functional Status Description No Information Available Mental Status Description No Information Available Referrals Refer to Dr Reason for Referral Status Appt Date Ashvin Carrera MD n/f for neck physical therapy - claim o pen and active Created [address] [facility], [address] [place] [address] [phone]
--- OUTSIDE RECORDS SUMMARY | 2020-08-02 18:42 | CCD | Continuity of Care Document ---
Author Author Mary WILLARD MD Organization Unknown Address [address] [place] [address] Phone [phone] Care Team Providers Care Jazz Singer Name Role Phone Garry Hopson DO AUTM [phone] Problems Description No Information Available Social History [...] D3-1000 25mcg (1000 Ut) Capsules Unknown Calcium [id number] Tablets Unknown Biotin Plus/Calcium/Vit D3 Tablets Unknown [...] Available Procedures Date Code Description Status 05/09/2020 22743 X-Ray Spine Lumbosacral Complete Inc Bending Views Min Of 6 Completed 04/25/2020 13886 Physical Therapy Eval - Mod Comp lexity Completed 03/20/2020 37782 X-Ray Spine Cervical 6 Or More V iews Completed 03/20/2020 89457 X-Ray Spine Cervical 6 Or More V [...] Other spondylosis, cervical amanda on Sandrita Loya, [facility] 04/25/2020 M50.321 Other cervical disc degeneration at C4-C5 level Sandrita Loay, [facility] 04/25/2020 M50.323 Other cervical disc degeneration at C6-C7 level Sandrita Loya, [facility] 04/17/2020 M47.892 Other spondylosis, cervical amanda on Kayden Willrad MD 04/17/2020 M54.6 Pain in thoracic spine [...] 05/24/2020 1:00 pm - DEANGELO Martinez at [place] 05/09/2020 - Kayden Willard MD* M43.16 Spondylolisthesis, lumbar region* Follow up:* with [facility] for lumbar jazmine eval per [facility]B * M47.896 Other spondylosis, lumbar region Functional Status Description No Information Available Mental Status Description No Information Available Referrals Refer to Reason for Referral Status Appt Date Ashvin Carrera MD n/f for neck physical therapy - claim o pen and active Created [facility], [address] [place] [address] [phone]
--- OUTSIDE RECORDS SUMMARY | 2020-08-02 18:42 | CCD | Continuity of Care Document ---
Author Author Mary LOYA MSPT Organization Unknown Address [address] [place] [address] Phone [phone] Care Team Providers Care Community Health Program Representative Name Role Phone Garry Hopson DO AUTM [phone] Problems Description No Information Available Social History [...] D3-1000 25mcg (1000 Ut) Capsules Unknown Calcium [id number]-Tdux Tablets Unknown Biotin Plus/Calcium/Vit D3 Tablets Unknown [...] Available Procedures Date Code Description Status 05/09/2020 77321 X-Ray Spine Lumbosacral Complete Inc Bending Views Min Of 6 Completed 04/25/2020 24945 Physical Therapy Eval - Mod Comp lexity Completed 03/20/2020 82947 X-Ray Spine Cervical 6 Or More V iews Completed 03/20/2020 55604 X-Ray Spine Cervical 6 Or More V iews Completed Medical Devices Description No Information Available Encounters Type Date Location Provider Dx Diagnosis Office Visit 05/09/2020 9:30a Devi Schaffer MD M43.16 Spondylolisthesis, lumbar region M47.896 Other spondylosis, lumbar re gion Office Visit 04/17/2020 1:30p Devi Schaffer MD M47.892 Other spondylosis, cervical region M54.6 Pain in thoracic spine M50.321 Other cervical disc degenera tion at C4-C5 level M50.323 Other cervical disc degenera tion at C6-C7 level Office Visit 03/20/2020 1:00p Devi Schaffer MD M54.2 Cervicalgia M54.6 Pain in thoracic spine M54.5 Low back pain M48.02 Spinal stenosis, cervical re gion Z98.1 Arthrodesis status Assessments Date Code Description Provider 05/09/2020 M43.16 Spondylolisthesis, lumbar region Kayden Schaffer MD 05/09/2020 M47.896 Other spondylosis, lumbar region Kayden Schaffer MD 04/26/2020 M47.892 Other spondylosis, cervical amanda on Kayden Schaffer MD 04/26/2020 M50.321 Other cervical disc degeneration at C4-C5 level Kayden Schaffer MD 04/26/2020 M50.323 Other cervical disc degeneration at C6-C7 level Kayden Schaffer MD 04/25/2020 M47.892 Other spondylosis, cervical amanda on Sandrita DodgeMarie Samiraelina, [facility] 04/25/2020 M50.321 Other cervical disc degeneration at C4-C5 level Sandrita MMarie Samiraelina, [facility] 04/25/2020 M50.323 Other cervical disc degeneration at C6-C7 level Sandrita EchoMarie Loya, [facility] 04/17/2020 M47.892 Other spondylosis, cervical amanda on [...] 05/24/2020 1:00 pm - ELINA Martinez at [place] 05/09/2020 - Kayden Schaffer MD* M43.16 Spondylolisthesis, lumbar region* Follow up:* with [facility] for lumbar jazmine eval per [facility] * M47.896 Other spondylosis, lumbar region Functional Status Description No Information Available Mental Status Description No Information Available Referrals Refer to Dr Reason for Referral Status Appt Date Ashvin Carrera MD n/f for neck physical therapy - claim o pen and active Created [address] [facility], [address] [place] [address] [phone]
--- OUTSIDE RECORDS SUMMARY | 2020-08-02 18:42 | CCD ---
Author Author [facility] Organization [facility] Address Unknown Phone Unavailable Care Team Providers Care Fabric Stretcher Name Role Phone Claudia Evans Unavailable PROBLEMS Type Condition ICD9-CM Code [id number] Code Onset Dates Condition S tatus SNOMED Code Notes Problem Major depressive disorder, single episode, unspecified F32.9 Active 12479120 Problem Moderate persistent asthma with acute exacerbation J45.41 Active 668226588571795 Problem Obesity (BMI 30-39.9) E66.9 Active 579115160 Problem Spondylosis of cervical region without myelopath y or radiculopathy M47.812 Active 448850222 Problem Fibromyalgia M79.7 Active 753308735 Problem Anxiety F41.9 Active 68953154 Problem Osteoarthritis of spine with radiculopathy, cervical regio n M47.22 Active 465553565 Problem 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 Active 21330 2009 Problem Celiac disease K90.0 Active 122486973 Problem Lumbago with sciatica, unspecified side M54.40 Active 433747255 Problem Postlaminectomy syndrome, not elsewhere classified M96.1 Active 88772114 Problem Allergic rhinitis J30.9 Active 55001513 Problem Other chronic pain G89.29 Active 61467847 Problem Environmental allergies Z91.09 Active 24358176 7 Problem Lumbago with sciatica, left side M54.42 Active 456906399 Problem Sacroiliitis, not elsewhere classified M46.1 A ctive 19735469 Problem Sacroiliitis M46.1 Active 34169688 Problem 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 Active 26068 3000 Problem Spondylosis of lumbosacral region without myelop athy or radiculopathy M47.817 Active 32071389 Problem Exacerbation of asthma, unsp ecified asthma severity, unspecified whether persistent J45.901 Active 017656833 Problem Adjustment disorder with anxiety F43.22 Active 33241016 Problem Adjustment disorder with depressed mood F43.21 Active 90780154 Problem 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 Active 014315947 Problem Enlarged thyroid E04.9 Active 6309339 Problem Constipation, unspecified constipation type K59.00 Active 59167474 Problem Lumbar disc herniation M51.26 Active 660732761 Problem Myalgia M79.1 Active 46034887 Problem Asthma, unspecified asthma s everity, unspecified whether complicated, unspecified whether persistent J45.909 Active 25521 7001 Problem Spondylosis without myelopathy or radiculopathy, lumbar region M47.816 Active 118241768 Problem Patellofemoral disorders, left knee M22.2X2 Acti ve 695383719069864 Problem Patellofemoral disorders, right knee M22.2X1 Act muna 656903540 Problem Thoracic disc herniation M51.24 Active 9781065 05 ALLERGIES Allergen (clinical drug ingredient) Drug/Non Drug Allergy do cumented on EMR Reaction Allergy Type Onset Date Status gabapentin Gabapentin(NDC Code:[address]-01) confusion Drug Allergy Active povidone-iodine Betadine(NDC Code:[address]-63) hives/breathing problem Drug Allergy Active watermelon bright red skin, IBS flare up, nausea vomiting Non Drug Allergy Active metoclopramide Metoclopramide HCl(NDC Code:[address]-58) Seizures Drug Allergy Active Amoxicillin Hives Drug Allergy Active Motrin Anaphylaxis/hives Drug Allergy Activ e Compazine unknown Drug Allergy Active Flexeril heart stops Drug Allergy Active NSAIDS Anaphylaxis Non Drug Allergy Active naproxen Naproxen(NDC Code:[address]-85) Anaphylaxis/hives Drug Al lergy Active Diluting solution for allergy shots swelling Non Drug Al lergy Active tramadol Tramadol(NDC Code:[address]-91) seizures Drug Allergy Active Wellbutrin hives Drug Allergy Active Watermelon Flavor(NDC Code:[address]-78) IBS fl are-up; reddened skin Drug Allergy Active fentanyl Fentanyl(NDC Code:[address]-48) throat swelling Drug Jean-Claude rgy Active methotrexate Methotrexate([facility] Code:[address]-65) Sor es in mouth, body aches; lower RBC's count Drug Allergy Active sertraline Zoloft([facility] Code:[address]-96) throat swelling Drug Allerg y Active aspirin Aspirin([facility] Code:[address]-44) hives Drug Allergy Active paroxetine Paxil([facility] Code:[address]-61) throat swelling Drug Allergy Active flu vaccine swelling at site Non Drug Allergy A ctive morphine Morphine Sulfate([facility] Code:[address]-63) Hives Drug A llergy Active Influenza Vac Split Quad swelling at site Drug Allergy Active Cymbalta Anaphylaxis Drug Allergy Active IV Contrast Dye Hives, breathing difficulties Drug Allergy Active ENCOUNTERS from 1962 to 2020-05-22 Encounter Location Date Provider Diagnosis [address] [address] May, Claudia Evans IMMUNIZATIONS Vaccine Route Administration Date Status Influenza [...] Education Language: Question Answer Notes Languages spoken: Sudanese Alevism: Question Answer Notes Alevism 21 Mormonism Sexual Hx: Question Answer Notes Had sex [...] Notes Start Da te End Date Status Hydrocodone-Acetaminophen 5-325 MG 1 tablet as needed Orally every 6 hrs for 5 days Mar, Active Clonazepam 0.5 MG 1 tablet at bedtime as needed Orally as directed for 14 days Apr, Not-Taking Nystatin 369797 UNIT/ML 4 ml Mouth/Throat Four times a day for 1 4 days Sep, Active Zofran ODT 4 MG 1 tablet on the tongue and a llow to dissolve Orally every 8 hrs prn for 30 day(s) Active Acetaminophen-Codeine 300-30 MG 1 tablet as needed Ora lly every 8 hrs for 14 days Mar, Active Fluconazole 200 MG 1 tablet Orally two tablets day one then one tablet after for 14 days Sep, Not-Taking Tens Unit - as directed Daily for 999 days Feb, Active Metaxalone 800 MG 1 tablet Orally [...] nostril Nasally Once a day Sep, Not-Taking Tylenol with Codeine #3 300-30 MG 1 tablet as needed O rally q8hr prn mdd3 for 30 days Dec, Active Ipratropium-Albuterol 0.5-2.5 (3) MG/3ML 3 ml Inhalation every 6 hr s for 15 Active Benadryl 25 MG 1 capsule as needed Orally nightly Active Hoffmeister 5-325 MG 1 tablet as needed Orally q8h prn mdd3 for 30 da ys Dec, Active Qvar RediHaler 80 MCG/ACT INHALE 2 PUFFS (160 MCG) BY INHALATION ROUTE TWICE A DAY. Inhalation for 27 Active Fluticasone Propionate 50 MCG/ACT SPRAY TWO SPRAYS IN EACH NOSTRIL EVERY DAY Nasal Daily for 30 days Active PredniSONE 20 MG 2 tablet Orally Daily for 5 days Dec, Active Dicyclomine HCl 20 MG 1 tablet Orally four times daily as needed Active Tylenol 8 Hour Arthritis Pain 650 MG 2 tablets as needed Orally rafy ry 8 hrs Active Singulair 10 mg 1 tablet in the evening Orally Once a day for 90 day( s) Active PredniSONE 20 MG 1 tablet Orally as directed October, Active Fexofenadine HCl 180 MG 1 tablet Orally Once a day Sep, Active Ventolin HFA 108 (90 Base) MCG/ACT 2 puffs as needed Inhalation rafy ry 6 hrs Active Multivitamin Adults - Orally daily Active Calcium 0069-9382 MG-UNIT 1 capsule Orally Once a day Active Probiotic - Orally once daily Activ e Vitamin D-3 2000 units Once a day A ctive PROCEDURES No Information RESULTS No Results REASON FOR VISIT error MEDICAL (GENERAL) HISTORY Type Description Date Medical [...] Name Sig Start Date Stop Date PredniSONE 10 MG 1 tablet Orally taper for 12 days Dec, Acetaminophen-Codeine 300-30 MG 1 tablet as needed Ora lly every 8 hrs for 14 days Mar, Insurance Providers Payer Name Payer Address Payer Phone Insured Name Patient Relati onship to Insured Coverage Start Date Coverage End Date [employer] PPO [id number] [address] JOSE EDUARDO DICK self
--- OUTSIDE RECORDS SUMMARY | 2020-08-02 18:43 | CCD ---
Author Author [facility] Organization [facility] Address Unknown Phone Unavailable Care Team Providers Care Marketing Technology Specialist Name Role Phone SHANNA MORROW MD Unavailable Unavailable SHANNA MORROW MD Unavailable Unavailable SHANNA MORROW MD Unavailable Unavailable SHANNA MORROW MD Unavailable Unavailable SHANNA MORROW MD Unavailable Unavailable SHANNA MORROW MD Unavailable Unavailable SHANNA MORROW MD Unavailable Unavailable SHANNA MORROW MD Unavailable Unavailable SHANNA MORROW MD Unavailable Unavailable SHANNA MORROW MD Unavailable Unavailable SHANNA MORROW MD Unavailable Unavailable SHANNA MORROW MD Unavailable Unavailable SHANNA MORROW MD Unavailable Unavailable SHANNA MORROW MD Unavailable Unavailable SHANNA MORROW MD Unavailable Unavailable SHANNA MORROW MD Unavailable Unavailable CHROSTSHANNA FORTUNE MD Unavailable Unavailable CHROSTSHANNA FORTUNE MD Unavailable Unavailable CHROSTOWSKISHANNA MD Unavailable Unavailable CHROSTSHANNA FORTUNE MD Unavailable Unavailable CHROSTOWSKISHANNA MD Unavailable Unavailable CHROSTSHANNA FORTUNE MD Unavailable Unavailable CHROSTOWSKISHANNA MD Unavailable Unavailable CHROSTOWSKISHANNA MD Unavailable Unavailable CHROSTOWSKISHANNA MD Unavailable Unavailable CHROSTOWSKISHANNA MD Unavailable Unavailable CHROSTOWSKISHANNA MD Unavailable Unavailable CHROSTOWSKISHANNA MD Unavailable Unavailable CHROSTOWSKISHANNA MD Unavailable Unavailable CHROSTOWSKISHANNA MD Unavailable Unavailable CHROSTOWSKISHANNA MD Unavailable Unavailable CHROSTOWSKISHANNA MD Unavailable Unavailable CHROSTOWSKISHANNA MD Unavailable Unavailable CHROSTOWSKISHANNA MD Unavailable Unavailable CHROSTOWSKISHANNA MD Unavailable Unavailable CHROSTOWSKISHANNA MD Unavailable Unavailable CHROSTOWSKISHANNA MD Unavailable Unavailable CHROSTOWSKISHANNA MD Unavailable Unavailable CHROSTOWSKISHANNA MD Unavailable Unavailable CHROSTOWSKISHANNA MD Unavailable Unavailable Salmeron, L Jessica PA Unavailable Unavailable Salmeron, L Jessica PA Unavailable Unavailable Salmeron, L Jessica PA Unavailable Unavailable Salmeron, L Jessica PA Unavailable Unavailable Salmeron, L Jessica PA Unavailable Unavailable Salmeron, L Jessica PA Unavailable Unavailable Salmeron, L Jessica PA Unavailable Unavailable Salmeron, L Jessica PA Unavailable Unavailable Salmeron, L Jessica PA Unavailable Unavailable Salmeron, L Jessica PA Unavailable Unavailable Salmeron, L Jessica PA Unavailable Unavailable Salmeron, L Jessica PA Unavailable Unavailable Salmeron, L Jessica PA Unavailable Unavailable Salmeron, L Jessica PA Unavailable Unavailable Salmeron, L Jessica PA Unavailable Unavailable Salmeron, L Jessica PA Unavailable Unavailable Salmeron, L Jessica PA Unavailable Unavailable Salmeron, L Jessica PA Unavailable Unavailable Salmeron, L Jessica PA Unavailable Unavailable Salmeron, L Jessica PA Unavailable Unavailable Salmeron, L Jessica PA Unavailable Unavailable Salmeron, L Jessica PA Unavailable Unavailable Salmeron, L Jessica PA Unavailable Unavailable Salmeron, L Jessica PA Unavailable Unavailable Salmeron, L Jessica PA Unavailable Unavailable Salmeron, L Jessica PA Unavailable Unavailable Salmeron, L Jessica PA Unavailable Unavailable Salmeron, L Jessica PA Unavailable Unavailable Salmeron, L Jessica PA Unavailable Unavailable Salmeron, L Jessica PA Unavailable Unavailable Salmeron, L Jessica PA Unavailable Unavailable Salmeron, L Jessica PA Unavailable Unavailable Salmeron, L Jessica PA Unavailable Unavailable Salmeron, L Jessica PA Unavailable Unavailable Salmeron, L Jessica PA Unavailable Unavailable Salmeron, L Jessica PA Unavailable Unavailable Vaneencarmen, Anirudh Mancuso MD Unavailable Unavailable Vaneenenaam, Anirudh Mancuso MD Unavailable Unavailable Vaneenenaam, Anirudh Mancuso MD Unavailable Unavailable Vaneenenaam, Anirudh Mancuso MD Unavailable Unavailable Vaneenenaam, Anirudh Mancuso MD Unavailable Unavailable Vaneenenaam, Anirudh Mancuso MD Unavailable Unavailable Vaneenenaam, Anirudh Mancuso MD Unavailable Unavailable Vaneencheriam, Anirudh Mancuso MD Unavailable Unavailable Vaneenenaam, Anirudh Mancuso MD Unavailable Unavailable Vaneenenaam, Anirudh Mancuso MD Unavailable Unavailable Vaneenenaam, Anirudh Mancuso MD Unavailable Unavailable Vaneenenaam, Anirudh Mancuso MD Unavailable Unavailable Vaneenenaam, Anirudh Mancuso MD Unavailable Unavailable Vaneencheriam, Anirudh Mancuso MD Unavailable Unavailable Vaneencheriam, Anirudh Mancuso MD Unavailable Unavailable Vaneenenaam, Anirudh Mancuso MD Unavailable Unavailable Vaneenenaam, Anirudh Mancuso MD Unavailable Unavailable Vaneenenaam, Anirudh Mancuso MD Unavailable Unavailable Vaneenenaam, Anirudh Mancuso MD Unavailable Unavailable Vaneencheriam, Anirudh Mancuso MD Unavailable Unavailable Vaneencheriam, Anirudh Mancuso MD Unavailable Unavailable Vaneencheriam, Anirudh Mancuso MD Unavailable Unavailable Vaneencheriam, Anirudh Mancuso MD Unavailable Unavailable Vaneencheriam, Anirudh Mancuso MD Unavailable Unavailable Vaneenenaam, Anirudh Mancuso MD Unavailable Unavailable Vaneencheriam, Anirudh Mancuso MD Unavailable Unavailable Vaneencheriam, Anirudh Mancuso MD Unavailable Unavailable VaneencheriamAnirudh MD Unavailable Unavailable Vaneencheriam, Anirudh Mancuso MD Unavailable Unavailable Vaneenenaam, Anirudh Mancuso MD Unavailable Unavailable Vaneenenaam, Anirudh Mancuso MD Unavailable Unavailable VaneencheriamAnirudh MD Unavailable Unavailable Vanjamiam, Anirudh Mancuso MD Unavailable Unavailable Vanjamiam, Anirudh Mancuso MD Unavailable Unavailable Vanjamiam, Anirudh Mancuso MD Unavailable Unavailable Vanjamiam, Anirudh Mancuso MD Unavailable Unavailable Vaneencheriam, Anirudh Mancuso MD Unavailable Unavailable Vaneenenaam, Anirudh Mancuso MD Unavailable Unavailable Vaneencheriam, Anirudh Mancuso MD Unavailable Unavailable Vanbrennan, Anirudh Mancuso MD Unavailable Unavailable Vanjamiam, Anirudh Mancuso MD Unavailable Unavailable Vaneencheriam, Anirudh Mancuso MD Unavailable Unavailable Canela, Tara CORE JAVA ENGINEER Unavailable Unavailable Canela, Tara CORE JAVA ENGINEER Unavailable Unavailable Canela, Tara CORE JAVA ENGINEER Unavailable Unavailable Canela, Tara CORE JAVA ENGINEER Unavailable Unavailable Canela, Tara CORE JAVA ENGINEER Unavailable Unavailable Canela, Tara CORE JAVA ENGINEER Unavailable Unavailable Canela, Tara CORE JAVA ENGINEER Unavailable Unavailable Canela, Tara CORE JAVA ENGINEER Unavailable Unavailable Canela, Tara CORE JAVA ENGINEER Unavailable Unavailable Canela, Tara CORE JAVA ENGINEER Unavailable Unavailable Canela, Tara CORE JAVA ENGINEER Unavailable Unavailable Schaffer, L Kayden RAMEY Unavailable Unavailable Schaffer, L Kayden RAMEY Unavailable Unavailable Schaffer, L Kayden RAMEY Unavailable Unavailable Schaffer, L Kayden RAMEY Unavailable Unavailable Schaffer, L Kayden RAMEY Unavailable Unavailable Schaffer, L Kayden RAMEY Unavailable Unavailable Schaffer, L Kayden RAMEY Unavailable Unavailable Schaffer, L Kayden RAMEY Unavailable Unavailable Schaffer, L Kayden RAMEY Unavailable Unavailable Schaffer, L Kayden RAMEY Unavailable Unavailable Schaffer, L Kayden RAMEY Unavailable Unavailable Schaffer, L Kayden RAMEY Unavailable Unavailable Schaffer, L Kayden RAMEY Unavailable Unavailable Schaffer, L Kayden RAMEY Unavailable Unavailable Schaffer, L Kayden RAMEY Unavailable Unavailable Schaffer, L Kayden RAMEY Unavailable Unavailable Schaffer, L Kayden RAMEY Unavailable Unavailable Schaffer, L Kayden RAMEY Unavailable Unavailable Schaffer, L Kayden RAMEY Unavailable Unavailable Schaffer, L Kayden RAMEY Unavailable Unavailable Schaffer, L Kayden RAMEY Unavailable Unavailable Schaffer, L Kayden RAMEY Unavailable Unavailable Schaffer, L Kayden RAMEY Unavailable Unavailable Schaffer, L Kayden RAMEY Unavailable Unavailable Schaffer, L Kayden RAMEY Unavailable Unavailable Schaffer, L Kayden RAMEY Unavailable Unavailable Schaffer, L Kayden RAMEY Unavailable Unavailable Schaffer, L Kayden RAMEY Unavailable Unavailable Schaffer, L Kayden RAMEY Unavailable Unavailable Schaffer, L Kayden RAMEY Unavailable Unavailable Schaffer, L Kayden RAMEY Unavailable Unavailable Schaffer, L Kayden RAMEY Unavailable Unavailable Schaffer, L Kayden RAMEY Unavailable Unavailable Schaffer, L Kayden RAMEY Unavailable Unavailable Schaffer, L Kayden RAMEY Unavailable Unavailable Schaffer, L Kayden RAMEY Unavailable Unavailable Schaffer, L Kayden RAMEY Unavailable Unavailable Schaffer, L Kayden RAMEY Unavailable Unavailable Schaffer, L Kayden RAMEY Unavailable Unavailable Shcaffer, L Kayden RAMEY Unavailable Unavailable Schaffer, L Kayden RAMEY Unavailable Unavailable Schaffer, L Kayden RAMEY Unavailable Unavailable Schaffer, L Kayden RAMEY Unavailable Unavailable Schaffer, L Kayden RAMEY Unavailable Unavailable Schaffer, L Kayden RAMEY Unavailable Unavailable Schaffer, L Kayden RAMEY Unavailable Unavailable Schaffer, L Kayden RAMEY Unavailable Unavailable Schaffer, L Kayden RAMEY Unavailable Unavailable JEFFEcho PA Unavailable Unavailable JEFFEcho PA Unavailable Unavailable JEFF, M JAVIER PA Unavailable Unavailable JEFF, M JAVIER PA Unavailable Unavailable JEFF, M JAVIER PA Unavailable Unavailable JEFF, M JAVIER PA Unavailable Unavailable JEFF, M JAVIER PA Unavailable Unavailable JEFF, M JAVIER PA Unavailable Unavailable JEFF, M JAVIER PA Unavailable Unavailable JEFF, M JAVIER PA Unavailable Unavailable JEFF, M JAVIER PA Unavailable Unavailable JEFF, M JAVIER PA Unavailable Unavailable JEFF, M JAVIER PA Unavailable Unavailable JEFF, M JAVIER PA Unavailable Unavailable JEFF, M JAVIER PA Unavailable Unavailable JEFF, M JAVIER PA Unavailable Unavailable JEFF, M JAVIER PA Unavailable Unavailable JEFF, M JAVIER PA Unavailable Unavailable JEFF, M JAVIER PA Unavailable Unavailable JEFF, M JAVIER PA Unavailable Unavailable JEFF, M JAVIER PA Unavailable Unavailable JEFF, M JAVIER PA Unavailable Unavailable JEFF, M JAVIER PA Unavailable Unavailable JEFF, M JAVIER PA Unavailable Unavailable Re-disclosure Warning The records that you are about to access may contain information from federally-assisted alcohol or drug abuse programs. If such information is present, then the following federally mandated warning applies: This information has been disclosed to you from records protected by federal confidentiality rules (42 CFR part 2). The federal rules prohibit you from making any further disclosure of this information unless further disclosure is expressly permitted by the written consent of the person to whom it pertains or as otherwise permitted by 42 CFR part 2. A general authorization for the release of medical or other information is NOT sufficient for this purpose. The Federal rules restrict any use of the information to criminally investigate or prosecute any alcohol or drug abuse patient.The records that you are about to access may contain highly sensitive health information, the redisclosure of which is protected by Article 27-F of the [facility] Public Health law. If you continue you may have access to information: Regarding HIV / AIDS; Provided by facilities licensed or operated by the [facility] Office of Mental Health; or Provided by the [facility] Office for People With Developmental Disabilities. If such information is present, then the following [facility] mandated warning applies: This information has been disclosed to you from confidential records which are protected by state law. State law prohibits you from making any further disclosure of this information without the specific written consent of the person to whom it pertains, or as otherwise permitted by law. Any unauthorized further disclosure in violation of state law may result in a fine or care home sentence or both. A general authorization for the release of medical or other information is NOT sufficient authorization for further disc losure. Allergies and Adverse Reactions Type Description Substance Reaction Status Data Source(s ) Drug allergy Compazine Drug allergy unknown Active eCW1 ([facility]) Drug allergy Amoxicillin Drug allergy Hives Active eCW1 ([facility]) Drug allergy Metoclopramide HCl Metoclopramide Seizures Active eCW1 ([facility]) Drug allergy Gabapentin gabapentin confusion Active eCW1 ([facility]) Drug allergy Paxil Paroxetine throat swelling Active eCW1 ( [facility]) Drug allergy Cymbalta Drug allergy Anaphylaxis Active eCW1 ([facility]) Drug allergy Morphine Sulfate Morphine Hives Active eCW1 ( [facility]) aspirin Aspirin Aspirin hives Active eCW1 ([facility]) Drug allergy Zoloft Sertraline throat swelling Active eCW1 ( [facility]) Drug allergy Methotrexate Methotrexate Sores in mouth, body aches; lower RBC's count Active eCW1 ([facility]) Drug allergy Fentanyl Fentanyl throat swelling Active eCW1 ( [facility]) Drug allergy Watermelon Flavor Drug allergy IBS flare-up; reddened sk in Active eCW1 ([facility]) Drug allergy Tramadol Tramadol seizures Active eCW1 ([facility]) Drug allergy Naproxen Naproxen Anaphylaxis/hives Active eCW1 ([facility]) Drug allergy Betadine Povidone-Iodine hives/breathing problem Acti ve eCW1 ([facility]) Influenza Vac Split Quad Influenza Vac Split Quad Influenza Vac Split Quad swelling at site Active eCW1 ([facility]) Motrin Motrin Motrin Anaphylaxis/hives Active eCW1 ( [facility]) Wellbutrin Wellbutrin Wellbutrin hives Active eCW1 ([facility]) Flexeril Flexeril Flexeril heart stops Active eCW1 ([facility]) flu vaccine flu vaccine flu vaccine swelling at site Active eCW1 ([facility]) Diluting solution for allergy shots Diluting solution for al lergy shots Diluting solution for allergy shots swelling Active eCW1 ([facility]) watermelon watermelon watermelon bright red skin, IBS flare up, nausea vomiting Active eCW1 ([facility]) NSAIDS NSAIDS NSAIDS Anaphylaxis Active eCW1 ([facility]) Influenza Vac Split Quad Influenza Vac Split Quad Influenza Vac Split Quad swelling at site Active eCW1 ([facility]) Motrin Motrin Motrin Anaphylaxis/hives Active eCW1 ( [facility]) Wellbutrin Wellbutrin Wellbutrin hives Active eCW1 ([facility]) Flexeril Flexeril Flexeril heart stops Active eCW1 ([facility]) NSAIDS NSAIDS NSAIDS Anaphylaxis Active eCW1 ([facility]) Diluting solution for allergy shots Diluting solution for al lergy shots Diluting solution for allergy shots swelling Active eCW1 ([facility]) flu vaccine flu vaccine flu vaccine swelling at site Active eCW1 ([facility]) watermelon watermelon watermelon bright red skin, IBS flare up, nausea vomiting Active eCW1 ([facility]) Influenza Vac Split Quad Influenza Vac Split Quad Influenza Vac Split Quad swelling at site Active eCW1 ([facility]) Motrin Motrin Motrin Anaphylaxis/hives Active eCW1 ( [facility]) Wellbutrin Wellbutrin Wellbutrin hives Active eCW1 ([facility]) Flexeril Flexeril Flexeril heart stops Active eCW1 ([facility]) flu vaccine flu vaccine flu vaccine swelling at site Active eCW1 ([facility]) Diluting solution for allergy shots Diluting solution for al lergy shots Diluting solution for allergy shots swelling Active eCW1 ([facility]) watermelon watermelon watermelon bright red skin, IBS flare up, nausea vomiting Active eCW1 ([facility]) NSAIDS NSAIDS NSAIDS Anaphylaxis Active eCW1 ([facility]) Influenza Vac Split Quad Influenza Vac Split Quad Influenza Vac Split Quad swelling at site Active eCW1 ([facility]) Motrin Motrin Motrin Anaphylaxis/hives Active eCW1 ( [facility]) Wellbutrin Wellbutrin Wellbutrin hives Active eCW1 ([facility]) Flexeril Flexeril Flexeril heart stops Active eCW1 ([facility]) flu vaccine flu vaccine flu vaccine swelling at site Active eCW1 ([facility]) Diluting solution for allergy shots Diluting solution for al lergy shots Diluting solution for allergy shots swelling Active eCW1 ([facility]) watermelon watermelon watermelon bright red skin, IBS flare up, nausea vomiting Active eCW1 ([facility]) NSAIDS NSAIDS NSAIDS Anaphylaxis Active eCW1 ([facility]) Influenza Vac Split Quad Influenza Vac Split Quad Influenza Vac Split Quad swelling at site Active eCW1 ([facility]) Motrin Motrin Motrin Anaphylaxis/hives Active eCW1 ( [facility]) Wellbutrin Wellbutrin Wellbutrin hives Active eCW1 ([facility]) Flexeril Flexeril Flexeril heart stops Active eCW1 ([facility]) flu vaccine flu vaccine flu vaccine swelling at site Active eCW1 ([facility]) Diluting solution for allergy shots Diluting solution for al lergy shots Diluting solution for allergy shots swelling Active eCW1 ([facility]) watermelon watermelon watermelon bright red skin, IBS flare up, nausea vomiting Active eCW1 ([facility]) NSAIDS NSAIDS NSAIDS Anaphylaxis Active eCW1 ([facility]) Influenza Vac Split Quad Influenza Vac Split Quad Influenza Vac Split Quad swelling at site Active eCW1 ([facility]) Motrin Motrin Motrin Anaphylaxis/hives Active eCW1 ( [facility]) Wellbutrin Wellbutrin Wellbutrin hives Active eCW1 ([facility]) Flexeril Flexeril Flexeril heart stops Active eCW1 ([facility]) flu vaccine flu vaccine flu vaccine swelling at site Active eCW1 ([facility]) Diluting solution for allergy shots Diluting solution for al lergy shots Diluting solution for allergy shots swelling Active eCW1 ([facility]) watermelon watermelon watermelon bright red skin, IBS flare up, nausea vomiting Active eCW1 ([facility]) NSAIDS NSAIDS NSAIDS Anaphylaxis Active eCW1 ([facility]) Influenza Vac Split Quad Influenza Vac Split Quad Influenza Vac Split Quad swelling at site Active eCW1 ([facility]) Motrin Motrin Motrin Anaphylaxis/hives Active eCW1 ( [facility]) Wellbutrin Wellbutrin Wellbutrin hives Active eCW1 ([facility]) Flexeril Flexeril Flexeril heart stops Active eCW1 ([facility]) flu vaccine flu vaccine flu vaccine swelling at site Active eCW1 ([facility]) Diluting solution for allergy shots Diluting solution for al lergy shots Diluting solution for allergy shots swelling Active eCW1 ([facility]) watermelon watermelon watermelon bright red skin, IBS flare up, nausea vomiting Active eCW1 ([facility]) NSAIDS NSAIDS NSAIDS Anaphylaxis Active eCW1 ([facility]) Influenza Vac Split Quad Influenza Vac Split Quad Influenza Vac Split Quad swelling at site Active eCW1 ([facility]) Motrin Motrin Motrin Anaphylaxis/hives Active eCW1 ( [facility]) Wellbutrin Wellbutrin Wellbutrin hives Active eCW1 ([facility]) Flexeril Flexeril Flexeril heart stops Active eCW1 ([facility]) flu vaccine flu vaccine flu vaccine swelling at site Active eCW1 ([facility]) Diluting solution for allergy shots Diluting solution for al lergy shots Diluting solution for allergy shots swelling Active eCW1 ([facility]) watermelon watermelon watermelon bright red skin, IBS flare up, nausea vomiting Active eCW1 ([facility]) NSAIDS NSAIDS NSAIDS Anaphylaxis Active eCW1 ([facility]) Wellbutrin Wellbutrin Wellbutrin hives Active eCW1 ([facility]) Flexeril Flexeril Flexeril heart stops Active eCW1 ([facility]) flu vaccine flu vaccine flu vaccine swelling at site Active eCW1 ([facility]) Diluting solution for allergy shots Diluting solution for al lergy shots Diluting solution for allergy shots swelling Active eCW1 ([facility]) watermelon watermelon watermelon bright red skin, IBS flare up, nausea vomiting Active eCW1 ([facility]) NSAIDS NSAIDS NSAIDS Anaphylaxis Active eCW1 ([facility]) Influenza Vac Split Quad Influenza Vac Split Quad Influenza Vac Split Quad swelling at site Active eCW1 ([facility]) Motrin Motrin Motrin Anaphylaxis/hives Active eCW1 ( [facility]) Influenza Vac Split Quad Influenza Vac Split Quad Influenza Vac Split Quad swelling at site Active eCW1 ([facility]) Motrin Motrin Motrin Anaphylaxis/hives Active eCW1 ( [facility]) Wellbutrin Wellbutrin Wellbutrin hives Active eCW1 ([facility]) Flexeril Flexeril Flexeril heart stops Active eCW1 ([facility]) flu vaccine flu vaccine flu vaccine swelling at site Active eCW1 ([facility]) Diluting solution for allergy shots Diluting solution for al lergy shots Diluting solution for allergy shots swelling Active eCW1 ([facility]) watermelon watermelon watermelon bright red skin, IBS flare up, nausea vomiting Active eCW1 ([facility]) NSAIDS NSAIDS NSAIDS Anaphylaxis Active eCW1 ([facility]) Family History Family Member Name Family Member Gender Family Member Status Date o f Status Description Data Source(s) Unknown Unknown Problem MEDENT ([facility]) Unknown Unknown Problem MEDENT ([facility], ) Unknown Unknown Problem [facility] ([facility] Unknown [facility] Problem MED[facility] ([facility]) Unknown [facility] Problem MEDENT ([facility], ) Unknown [facility] Problem MEDENT ([facility]) Unknown Unknown Problem MEDENT ([facility], ) Unknown Unknown Problem MEDENT ([facility], ) Unknown Unknown Problem MEDENT ([facility], ) Encounters Encounter Providers Location Date Indications Data Source(s ) Unknown [address] [facility] [address] 06/06/2020 12:00:00 AM EST eCW1 ([facility]) Outpatient Attender: JAVIER BRIGHT Physical Therapy 05/08 12:00:00 PM EST MEDENT ([facility]) Unknown [address] [facility] [address] 05/24/2020 12:00:00 AM EST eCW1 ([facility]) Unknown [address] [facility] [place] [address] 05/24/2020 12:00:00 AM EST eCW1 ([facility]) Unknown [address] [facility] [address] 05/22/2020 12:00:00 AM EST eCW1 ([facility]) Outpatient Attender: Kayden Schaffer MD Physical Therapy 05/09/2020 0 8:30:00 AM EST MEDENT ([facility]) Outpatient Attender: Kayden Schaffer MD Physical Therapy 04/26/2020 0 9:45:00 AM EST MEDENT ([facility]) Outpatient Attender: Kayden Schaffer MD Physical Therapy 04/17/2020 1 2:30:00 PM EST MEDENT ([facility]) Unknown [address] [facility] [address] 04/11/2020 12:00:00 AM EST eCW1 ([facility]) Outpatient [address] [facility] [place] [address] 04/05/2020 12:00:00 AM EDT eCW1 ([facility]) Outpatient Attender: Kayden Schaffer MD Physical Therapy 03/20/2020 0 1:00:00 PM EDT MEDENT ([facility]) Unknown [address] [facility] [address] 03/12/2020 12:00:00 AM EDT eCW1 ([facility]) Outpatient [address] [facility] [address] 03/08/2020 12:00:00 AM EDT eCW1 ([facility]) Unknown [address] [facility] [address] 03/08/2020 12:00:00 AM EDT eCW1 ([facility]) Unknown [address] [facility] [address] 02/28/2020 12:00:00 AM EDT eCW1 ([facility]) Unknown [address] [facility] [address] 12/29/2019 12:00:00 AM EDT eCW1 ([facility]) Unknown [address] [facility] [address] 12/17/2019 12:00:00 AM EDT eCW1 ([facility]) Unknown [address] [facility] [address] 12/13/2019 12:00:00 AM EDT eCW1 ([facility]) Outpatient [address] [facility] [address] 12/12/2019 12:00:00 AM EDT eCW1 ([facility]) [facility] [address] [place] [address] 11/29/2019 12:00:00 AM EDT eCW1 ([facility]) Unknown [address] [facility] [address] 11/11/2019 12:00:00 AM EDT eCW1 ([facility]) [facility] [address] [place] [address] 11/01/2019 12:00:00 AM EDT eCW1 ([facility]) Outpatient 10/20/2019 10:08:00 PM EDT [facility] [address] [facility] [address] 10/19/2019 12:00:00 AM EDT eCW1 [facility] [address] [facility] [address] 10/17/2019 12:00:00 AM EDT eCW1 ([facility] [address] [facility] [address] 10/16/2019 12:00:00 AM EDT [facility] [address] [facility] [address] 10/13/2019 12:00:00 AM EDT eCW1 ([facility]) Outpatient Attender: Tara trejo 10/08/2019 08:55:00 AM EDT [facility]ENT ([facility] [address] [facility] [address] 09/30/2019 12:00:00 AM EDT eCW1 ([facility]) [facility] [address] [facility] [address] 09/21/2019 12:00:00 AM EDT eCW1 [facility] [address] [facility] [address] 09/20/2019 12:00:00 AM EDT eCW1 [facility] [address] [facility] [address] 09/20/2019 12:00:00 AM EDT eCW1 [facility] [address] [facility] [address] 09/15/2019 12:00:00 AM EDT eCW1 [facility] [address] [facility] [address] 09/13/2019 12:00:00 AM EDT eCW1 ([facility] Unknown [address] [facility] [address] 09/12/2019 12:00:00 AM EDT eCW1 ([facility] Unknown [address] [facility] [address] 09/11/2019 12:00:00 AM EDT eCW1 ([facility]) [facility] [address] [facility] [address] 09/06/2019 12:00:00 AM EDT eCW1 ([facility]) Outpatient Referrer: Jessica MUNOZTONIA-[email or web address].TONIA 12:00:00 AM EDT [facility] Outpatient Referrer: Jessica MUNOZTONIA-SJP.TONIA 12:00:00 AM EDT [facility] [address] [facility] [address] 08/31/2019 12:00:00 AM EDT eCW1 [facility] [address] [place] [address] 08/29/2019 12:00:00 AM EDT eCW1 ([facility]) Outpatient Attender: Anirudh Richard MD Physical Therap y 08/26/2019 02:00:00 PM EDT MEDENT ([facility]) Outpatient [id number] 08/15/2019 11:36:16 AM EDT [facility] Outpatient Referrer: Jessica MUNOZCT-SJP.SYR 11/2019 11:41:17 AM EST [facility] [address] [facility], [place] [address] 08/12/2019 12:00:00 AM EST eCW1 ([facility]) Outpatient TONIA-[email or web address].[email or web address] 08/09/2019 12:00:00 AM EST [facility] [address] [facility] [address] 08/08/2019 12:00:00 AM EST eCW1 ([facility]) [facility] [address] [facility] [place] [address] 08/05/2019 12:00:00 AM EST eCW1 [facility] Outpatient Attender: Jessica EMANUEL.TONIA-SJP 10:47:28 AM EST - 08/04/2019 11:56:11 AM EST [facility] [address] [place] [address] 08/02/2019 12:00:00 AM EST eCW1 [facility] Outpatient 08/01/2019 10:33:00 AM EST [facility] [address] [facility] [address] 08/01/2019 12:00:00 AM EST eCW1 ([facility] [address] [facility] [address] 08/01/2019 12:00:00 AM EST eCW1 ([facility] [address] [facility] [address] 07/22/2019 12:00:00 AM EST eCW1 ([facility] [address] [facility] [address] 07/19/2019 12:00:00 AM EST eCW1 ([facility] [address] [facility] [address] 07/18/2019 12:00:00 AM EST eCW1 ([facility] [address] [facility] [address] 07/15/2019 12:00:00 AM EST eCW1 ([facility] [address] [facility] [address] 07/15/2019 12:00:00 AM EST eCW1 ([facility]) [facility] [address] [facility] [address] 07/11/2019 12:00:00 AM EST eCW1 ([facility]) Outpatient 07/08/2019 01:41:00 PM EST [facility] OFFICE OUTPATIENT NEW 30 MINUTES Attender: Anirudh Marr am, MD Physical Therapy 07/06/2019 08:15:00 AM EST MEDENT ([facility]) Outpatient 07/05/2019 11:05:00 AM EST [facility] [address] [facility] [address] 07/05/2019 12:00:00 AM EST eCW1 ([facility]) [facility] [address] [facility] [address] 07/04/2019 12:00:00 AM EST eCW1 [facility]) Outpatient 06/30/2019 10:27:00 PM EST [facility] Outpatient [address] [facility] [address] 06/30/2019 12:00:00 AM EST eCW1 ([facility]) [facility] [address] [place] [address] 06/30/2019 12:00:00 AM EST eCW1 ([facility]) [facility] [address] [facility] [address] 06/24/2019 12:00:00 AM EST eCW1 ([facility]) [facility] [address] [place] [address] 06/24/2019 12:00:00 AM EST eCW1 [facility] [address] [facility] [address] 06/22/2019 12:00:00 AM EST eCW1 ([facility]) Outpatient Attender: SHANNA MORROW MD Main Office 06/20/2019 08:30:00 AM EST [facility]ENT ([facility]) [facility] [address] [place] [address] 06/15/2019 12:00:00 AM EST eCW1 ([facility]) [facility] [address] [place] [address] 06/13/2019 12:00:00 AM EST eCW1 ([facility]) Outpatient 06/12/2019 06:17:00 PM EST [facility] [address] [place] [address] 06/09/2019 12:00:00 AM EST eCW1 ([facility]) [facility] [place] [address] [place] [address] 06/06/2019 12:00:00 AM EST eCW1 ([facility]) Immunizations Vaccine Date Status Description Data Source(s) pneumococcal polysaccharide PPV23 04/05/2020 08:37:00 AM EDT comple krystal eCW1 ([facility]) influenza, recombinant, quadrIvalent,injectable, prese rvative free 04/05/2020 08:37:00 AM EDT [facility] pneumococcal polysaccharide PPV23 04/05/2020 08:37:00 AM EDT comple krystal eCW1 ([facility]) influenza, recombinant, quadrIvalent,injectable, prese rvative free 04/05/2020 08:37:00 AM EDT completed [facility] pneumococcal polysaccharide PPV23 04/05/2020 08:37:00 AM EDT comple krystal eCW1 ([facility]) influenza, recombinant, quadrIvalent,injectable, prese rvative free 04/05/2020 08:37:00 AM EDT completed [facility] pneumococcal polysaccharide PPV23 04/05/2020 08:37:00 AM EDT comple krystal eCW1 ([facility]) influenza, recombinant, quadrIvalent,injectable, prese rvative free 04/05/2020 08:37:00 AM EDT completed [facility]CW[facility] pneumococcal polysaccharide PPV23 04/05/2020 08:37:00 AM EDT comple krystal eCW1 ([facility]) influenza, recombinant, quadrIvalent,injectable, prese rvative free 04/05/2020 08:37:00 AM EDT completed [facility] pneumococcal polysaccharide PPV23 04/05/2020 08:37:00 AM EDT comple krystal eCW1 ([facility]) influenza, recombinant, quadrIvalent,injectable, prese rvative free 04/05/2020 08:37:00 AM EDT completed [facility] Medications Medication Brand Name Start Date Product Form Dose Route Admi nistrative Instructions Pharmacy Instructions Status Indications Reaction Description Data Source(s) INHALER, ASSIST DEVICES 07/19/2020 12:00:00 AM EST spacer 1 USE WITH INHALER USE WITH INHALER SOLD: 07/20/2020 [facility] 100 mcg/actuation 07/18/2020 12:00:00 AM EST HFA aerosol inh aler 13 INHALE TWO PUFFS BY MOUTH TWICE A DAY WITH SPACER INHALE TWO PUFFS BY MOUTH TWICE A DAY WITH SPACER SOLD: 07/20/2020 [facility] Prednisone 20 MG Oral Tablet Prednisone 07/04/2020 12:00:00 AM EST active MEDENT ([facility]) 20 mg 07/04/2020 12:00:00 AM EST tablet 13 TAKE 3 TABLETS BY MOUTH ONCE DAILY FOR 2 DAYS, THEN 2 ONCE DAILY FOR 2 DAYS , THEN 1 EVERY DAY FOR 2 DAYS , THEN 1/2 EVERY DAY FOR 2 DAYS TAKE 3 TABLETS BY MOUTH ONCE DAILY FOR 2 DAYS, THEN 2 ONCE DAILY FOR 2 DAYS , THEN 1 EVERY DAY FOR 2 DAYS , THEN 1/2 EVERY DAY FOR 2 DAYS SOLD: 07/04/2020 [facility] 20 mg 05/26/2020 12:00:00 AM EST tablet 10 TAKE TWO TABLETS BY MOUTH EVERY DAY TAKE TWO TABLETS BY MOUTH EVERY DAY SOLD: 05/31/2020 [facility] 300-30 mg 05/25/2020 12:00:00 AM EST tablet 42 TAKE ONE TABLET BY MOUTH EVERY 8 HOURS NEEDED MAXIMUM DAILY DOSE = THREE TABLETS TAKE ONE TABLET BY MOUTH EVERY 8 HOURS NEEDED MAXIMUM DAILY DOSE = THREE TABLETS SOLD: 05/25/2020 [facility] Acetaminophen 325 MG / Hydrocodone Troy trate 5 MG Oral Tablet Hydrocodone- Acetaminophen 5-325 MG Hydrocodone-Acetaminophen 5-325 MG 05/24/2020 12:00:00 AM EST 1.0 {tablet_as_needed} active Hydrocodone-Acetaminophen 5-325 MG eCW1 ([facility]) Acetaminophen 325 MG / Hydrocodone Troy trate 5 MG Oral Tablet Hydrocodone- Acetaminophen 5-325 MG Hydrocodone-Acetaminophen 5-325 MG 05/24/2020 12:00:00 AM EST 1.0 {tablet_as_needed} active Hydrocodone-Acetaminophen 5-325 MG eCW1 ([facility]) 5-325 mg 05/24/2020 12:00:00 AM EST tablet 20 TAKE ONE TABLET BY MOUTH EVERY 6 HOURS FOR 5 DAYS MAXIMUM DAILY DOSE = FOUR TABLETS TAKE ONE TABLET BY MOUTH EVERY 6 HOURS FOR 5 DAYS MAXIMUM DAILY DOSE = FOUR TABLETS SOLD: 05/25/2020 [facility] Acetaminophen 325 MG / Hydrocodone Troy trate 5 MG Oral Tablet Hydrocodone- Acetaminophen 5-325 MG Hydrocodone-Acetaminophen 5-325 MG 05/24/2020 12:00:00 AM EST 1.0 {tablet_as_needed} active Hydrocodone-Acetaminophen 5-325 MG eCW1 ([facility]) 300-30 mg 03/16/2020 12:00:00 AM EDT tablet 42 TAKE ONE TABLET BY MOUTH EVERY 8 HOURS NEEDED MAXIMUM DAILY DOSE = 3 TABLETS TAKE ONE TABLET BY MOUTH EVERY 8 HOURS NEEDED MAXIMUM DAILY DOSE = 3 TABLETS SOLD: 03/16/2020 [facility] 800 mg 03/16/2020 12:00:00 AM EDT tablet 60 TAKE ONE TABLET BY MOUTH TWICE A DAY NEEDED TAKE ONE TABLET BY MOUTH TWICE A DAY NEEDED SOLD: 03/16/2020 [facility] 80 mcg/actuation 03/15/2020 12:00:00 AM EDT HFA aerosol sawyer th activated 10 INHALE TWO PUFFS BY MOUTH TWICE A DAY INHALE TWO PUFFS BY MOUTH TWICE A DAY SOLD: 03/16/2020 [facility] Acetaminophen 300 MG / Codeine Phosphate 30 MG Oral Tablet Acetaminophen-Codeine 300-30 MG Acetaminophen-Codeine 300-30 MG 03/08/2020 12:00:00 AM EDT 1.0 {tablet_as_needed} active Acetaminophen -Codeine 300-30 MG eCW1 ([facility]) Acetaminophen 300 MG / Codeine Phosphate 30 MG Oral Tablet Acetaminophen-Codeine 300-30 MG Acetaminophen-Codeine 300-30 MG 03/08/2020 12:00:00 AM EDT 1.0 {tablet_as_needed} active Acetaminophen -Codeine 300-30 MG eCW1 ([facility]) Acetaminophen 325 MG / Hydrocodone Troy trate 5 MG Oral Tablet Hydrocodone- Acetaminophen 5-325 MG Hydrocodone-Acetaminophen 5-325 MG 03/08/2020 12:00:00 AM EDT 1.0 {tablet_as_needed} active Hydrocodone-Acetaminophen 5-325 MG eCW1 ([facility]) Acetaminophen 325 MG / Hydrocodone Troy trate 5 MG Oral Tablet Hydrocodone- Acetaminophen 5-325 MG Hydrocodone-Acetaminophen 5-325 MG 03/08/2020 12:00:00 AM EDT 1.0 {tablet_as_needed} active Hydrocodone-Acetaminophen 5-325 MG eCW1 ([facility]) Acetaminophen 300 MG / Codeine Phosphate 30 MG Oral Tablet Acetaminophen-Codeine 300-30 MG Acetaminophen-Codeine 300-30 MG 03/08/2020 12:00:00 AM EDT 1.0 {tablet_as_needed} active Acetaminophen -Codeine 300-30 MG eCW1 ([facility]) Acetaminophen 300 MG / Codeine Phosphate 30 MG Oral Tablet Acetaminophen-Codeine 300-30 MG Acetaminophen-Codeine 300-30 MG 03/08/2020 12:00:00 AM EDT 1.0 {tablet_as_needed} active Acetaminophen -Codeine 300-30 MG eCW1 ([facility]) Acetaminophen 325 MG / Hydrocodone Troy trate 5 MG Oral Tablet Hydrocodone- Acetaminophen 5-325 MG Hydrocodone-Acetaminophen 5-325 MG 03/08/2020 12:00:00 AM EDT 1.0 {tablet_as_needed} active Hydrocodone-Acetaminophen 5-325 MG eCW1 ([facility]) Acetaminophen 300 MG / Codeine Phosphate 30 MG Oral Tablet Acetaminophen-Codeine 300-30 MG Acetaminophen-Codeine 300-30 MG 03/08/2020 12:00:00 AM EDT 1.0 {tablet_as_needed} active Acetaminophen -Codeine 300-30 MG eCW1 ([facility]) 5-325 mg 03/08/2020 12:00:00 AM EDT tablet 20 TAKE ONE TABLET BY MOUTH EVERY 6 HOURS NEEDED MAXIMUM DAILY DOSE = 4 TAKE ONE TABLET BY MOUTH EVERY 6 HOURS NEEDED MAXIMUM DAILY DOSE = 4 SOLD: 03/08/2020 [facility] Acetaminophen 325 MG / Hydrocodone Troy trate 5 MG Oral Tablet Hydrocodone- Acetaminophen 5-325 MG Hydrocodone-Acetaminophen 5-325 MG 03/08/2020 12:00:00 AM EDT 1.0 {tablet_as_needed} active Hydrocodone-Acetaminophen 5-325 MG eCW1 ([facility]) Acetaminophen 300 MG / Codeine Phosphate 30 MG Oral Tablet Acetaminophen-Codeine 300-30 MG Acetaminophen-Codeine 300-30 MG 03/08/2020 12:00:00 AM EDT 1.0 {tablet_as_needed} active Acetaminophen -Codeine 300-30 MG eCW1 ([facility]) Acetaminophen 325 MG / Hydrocodone Troy trate 5 MG Oral Tablet Hydrocodone- Acetaminophen 5-325 MG Hydrocodone-Acetaminophen 5-325 MG 03/08/2020 12:00:00 AM EDT 1.0 {tablet_as_needed} active Hydrocodone-Acetaminophen 5-325 MG eCW1 ([facility]) Acetaminophen 325 MG / Hydrocodone Troy trate 5 MG Oral Tablet Hydrocodone- Acetaminophen 5-325 MG Hydrocodone-Acetaminophen 5-325 MG 03/08/2020 12:00:00 AM EDT 1.0 {tablet_as_needed} active Hydrocodone-Acetaminophen 5-325 MG eCW1 ([facility]) Acetaminophen 300 MG / Codeine Phosphate 30 MG Oral Tablet Acetaminophen-Codeine 300-30 MG Acetaminophen-Codeine 300-30 MG 03/08/2020 12:00:00 AM EDT 1.0 {tablet_as_needed} active Acetaminophen -Codeine 300-30 MG eCW1 ([facility]) Acetaminophen 300 MG / Codeine Phosphate 30 MG Oral Tablet Acetaminophen-Codeine 300-30 MG Acetaminophen-Codeine 300-30 MG 03/08/2020 12:00:00 AM EDT 1.0 {tablet_as_needed} active Acetaminophen -Codeine 300-30 MG eCW1 ([facility]) Acetaminophen 300 MG / Codeine Phosphate 30 MG Oral Tablet Acetaminophen-Codeine 300-30 MG Acetaminophen-Codeine 300-30 MG 03/08/2020 12:00:00 AM EDT 1.0 {tablet_as_needed} active Acetaminophen -Codeine 300-30 MG eCW1 ([facility]) Acetaminophen 325 MG / Hydrocodone Troy trate 5 MG Oral Tablet Hydrocodone- Acetaminophen 5-325 MG Hydrocodone-Acetaminophen 5-325 MG 03/08/2020 12:00:00 AM EDT 1.0 {tablet_as_needed} active Hydrocodone-Acetaminophen 5-325 MG eCW1 ([facility]) Acetaminophen 300 MG / Codeine Phosphate 30 MG Oral Tablet Acetaminophen-Codeine 300-30 MG Acetaminophen-Codeine 300-30 MG 03/08/2020 12:00:00 AM EDT 1.0 {tablet_as_needed} active Acetaminophen -Codeine 300-30 MG eCW1 ([facility]) Tens Unit - UNK 03/07/2020 12:00:00 AM EDT active Tens Unit - eCW1 ([facility]) Tens Unit - K 03/07/2020 12:00:00 AM EDT active Tens Unit - eCW1 ([facility]) Tens Unit - K 03/07/2020 12:00:00 AM EDT active Tens Unit - eCW1 ([facility]) Tens Unit - K 03/07/2020 12:00:00 AM EDT active Tens Unit - eCW1 ([facility]) Tens Unit - K 03/07/2020 12:00:00 AM EDT active Tens Unit - eCW1 ([facility]) Tens Unit - K 03/07/2020 12:00:00 AM EDT active Tens Unit - eCW1 ([facility]) Tens Unit - UNK 03/07/2020 12:00:00 AM EDT active Tens Unit - eCW1 ([facility]) Tens Unit - K 03/07/2020 12:00:00 AM EDT active Tens Unit - eCW1 ([facility]) Tens Unit - UNK 03/07/2020 12:00:00 AM EDT active Tens Unit - eCW1 ([facility]) Tens Unit - UNK 03/07/2020 12:00:00 AM EDT active Tens Unit - eCW1 ([facility]) 20 mg 03/04/2020 12:00:00 AM EDT tablet 20 TAKE THREE TABLETS BY MOUTH EVERY DAY FOR 3 DAYS THEN 2 ONCE DAILY FOR 4 DAYS THEN 1 ONCE DAILY FOR 3 DAYS TAKE THREE TABLETS BY MOUTH EVERY DAY FOR 3 DAYS THEN 2 ONCE DAILY FOR 4 DAYS THEN 1 ONCE DAILY FOR 3 DAYS SOLD: 03/04/2020 [facility] 150 mg 02/10/2020 12:00:00 AM EDT tablet 2 TAKE ONE TABLET BY MOUTH ONCE FOR YEAST INFECTION TAKE ONE TABLET BY MOUTH ONCE FOR YEAST INFECTION SOLD : 02/12/2020 [facility] 150 mg 02/09/2020 12:00:00 AM EDT tablet 4 TAKE ONE TABLET BY MOUTH ONCE FOR YEAST INFECTION TAKE ONE TABLET BY MOUTH ONCE FOR YEAST INFECTION SOLD : 02/09/2020 [facility] 10 mg 02/09/2020 12:00:00 AM EDT tablet 30 FOUR TABLETS BY MOUTH ONCE DAILY FOR 3 DAYS , THEN THREE TABLETS BY MOUTH ONCE DAILY FOR 3 DAYS , THEN TWO TABLETS BY MOUTH ONCE DAILY FOR 3 DAYS , THEN TAKE ONE TABLET BY MOUTH EVERY DAY FOR 3 DAYS FOUR TABLETS BY MOUTH ONCE DAILY FOR 3 D AYS , THEN THREE TABLETS BY MOUTH ONCE DAILY FOR 3 DAYS , THEN TWO TABLETS BY MOUTH ONCE DAILY FOR 3 DAYS , THEN TAKE ONE TABLET BY MOUTH EVERY DAY FOR 3 DAYS SOLD: 03/02/2020 [facility] 10 mg 02/09/2020 12:00:00 AM EDT tablet 30 FOUR TABLETS BY MOUTH ONCE DAILY FOR 3 DAYS , THEN THREE TABLETS BY MOUTH ONCE DAILY FOR 3 DAYS , THEN TWO TABLETS BY MOUTH ONCE DAILY FOR 3 DAYS , THEN TAKE ONE TABLET BY MOUTH EVERY DAY FOR 3 DAYS FOUR TABLETS BY MOUTH ONCE DAILY FOR 3 D AYS , THEN THREE TABLETS BY MOUTH ONCE DAILY FOR 3 DAYS , THEN TWO TABLETS BY MOUTH ONCE DAILY FOR 3 DAYS , THEN TAKE ONE TABLET BY MOUTH EVERY DAY FOR 3 DAYS SOLD: 02/09/2020 [facility] doxycycline hyclate 100 MG Oral Tablet DOXYCYCLINE HYCLATE 0 01/28/2020 12:00:00 AM EDT tablet 20 TAKE ONE TABLET BY MOUTH TWI CE A DAY UNTIL GONE TAKE ONE TABLET BY MOUTH TWICE A DAY UNTIL GONE SOLD: 01/28/2020 [facility] 800 mg 01/24/2020 12:00:00 AM EDT tablet 60 TAKE ONE TABLET BY MOUTH TWICE A DAY NEEDED FOR PAIN TAKE ONE TABLET BY MOUTH TWICE A DAY NEEDED FOR SANJAY N SOLD: 01/24/2020 [facility] 300-30 mg 01/24/2020 12:00:00 AM EDT tablet 45 TAKE ONE TABLET BY MOUTH EVERY 8 HOURS NEEDED FOR PAIN MAXIMUM DAILY DOSE = 3 TAKE ONE TABLET BY MOUTH EVERY 8 HOURS NEEDED FOR PAIN MAXIMUM DAILY DOSE = 3 SOLD: 01/24/2020 [facility] 5-325 mg 01/23/2020 12:00:00 AM EDT tablet 10 TAKE ONE TABLET BY MOUTH EVERY 8 HOURS NEEDED FOR PAIN MAXIMUM DAILY DOSE = 2 TAKE ONE TABLET BY MOUTH EVERY 8 HOURS NEEDED FOR PAIN MAXIMUM DAILY DOSE = 2 SOLD: 01/24/2020 [facility] 100,000 unit/mL 12/29/2019 12:00:00 AM EDT suspension 224 TAKE 4ML BY MOUTH FOUR TIMES A DAY FOR 14 DAYS TAKE 4ML BY MOUTH FOUR TIMES A DAY FOR 14 DAYS SOLD: 12/30/2019 [facility] Prednisone 10 MG Oral Tablet PredniSONE 10 MG PredniSONE 10 MG 12/19/2019 12:00:00 AM EDT 1.0 {tablet} active Pr edniSONE 10 MG eCW1 ([facility]) Prednisone 10 MG Oral Tablet PredniSONE 10 MG PredniSONE 10 MG 12/19/2019 12:00:00 AM EDT 1.0 {tablet} active Pr edniSONE 10 MG eCW1 ([facility]) Prednisone 10 MG Oral Tablet PredniSONE 10 MG PredniSONE 10 MG 12/19/2019 12:00:00 AM EDT 1.0 {tablet} active Pr edniSONE 10 MG eCW1 ([facility]) Prednisone 10 MG Oral Tablet PredniSONE 10 MG PredniSONE 10 MG 12/19/2019 12:00:00 AM EDT 1.0 {tablet} active Pr edniSONE 10 MG eCW1 ([facility]) Prednisone 10 MG Oral Tablet PredniSONE 10 MG PredniSONE 10 MG 12/19/2019 12:00:00 AM EDT 1.0 {tablet} active Pr edniSONE 10 MG eCW1 ([facility]) 10 mg 12/19/2019 12:00:00 AM EDT tablet 30 TAKE FOUR TABLETS BY MOUTH FOR 3 DAYS, THEN 3 FOR 3 DAYS, THEN 2 FOR 3 DAYS AND THEN 1 FOR 3 DAYS. TAKE FOUR TABLETS BY MOUTH FOR 3 DAYS, THEN 3 FOR 3 DAYS, THEN 2 FOR 3 DAYS AND THEN 1 FOR 3 DAYS. SOLD: 12/19/2019 [facility] Prednisone 10 MG Oral Tablet PredniSONE 10 MG PredniSONE 10 MG 12/19/2019 12:00:00 AM EDT 1.0 {tablet} active Pr edniSONE 10 MG eCW1 ([facility]) Prednisone 10 MG Oral Tablet PredniSONE 10 MG PredniSONE 10 MG 12/19/2019 12:00:00 AM EDT 1.0 {tablet} active Pr edniSONE 10 MG eCW1 ([facility]) Prednisone 10 MG Oral Tablet PredniSONE 10 MG PredniSONE 10 MG 12/19/2019 12:00:00 AM EDT 1.0 {tablet} active Pr edniSONE 10 MG eCW1 ([facility]) Prednisone 10 MG Oral Tablet PredniSONE 10 MG PredniSONE 10 MG 12/19/2019 12:00:00 AM EDT 1.0 {tablet} active Pr edniSONE 10 MG eCW1 ([facility]) Prednisone 10 MG Oral Tablet PredniSONE 10 MG PredniSONE 10 MG 12/19/2019 12:00:00 AM EDT 1.0 {tablet} active Pr edniSONE 10 MG eCW1 ([facility]) Prednisone 10 MG Oral Tablet PredniSONE 10 MG PredniSONE 10 MG 12/19/2019 12:00:00 AM EDT 1.0 {tablet} active Pr edniSONE 10 MG eCW1 ([facility]) Prednisone 10 MG Oral Tablet PredniSONE 10 MG PredniSONE 10 MG 12/19/2019 12:00:00 AM EDT 1.0 {tablet} active Pr edniSONE 10 MG eCW1 ([facility]) Prednisone 10 MG Oral Tablet PredniSONE 10 MG PredniSONE 10 MG 12/19/2019 12:00:00 AM EDT 1.0 {tablet} active Pr edniSONE 10 MG eCW1 ([facility]) Prednisone 10 MG Oral Tablet PredniSONE 10 MG PredniSONE 10 MG 12/19/2019 12:00:00 AM EDT 1.0 {tablet} active Pr edniSONE 10 MG eCW1 ([facility]) 300-30 mg 12/14/2019 12:00:00 AM EDT tablet 45 TAKE ONE TABLET BY MOUTH EVERY 8 HOURS NEEDED MAXIMUM DAILY DOSE = THREE TABLETS TAKE ONE TABLET BY MOUTH EVERY 8 HOURS NEEDED MAXIMUM DAILY DOSE = THREE TABLETS SOLD: 12/15/2019 [facility] Acetaminophen 325 MG / Hydrocodone [place] trate 5 MG Oral Tablet [[place]] [place] 5- 325 MG [place] 5-325 MG 12/13/2019 12:00:00 AM EDT 1.0 {tablet_as_needed} active [place] 5-325 MG eCW1 ([facility]) Acetaminophen 325 MG / Hydrocodone [place] trate 5 MG Oral Tablet [[place]] [place] 5- 325 MG [place] 5-325 MG 12/13/2019 12:00:00 AM EDT 1.0 {tablet_as_needed} active [place] 5-325 MG eCW1 ([facility]) Acetaminophen 325 MG / Hydrocodone [place] trate 5 MG Oral Tablet [[place]] [place] 5- 325 MG [place] 5-325 MG 12/13/2019 12:00:00 AM EDT 1.0 {tablet_as_needed} active [place] 5-325 MG eCW1 ([facility]) Acetaminophen 325 MG / Hydrocodone [place] trate 5 MG Oral Tablet [[place]] [place] 5- 325 MG [place] 5-325 MG 12/13/2019 12:00:00 AM EDT 1.0 {tablet_as_needed} active [place] 5-325 MG eCW1 ([facility]) 5-325 mg 12/13/2019 12:00:00 AM EDT tablet 10 TAKE ONE TABLET BY MOUTH EVERY 8 HOURS NEEDED * MAXIMUM DAILY DOSE = 3 TAKE ONE TABLET BY MOUTH EVERY 8 HOURS NEEDED * MAXIMUM DAILY DOSE = 3 SOLD: 12/14/2019 [facility] Acetaminophen 325 MG / Hydrocodone [place] trate 5 MG Oral Tablet [[place]] [place] 5- 325 MG [place] 5-325 MG 12/13/2019 12:00:00 AM EDT 1.0 {tablet_as_needed} active [place] 5-325 MG eCW1 ([facility]) Acetaminophen 325 MG / Hydrocodone [place] trate 5 MG Oral Tablet [[place]] [place] 5- 325 MG [place] 5-325 MG 12/13/2019 12:00:00 AM EDT 1.0 {tablet_as_needed} active [place] 5-325 MG eCW1 ([facility]) Acetaminophen 325 MG / Hydrocodone [place] trate 5 MG Oral Tablet [[place]] [place] 5- 325 MG [place] 5-325 MG 12/13/2019 12:00:00 AM EDT 1.0 {tablet_as_needed} active [place] 5-325 MG eCW1 ([facility]) Acetaminophen 325 MG / Hydrocodone [place] trate 5 MG Oral Tablet [[place]] [place] 5- 325 MG [place] 5-325 MG 12/13/2019 12:00:00 AM EDT 1.0 {tablet_as_needed} active [place] 5-325 MG eCW1 ([facility]) Acetaminophen 325 MG / Hydrocodone [place] trate 5 MG Oral Tablet [[place]] [place] 5- 325 MG [place] 5-325 MG 12/13/2019 12:00:00 AM EDT 1.0 {tablet_as_needed} active [place] 5-325 MG eCW1 ([facility]) Acetaminophen 325 MG / Hydrocodone [place] trate 5 MG Oral Tablet [[place]] [place] 5- 325 MG [place] 5-325 MG 12/13/2019 12:00:00 AM EDT 1.0 {tablet_as_needed} active [place] 5-325 MG eCW1 ([facility]) Acetaminophen 325 MG / Hydrocodone [place] trate 5 MG Oral Tablet [[place]] [place] 5- 325 MG [place] 5-325 MG 12/13/2019 12:00:00 AM EDT 1.0 {tablet_as_needed} active [place] 5-325 MG eCW1 ([facility]) Acetaminophen 325 MG / Hydrocodone [place] trate 5 MG Oral Tablet [[place]] [place] 5- 325 MG [place] 5-325 MG 12/13/2019 12:00:00 AM EDT 1.0 {tablet_as_needed} active [place] 5-325 MG eCW1 ([facility]) Acetaminophen 325 MG / Hydrocodone [place] trate 5 MG Oral Tablet [[place]] [place] 5- 325 MG [place] 5-325 MG 12/13/2019 12:00:00 AM EDT 1.0 {tablet_as_needed} active [place] 5-325 MG eCW1 ([facility]) Acetaminophen 325 MG / Hydrocodone [place] trate 5 MG Oral Tablet [[place]] [place] 5- 325 MG [place] 5-325 MG 12/13/2019 12:00:00 AM EDT 1.0 {tablet_as_needed} active [place] 5-325 MG eCW1 ([facility]) Prednisone 20 MG Oral Tablet PredniSONE 20 MG PredniSONE 20 MG 12/12/2019 12:00:00 AM EDT 2.0 {tablet} active Pr edniSONE 20 MG eCW1 ([facility]) Prednisone 20 MG Oral Tablet PredniSONE 20 MG PredniSONE 20 MG 12/12/2019 12:00:00 AM EDT 2.0 {tablet} active Pr edniSONE 20 MG eCW1 ([facility]) Prednisone 20 MG Oral Tablet PredniSONE 20 MG PredniSONE 20 MG 12/12/2019 12:00:00 AM EDT 2.0 {tablet} active Pr edniSONE 20 MG eCW1 ([facility]) Prednisone 20 MG Oral Tablet PredniSONE 20 MG PredniSONE 20 MG 12/12/2019 12:00:00 AM EDT 2.0 {tablet} active Pr edniSONE 20 MG eCW1 ([facility]) Prednisone 20 MG Oral Tablet PredniSONE 20 MG PredniSONE 20 MG 12/12/2019 12:00:00 AM EDT 2.0 {tablet} active Pr edniSONE 20 MG eCW1 ([facility]) Prednisone 20 MG Oral Tablet PredniSONE 20 MG PredniSONE 20 MG 12/12/2019 12:00:00 AM EDT 2.0 {tablet} active Pr edniSONE 20 MG eCW1 ([facility]) Prednisone 20 MG Oral Tablet PredniSONE 20 MG PredniSONE 20 MG 12/12/2019 12:00:00 AM EDT 2.0 {tablet} active Pr edniSONE 20 MG eCW1 ([facility]) Prednisone 20 MG Oral Tablet PredniSONE 20 MG PredniSONE 20 MG 12/12/2019 12:00:00 AM EDT 2.0 {tablet} active Pr edniSONE 20 MG eCW1 ([facility]) Prednisone 20 MG Oral Tablet PredniSONE 20 MG PredniSONE 20 MG 12/12/2019 12:00:00 AM EDT 2.0 {tablet} active Pr edniSONE 20 MG eCW1 ([facility]) Prednisone 20 MG Oral Tablet PredniSONE 20 MG PredniSONE 20 MG 12/12/2019 12:00:00 AM EDT 2.0 {tablet} active Pr edniSONE 20 MG eCW1 ([facility]) Prednisone 20 MG Oral Tablet PredniSONE 20 MG PredniSONE 20 MG 12/12/2019 12:00:00 AM EDT 2.0 {tablet} active Pr edniSONE 20 MG eCW1 ([facility]) 20 mg 12/12/2019 12:00:00 AM EDT tablet 10 TAKE TWO TABLETS BY MOUTH EVERY DAY WITH FOOD FOR 5 DAYS TAKE TWO TABLETS BY MOUTH EVERY DAY WITH FOOD FOR 5 DAYS SOLD: 12/12/2019 [facility] Prednisone 20 MG Oral Tablet PredniSONE 20 MG PredniSONE 20 MG 12/12/2019 12:00:00 AM EDT 2.0 {tablet} active Pr edniSONE 20 MG eCW1 ([facility]) Prednisone 20 MG Oral Tablet PredniSONE 20 MG PredniSONE 20 MG 12/12/2019 12:00:00 AM EDT 2.0 {tablet} active Pr edniSONE 20 MG eCW1 ([facility]) Prednisone 20 MG Oral Tablet PredniSONE 20 MG PredniSONE 20 MG 12/12/2019 12:00:00 AM EDT 2.0 {tablet} active Pr edniSONE 20 MG eCW1 ([facility]) 50 mcg/actuation 11/14/2019 12:00:00 AM EDT spray,suspension 16 SPRAY TWO SPRAYS IN EACH NOSTRIL ONCE DAILY SPRAY TWO SPRAYS IN EACH NOSTRIL ONCE DAILY SOLD: 11/14/2019 [facility] 50 mcg/actuation 11/14/2019 12:00:00 AM EDT spray,suspension 16 SPRAY TWO SPRAYS IN EACH NOSTRIL ONCE DAILY SPRAY TWO SPRAYS IN EACH NOSTRIL ONCE DAILY SOLD: 03/16/2020 [facility] 50 mcg/actuation 11/14/2019 12:00:00 AM EDT spray,suspension 16 SPRAY TWO SPRAYS IN EACH NOSTRIL ONCE DAILY SPRAY TWO SPRAYS IN EACH NOSTRIL ONCE DAILY SOLD: 12/10/2019 [facility] 50 mcg/actuation 11/14/2019 12:00:00 AM EDT spray,suspension 16 SPRAY TWO SPRAYS IN EACH NOSTRIL ONCE DAILY SPRAY TWO SPRAYS IN EACH NOSTRIL ONCE DAILY SOLD: 02/12/2020 [facility] 50 mcg/actuation 11/14/2019 12:00:00 AM EDT spray,suspension 16 SPRAY TWO SPRAYS IN EACH NOSTRIL ONCE DAILY SPRAY TWO SPRAYS IN EACH NOSTRIL ONCE DAILY SOLD: 07/09/2020 [facility] 800 mg 11/03/2019 12:00:00 AM EDT tablet 60 TAKE ONE TABLET BY MOUTH TWICE A DAY NEEDED TAKE ONE TABLET BY MOUTH TWICE A DAY NEEDED SOLD: 020 [facility] Acetaminophen 325 MG / Hydrocodone [place] trate 5 MG Oral Tablet [[place]] [place] 5- 325 MG [place] 5-325 MG 11/02/2019 12:00:00 AM EDT a ctive 1 tablet as needed eCW1 ([facility]) Acetaminophen 325 MG / Hydrocodone [place] trate 5 MG Oral Tablet [[place]] [place] 5- 325 MG [place] 5-325 MG 11/02/2019 12:00:00 AM EDT 1.0 {tablet_as_needed} active [place] 5-325 MG eCW1 ([facility]) 5-325 mg 11/02/2019 12:00:00 AM EDT tablet 30 TAKE ONE TABLET BY MOUTH EVERY 8 HOURS PRNMAXIMUM DAILY DOSE = THREE TABLETS TAKE ONE TABLET BY MOUTH EVERY 8 HOURS PRNMAXIMUM DAILY DOSE = THREE TABLETS SOLD: 11/02/2019 [facility] 300-30 mg 11/02/2019 12:00:00 AM EDT tablet 45 TAKE ONE TABLET BY MOUTH EVERY 8 HOURS MAXIMUM DAILY DOSE = THREE TABLETS TAKE ONE TABLET BY MOUTH EVERY 8 HOURS MAXIMUM DAILY DOSE = THREE TABLETS SOLD: 11/02/2019 [facility] Prednisone 20 MG Oral Tablet PredniSONE 20 MG PredniSONE 20 MG 10/19/2019 12:00:00 AM EDT 1.0 {tablet} active Pr edniSONE 20 MG eCW1 ([facility]) Prednisone 20 MG Oral Tablet PredniSONE 20 MG PredniSONE 20 MG 10/19/2019 12:00:00 AM EDT 1.0 {tablet} suspended PredniSONE 20 MG eCW1 ([facility]) Prednisone 20 MG Oral Tablet PredniSONE 20 MG PredniSONE 20 MG 10/19/2019 12:00:00 AM EDT 1.0 {tablet} active Pr edniSONE 20 MG eCW1 ([facility]) Prednisone 20 MG Oral Tablet PredniSONE 20 MG PredniSONE 20 MG 10/19/2019 12:00:00 AM EDT 1.0 {tablet} active Pr edniSONE 20 MG eCW1 ([facility]) Prednisone 20 MG Oral Tablet PredniSONE 20 MG PredniSONE 20 MG 10/19/2019 12:00:00 AM EDT 1.0 {tablet} active Pr edniSONE 20 MG eCW1 ([facility]) Prednisone 20 MG Oral Tablet PredniSONE 20 MG PredniSONE 20 MG 10/19/2019 12:00:00 AM EDT 1.0 {tablet} active Pr edniSONE 20 MG eCW1 ([facility]) Prednisone 20 MG Oral Tablet PredniSONE 20 MG PredniSONE 20 MG 10/19/2019 12:00:00 AM EDT 1.0 {tablet} suspended PredniSONE 20 MG eCW1 ([facility]) Prednisone 20 MG Oral Tablet PredniSONE 20 MG PredniSONE 20 MG 10/19/2019 12:00:00 AM EDT 1.0 {tablet} active Pr edniSONE 20 MG eCW1 ([facility]) 20 mg 10/19/2019 12:00:00 AM EDT tablet 18 TAKE THREE TABLETS BY MOUTH EVERY DAY FOR 3 DAYS THEN 2 ONCE DAILY FOR 3 DAYS THEN 1 ONCE DAILY FOR 3 DAYS THEN STOP TAKE THREE TABLETS BY MOUTH EVERY DAY FO R 3 DAYS THEN 2 ONCE DAILY FOR 3 DAYS THEN 1 ONCE DAILY FOR 3 DAYS THEN STOP SOLD: 10/20/2019 [facility] Prednisone 20 MG Oral Tablet PredniSONE 20 MG PredniSONE 20 MG 10/19/2019 12:00:00 AM EDT 1.0 {tablet} suspended PredniSONE 20 MG eCW1 ([facility]) 0.5 mg-3 mg(2.5 mg base)/3 mL 10/19/2019 12:00:0 0 AM EDT solution for nebulization 180 1 VIAL VIA NEBULIZER EVERY 6 JAYMIE RS 1 VIAL VIA NEBULIZER EVERY 6 HOURS SOLD: 10/20/2019 [facility] Prednisone 20 MG Oral Tablet PredniSONE 20 MG PredniSONE 20 MG 10/19/2019 12:00:00 AM EDT 1.0 {tablet} active Pr edniSONE 20 MG eCW1 ([facility]) Prednisone 20 MG Oral Tablet PredniSONE 20 MG PredniSONE 20 MG 10/19/2019 12:00:00 AM EDT 1.0 {tablet} active Pr edniSONE 20 MG eCW1 ([facility]) Prednisone 20 MG Oral Tablet PredniSONE 20 MG PredniSONE 20 MG 10/19/2019 12:00:00 AM EDT 1.0 {tablet} suspended PredniSONE 20 MG eCW1 ([facility]) Prednisone 20 MG Oral Tablet PredniSONE 20 MG PredniSONE 20 MG 10/19/2019 12:00:00 AM EDT 1.0 {tablet} active Pr edniSONE 20 MG eCW1 ([facility]) Prednisone 20 MG Oral Tablet PredniSONE 20 MG PredniSONE 20 MG 10/19/2019 12:00:00 AM EDT 1.0 {tablet} active Pr edniSONE 20 MG eCW1 ([facility]) Prednisone 20 MG Oral Tablet PredniSONE 20 MG PredniSONE 20 MG 10/19/2019 12:00:00 AM EDT 1.0 {tablet} active Pr edniSONE 20 MG eCW1 ([facility]) Prednisone 20 MG Oral Tablet PredniSONE 20 MG PredniSONE 20 MG 10/19/2019 12:00:00 AM EDT active 1 tablet eCW1 ([facility]) 20 mg 10/13/2019 12:00:00 AM EDT tablet 15 TAKE THREE TABLETS BY MOUTH EVERY DAY TAKE THREE TABLETS BY MOUTH EVERY DAY SOLD: 10/13/2019 [facility] 50 mcg/actuation 10/13/2019 12:00:00 AM EDT spray,suspension 16 SPRAY TWO SPRAYS IN EACH NOSTRIL EVERY DAY SPRAY TWO SPRAYS IN EACH NOSTRIL EVERY DAY SOLD: 10/13/2019 [facility] Prednisone 20 MG Oral Tablet Prednisone 10/08/2019 12:00:00 AM EDT active MEDENT ([facility]) 20 mg 10/08/2019 12:00:00 AM EDT tablet 8 TAKE ONE TABLET BY MOUTH TWICE A DAY FOR 4 DAYS TAKE ONE TABLET BY MOUTH TWICE A DAY FOR 4 DAYS SOLD: 2019 [facility] 4 mg 09/30/2019 12:00:00 AM EDT tablet,disintegrating 1 5 DISSOLVE ONE TABLET ON TONGUE EVERY 8 HOURS NEEDED DISSOLVE ONE TABLET ON TONGUE EVERY 8 HO URS NEEDED SOLD: 03/16/2020 [facility] 4 mg 09/30/2019 12:00:00 AM EDT tablet,disintegrating 1 5 DISSOLVE ONE TABLET ON TONGUE EVERY 8 HOURS NEEDED DISSOLVE ONE TABLET ON TONGUE EVERY 8 HO URS NEEDED SOLD: 10/01/2019 [facility] 200 mg 09/21/2019 12:00:00 AM EDT tablet 15 TAKE 2 TABLETS BY MOUTH TODAY THEN 1 TABLET AFTER TAKE 2 TABLETS BY MOUTH TODAY THEN 1 TABLET AFTER SOLD : 09/22/2019 [facility] Nystatin 318203 UNT/ML Oral Suspension Nystatin 449675 UNIT/ML Nystatin 833401 UNIT/ML 09/20/2019 12:00:00 AM EDT 4.0 {ml} active Nystatin 481790 UNIT/ML eCW1 ([facility]) 100,000 unit/mL 09/20/2019 12:00:00 AM EDT suspension 224 TAKE 4ML BY MOUTH FOUR TIMES A DAY FOR MOUTH AND THROAT FOR 14 DAYS TAKE 4ML BY MOUTH FOUR TIMES A DAY FOR MOUTH AND THROAT FOR 14 DAYS SOLD: 09/20/2019 [facility] Fluconazole 200 MG Oral Tablet Fluconazole 200 MG 09/20/2019 12:00: 00 AM EDT 1.0 {tablet} suspended Fluconazole 200 M G eCW1 ([facility]) Fluconazole 200 MG Oral Tablet Fluconazole 200 MG 09/20/2019 12:00: 00 AM EDT suspended 1 tablet eCW1 ([facility]) Fluconazole 200 MG Oral Tablet Fluconazole 200 MG 09/20/2019 12:00: 00 AM EDT 1.0 {tablet} suspended Fluconazole 200 M G eCW1 ([facility]) Fluconazole 200 MG Oral Tablet Fluconazole 200 MG 09/20/2019 12:00: 00 AM EDT 1.0 {tablet} suspended Fluconazole 200 M G eCW1 ([facility]) Nystatin 562743 UNT/ML Oral Suspension Nystatin 234070 UNIT/ML Nystatin 576262 UNIT/ML 09/20/2019 12:00:00 AM EDT 4.0 {ml} active Nystatin 599014 UNIT/ML eCW1 ([facility]) Fluconazole 200 MG Oral Tablet Fluconazole 200 MG 09/20/2019 12:00: 00 AM EDT 1.0 {tablet} suspended Fluconazole 200 M G eCW1 ([facility]) Fluconazole 200 MG Oral Tablet Fluconazole 200 MG 09/20/2019 12:00: 00 AM EDT 1.0 {tablet} suspended Fluconazole 200 M G eCW1 ([facility]) Nystatin 364056 UNT/ML Oral Suspension Nystatin 331721 UNIT/ML Nystatin 402369 UNIT/ML 09/20/2019 12:00:00 AM EDT 4.0 {ml} active Nystatin 823013 UNIT/ML eCW1 ([facility]) Nystatin 574209 UNT/ML Oral Suspension Nystatin 012603 UNIT/ML Nystatin 881798 UNIT/ML 09/20/2019 12:00:00 AM EDT 4.0 {ml} active Nystatin 872935 UNIT/ML eCW1 ([facility]) Nystatin 045043 UNT/ML Oral Suspension Nystatin 177743 UNIT/ML Nystatin 692233 UNIT/ML 09/20/2019 12:00:00 AM EDT 4.0 {ml} suspende d Nystatin 044034 UNIT/ML eCW1 ([facility]) Fluconazole 200 MG Oral Tablet Fluconazole 200 MG 09/20/2019 12:00: 00 AM EDT 1.0 {tablet} suspended Fluconazole 200 M G eCW1 ([facility]) Fluconazole 200 MG Oral Tablet Fluconazole 200 MG 09/20/2019 12:00: 00 AM EDT 1.0 {tablet} suspended Fluconazole 200 M G eCW1 ([facility]) Fluconazole 200 MG Oral Tablet Fluconazole 200 MG 09/20/2019 12:00: 00 AM EDT 1.0 {tablet} suspended Fluconazole 200 M G eCW1 ([facility]) Fluconazole 200 MG Oral Tablet Fluconazole 200 MG 09/20/2019 12:00: 00 AM EDT 1.0 {tablet} suspended Fluconazole 200 M G eCW1 ([facility]) Fluconazole 200 MG Oral Tablet Fluconazole 200 MG 09/20/2019 12:00: 00 AM EDT 1.0 {tablet} suspended Fluconazole 200 M G eCW1 ([facility]) Fluconazole 200 MG Oral Tablet Fluconazole 200 MG 09/20/2019 12:00: 00 AM EDT 1.0 {tablet} suspended Fluconazole 200 M G eCW1 ([facility]) Nystatin 056028 UNT/ML Oral Suspension Nystatin 250419 UNIT/ML Nystatin 595331 UNIT/ML 09/20/2019 12:00:00 AM EDT active 4 ml eCW1 ([facility]) Nystatin 871477 UNT/ML Oral Suspension Nystatin 152935 UNIT/ML Nystatin 299186 UNIT/ML 09/20/2019 12:00:00 AM EDT 4.0 {ml} active Nystatin 579180 UNIT/ML eCW1 ([facility]) Nystatin 717657 UNT/ML Oral Suspension Nystatin 983549 UNIT/ML Nystatin 677617 UNIT/ML 09/20/2019 12:00:00 AM EDT 4.0 {ml} suspende d Nystatin 760505 UNIT/ML eCW1 ([facility]) Fluconazole 200 MG Oral Tablet Fluconazole 200 MG 09/20/2019 12:00: 00 AM EDT 1.0 {tablet} suspended Fluconazole 200 M G eCW1 ([facility]) Fluconazole 200 MG Oral Tablet Fluconazole 200 MG 09/20/2019 12:00: 00 AM EDT 1.0 {tablet} suspended Fluconazole 200 M G eCW1 ([facility]) Nystatin 420964 UNT/ML Oral Suspension Nystatin 806249 UNIT/ML Nystatin 422212 UNIT/ML 09/20/2019 12:00:00 AM EDT 4.0 {ml} active Nystatin 719992 UNIT/ML eCW1 ([facility]) Nystatin 973179 UNT/ML Oral Suspension Nystatin 769655 UNIT/ML Nystatin 878071 UNIT/ML 09/20/2019 12:00:00 AM EDT 4.0 {ml} active Nystatin 174926 UNIT/ML eCW1 ([facility]) Fluconazole 200 MG Oral Tablet Fluconazole 200 MG 09/20/2019 12:00: 00 AM EDT 1.0 {tablet} suspended Fluconazole 200 M G eCW1 ([facility]) Nystatin 441240 UNT/ML Oral Suspension Nystatin 342007 UNIT/ML Nystatin 471928 UNIT/ML 09/20/2019 12:00:00 AM EDT 4.0 {ml} suspende d Nystatin 864221 UNIT/ML eCW1 ([facility]) Nystatin 068847 UNT/ML Oral Suspension Nystatin 470562 UNIT/ML Nystatin 270379 UNIT/ML 09/20/2019 12:00:00 AM EDT 4.0 {ml} active Nystatin 620159 UNIT/ML eCW1 ([facility]) Fluconazole 200 MG Oral Tablet Fluconazole 200 MG 09/20/2019 12:00: 00 AM EDT 1.0 {tablet} suspended Fluconazole 200 M G eCW1 ([facility]) Nystatin 926584 UNT/ML Oral Suspension Nystatin 231883 UNIT/ML Nystatin 685639 UNIT/ML 09/20/2019 12:00:00 AM EDT 4.0 {ml} active Nystatin 845290 UNIT/ML eCW1 ([facility]) Nystatin 998787 UNT/ML Oral Suspension Nystatin 144441 UNIT/ML Nystatin 172188 UNIT/ML 09/20/2019 12:00:00 AM EDT suspended 4 ml eCW1 ([facility]) Nystatin 044955 UNT/ML Oral Suspension Nystatin 182522 UNIT/ML Nystatin 737730 UNIT/ML 09/20/2019 12:00:00 AM EDT 4.0 {ml} active Nystatin 939638 UNIT/ML eCW1 ([facility]) Nystatin 384022 UNT/ML Oral Suspension Nystatin 211097 UNIT/ML Nystatin 897154 UNIT/ML 09/20/2019 12:00:00 AM EDT 4.0 {ml} suspende d Nystatin 955105 UNIT/ML eCW1 ([facility]) Nystatin 409203 UNT/ML Oral Suspension Nystatin 898710 UNIT/ML Nystatin 868832 UNIT/ML 09/20/2019 12:00:00 AM EDT 4.0 {ml} active Nystatin 901447 UNIT/ML eCW1 ([facility]) Prednisone 20 MG Oral Tablet PredniSONE 20 MG PredniSONE 20 MG 09/01/2019 12:00:00 AM EDT active 2 tablet eCW1 ([facility]) 20 mg 09/01/2019 12:00:00 AM EDT tablet 10 TAKE TWO TABLETS BY MOUTH EVERY DAY FOR 5 DAYS TAKE TWO TABLETS BY MOUTH EVERY DAY FOR 5 DAYS SOLD: 020 [facility] montelukast 10 MG Oral Tablet MONTELUKAST SODIUM 08/09/2019 12:0 0:00 AM EST tablet 30 TAKE ONE TABLET BY MOUTH EVERY E VENING TAKE ONE TABLET BY MOUTH EVERY EVENING SOLD: 01/07/2020 [facility] montelukast 10 MG Oral Tablet MONTELUKAST SODIUM 08/09/2019 12:0 0:00 AM EST tablet 30 TAKE ONE TABLET BY MOUTH EVERY E VENING TAKE ONE TABLET BY MOUTH EVERY EVENING SOLD: 12/10/2019 [facility] montelukast 10 MG Oral Tablet MONTELUKAST SODIUM 08/09/2019 12:0 0:00 AM EST tablet 30 TAKE ONE TABLET BY MOUTH EVERY E VENING TAKE ONE TABLET BY MOUTH EVERY EVENING SOLD: 11/12/2019 [facility] 10 mg 08/09/2019 12:00:00 AM EST tablet 30 TAKE ONE TABLET BY MOUTH EVERY EVENING TAKE ONE TABLET BY MOUTH EVERY EVENING SOLD: 09/01/2019 [facility] montelukast 10 MG Oral Tablet MONTELUKAST SODIUM 08/09/2019 12:0 0:00 AM EST tablet 30 TAKE ONE TABLET BY MOUTH EVERY E VENING TAKE ONE TABLET BY MOUTH EVERY EVENING SOLD: 03/16/2020 [facility] 10 mg 08/09/2019 12:00:00 AM EST tablet 30 TAKE ONE TABLET BY MOUTH EVERY EVENING TAKE ONE TABLET BY MOUTH EVERY EVENING SOLD: 02/17/2020 [facility] 10 mg 08/09/2019 12:00:00 AM EST tablet 30 TAKE ONE TABLET BY MOUTH EVERY EVENING TAKE ONE TABLET BY MOUTH EVERY EVENING SOLD: 08/09/2019 [facility] montelukast 10 MG Oral Tablet MONTELUKAST SODIUM 08/09/2019 12:0 0:00 AM EST tablet 30 TAKE ONE TABLET BY MOUTH EVERY E VENING TAKE ONE TABLET BY MOUTH EVERY EVENING SOLD: 10/11/2019 [facility] 80 mcg/actuation 08/06/2019 12:00:00 AM EST HFA aerosol sawyer th activated 10 INHALE TWO PUFFS BY MOUTH TWICE A DAY INHALE TWO PUFFS BY MOUTH TWICE A DAY SOLD: 09/01/2019 [facility] 80 mcg/actuation 08/06/2019 12:00:00 AM EST HFA aerosol sawyer th activated 10 INHALE TWO PUFFS BY MOUTH TWICE A DAY INHALE TWO PUFFS BY MOUTH TWICE A DAY SOLD: 12/10/2019 [facility] 80 mcg/actuation 08/06/2019 12:00:00 AM EST HFA aerosol sawyer th activated 10 INHALE TWO PUFFS BY MOUTH TWICE A DAY INHALE TWO PUFFS BY MOUTH TWICE A DAY SOLD: 10/11/2019 [facility] 80 mcg/actuation 08/06/2019 12:00:00 AM EST HFA aerosol sawyer th activated 10 INHALE TWO PUFFS BY MOUTH TWICE A DAY INHALE TWO PUFFS BY MOUTH TWICE A DAY SOLD: 02/12/2020 [facility] 80 mcg/actuation 08/06/2019 12:00:00 AM EST HFA aerosol sawyer th activated 10 INHALE TWO PUFFS BY MOUTH TWICE A DAY INHALE TWO PUFFS BY MOUTH TWICE A DAY SOLD: 08/09/2019 [facility] 80 mcg/actuation 08/06/2019 12:00:00 AM EST HFA aerosol sawyer th activated 10 INHALE TWO PUFFS BY MOUTH TWICE A DAY INHALE TWO PUFFS BY MOUTH TWICE A DAY SOLD: 11/12/2019 [facility] 50 mcg/actuation 08/03/2019 12:00:00 AM EST spray,non-aeroso l 17 SPRAY TWO SPRAYS IN EACH NOSTRIL EVERY DAY SPRAY TWO SPRAYS IN EACH NOSTRIL EVERY DAY SOLD: 09/01/2019 [facility] 50 mcg/actuation 08/03/2019 12:00:00 AM EST spray,non-aeroso l 17 SPRAY TWO SPRAYS IN EACH NOSTRIL EVERY DAY SPRAY TWO SPRAYS IN EACH NOSTRIL EVERY DAY SOLD: 10/11/2019 [facility] 300-30 mg 08/03/2019 12:00:00 AM EST tablet 45 TAKE ONE TABLET BY MOUTH EVERY 8 HOURS NEEDED MAXIMUM DAILY DOSE = 3 TABLETS TAKE ONE TABLET BY MOUTH EVERY 8 HOURS NEEDED MAXIMUM DAILY DOSE = 3 TABLETS SOLD: 08/03/2019 [facility] 50 mcg/actuation 08/03/2019 12:00:00 AM EST spray,non-aeroso l 17 SPRAY TWO SPRAYS IN EACH NOSTRIL EVERY DAY SPRAY TWO SPRAYS IN EACH NOSTRIL EVERY DAY SOLD: 08/03/2019 [facility] 800 mg 07/10/2019 12:00:00 AM EST tablet 60 TAKE ONE TABLET BY MOUTH TWICE A DAY NEEDED TAKE ONE TABLET BY MOUTH TWICE A DAY NEEDED SOLD: 020 [facility] 250 mg 07/04/2019 12:00:00 AM EST tablet 4 TAKE ONE TABLET BY MOUTH EVERY DAY TAKE ONE TABLET BY MOUTH EVERY DAY SOLD: 07/04/2019 [facility] 20 mg 07/04/2019 12:00:00 AM EST tablet 20 TAKE THREE TABLETS BY MOUTH EVERY DAY FOR 3 DAYS THEN 2 ONCE DAILY FOR 4 DAYS THEN 1 ONCE DAILY FOR 3 DAYS TAKE THREE TABLETS BY MOUTH EVERY DAY FOR 3 DAYS THEN 2 ONCE DAILY FOR 4 DAYS THEN 1 ONCE DAILY FOR 3 DAYS SOLD: 07/04/2019 [facility] 150 mg 07/04/2019 12:00:00 AM EST tablet 2 TAKE 1 TABLET BY MOUTH ONCE FOR YEAST INFECTION TAKE 1 TABLET BY MOUTH ONCE FOR YEAST INFECTION SOLD: 07/04/2019 [facility] 90 mcg/actuation 06/30/2019 12:00:00 AM EST HFA aerosol inha ler 18 INHALE TWO PUFFS BY MOUTH EVERY 4 TO 6 HOURS NEEDED INHALE TWO PUFFS BY MOUTH EVERY 4 TO 6 HOURS NEEDED SOLD: 03/16/2020 [facility] 90 mcg/actuation 06/30/2019 12:00:00 AM EST HFA aerosol inha ler 18 INHALE TWO PUFFS BY MOUTH EVERY 4 TO 6 HOURS NEEDED INHALE TWO PUFFS BY MOUTH EVERY 4 TO 6 HOURS NEEDED SOLD: 07/04/2019 [facility] 350 mg 06/24/2019 12:00:00 AM EST tablet 10 TAKE ONE TABLET BY MOUTH EVERY 8 HOURS NEEDED FOR SPASMS AND PAIN MAXIMUM DAILY DOSE = 2 TABLET TAKE ONE TABLET BY MOUTH EVERY 8 HOURS NEEDED FOR SPASMS AND PAIN MAXIMUM DAILY DOSE = 2 TABLET SOLD: 06/24/2019 [facility] [place] 5-325 MG UNK 06/24/2019 12:00:00 AM EST active 1 tablet as needed [email or web address] ([facility]) Acetaminophen 325 MG / Hydrocodone [place] trate 5 MG Oral Tablet [[place]] [place] 5- 325 MG [place] 5-325 MG 06/24/2019 12:00:00 AM EST a ctive 1 tablet as needed eCW1 ([facility]) Acetaminophen 325 MG / Hydrocodone [place] trate 5 MG Oral Tablet [[place]] [place] 5- 325 MG [place] 5-325 MG 06/24/2019 12:00:00 AM EST a ctive 1 tablet as needed eCW1 ([facility]) Acetaminophen 325 MG / Hydrocodone [place] trate 5 MG Oral Tablet [[place]] [place] 5- 325 MG [place] 5-325 MG 06/24/2019 12:00:00 AM EST 1.0 {tablet_as_needed} active [place] 5-325 MG eCW1 ([facility]) 5-325 mg 06/24/2019 12:00:00 AM EST tablet 30 TAKE ONE TABLET BY MOUTH EVERY 8 HOURS NEEDED MAXIMUM DAILY DOSE = 3 TAKE ONE TABLET BY MOUTH EVERY 8 HOURS NEEDED MAXIMUM DAILY DOSE = 3 SOLD: 06/24/2019 [employer] Acetaminophen 325 MG / Hydrocodone [place] trate 5 MG Oral Tablet [[place]] [place] 5- 325 MG [place] 5-325 MG 06/24/2019 12:00:00 AM EST a ctive 1 tablet as needed eCW1 ([facility]) Acetaminophen 325 MG / Hydrocodone [place] trate 5 MG Oral Tablet [[place]] [place] 5- 325 MG [place] 5-325 MG 06/24/2019 12:00:00 AM EST a ctive 1 tablet as needed eCW1 ([facility]) Acetaminophen 325 MG / Hydrocodone [place] trate 5 MG Oral Tablet [[place]] [place] 5- 325 MG [place] 5-325 MG 06/24/2019 12:00:00 AM EST a ctive 1 tablet as needed eCW1 ([facility]) Acetaminophen 325 MG / Hydrocodone [place] trate 5 MG Oral Tablet [[place]] [place] 5- 325 MG [place] 5-325 MG 06/24/2019 12:00:00 AM EST a ctive 1 tablet as needed eCW1 ([facility]) Acetaminophen 325 MG / Hydrocodone [place] trate 5 MG Oral Tablet [[place]] [place] 5- 325 MG [place] 5-325 MG 06/24/2019 12:00:00 AM EST s uspended 1 tablet as needed eCW1 ([facility]) 50 mcg/actuation 06/23/2019 12:00:00 AM EST spray,non-aeroso l 17 SPRAY TWO SPRAYS IN EACH NOSTRIL EVERY DAY SPRAY TWO SPRAYS IN EACH NOSTRIL EVERY DAY SOLD: 06/23/2019 [employer] [employer] Nebulizer Kit/Tubing/Mouthpiece 06/20/2019 12:00:00 AM EST active MED[facility] ([facility]) Compressor Nebulizer 06/20/2019 12:00:00 AM EST active MED[facility] ([facility]) Insurance Providers Payer name Policy type / Coverage type Policy ID Covered alliance party ID Covered alliance party's relationship to bobo Policy Bobo Plan Information RADHA [id number] SP [id number] [employer] [place] [id number] SP [id number] [place]/307 [id number] SP [id number] [employer] BC-BS PPO 306 [id number] SP [id number] [employer] O [id number] S [id number] [employer] O [id number] S [id number] [employer] O [id number] S [id number] [place] P[place] 302/307 [id number] SP [id number] [employer] [place] [employer] [place] [id number] SP [id number] [place] [facility] O [id number] S [id number] [employer] BCBS B [id number] S [id number] [employer] BC-BS PPO 306 [id number] SP [id number] [employer] BCBS [id number] Emilia VYA [id number] [employer] BC-BS PPO 306 [id number] SP [id number] ANSI-Medicaid [id number] ANSI-Commercial [id number]-i087-5a5p-n2t0-bunf5w54p03c b8r08b30-l781-0c2u-q3f0-ouks3g33x21z ANSI-Medicaid [id number] ANSI-Commercial [id number]-3mm6-[id number] 34c0v684-1ku8-5bry-8ej4-by0142q25um4 ANSI-Medicaid [id number] ANSI-Commercial [id number]-q2k6-8a8m336zoujd c794h180-56t4-62xi-o6w1-7a8z128rqupw ANSI-Commercial 68z5k3mb-[id number] 00h2e6yu-[id number] ANSI-Medicaid [id number] ANSI-Medicaid [id number] ANSI-Commercial [id number]-h91l-50pj-200f-[id number] [facility] [id number] Preferred Provider Organization (PPO) [id number] ANSI-Commercial [id number]-4gm7-9j39-75t2-[id number] 25c7347k-5di9-5s58-68z4-t3wx5h2c259w ANSI-Commercial 39lur197-30lp-3x42-s032-10d5qiy2wf3c 04txr469-81dh-9r77-d808-81s9rak5dv8f ANSI-Commercial 76v7wt86-vnpj-6ez0-xvv5-n1yi5d208uww 39n1uf98-chci-2kw8-mcz6-w6vz0u606mfs ANSI-Commercial vtf887b7-u8o8-1y5o-1o0o-0m484n001bn2 vro135y6-v6q5-9h5h-4r8d-9q857d395pt9 [facility] [id number] SP [id number] ANSI-Commercial 5v045l5y-154l-1j7y-u8x6-51188y48dz9m 6u024r5b-327r-2r4p-r9k5-85257z41kh7f ANSI-Commercial gn656709-0675-3783-nx31-9f8dhzwmz66z dk385220-0542-2257-zk82-5e5cpvuvr18f ANSI-Commercial m3wui448-7cl3-651t-918n-l51403ap0mxm n5yaw559-8ri3-031i-394i-n29775sy4tqt ANSI-Commercial 05b03xt2-8f0e-56t0-6di9-70677ujftzwn 78t72iz7-7w3f-64x6-4hc8-27998somavbs ANSI-Commercial 24mj9487-20pi-6936-q3mt-n2cg8422m294 62qe4777-96md-8213-o1gn-k7qo3460b004 ANSI-Commercial 923e85d1-5932-9v5b-02c9-5451645628n9 329d84v2-3821-6a3f-71f1-3008257217g3 ANSI-Commercial h63s276q-8s0j-851f-8579-0427882qae90 y71x344c-9m3i-796x-3648-7207229ffe66 ANSI-Commercial 88q15mj3-9v17-7126-b547-46adb1n888b1 05q22su4-3s42-8288-u525-30xqd3z037p8 ANSI-Commercial 6er6m342-jq40-9d12-64v5-y70q6o65297u 4io7r089-no00-4z16-89i0-r78d0k65002d ANSI-Commercial i4p50d80-726s-1h85-9307-1t7t63814qk8 s0y39u15-981k-5c52-3163-5m2g28197sk5 ANSI-Commercial oy964xv9-7w59-38sj-fk1p-13f83tx44un6 hi789ld7-0l83-71mp-mf1f-49t77wy25xk7 ANSI-Commercial 226nyxs1-394z-1fjp-e46d-nn081dokxgi8 811auug9-854u-7sel-i75h-of117gpjnrk7 ANSI-Commercial u9s53031-a0u8-42g7-9y11-v07xcoe4p1lm r8t23351-z7b9-86o5-1i97-w06grwc5d5zr ANSI-Commercial c795glc8-h0ql-19oc-1343-45czn7r19v1s k722kkt3-a4du-56hb-3903-22lfc2z28p7u ANSI-Commercial ds840ss7-3c2c-5q58-a996-9h5usg01553o kk603ij2-1g5j-7t01-l494-1i8euk66268h ANSI-Commercial 1ayn16wp-r593-00c7-314x-0hm088e39j91 2gxt51tw-d997-16n4-811n-8mb546a63u90 ANSI-Commercial 84i1het6-348t-6924-j41r-kroj52h54581 88h3kjh5-268g-8228-b69e-ogmj12v39479 ANSI-Commercial 2b5305q2-335d-8759-958i-d539k6o86557 8e9936w6-201z-6934-598r-r739j3w37910 ANSI-Commercial 98cuorbl-w572-5331m031-5751-4058-tl1dn3z883z0 97qlhjly-a829-7730j244-6029-3326-jk6sh0x262e6 ANSI-Commercial 0s87i1d8-y9gx-7611-xl8w-4v5s516fch9b 3g98m8h3-k3aw-6755-uz9f-4a8n489ozr5t ANSI-Commercial 009d85ko-yjy3-445x-g36q-m6p759u69pcl 025w32pa-gdi6-871u-p14w-c3b552u52pvn ANSI-Commercial 53272cv9-qse6-5t27-t6da-1630v3f3g639 82422sv6-iop9-0h02-x4ua-5031j6l8s846 [facility] [id number] SP [id number] [place] 306/806 [id number] SP [id number] ANSI-Commercial y18r5r3j-6297-160m-e345-8wa01w098116 l62q2n0p-0561-031u-m366-0tw97c335967 ANSI-Commercial 116ln06s-7931-6s99-280t-069iq01v10d6 202jr09z-8309-6e22-635o-865lv93y22g9 ANSI-Commercial x17vu14l-f8x6-3ri2-38v2-i1ce5q196391 r42ch87a-p1v8-8gr8-57n2-j8bt8z195123 ANSI-Commercial 0vklw200-b792-0u47-nf91-72l72pise13u 6dqdl309-f858-3f80-hi36-10n53gxtr22a BCBS/Blue Card Commercial [id number] Self V [id number] MEDICARE BLUE PPO 306 SP ANSI-Commercial 00785l04-134m-00n3-20j8-9mo321h851g6 10557a98-311l-68g7-78c5-1qw214a753i8 ANSI-Medicaid [id number] [facility]) O [id number] S [id number] ANSI-Medicaid [id number] ANSI-Commercial 93ep3702-36ns-14c0-p97a-34v2we385fi8 85ur3734-01af-13e1-h05v-38s2os737jn4 [facility] [id number] ANSI-Commercial 7b2ff315-r4wz-779t-2a95-mjth8ttyqr5d 8j3qr614-m2ig-938y-7x10-vdgb0uftdg3s [facility] [id number] ANSI-Commercial af1f20xj-8es3-0865-u14m-26568d3n7v55 bg0u97lv-1af6-3962-k82m-73102j4g0y99 [facility] [id number] ANSI-Commercial 126z169a-v131-21zg-gx0h-8qmi0kb7454l 448d914t-s277-47kd-ek2t-7rky3re7987i ANSI-Commercial 143510g7-29d6-4z04-q614-v6rpcq71r78j 483196g2-47s8-6r27-a696-y0vesn54s52o [facility] [id number] [facility]-Medicaid [id number] [facility]-Commercial 2988i897-vlkt-84h5-1846-h0n3b1m1ulra 9979l513-ougp-38t8-2531-z8o3m7n5anmr ANSI-Commercial qm9511e1-93s0-94o5-50c6-4n7bt657ic1k pq1163t2-23b3-42k5-33n1-0h3iu113rn4e ANSI-Medicaid [id number] ANSI-Commercial su0e064x-s500-81h1-57k7-17co9167j8u9 jq2r383x-y805-14c0-57c6-33ib1831d9s8 [facility] [id number] ANSI-Commercial 0c375w87-9n9c-9486-874t-b69fn5h1wt9o 9t576h65-7x4a-1184-747h-q92aq2t5eo3p [facility]-Medicaid [id number] [facility]-Medicaid [id number] ANSI-Commercial o623x728-57i0-5c61-ho31-22j362cizt50 p708c150-85b3-9g40-xs56-60r402mosj27 [facility] [id number] ANSI-Commercial 4k5u467c-s5of-5y66-727j-633p3g5r814o 2r6v302r-p6vu-1j98-588t-030g1t5j368i [employer] COMMUNITY [employer]AN MCDHMO [id number] SP [id number] ANSI-Commercial 34a90e2w-261u-973t-a94i-070xi00661q8 16y00u2s-147m-189a-l82p-568va35214p7 ANSI-Medicaid [id number] ANSI-Medicaid [id number] ANSI-Commercial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 18 /min eCW1 ([facility]) Heart rate 86 /min 86 /min eCW1 ([facility]) Body mass index (BMI) [Ratio] 34.72 kg/m2 34.72 kg/m2 eCW1 ([facility]) Body height 63 [in_us] 63 [in_us] eCW1 ([facility]) Body weight Measured 196 [lb_av] 196 [lb_av] eC W1 ([facility]) Diastolic blood pressure 64 mm[Hg] 64 mm[Hg] eCW1 ([facility]) Body weight 89.870 kg 89.870 kg KINGSLEY ([facility], ) Body mass index (BMI) [Ratio] 35.1 kg/m2 35.1 k g/m2 MEDENT ([facility], ) Body weight 198.12 [lb_av] 198.12 [lb_av] WILLIEEN T ([facility], ) Body height 63 [in_i] 63 [in_i] KINGSLEY ([facility], ) 5'3" Oxygen saturation in Arterial blood by Pulse oximetry 98 % 98 % [facility] ([facility], ) Room Air Heart rate 79 /min 79 /min MEDENT ([facility], ) Diastolic blood pressure 88 mm[Hg] 88 mm[Hg] MEDENT ([facility], ) Systolic blood pressure 142 mm[Hg] 142 mm[Hg] M EDENT ([facility], ) Body mass index (BMI) [Ratio] 33.5 kg/m2 33.5 k g/m2 MEDENT ([facility]) Body weight 189.00 [lb_av] 189.00 [lb_av] MEDEN T ([facility]) Body height 63 [in_i] 63 [in_i] MEDENT ([facility]) 5'3" Body temperature 98.0 [degF] 98.0 [degF] MEDENT ([facility]) Diastolic blood pressure 81 mm[Hg] 81 mm[Hg] eCW1 ([facility]) Systolic blood pressure 120 mm[Hg] 120 mm[Hg] e CW1 ([facility]) Body temperature 98.2 [degF] 98.2 [degF] eCW1 ( [facility]) Respiratory rate 18 /min 18 /min eCW1 ([facility]) Heart rate 80 /min 80 /min eCW1 ([facility]) Body mass index (BMI) [Ratio] 34.36 kg/m2 34.36 kg/m2 W1 ([facility]) Body height 63 [in_us] 63 [in_us] eCW1 ([facility]) Body weight Measured 194 [lb_av] 194 [lb_av] eC W1 ([facility]) Diastolic blood pressure 85 mm[Hg] 85 mm[Hg] eCW1 ([facility]) Systolic blood pressure 135 mm[Hg] 135 mm[Hg] e CW1 ([facility]) Body temperature 97.8 [degF] 97.8 [degF] eCW1 ( [facility]) Respiratory rate 18 /min 18 /min eCW1 ([facility]) Heart rate 81 /min 81 /min eCW1 ([facility]) Body mass index (BMI) [Ratio] 34.72 kg/m2 34.72 kg/m2 eCW1 ([facility]) Body height 63 [in_i] 63 [in_i] eCW1 ([facility]) Body weight 196 [lb_av] 196 [lb_av] eCW1 [facility] Diastolic blood pressure 79 mm[Hg] 79 mm[Hg] eCW1 ([facility]) Systolic blood pressure 137 mm[Hg] 137 mm[Hg] e CW1 ([facility]) Body temperature 97.0 [degF] 97.0 [degF] eCW1 ( [facility]) Respiratory rate 18 /min 18 /min eCW1 ([facility]) Heart rate 69 /min 69 /min eCW1 ([facility]) Body mass index (BMI) [Ratio] 34.36 kg/m2 34.36 kg/m2 eCW1 ([facility]) Body height 63 [in_us] 63 [in_us] eCW1 ([facility]) Body weight Measured 194 [lb_av] 194 [lb_av] eC W1 ([facility]) Diastolic blood pressure 83 mm[Hg] 83 mm[Hg] eCW1 ([facility]) Systolic blood pressure 132 mm[Hg] 132 mm[Hg] e CW1 ([facility]) Body temperature 96.9 [degF] 96.9 [degF] eCW1 ( [facility]) Respiratory rate 18 /min 18 /min eCW1 ([facility]) Heart rate 74 /min 74 /min eCW1 ([facility]) Body mass index (BMI) [Ratio] 35.28 kg/m2 35.28 kg/m2 eCW1 ([facility]) Body height 63 [in_us] 63 [in_us] eCW1 ([facility]) Body weight Measured 199.2 [lb_av] 199.2 [lb_av ] eCW1 ([facility]) Body mass index (BMI) [Ratio] 34.9 kg/m2 34.9 k g/m2 MEDENT ([facility]) Diastolic blood pressure 86 mm[Hg] 86 mm[Hg] MEDENT ([facility]) Systolic blood pressure 138 mm[Hg] 138 mm[Hg] M EDENT ([facility]) Respiratory rate 16 /min 16 /min MEDENT ( [facility]) Heart rate 72 /min 72 /min MEDENT ([facility] Body height 63 [in_i] 63 [in_i] MEDENT ([facility] 5'3" Body weight 197.00 [lb_av] 197.00 [lb_av] MEDEN T ([facility] Diastolic blood pressure 82 mm[Hg] 82 mm[Hg] eCW1 ([facility]) Systolic blood pressure 141 mm[Hg] 141 mm[Hg] e CW1 ([facility]) Body temperature 96.9 [degF] 96.9 [degF] eCW1 ( [facility]) Respiratory rate 18 /min 18 /min eCW1 ([facility]) Heart rate 70 /min 70 /min eCW1 ([facility]) Body mass index (BMI) [Ratio] 35.14 kg/m2 35.14 kg/m2 W1 ([facility]) Body height 63 [in_us] 63 [in_us] eCW1 ([facility]) Body weight Measured 198.4 [lb_av] 198.4 [lb_av ] eCW1 ([facility]) Diastolic blood pressure 81 mm[Hg] 81 mm[Hg] eCW1 ([facility]) Systolic blood pressure 144 mm[Hg] 144 mm[Hg] e CW1 ([facility]) Body temperature 97.3 [degF] 97.3 [degF] eCW1 ( [facility]) Respiratory rate 18 /min 18 /min eCW1 ([facility]) Heart rate 84 /min 84 /min eCW1 ([facility]) Body mass index (BMI) [Ratio] 35.32 kg/m2 35.32 kg/m2 eCW1 ([facility]) Body height 63 [in_us] 63 [in_us] eCW1 ([facility]) Body weight Measured 199.4 [lb_av] 199.4 [lb_av ] eCW1 ([facility]) Patient Treatment Plan of Care Planned Activity Planned Date Details Description Data Source (s) Acetaminophen 325 MG / Hydrocodone Bitartrate 5 MG Ora l Tablet 05/24/2020 12:00:00 AM EST [facility] Acetaminophen 325 MG / Hydrocodone Bitartrate 5 MG Ora l Tablet 05/24/2020 12:00:00 AM EST eCW1 [facility] Acetaminophen 325 MG / Hydrocodone Bitartrate 5 MG Ora l Tablet 05/24/2020 12:00:00 AM EST eCW1 ([facility] Acetaminophen 300 MG / Codeine Phosphate 30 MG Oral Ta blet 03/08/2020 12:00:00 AM EDT eCW1 [facility] Acetaminophen 300 MG / Codeine Phosphate 30 MG Oral Ta blet 03/08/2020 12:00:00 AM EDT eCW1 [facility] Acetaminophen 300 MG / Codeine Phosphate 30 MG Oral Ta blet 03/08/2020 12:00:00 AM EDT eCW1 [facility] Acetaminophen 300 MG / Codeine Phosphate 30 MG Oral Ta blet 03/08/2020 12:00:00 AM EDT eCW1 [facility] Acetaminophen 325 MG / Hydrocodone Bitartrate 5 MG Ora l Tablet 03/08/2020 12:00:00 AM EDT eCW1 [facility] Acetaminophen 300 MG / Codeine Phosphate 30 MG Oral Ta blet 03/08/2020 12:00:00 AM EDT eCW1 [facility] Acetaminophen 300 MG / Codeine Phosphate 30 MG Oral Ta blet 03/08/2020 12:00:00 AM EDT eCW1 [facility] Acetaminophen 325 MG / Hydrocodone Bitartrate 5 MG Ora l Tablet 03/08/2020 12:00:00 AM EDT eCW1 [facility] Acetaminophen 300 MG / Codeine Phosphate 30 MG Oral Ta blet 03/08/2020 12:00:00 AM EDT eCW1 [facility] Acetaminophen 325 MG / Hydrocodone Bitartrate 5 MG Ora l Tablet 03/08/2020 12:00:00 AM EDT eCW1 [facility] Acetaminophen 300 MG / Codeine Phosphate 30 MG Oral Ta blet 03/08/2020 12:00:00 AM EDT eCW1 ([facility] Acetaminophen 325 MG / Hydrocodone Bitartrate 5 MG Ora l Tablet 03/08/2020 12:00:00 AM EDT eCW1 ([facility] Acetaminophen 300 MG / Codeine Phosphate 30 MG Oral Ta blet 03/08/2020 12:00:00 AM EDT eCW1 ([facility] Acetaminophen 300 MG / Codeine Phosphate 30 MG Oral Ta blet 03/08/2020 12:00:00 AM EDT eCW1 ([facility] Prednisone 10 MG Oral Tablet 12/19/2019 12:00:00 AM EDT eCW1 ([facility]) Prednisone 10 MG Oral Tablet 12/19/2019 12:00:00 AM EDT eCW1 ([facility]) Prednisone 10 MG Oral Tablet 12/19/2019 12:00:00 AM EDT eCW1 ([facility]) Prednisone 10 MG Oral Tablet 12/19/2019 12:00:00 AM EDT eCW1 ([facility]) Prednisone 10 MG Oral Tablet 12/19/2019 12:00:00 AM EDT eCW1 ([facility]) Prednisone 10 MG Oral Tablet 12/19/2019 12:00:00 AM EDT eCW1 ([facility]) Prednisone 10 MG Oral Tablet 12/19/2019 12:00:00 AM EDT eCW1 ([facility]) Prednisone 10 MG Oral Tablet 12/19/2019 12:00:00 AM EDT eCW1 ([facility]) Prednisone 10 MG Oral Tablet 12/19/2019 12:00:00 AM EDT eCW1 ([facility]) Prednisone 10 MG Oral Tablet 12/19/2019 12:00:00 AM EDT eCW1 ([facility]) Acetaminophen 325 MG / Hydrocodone Bitartrate 5 MG Ora l Tablet [[place]] 12/13/2019 12:00:00 AM EDT eCW1 ([facility]) Acetaminophen 325 MG / Hydrocodone Bitartrate 5 MG Ora l Tablet [[place]] 12/13/2019 12:00:00 AM EDT eCW1 ([facility]) Acetaminophen 325 MG / Hydrocodone Bitartrate 5 MG Ora l Tablet [[place]] 12/13/2019 12:00:00 AM EDT eCW1 ([facility]) Acetaminophen 325 MG / Hydrocodone Bitartrate 5 MG Ora l Tablet [[place]] 12/13/2019 12:00:00 AM EDT eCW1 ([facility]) Prednisone 20 MG Oral Tablet 12/12/2019 12:00:00 AM EDT eCW1 ([facility]) Prednisone 20 MG Oral Tablet 12/12/2019 12:00:00 AM EDT eCW1 ([facility]) Prednisone 20 MG Oral Tablet 12/12/2019 12:00:00 AM EDT eCW1 ([facility]) Prednisone 20 MG Oral Tablet 12/12/2019 12:00:00 AM EDT eCW1 ([facility]) Prednisone 20 MG Oral Tablet 12/12/2019 12:00:00 AM EDT eCW1 ([facility]) Prednisone 20 MG Oral Tablet 12/12/2019 12:00:00 AM EDT eCW1 ([facility]) Prednisone 20 MG Oral Tablet 12/12/2019 12:00:00 AM EDT eCW1 ([facility]) Acetaminophen 325 MG / Hydrocodone Bitartrate 5 MG Ora l Tablet [[place]] 11/02/2019 12:00:00 AM EDT eCW1 ([facility]) Acetaminophen 325 MG / Hydrocodone Bitartrate 5 MG Ora l Tablet [[place]] 11/02/2019 12:00:00 AM EDT eCW1 ([facility]) Prednisone 20 MG Oral Tablet 10/19/2019 12:00:00 AM EDT eCW1 ([facility]) Prednisone 20 MG Oral Tablet 10/19/2019 12:00:00 AM EDT eCW1 ([facility]) Nystatin [id number] UNT/ML Oral Suspension 09/20/2019 12:00:00 AM EDT eCW1 ([facility]) Nystatin [id number] UNT/ML Oral Suspension 09/20/2019 12:00:00 AM EDT eCW1 ([facility]) Prednisone 20 MG Oral Tablet 09/01/2019 12:00:00 AM EDT eCW1 ([facility]) Acetaminophen 325 MG / Hydrocodone Bitartrate 5 MG Ora l Tablet [[place]] 06/24/2019 12:00:00 AM EST [email or web address] ([facility]) Acetaminophen 325 MG / Hydrocodone Bitartrate 5 MG Ora l Tablet [[place]] 06/24/2019 12:00:00 AM EST eCW1 ([facility])
[2020-08-02] MEDS ORDERED: methylPREDNISolone 125MG 2ML VIAL IV ONE (19:40)
--- OUTSIDE RECORDS SUMMARY | 2020-08-02 20:05 | CCD ---
Author Author [facility] Organization [facility] Address Unknown Phone Unavailable Care Team Providers Care Clipper And Turner Name Role Phone SHANNA MORROW MD Unavailable [...] Anirudh Mancuso MD Unavailable Unavailable Vaneenenaam, Anirudh Macnuso MD Unavailable Unavailable VaneencheriamAnirudh MD Unavailable Unavailable [...] Anirudh Mancuso MD Unavailable Unavailable Canela, Tara ALBERENE STONE SETTER Unavailable Unavailable Canela, Tara ALBERENE STONE SETTER Unavailable Unavailable Canela, Tara ALBERENE STONE SETTER Unavailable Unavailable Canela, Tara ALBERENE STONE SETTER Unavailable Unavailable Canela, Tara ALBERENE STONE SETTER Unavailable Unavailable Canela, Tara ALBERENE STONE SETTER Unavailable Unavailable Canela, Tara ALBERENE STONE SETTER Unavailable Unavailable Canela, Tara ALBERENE STONE SETTER Unavailable Unavailable Canela, Tara ALBERENE STONE SETTER Unavailable Unavailable Canela, Tara ALBERENE STONE SETTER Unavailable Unavailable Canela, Tara ALBERENE STONE SETTER Unavailable Unavailable Schaffer, L Kayden RAMEY Unavailable [...] is protected by Article 27-F of the [facility] Public Health law. If you continue you may have access to information: Regarding HIV / AIDS; Provided by facilities licensed or operated by the [facility] Office of Mental Health; or Provided by the [facility] Office for People With Developmental Disabilities. If such information is present, then the following [facility] mandated warning applies: This information has been [...] law may result in a fine or long term sentence or both. A general authorization for the release of medical or other information is NOT sufficient authorization for further disc losure. Allergies and Adverse Reactions Type Description Substance Reaction Status Data Source(s ) Drug allergy Compazine Drug allergy unknown Active eCW1 ([facility]) Drug allergy Amoxicillin Drug allergy Hives Active eCW1 ([facility]) Drug allergy Metoclopramide HCl Metoclopramide Seizures Active eCW1 ([facility], [facility]) Drug allergy Gabapentin gabapentin confusion Active eCW1 ([facility]) Drug allergy Paxil Paroxetine throat swelling Active eCW1 ( [facility], [facility]) Drug allergy Cymbalta Drug allergy Anaphylaxis Active eCW1 ([facility]) Drug allergy Morphine Sulfate Morphine Hives Active eCW1 ( [facility], [facility]) aspirin Aspirin Aspirin hives Active eCW1 ([facility]) Drug allergy Zoloft Sertraline throat swelling Active eCW1 ( [facility], [facility]) Drug allergy Methotrexate Methotrexate Sores in mouth, body aches; lower RBC's count Active eCW1 ([facility]) Drug allergy Fentanyl Fentanyl throat swelling Active eCW1 ( [facility], [facility]) Drug allergy Watermelon Flavor Drug allergy IBS flare-up; reddened sk in Active eCW1 ([facility], [facility]) Drug allergy Tramadol Tramadol seizures Active eCW1 ([facility]) Drug allergy Naproxen Naproxen Anaphylaxis/hives Active eCW1 ([facility], [facility]) Drug allergy Betadine Povidone-Iodine hives/breathing problem Acti ve eCW1 ([facility], [facility]) Influenza Vac Split Quad Influenza Vac Split Quad Influenza Vac Split Quad swelling at site Active eCW1 ([facility]) Motrin Motrin Motrin Anaphylaxis/hives Active eCW1 ( [facility], [facility]) Wellbutrin Wellbutrin Wellbutrin hives Active eCW1 ([facility]) Flexeril Flexeril Flexeril heart stops Active eCW1 ([facility]) flu vaccine flu vaccine flu vaccine swelling at site Active eCW1 ([facility], [facility]1983) Diluting solution for allergy shots Diluting solution for al lergy shots Diluting solution for allergy shots swelling Active eCW1 ([facility]) watermelon watermelon watermelon bright red skin, IBS flare up, nausea vomiting Active eCW1 ([facility]) NSAIDS NSAIDS NSAIDS Anaphylaxis Active eCW1 ([facility]) Influenza Vac Split Quad Influenza Vac Split Quad Influenza Vac Split Quad swelling at site Active eCW1 ([facility]) Motrin Motrin Motrin Anaphylaxis/hives Active eCW1 ( [facility], [facility]) Wellbutrin Wellbutrin Wellbutrin hives Active eCW1 ([facility]) Flexeril Flexeril Flexeril heart stops Active eCW1 ([facility]) NSAIDS NSAIDS NSAIDS Anaphylaxis Active eCW1 ([facility]) Diluting solution for allergy shots Diluting solution for al lergy shots Diluting solution for allergy shots swelling Active eCW1 ([facility]) flu vaccine flu vaccine flu vaccine swelling at site Active eCW1 ([facility], [facility]) watermelon watermelon watermelon bright red skin, IBS flare up, nausea vomiting Active eCW1 ([facility]) Influenza Vac Split Quad Influenza Vac Split Quad Influenza Vac Split Quad swelling at site Active eCW1 ([facility]) Motrin Motrin Motrin Anaphylaxis/hives Active eCW1 ( [facility], [facility]) Wellbutrin Wellbutrin Wellbutrin hives Active eCW1 ([facility]) Flexeril Flexeril Flexeril heart stops Active eCW1 ([facility]) flu vaccine flu vaccine flu vaccine swelling at site Active eCW1 ([facility], [facility]–1983) Diluting solution for allergy shots Diluting solution for al lergy shots Diluting solution for allergy shots swelling Active eCW1 ([facility]) watermelon watermelon watermelon bright red skin, IBS flare up, nausea vomiting Active eCW1 ([facility]) NSAIDS NSAIDS NSAIDS Anaphylaxis Active eCW1 ([facility]) Influenza Vac Split Quad Influenza Vac Split Quad Influenza Vac Split Quad swelling at site Active eCW1 ([facility]) Motrin Motrin Motrin Anaphylaxis/hives Active eCW1 ( [facility], [facility]) Wellbutrin Wellbutrin Wellbutrin hives Active eCW1 ([facility]) Flexeril Flexeril Flexeril heart stops Active eCW1 ([facility]) flu vaccine flu vaccine flu vaccine swelling at site Active eCW1 ([facility], [facility]–1983) Diluting solution for allergy shots Diluting solution for al lergy shots Diluting solution for allergy shots swelling Active eCW1 ([facility]) watermelon watermelon watermelon bright red skin, IBS flare up, nausea vomiting Active eCW1 ([facility]) NSAIDS NSAIDS NSAIDS Anaphylaxis Active eCW1 ([facility]) Influenza Vac Split Quad Influenza Vac Split Quad Influenza Vac Split Quad swelling at site Active eCW1 ([facility]) Motrin Motrin Motrin Anaphylaxis/hives Active eCW1 ( [facility], 1928–[facility]) Wellbutrin Wellbutrin Wellbutrin hives Active eCW1 ([facility]) Flexeril Flexeril Flexeril heart stops Active eCW1 ([facility]) flu vaccine flu vaccine flu vaccine swelling at site Active eCW1 ([facility], 1928–1983) Diluting solution for allergy shots Diluting solution for al lergy shots Diluting solution for allergy shots swelling Active eCW1 ([facility]) watermelon watermelon watermelon bright red skin, IBS flare up, nausea vomiting Active eCW1 ([facility]) NSAIDS NSAIDS NSAIDS Anaphylaxis Active eCW1 ([facility]) Influenza Vac Split Quad Influenza Vac Split Quad Influenza Vac Split Quad swelling at site Active eCW1 ([facility]) Motrin Motrin Motrin Anaphylaxis/hives Active eCW1 ( [facility], [facility]) Wellbutrin Wellbutrin Wellbutrin hives Active eCW1 ([facility]) Flexeril Flexeril Flexeril heart stops Active eCW1 ([facility]) flu vaccine flu vaccine flu vaccine swelling at site Active eCW1 ([facility], [facility]–1983) Diluting solution for allergy shots Diluting solution for al lergy shots Diluting solution for allergy shots swelling Active eCW1 ([facility]) watermelon watermelon watermelon bright red skin, IBS flare up, nausea vomiting Active eCW1 ([facility]) NSAIDS NSAIDS NSAIDS Anaphylaxis Active eCW1 ([facility]) Influenza Vac Split Quad Influenza Vac Split Quad Influenza Vac Split Quad swelling at site Active eCW1 ([facility]) Motrin Motrin Motrin Anaphylaxis/hives Active eCW1 ( [facility], 1928–[facility]) Wellbutrin Wellbutrin Wellbutrin hives Active eCW1 ([facility]) Flexeril Flexeril Flexeril heart stops Active eCW1 ([facility]) flu vaccine flu vaccine flu vaccine swelling at site Active eCW1 ([facility], [facility]–1983) Diluting solution for allergy shots Diluting solution for al lergy shots Diluting solution for allergy shots swelling Active eCW1 ([facility]) watermelon watermelon watermelon bright red skin, IBS flare up, nausea vomiting Active eCW1 ([facility]) NSAIDS NSAIDS NSAIDS Anaphylaxis Active eCW1 ([facility]) Influenza Vac Split Quad Influenza Vac Split Quad Influenza Vac Split Quad swelling at site Active eCW1 ([facility]) Motrin Motrin Motrin Anaphylaxis/hives Active eCW1 ( [facility], 1928–[facility]) Wellbutrin Wellbutrin Wellbutrin hives Active eCW1 ([facility]) Flexeril Flexeril Flexeril heart stops Active eCW1 ([facility]) flu vaccine flu vaccine flu vaccine swelling at site Active eCW1 ([facility], 1928–1983) Diluting solution for allergy shots Diluting solution for al lergy shots Diluting solution for allergy shots swelling Active eCW1 ([facility]) watermelon watermelon watermelon bright red skin, IBS flare up, nausea vomiting Active eCW1 ([facility]) NSAIDS NSAIDS NSAIDS Anaphylaxis Active eCW1 ([facility]) Wellbutrin Wellbutrin Wellbutrin hives Active eCW1 ([facility]) Flexeril Flexeril Flexeril heart stops Active eCW1 ([facility]) flu vaccine flu vaccine flu vaccine swelling at site Active eCW1 ([facility], [facility]) Diluting solution for allergy shots Diluting solution for al lergy shots Diluting solution for allergy shots swelling Active eCW1 ([facility]) watermelon watermelon watermelon bright red skin, IBS flare up, nausea vomiting Active eCW1 ([facility]) NSAIDS NSAIDS NSAIDS Anaphylaxis Active eCW1 ([facility]) Influenza Vac Split Quad Influenza Vac Split Quad Influenza Vac Split Quad swelling at site Active eCW1 ([facility]) Motrin Motrin Motrin Anaphylaxis/hives Active eCW1 ( [facility], [facility]) Influenza Vac Split Quad Influenza Vac Split Quad Influenza Vac Split Quad swelling at site Active eCW1 ([facility]) Motrin Motrin Motrin Anaphylaxis/hives Active eCW1 ( [facility], [facility]) Wellbutrin Wellbutrin Wellbutrin hives Active eCW1 ([facility]) Flexeril Flexeril Flexeril heart stops Active eCW1 ([facility]) flu vaccine flu vaccine flu vaccine swelling at site Active eCW1 ([facility], [facility]–1983) Diluting solution for allergy shots Diluting solution for al lergy shots Diluting solution for allergy shots swelling Active eCW1 ([facility]) watermelon watermelon watermelon bright red skin, IBS flare up, nausea vomiting Active eCW1 ([facility]) NSAIDS NSAIDS NSAIDS Anaphylaxis Active eCW1 ([facility]) Family History Family Member Name Family Member Gender Family Member Status Date o f Status Description Data Source(s) Unknown Unknown Problem MEDENT ([facility]) Unknown Unknown Problem MEDENT ([facility] ) Unknown Unknown Problem MEDENT ([facility] Unknown Unknown Problem MEDENT ([facility]) Unknown Unknown Problem MEDENT ([facility] ) Unknown Unknown Problem MED[facility] ([facility]) Unknown Unknown Problem MEDENT ([facility], ) Unknown Unknown Problem MEDENT ([facility], ) Unknown Unknown Problem MEDENT ([facility], ) Encounters Encounter Providers Location Date Indications Data Source(s ) Unknown [address] [facility] [address] 06/06/2020 12:00:00 AM EST [facility]CW[facility] Outpatient Attender: JAVIER BRIGHT Physical Therapy 05/08 12:00:00 PM EST MEDENT ([facility]) Unknown [address] [facility] [address] 05/24/2020 12:00:00 AM EST eCW1 ([facility]) Unknown [address] [facility] [place] [address] 05/24/2020 12:00:00 AM EST eCW1 [facility]) Unknown [address] [facility] [address] 05/22/2020 12:00:00 AM EST eCW1 [facility]) Outpatient Attender: Kayden Schaffer MD Physical Therapy 05/09/2020 0 8:30:00 AM EST MEDENT ([facility]) Outpatient Attender: Kayden Schaffer MD Physical Therapy 04/26/2020 0 9:45:00 AM EST MEDENT ([facility]) Outpatient Attender: Kayden Schaffer MD Physical Therapy 04/17/2020 1 2:30:00 PM EST MEDENT ([facility]) Unknown [address] [facility] [address] 04/11/2020 12:00:00 AM EST eCW1 [facility] Outpatient [address] [facility] [place] [address] 04/05/2020 12:00:00 AM EDT eCW1 [facility] Outpatient Attender: Kayden Schaffer MD Physical Therapy 03/20/2020 0 1:00:00 PM EDT MEDENT ([facility]) Unknown [address] [facility] [address] 03/12/2020 12:00:00 AM EDT eCW1 ([facility]) [place] [address] [facility] [address] 03/08/2020 12:00:00 AM EDT eCW1 ([facility]) Unknown [address] [facility] [address] 03/08/2020 12:00:00 AM EDT eCW1 ([facility]) Unknown [address] [facility] [address] 02/28/2020 12:00:00 AM EDT eCW1 ([facility]) Unknown [address] [facility] [address] 12/29/2019 12:00:00 AM EDT eCW1 ([facility]) Unknown [address] [facility] [address] 12/17/2019 12:00:00 AM EDT eCW1 ([facility]) Unknown [address] [facility] [address] 12/13/2019 12:00:00 AM EDT eCW1 ([facility]) Out[place] [address] [facility] [address] 12/12/2019 12:00:00 AM EDT eCW1 ([facility]) [facility] [address] [place] [address] 11/29/2019 12:00:00 AM EDT eCW1 ([facility]) Unknown [address] [facility] [address] 11/11/2019 12:00:00 AM EDT eCW1 ([facility]) [facility] [address] [place] [address] 11/01/2019 12:00:00 AM EDT eCW1 ([facility]) Outpatient 10/20/2019 10:08:00 PM EDT [facility] [address] [facility] [address] 10/19/2019 12:00:00 AM EDT eCW1 [facility] [address] [facility] [address] 10/17/2019 12:00:00 AM EDT eCW1 [facility] [address] [facility] [address] 10/16/2019 12:00:00 AM EDT eCW1 [facility] [place] [address] [facility] [address] 10/13/2019 12:00:00 AM EDT eCW1 [facility] Outpatient Attender: Tara trejo 10/08/2019 08:55:00 AM EDT MEDENT [facility] [address] [facility] [address] 09/30/2019 12:00:00 AM EDT eCW1 [facility]) [facility] [address] [facility] [address] 09/21/2019 12:00:00 AM EDT eCW1 [facility] [place] [address] [facility] [address] 09/20/2019 12:00:00 AM EDT eCW1 [facility] [address] [facility] [address] 09/20/2019 12:00:00 AM EDT eCW1 [facility] [place] [address] [facility] [address] 09/15/2019 12:00:00 AM EDT eCW1 [facility] [address] [facility] [address] 09/13/2019 12:00:00 AM EDT eCW1 [facility] Unknown [address] [facility] [address] 09/12/2019 12:00:00 AM EDT eCW1 [facility] Unknown [address] [facility] [address] 09/11/2019 12:00:00 AM EDT eCW1 [facility] [address] [facility] [address] 09/06/2019 12:00:00 AM EDT eCW1 [facility] Outpatient Referrer: Jessica [email or web address].TONIA 12:00:[address] [facility] Outpatient Referrer: Jessica MUNOZTONIA-SJP.TONIA 12:00:00 AM EDT [facility] [address] [facility] [address] 08/31/2019 12:00:00 AM EDT eCW1 [facility] [address] [place] [address] 08/29/2019 12:00:00 AM EDT eCW1 [facility] Outpatient Attender: Anirudh Richard MD Physical Therap y 08/26/2019 02:00:00 PM EDT MEDENT ([facility]) Outpatient [id number] 08/15/2019 11:36:[address] [facility] Outpatient Referrer: Jessica [email or web address].SYR 11/2019 11:41:17 AM EST [facility] [address] [facility] [address] 08/12/2019 12:00:00 AM EST eCW1 [facility] Outpatient TONIA-[email or web address] 08/09/2019 12:00:00 AM EST [facility] [address] [facility] [address] 08/08/2019 12:00:00 AM EST eCW1 ([facility]) [facility] [address] [facility] [place] [address] 08/05/2019 12:00:00 AM EST eCW1 [facility] Outpatient Attender: Jessica EMANUEL.[email or web address]-[email or web address] 10:47:28 AM EST - 08/04/2019 11:56:11 AM EST [facility] [address] [place] [address] 08/02/2019 12:00:00 AM EST eCW1 [facility] [place] Outpatient 08/01/2019 10:33:00 AM EST [facility] [address] [facility] [address] 08/01/2019 12:00:00 AM EST eCW1 [facility] [address] [facility] [address] 08/01/2019 12:00:00 AM EST eCW1 [facility] [address] [facility] [address] 07/22/2019 12:00:00 AM EST eCW1 ([facility] [address] [facility] [address] 07/19/2019 12:00:00 AM EST eCW1 ([facility] [address] [facility] [address] 07/18/2019 12:00:00 AM EST eCW1 [facility] [address] [facility] [address] 07/15/2019 12:00:00 AM EST eCW1 [facility] [address] [facility] [address] 07/15/2019 12:00:00 AM EST eCW1 ([facility]) [facility] [address] [facility] [address] 07/11/2019 12:00:00 AM EST eCW1 ([facility]) Outpatient 07/08/2019 01:41:00 PM EST [facility] OFFICE OUTPATIENT NEW 30 MINUTES Attender: Anirudh Marr am, MD Physical Therapy 07/06/2019 08:15:00 AM EST MEDENT ([facility]) Outpatient 07/05/2019 11:05:00 AM EST [facility] [place] [address] [facility] [address] 07/05/2019 12:00:00 AM EST eCW1 ([facility]) [facility] [place] [address] [facility] [address] 07/04/2019 12:00:00 AM EST eCW1 [facility] Outpatient 06/30/2019 10:27:00 PM EST [facility] [address] [facility] [address] 06/30/2019 12:00:00 AM EST eCW1 ([facility]) [facility] [address] [place] [address] 06/30/2019 12:00:00 AM EST eCW1 ([facility]) [facility] [place] [address] [facility] [address] 06/24/2019 12:00:00 AM EST eCW1 ([facility]) [facility] [address] [place] [address] 06/24/2019 12:00:00 AM EST [facility] [place] [address] [facility] [address] 06/22/2019 12:00:00 AM EST eCW1 ([facility]) Outpatient Attender: SHANNA MORROW MD Main Office 06/20/2019 08:30:00 AM EST MEDENT ([facility] [address] [place] [address] 06/15/2019 12:00:00 AM EST eCW1 ([facility]) [facility] [address] [place] [address] 06/13/2019 12:00:00 AM EST eCW1 ([facility]) Outpatient 06/12/2019 06:17:00 PM EST [facility] [place] [address] [place] [address] 06/09/2019 12:00:00 AM EST eCW1 ([facility]) [facility] [place] [address] [place] [address] 06/06/2019 12:00:00 AM EST eCW1 ([facility] [facility]) Immunizations Vaccine Date Status Description Data Source(s) pneumococcal polysaccharide PPV23 04/05/2020 08:37:00 AM EDT comple krystal eCW1 (Formerly [facility], 1928–1983) influenza, recombinant, quadrIvalent,injectable, prese rvative free 04/05/2020 08:37:00 AM EDT completed eCW1 ([facility]) pneumococcal polysaccharide PPV23 04/05/2020 08:37:00 AM EDT comple krystal eCW1 (Formerly [facility], 1928–1983) influenza, recombinant, quadrIvalent,injectable, prese rvative free 04/05/2020 08:37:00 AM EDT completed eCW1 ([facility]) pneumococcal polysaccharide PPV23 04/05/2020 08:37:00 AM EDT comple krystal eCW1 (Formerly [facility], 1928–1983) influenza, recombinant, quadrIvalent,injectable, prese rvative free 04/05/2020 08:37:00 AM EDT completed eCW1 ([facility]) pneumococcal polysaccharide PPV23 04/05/2020 08:37:00 AM EDT comple krystal eCW1 (Formerly [facility], 1928–1983) influenza, recombinant, quadrIvalent,injectable, prese rvative free 04/05/2020 08:37:00 AM EDT completed eCW1 ([facility]) pneumococcal polysaccharide PPV23 04/05/2020 08:37:00 AM EDT comple krystal eCW1 (Formerly [facility], 1928–1983) influenza, recombinant, quadrIvalent,injectable, prese rvative free 04/05/2020 08:37:00 AM EDT completed eCW1 ([facility]) pneumococcal polysaccharide PPV23 04/05/2020 08:37:00 AM EDT comple krystal eCW1 (Formerly [facility], 1928–1983) influenza, recombinant, quadrIvalent,injectable, prese rvative free 04/05/2020 08:37:00 AM EDT completed eCW1 ([facility]) Medications Medication Brand Name Start Date Product [...] 1.0 {tablet_as_needed} active Hydrocodone-Acetaminophen 5-325 MG eCW1 (Formerly [facility], 1928–1983) Acetaminophen 325 MG / Hydrocodone Troy trate 5 MG Oral Tablet Hydrocodone- Acetaminophen 5-325 MG Hydrocodone-Acetaminophen 5-325 MG 05/24/2020 12:00:00 AM EST 1.0 {tablet_as_needed} active Hydrocodone-Acetaminophen 5-325 MG eCW1 (Formerly [facility], 1928–1983) 5-325 mg 05/24/2020 12:00:00 AM EST tablet [...] 1.0 {tablet_as_needed} active Hydrocodone-Acetaminophen 5-325 MG eCW1 (Formerly [facility], 1928–1983) 300-30 mg 03/16/2020 12:00:00 AM EDT tablet 42 TAKE ONE TABLET BY MOUTH EVERY 8 HOURS NEEDED MAXIMUM DAILY DOSE = 3 TABLETS TAKE ONE TABLET BY MOUTH EVERY 8 HOURS NEEDED MAXIMUM DAILY DOSE = 3 TABLETS SOLD: 03/16/2020 [facility] 800 mg 03/16/2020 12:00:00 AM EDT tablet 60 TAKE ONE TABLET BY MOUTH TWICE A DAY NEEDED TAKE ONE TABLET BY MOUTH TWICE A DAY NEEDED SOLD: 03/16/2020 [facility] 80 mcg/actuation 03/15/2020 12:00:00 AM EDT HFA aerosol sawyre th activated 10 INHALE TWO PUFFS BY MOUTH TWICE A DAY INHALE TWO PUFFS BY MOUTH TWICE A DAY SOLD: 03/16/2020 [facility] Acetaminophen 300 MG / Codeine Phosphate 30 MG Oral Tablet Acetaminophen-Codeine 300-30 MG Acetaminophen-Codeine 300-30 MG 03/08/2020 12:00:00 AM EDT 1.0 {tablet_as_needed} active Acetaminophen -Codeine 300-30 MG eCW1 (Formerly [facility], 1928–1983) Acetaminophen 300 MG / Codeine Phosphate 30 MG Oral Tablet Acetaminophen-Codeine 300-30 MG Acetaminophen-Codeine 300-30 MG 03/08/2020 12:00:00 AM EDT 1.0 {tablet_as_needed} active Acetaminophen -Codeine 300-30 MG eCW1 (Formerly [facility], 1928–1983) Acetaminophen 325 MG / Hydrocodone Troy trate 5 MG Oral Tablet Hydrocodone- Acetaminophen 5-325 MG Hydrocodone-Acetaminophen 5-325 MG 03/08/2020 12:00:00 AM EDT 1.0 {tablet_as_needed} active Hydrocodone-Acetaminophen 5-325 MG eCW1 (Formerly [facility], 1928–1983) Acetaminophen 325 MG / Hydrocodone Troy trate 5 MG Oral Tablet Hydrocodone- Acetaminophen 5-325 MG Hydrocodone-Acetaminophen 5-325 MG 03/08/2020 12:00:00 AM EDT 1.0 {tablet_as_needed} active Hydrocodone-Acetaminophen 5-325 MG eCW1 (Formerly [facility], 1928–1983) Acetaminophen 300 MG / Codeine Phosphate 30 MG Oral Tablet Acetaminophen-Codeine 300-30 MG Acetaminophen-Codeine 300-30 MG 03/08/2020 12:00:00 AM EDT 1.0 {tablet_as_needed} active Acetaminophen -Codeine 300-30 MG eCW1 (Formerly [facility], 1928–1983) Acetaminophen 300 MG / Codeine Phosphate 30 MG Oral Tablet Acetaminophen-Codeine 300-30 MG Acetaminophen-Codeine 300-30 MG 03/08/2020 12:00:00 AM EDT 1.0 {tablet_as_needed} active Acetaminophen -Codeine 300-30 MG eCW1 (Formerly [facility], 1928–1983) Acetaminophen 325 MG / Hydrocodone Troy trate 5 MG Oral Tablet Hydrocodone- Acetaminophen 5-325 MG Hydrocodone-Acetaminophen 5-325 MG 03/08/2020 12:00:00 AM EDT 1.0 {tablet_as_needed} active Hydrocodone-Acetaminophen 5-325 MG eCW1 (Formerly [facility], 1928–1983) Acetaminophen 300 MG / Codeine Phosphate 30 MG Oral Tablet Acetaminophen-Codeine 300-30 MG Acetaminophen-Codeine 300-30 MG 03/08/2020 12:00:00 AM EDT 1.0 {tablet_as_needed} active Acetaminophen -Codeine 300-30 MG eCW1 (Formerly [facility], 1928–1983) 5-325 mg 03/08/2020 12:00:00 AM EDT tablet [...] 1.0 {tablet_as_needed} active Hydrocodone-Acetaminophen 5-325 MG eCW1 (Formerly [facility], 1928–1983) Acetaminophen 300 MG / Codeine Phosphate 30 MG Oral Tablet Acetaminophen-Codeine 300-30 MG Acetaminophen-Codeine 300-30 MG 03/08/2020 12:00:00 AM EDT 1.0 {tablet_as_needed} active Acetaminophen -Codeine 300-30 MG eCW1 (Formerly [facility], 1928–1983) Acetaminophen 325 MG / Hydrocodone Troy trate 5 MG Oral Tablet Hydrocodone- Acetaminophen 5-325 MG Hydrocodone-Acetaminophen 5-325 MG 03/08/2020 12:00:00 AM EDT 1.0 {tablet_as_needed} active Hydrocodone-Acetaminophen 5-325 MG eCW1 (Formerly [facility], 1928–1983) Acetaminophen 325 MG / Hydrocodone Troy trate 5 MG Oral Tablet Hydrocodone- Acetaminophen 5-325 MG Hydrocodone-Acetaminophen 5-325 MG 03/08/2020 12:00:00 AM EDT 1.0 {tablet_as_needed} active Hydrocodone-Acetaminophen 5-325 MG eCW1 (Formerly [facility], 1928–1983) Acetaminophen 300 MG / Codeine Phosphate 30 MG Oral Tablet Acetaminophen-Codeine 300-30 MG Acetaminophen-Codeine 300-30 MG 03/08/2020 12:00:00 AM EDT 1.0 {tablet_as_needed} active Acetaminophen -Codeine 300-30 MG eCW1 (Formerly [facility], 1928–1983) Acetaminophen 300 MG / Codeine Phosphate 30 MG Oral Tablet Acetaminophen-Codeine 300-30 MG Acetaminophen-Codeine 300-30 MG 03/08/2020 12:00:00 AM EDT 1.0 {tablet_as_needed} active Acetaminophen -Codeine 300-30 MG eCW1 (Formerly [facility], 1928–1983) Acetaminophen 300 MG / Codeine Phosphate 30 MG Oral Tablet Acetaminophen-Codeine 300-30 MG Acetaminophen-Codeine 300-30 MG 03/08/2020 12:00:00 AM EDT 1.0 {tablet_as_needed} active Acetaminophen -Codeine 300-30 MG eCW1 (Formerly [facility], 1928–1983) Acetaminophen 325 MG / Hydrocodone Troy trate 5 MG Oral Tablet Hydrocodone- Acetaminophen 5-325 MG Hydrocodone-Acetaminophen 5-325 MG 03/08/2020 12:00:00 AM EDT 1.0 {tablet_as_needed} active Hydrocodone-Acetaminophen 5-325 MG eCW1 (Formerly [facility], 1928–1983) Acetaminophen 300 MG / Codeine Phosphate 30 MG Oral Tablet Acetaminophen-Codeine 300-30 MG Acetaminophen-Codeine 300-30 MG 03/08/2020 12:00:00 AM EDT 1.0 {tablet_as_needed} active Acetaminophen -Codeine 300-30 MG eCW1 (Formerly [facility], 1928–1983) Tens Unit - UNK 03/07/2020 12:00:00 AM EDT active Tens Unit - eCW1 (Formerly [facility], 1928–1983) Tens Unit - K 03/07/2020 12:00:00 AM EDT active Tens Unit - eCW1 (Formerly [facility], 1928–1983) Tens Unit - K 03/07/2020 12:00:00 AM EDT active Tens Unit - eCW1 (Formerly [facility], 1928–1983) Tens Unit - K 03/07/2020 12:00:00 AM EDT active Tens Unit - eCW1 (Formerly [facility], 1928–1983) Tens Unit - K 03/07/2020 12:00:00 AM EDT active Tens Unit - eCW1 (Formerly [facility], 1928–1983) Tens Unit - K 03/07/2020 12:00:00 AM EDT active Tens Unit - eCW1 (Formerly [facility], 1928–1983) Tens Unit - UNK 03/07/2020 12:00:00 AM EDT active Tens Unit - eCW1 (Formerly [facility], 1928–1983) Tens Unit - K 03/07/2020 12:00:00 AM EDT active Tens Unit - eCW1 (Formerly [facility], 1928–1983) Tens Unit - UNK 03/07/2020 12:00:00 AM EDT active Tens Unit - eCW1 (Formerly [facility], 1928–1983) Tens Unit - UNK 03/07/2020 12:00:00 AM EDT active Tens Unit - eCW1 (Formerly [facility], 1928–1983) 20 mg 03/04/2020 12:00:00 AM EDT tablet [...] DAY NEEDED FOR SANJAY N SOLD: 01/24/2020 [facility] 300-30 mg 01/24/2020 12:00:00 AM EDT tablet 45 TAKE ONE TABLET BY MOUTH EVERY 8 HOURS NEEDED FOR PAIN MAXIMUM DAILY DOSE = 3 TAKE ONE TABLET BY MOUTH EVERY 8 HOURS NEEDED FOR PAIN MAXIMUM DAILY DOSE = 3 SOLD: 01/24/2020 [facility] 5-325 mg 01/23/2020 12:00:00 AM EDT tablet 10 TAKE ONE TABLET BY MOUTH EVERY 8 HOURS NEEDED FOR PAIN MAXIMUM DAILY DOSE = 2 TAKE ONE TABLET BY MOUTH EVERY 8 HOURS NEEDED FOR PAIN MAXIMUM DAILY DOSE = 2 SOLD: 01/24/2020 [facility] 100,000 unit/mL 12/29/2019 12:00:00 AM EDT suspension 224 TAKE 4ML BY MOUTH FOUR TIMES A DAY FOR 14 DAYS TAKE 4ML BY MOUTH FOUR TIMES A DAY FOR 14 DAYS SOLD: 12/30/2019 [facility] Prednisone 10 MG Oral Tablet PredniSONE 10 MG PredniSONE 10 MG 12/19/2019 12:00:00 AM EDT 1.0 {tablet} active Pr edniSONE 10 MG eCW1 (Formerly [facility], 1928–1983) Prednisone 10 MG Oral Tablet PredniSONE 10 MG PredniSONE 10 MG 12/19/2019 12:00:00 AM EDT 1.0 {tablet} active Pr edniSONE 10 MG eCW1 (Formerly [facility], 1928–1983) Prednisone 10 MG Oral Tablet PredniSONE 10 MG PredniSONE 10 MG 12/19/2019 12:00:00 AM EDT 1.0 {tablet} active Pr edniSONE 10 MG eCW1 (Formerly [facility], 1928–1983) Prednisone 10 MG Oral Tablet PredniSONE 10 MG PredniSONE 10 MG 12/19/2019 12:00:00 AM EDT 1.0 {tablet} active Pr edniSONE 10 MG eCW1 (Formerly [facility], 1928–1983) Prednisone 10 MG Oral Tablet PredniSONE 10 MG PredniSONE 10 MG 12/19/2019 12:00:00 AM EDT 1.0 {tablet} active Pr edniSONE 10 MG eCW1 (Formerly [facility], 1928–1983) 10 mg 12/19/2019 12:00:00 AM EDT tablet [...] {tablet} active Pr edniSONE 10 MG eCW1 (Formerly [facility], 1928–1983) Prednisone 10 MG Oral Tablet PredniSONE 10 MG PredniSONE 10 MG 12/19/2019 12:00:00 AM EDT 1.0 {tablet} active Pr edniSONE 10 MG eCW1 (Formerly [facility], 1928–1983) Prednisone 10 MG Oral Tablet PredniSONE 10 MG PredniSONE 10 MG 12/19/2019 12:00:00 AM EDT 1.0 {tablet} active Pr edniSONE 10 MG eCW1 (Formerly [facility], 1928–1983) Prednisone 10 MG Oral Tablet PredniSONE 10 MG PredniSONE 10 MG 12/19/2019 12:00:00 AM EDT 1.0 {tablet} active Pr edniSONE 10 MG eCW1 (Formerly [facility], 1928–1983) Prednisone 10 MG Oral Tablet PredniSONE 10 MG PredniSONE 10 MG 12/19/2019 12:00:00 AM EDT 1.0 {tablet} active Pr edniSONE 10 MG eCW1 (Formerly [facility], 1928–1983) Prednisone 10 MG Oral Tablet PredniSONE 10 MG PredniSONE 10 MG 12/19/2019 12:00:00 AM EDT 1.0 {tablet} active Pr edniSONE 10 MG eCW1 (Formerly [facility], 1928–1983) Prednisone 10 MG Oral Tablet PredniSONE 10 MG PredniSONE 10 MG 12/19/2019 12:00:00 AM EDT 1.0 {tablet} active Pr edniSONE 10 MG eCW1 (Formerly [facility], 1928–1983) Prednisone 10 MG Oral Tablet PredniSONE 10 MG PredniSONE 10 MG 12/19/2019 12:00:00 AM EDT 1.0 {tablet} active Pr edniSONE 10 MG eCW1 (Formerly [facility], 1928–1983) Prednisone 10 MG Oral Tablet PredniSONE 10 MG PredniSONE 10 MG 12/19/2019 12:00:00 AM EDT 1.0 {tablet} active Pr edniSONE 10 MG eCW1 (Formerly [facility], 1928–1983) 300-30 mg 12/14/2019 12:00:00 AM EDT tablet 45 TAKE ONE TABLET BY MOUTH EVERY 8 HOURS NEEDED MAXIMUM DAILY DOSE = THREE TABLETS TAKE ONE TABLET BY MOUTH EVERY 8 HOURS NEEDED MAXIMUM DAILY DOSE = THREE TABLETS SOLD: 12/15/2019 [facility] Acetaminophen 325 MG / Hydrocodone [place] trate 5 MG Oral Tablet [[place]] [place] 5- 325 MG [place] 5-325 MG 12/13/2019 12:00:00 AM EDT 1.0 {tablet_as_needed} active [place] 5-325 MG eCW1 (Formerly [facility], 1928–1983) Acetaminophen 325 MG / Hydrocodone [place] trate 5 MG Oral Tablet [[place]] [place] 5- 325 MG [place] 5-325 MG 12/13/2019 12:00:00 AM EDT 1.0 {tablet_as_needed} active [place] 5-325 MG eCW1 (Formerly [facility], 1928–1983) Acetaminophen 325 MG / Hydrocodone [place] trate 5 MG Oral Tablet [[place]] [place] 5- 325 MG [place] 5-325 MG 12/13/2019 12:00:00 AM EDT 1.0 {tablet_as_needed} active [place] 5-325 MG eCW1 (Formerly [facility], 1928–1983) Acetaminophen 325 MG / Hydrocodone [place] trate 5 MG Oral Tablet [[place]] [place] 5- 325 MG [place] 5-325 MG 12/13/2019 12:00:00 AM EDT 1.0 {tablet_as_needed} active [place] 5-325 MG eCW1 (Formerly [facility], 1928–1983) 5-325 mg 12/13/2019 12:00:00 AM EDT tablet 10 TAKE ONE TABLET BY MOUTH EVERY 8 HOURS NEEDED * MAXIMUM DAILY DOSE = 3 TAKE ONE TABLET BY MOUTH EVERY 8 HOURS NEEDED * MAXIMUM DAILY DOSE = 3 SOLD: 12/14/2019 [facility] Acetaminophen 325 MG / Hydrocodone [place] trate 5 MG Oral Tablet [[place]] [place] 5- 325 MG [place] 5-325 MG 12/13/2019 12:00:00 AM EDT 1.0 {tablet_as_needed} active [place] 5-325 MG eCW1 (Formerly [facility], 1928–1983) Acetaminophen 325 MG / Hydrocodone [place] trate 5 MG Oral Tablet [[place]] [place] 5- 325 MG [place] 5-325 MG 12/13/2019 12:00:00 AM EDT 1.0 {tablet_as_needed} active [place] 5-325 MG eCW1 (Formerly [facility], 1928–1983) Acetaminophen 325 MG / Hydrocodone [place] trate 5 MG Oral Tablet [[place]] [place] 5- 325 MG [place] 5-325 MG 12/13/2019 12:00:00 AM EDT 1.0 {tablet_as_needed} active [place] 5-325 MG eCW1 (Formerly [facility], 1928–1983) Acetaminophen 325 MG / Hydrocodone [place] trate 5 MG Oral Tablet [[place]] [place] 5- 325 MG [place] 5-325 MG 12/13/2019 12:00:00 AM EDT 1.0 {tablet_as_needed} active [place] 5-325 MG eCW1 (Formerly [facility], 1928–1983) Acetaminophen 325 MG / Hydrocodone [place] trate 5 MG Oral Tablet [[place]] [place] 5- 325 MG [place] 5-325 MG 12/13/2019 12:00:00 AM EDT 1.0 {tablet_as_needed} active [place] 5-325 MG eCW1 (Formerly [facility], 1928–1983) Acetaminophen 325 MG / Hydrocodone [place] trate 5 MG Oral Tablet [[place]] [place] 5- 325 MG [place] 5-325 MG 12/13/2019 12:00:00 AM EDT 1.0 {tablet_as_needed} active [place] 5-325 MG eCW1 (Formerly [facility], 1928–1983) Acetaminophen 325 MG / Hydrocodone [place] trate 5 MG Oral Tablet [[place]] [place] 5- 325 MG [place] 5-325 MG 12/13/2019 12:00:00 AM EDT 1.0 {tablet_as_needed} active [place] 5-325 MG eCW1 (Formerly [facility], 1928–1983) Acetaminophen 325 MG / Hydrocodone [place] trate 5 MG Oral Tablet [[place]] [place] 5- 325 MG [place] 5-325 MG 12/13/2019 12:00:00 AM EDT 1.0 {tablet_as_needed} active [place] 5-325 MG eCW1 (Formerly [facility], 1928–1983) Acetaminophen 325 MG / Hydrocodone [place] trate 5 MG Oral Tablet [[place]] [place] 5- 325 MG [place] 5-325 MG 12/13/2019 12:00:00 AM EDT 1.0 {tablet_as_needed} active [place] 5-325 MG eCW1 (Formerly [facility], 1928–1983) Acetaminophen 325 MG / Hydrocodone [place] trate 5 MG Oral Tablet [[place]] [place] 5- 325 MG [place] 5-325 MG 12/13/2019 12:00:00 AM EDT 1.0 {tablet_as_needed} active [place] 5-325 MG eCW1 (Formerly [facility], 1928–1983) Prednisone 20 MG Oral Tablet PredniSONE 20 MG PredniSONE 20 MG 12/12/2019 12:00:00 AM EDT 2.0 {tablet} active Pr edniSONE 20 MG eCW1 (Formerly [facility], 1928–1983) Prednisone 20 MG Oral Tablet PredniSONE 20 MG PredniSONE 20 MG 12/12/2019 12:00:00 AM EDT 2.0 {tablet} active Pr edniSONE 20 MG eCW1 (Formerly [facility], 1928–1983) Prednisone 20 MG Oral Tablet PredniSONE 20 MG PredniSONE 20 MG 12/12/2019 12:00:00 AM EDT 2.0 {tablet} active Pr edniSONE 20 MG eCW1 (Formerly [facility], 1928–1983) Prednisone 20 MG Oral Tablet PredniSONE 20 MG PredniSONE 20 MG 12/12/2019 12:00:00 AM EDT 2.0 {tablet} active Pr edniSONE 20 MG eCW1 (Formerly [facility], 1928–1983) Prednisone 20 MG Oral Tablet PredniSONE 20 MG PredniSONE 20 MG 12/12/2019 12:00:00 AM EDT 2.0 {tablet} active Pr edniSONE 20 MG eCW1 (Formerly [facility], 1928–1983) Prednisone 20 MG Oral Tablet PredniSONE 20 MG PredniSONE 20 MG 12/12/2019 12:00:00 AM EDT 2.0 {tablet} active Pr edniSONE 20 MG eCW1 (Formerly [facility], 1928–1983) Prednisone 20 MG Oral Tablet PredniSONE 20 MG PredniSONE 20 MG 12/12/2019 12:00:00 AM EDT 2.0 {tablet} active Pr edniSONE 20 MG eCW1 (Formerly [facility], 1928–1983) Prednisone 20 MG Oral Tablet PredniSONE 20 MG PredniSONE 20 MG 12/12/2019 12:00:00 AM EDT 2.0 {tablet} active Pr edniSONE 20 MG eCW1 (Formerly [facility], 1928–1983) Prednisone 20 MG Oral Tablet PredniSONE 20 MG PredniSONE 20 MG 12/12/2019 12:00:00 AM EDT 2.0 {tablet} active Pr edniSONE 20 MG eCW1 (Formerly [facility], 1928–1983) Prednisone 20 MG Oral Tablet PredniSONE 20 MG PredniSONE 20 MG 12/12/2019 12:00:00 AM EDT 2.0 {tablet} active Pr edniSONE 20 MG eCW1 (Formerly [facility], 1928–1983) Prednisone 20 MG Oral Tablet PredniSONE 20 MG PredniSONE 20 MG 12/12/2019 12:00:00 AM EDT 2.0 {tablet} active Pr edniSONE 20 MG eCW1 (Formerly [facility], 1928–1983) 20 mg 12/12/2019 12:00:00 AM EDT tablet 10 TAKE TWO TABLETS BY MOUTH EVERY DAY WITH FOOD FOR 5 DAYS TAKE TWO TABLETS BY MOUTH EVERY DAY WITH FOOD FOR 5 DAYS SOLD: 12/12/2019 [facility] Prednisone 20 MG Oral Tablet PredniSONE 20 MG PredniSONE 20 MG 12/12/2019 12:00:00 AM EDT 2.0 {tablet} active Pr edniSONE 20 MG eCW1 (Formerly [facility], 1928–1983) Prednisone 20 MG Oral Tablet PredniSONE 20 MG PredniSONE 20 MG 12/12/2019 12:00:00 AM EDT 2.0 {tablet} active Pr edniSONE 20 MG eCW1 (Formerly [facility], 1928–1983) Prednisone 20 MG Oral Tablet PredniSONE 20 MG PredniSONE 20 MG 12/12/2019 12:00:00 AM EDT 2.0 {tablet} active Pr edniSONE 20 MG eCW1 (Formerly [facility], 1928–1983) 50 mcg/actuation 11/14/2019 12:00:00 AM EDT spray,suspension [...] Hydrocodone Troy trate 5 MG Oral Tablet [[place]] [place] 5- 325 MG [place] 5-325 MG 11/02/2019 12:00:00 AM EDT a ctive 1 tablet as needed eCW1 (Formerly [facility], 1928–1983) Acetaminophen 325 MG / Hydrocodone [place] trate 5 MG Oral Tablet [[place]] [place] 5- 325 MG [place] 5-325 MG 11/02/2019 12:00:00 AM EDT 1.0 {tablet_as_needed} active [place] 5-325 MG eCW1 (Formerly [facility], 1928–1983) 5-325 mg 11/02/2019 12:00:00 AM EDT tablet [...] {tablet} active Pr edniSONE 20 MG eCW1 (Formerly [facility], 1928–1983) Prednisone 20 MG Oral Tablet PredniSONE 20 MG PredniSONE 20 MG 10/19/2019 12:00:00 AM EDT 1.0 {tablet} suspended PredniSONE 20 MG eCW1 (Formerly [facility], 1928–1983) Prednisone 20 MG Oral Tablet PredniSONE 20 MG PredniSONE 20 MG 10/19/2019 12:00:00 AM EDT 1.0 {tablet} active Pr edniSONE 20 MG eCW1 (Formerly [facility], 1928–1983) Prednisone 20 MG Oral Tablet PredniSONE 20 MG PredniSONE 20 MG 10/19/2019 12:00:00 AM EDT 1.0 {tablet} active Pr edniSONE 20 MG eCW1 (Formerly [facility], 1928–1983) Prednisone 20 MG Oral Tablet PredniSONE 20 MG PredniSONE 20 MG 10/19/2019 12:00:00 AM EDT 1.0 {tablet} active Pr edniSONE 20 MG eCW1 (Formerly [facility], 1928–1983) Prednisone 20 MG Oral Tablet PredniSONE 20 MG PredniSONE 20 MG 10/19/2019 12:00:00 AM EDT 1.0 {tablet} active Pr edniSONE 20 MG eCW1 (Formerly [facility], 1928–1983) Prednisone 20 MG Oral Tablet PredniSONE 20 MG PredniSONE 20 MG 10/19/2019 12:00:00 AM EDT 1.0 {tablet} suspended PredniSONE 20 MG eCW1 (Formerly [facility], 1928–1983) Prednisone 20 MG Oral Tablet PredniSONE 20 MG PredniSONE 20 MG 10/19/2019 12:00:00 AM EDT 1.0 {tablet} active Pr edniSONE 20 MG eCW1 (Formerly [facility], 1928–1983) 20 mg 10/19/2019 12:00:00 AM EDT tablet [...] 1.0 {tablet} suspended PredniSONE 20 MG eCW1 (Formerly [facility], 1928–1983) 0.5 mg-3 mg(2.5 mg base)/3 mL 10/19/2019 12:00:0 0 AM EDT solution for nebulization 180 1 VIAL VIA NEBULIZER EVERY 6 JAYMIE RS 1 VIAL VIA NEBULIZER EVERY 6 HOURS SOLD: 10/20/2019 [facility] Prednisone 20 MG Oral Tablet PredniSONE 20 MG PredniSONE 20 MG 10/19/2019 12:00:00 AM EDT 1.0 {tablet} active Pr edniSONE 20 MG eCW1 (Formerly [facility], 1928–1983) Prednisone 20 MG Oral Tablet PredniSONE 20 MG PredniSONE 20 MG 10/19/2019 12:00:00 AM EDT 1.0 {tablet} active Pr edniSONE 20 MG eCW1 (Formerly [facility], 1928–1983) Prednisone 20 MG Oral Tablet PredniSONE 20 MG PredniSONE 20 MG 10/19/2019 12:00:00 AM EDT 1.0 {tablet} suspended PredniSONE 20 MG eCW1 (Formerly [facility], 1928–1983) Prednisone 20 MG Oral Tablet PredniSONE 20 MG PredniSONE 20 MG 10/19/2019 12:00:00 AM EDT 1.0 {tablet} active Pr edniSONE 20 MG eCW1 (Formerly [facility], 1928–1983) Prednisone 20 MG Oral Tablet PredniSONE 20 MG PredniSONE 20 MG 10/19/2019 12:00:00 AM EDT 1.0 {tablet} active Pr edniSONE 20 MG eCW1 (Formerly [facility], 1928–1983) Prednisone 20 MG Oral Tablet PredniSONE 20 MG PredniSONE 20 MG 10/19/2019 12:00:00 AM EDT 1.0 {tablet} active Pr edniSONE 20 MG eCW1 (Formerly [facility], 1928–1983) Prednisone 20 MG Oral Tablet PredniSONE 20 MG PredniSONE 20 MG 10/19/2019 12:00:00 AM EDT active 1 tablet eCW1 (Formerly [facility], 1928–1983) 20 mg 10/13/2019 12:00:00 AM EDT tablet [...] Prednisone 10/08/2019 12:00:00 AM EDT active [facility] ([facility], [facility]) 20 mg 10/08/2019 12:00:00 AM EDT tablet [...] AFTER SOLD : 09/22/2019 [facility] Nystatin 638373 UNT/ML Oral Suspension Nystatin 797246 UNIT/ML Nystatin 899128 UNIT/ML 09/20/2019 12:00:00 AM EDT 4.0 {ml} active Nystatin 188337 UNIT/ML eCW1 (Formerly [facility], 1928–1983) 100,000 unit/mL 09/20/2019 12:00:00 AM EDT suspension 224 TAKE 4ML BY MOUTH FOUR TIMES A DAY FOR MOUTH AND THROAT FOR 14 DAYS TAKE 4ML BY MOUTH FOUR TIMES A DAY FOR MOUTH AND THROAT FOR 14 DAYS SOLD: 09/20/2019 [facility] Fluconazole 200 MG Oral Tablet Fluconazole 200 MG 09/20/2019 12:00: 00 AM EDT 1.0 {tablet} suspended Fluconazole 200 M G eCW1 (Formerly [facility], 1928–1983) Fluconazole 200 MG Oral Tablet Fluconazole 200 MG 09/20/2019 12:00: 00 AM EDT suspended 1 tablet eCW1 (Formerly [facility]) Fluconazole 200 MG Oral Tablet Fluconazole 200 MG 09/20/2019 12:00: 00 AM EDT 1.0 {tablet} suspended Fluconazole 200 M G eCW1 (Formerly [facility], 1928–1983) Fluconazole 200 MG Oral Tablet Fluconazole 200 MG 09/20/2019 12:00: 00 AM EDT 1.0 {tablet} suspended Fluconazole 200 M G eCW1 (Formerly [facility], 1928–1983) Nystatin 282371 UNT/ML Oral Suspension Nystatin 812037 UNIT/ML Nystatin 011365 UNIT/ML 09/20/2019 12:00:00 AM EDT 4.0 {ml} active Nystatin 923397 UNIT/ML eCW1 (Formerly [facility], 1928–1983) Fluconazole 200 MG Oral Tablet Fluconazole 200 MG 09/20/2019 12:00: 00 AM EDT 1.0 {tablet} suspended Fluconazole 200 M G eCW1 (Formerly [facility], 1928–1983) Fluconazole 200 MG Oral Tablet Fluconazole 200 MG 09/20/2019 12:00: 00 AM EDT 1.0 {tablet} suspended Fluconazole 200 M G eCW1 (Formerly [facility], 1928–1983) Nystatin 513568 UNT/ML Oral Suspension Nystatin 441518 UNIT/ML Nystatin 359021 UNIT/ML 09/20/2019 12:00:00 AM EDT 4.0 {ml} active Nystatin 384062 UNIT/ML eCW1 (Formerly [facility], 1928–1983) Nystatin 906883 UNT/ML Oral Suspension Nystatin 740809 UNIT/ML Nystatin 215181 UNIT/ML 09/20/2019 12:00:00 AM EDT 4.0 {ml} active Nystatin 073937 UNIT/ML eCW1 (Formerly [facility], 1928–1983) Nystatin 949332 UNT/ML Oral Suspension Nystatin 687414 UNIT/ML Nystatin 447190 UNIT/ML 09/20/2019 12:00:00 AM EDT 4.0 {ml} suspende d Nystatin 836515 UNIT/ML eCW1 (Formerly [facility], 1928–1983) Fluconazole 200 MG Oral Tablet Fluconazole 200 MG 09/20/2019 12:00: 00 AM EDT 1.0 {tablet} suspended Fluconazole 200 M G eCW1 (Formerly [facility], 1928–1983) Fluconazole 200 MG Oral Tablet Fluconazole 200 MG 09/20/2019 12:00: 00 AM EDT 1.0 {tablet} suspended Fluconazole 200 M G eCW1 (Formerly [facility], 1928–1983) Fluconazole 200 MG Oral Tablet Fluconazole 200 MG 09/20/2019 12:00: 00 AM EDT 1.0 {tablet} suspended Fluconazole 200 M G eCW1 (Formerly [facility], 1928–1983) Fluconazole 200 MG Oral Tablet Fluconazole 200 MG 09/20/2019 12:00: 00 AM EDT 1.0 {tablet} suspended Fluconazole 200 M G eCW1 (Formerly [facility], 1928–1983) Fluconazole 200 MG Oral Tablet Fluconazole 200 MG 09/20/2019 12:00: 00 AM EDT 1.0 {tablet} suspended Fluconazole 200 M G eCW1 (Formerly [facility], 1928–1983) Fluconazole 200 MG Oral Tablet Fluconazole 200 MG 09/20/2019 12:00: 00 AM EDT 1.0 {tablet} suspended Fluconazole 200 M G eCW1 (Formerly [facility], 1928–1983) Nystatin 626378 UNT/ML Oral Suspension Nystatin 195688 UNIT/ML Nystatin 803935 UNIT/ML 09/20/2019 12:00:00 AM EDT active 4 ml eCW1 (Formerly [facility], 1928–1983) Nystatin 965391 UNT/ML Oral Suspension Nystatin 812169 UNIT/ML Nystatin 428769 UNIT/ML 09/20/2019 12:00:00 AM EDT 4.0 {ml} active Nystatin 572933 UNIT/ML eCW1 (Formerly [facility], 1928–1983) Nystatin 148532 UNT/ML Oral Suspension Nystatin 410417 UNIT/ML Nystatin 542846 UNIT/ML 09/20/2019 12:00:00 AM EDT 4.0 {ml} suspende d Nystatin 824669 UNIT/ML eCW1 (Formerly [facility], 1928–1983) Fluconazole 200 MG Oral Tablet Fluconazole 200 MG 09/20/2019 12:00: 00 AM EDT 1.0 {tablet} suspended Fluconazole 200 M G eCW1 (Formerly [facility], 1928–1983) Fluconazole 200 MG Oral Tablet Fluconazole 200 MG 09/20/2019 12:00: 00 AM EDT 1.0 {tablet} suspended Fluconazole 200 M G eCW1 (Formerly [facility], 1928–1983) Nystatin 860546 UNT/ML Oral Suspension Nystatin 100260 UNIT/ML Nystatin 239106 UNIT/ML 09/20/2019 12:00:00 AM EDT 4.0 {ml} active Nystatin 564891 UNIT/ML eCW1 (Formerly [facility], 1928–1983) Nystatin 418163 UNT/ML Oral Suspension Nystatin 796840 UNIT/ML Nystatin 782116 UNIT/ML 09/20/2019 12:00:00 AM EDT 4.0 {ml} active Nystatin 787576 UNIT/ML eCW1 (Formerly [facility], 1928–1983) Fluconazole 200 MG Oral Tablet Fluconazole 200 MG 09/20/2019 12:00: 00 AM EDT 1.0 {tablet} suspended Fluconazole 200 M G eCW1 (Formerly [facility], 1928–1983) Nystatin 954195 UNT/ML Oral Suspension Nystatin 682698 UNIT/ML Nystatin 643343 UNIT/ML 09/20/2019 12:00:00 AM EDT 4.0 {ml} suspende d Nystatin 257572 UNIT/ML eCW1 (Formerly [facility], 1928–1983) Nystatin 760121 UNT/ML Oral Suspension Nystatin 361536 UNIT/ML Nystatin 583939 UNIT/ML 09/20/2019 12:00:00 AM EDT 4.0 {ml} active Nystatin 842153 UNIT/ML eCW1 (Formerly [facility], 1928–1983) Fluconazole 200 MG Oral Tablet Fluconazole 200 MG 09/20/2019 12:00: 00 AM EDT 1.0 {tablet} suspended Fluconazole 200 M G eCW1 (Formerly [facility], 1928–1983) Nystatin 161583 UNT/ML Oral Suspension Nystatin 530852 UNIT/ML Nystatin 069038 UNIT/ML 09/20/2019 12:00:00 AM EDT 4.0 {ml} active Nystatin 230346 UNIT/ML eCW1 (Formerly [facility], 1928–1983) Nystatin 380142 UNT/ML Oral Suspension Nystatin 674429 UNIT/ML Nystatin 833496 UNIT/ML 09/20/2019 12:00:00 AM EDT suspended 4 ml eCW1 (Formerly [facility], [facility]–1983) Nystatin 956214 UNT/ML Oral Suspension Nystatin 364068 UNIT/ML Nystatin 830600 UNIT/ML 09/20/2019 12:00:00 AM EDT 4.0 {ml} active Nystatin 466859 UNIT/ML eCW1 (Formerly [facility], 1928–1983) Nystatin 726273 UNT/ML Oral Suspension Nystatin 342956 UNIT/ML Nystatin 074180 UNIT/ML 09/20/2019 12:00:00 AM EDT 4.0 {ml} suspende d Nystatin 805902 UNIT/ML eCW1 (Formerly [facility], 1928–1983) Nystatin 532618 UNT/ML Oral Suspension Nystatin 016940 UNIT/ML Nystatin 864618 UNIT/ML 09/20/2019 12:00:00 AM EDT 4.0 {ml} active Nystatin 327501 UNIT/ML eCW1 (Formerly [facility], 1928–1983) Prednisone 20 MG Oral Tablet PredniSONE 20 MG PredniSONE 20 MG 09/01/2019 12:00:00 AM EDT active 2 tablet eCW1 (Formerly [facility], [facility]–1983) 20 mg 09/01/2019 12:00:00 AM EDT tablet [...] 2 TABLET SOLD: 06/24/2019 [facility] [place] 5-325 MG UNK 06/24/2019 12:00:00 AM EST active 1 tablet as needed eCW1 (Formerly [facility], [facility]–1983) Acetaminophen 325 MG / Hydrocodone [place] trate 5 MG Oral Tablet [[place]] [place] 5- 325 MG [place] 5-325 MG 06/24/2019 12:00:00 AM EST a ctive 1 tablet as needed eCW1 (Formerly [facility], 1928–1983) Acetaminophen 325 MG / Hydrocodone [place] trate 5 MG Oral Tablet [[place]] [place] 5- 325 MG [place] 5-325 MG 06/24/2019 12:00:00 AM EST a ctive 1 tablet as needed eCW1 (Formerly [facility], 1928–1983) Acetaminophen 325 MG / Hydrocodone [place] trate 5 MG Oral Tablet [[place]] [place] 5- 325 MG [place] 5-325 MG 06/24/2019 12:00:00 AM EST 1.0 {tablet_as_needed} active [place] 5-325 MG eCW1 (Formerly [facility], 1928–1983) 5-325 mg 06/24/2019 12:00:00 AM EST tablet 30 TAKE ONE TABLET BY MOUTH EVERY 8 HOURS NEEDED MAXIMUM DAILY DOSE = 3 TAKE ONE TABLET BY MOUTH EVERY 8 HOURS NEEDED MAXIMUM DAILY DOSE = 3 SOLD: 06/24/2019 [facility] Acetaminophen 325 MG / Hydrocodone [place] trate 5 MG Oral Tablet [[place]] [place] 5- 325 MG [place] 5-325 MG 06/24/2019 12:00:00 AM EST a ctive 1 tablet as needed eCW1 (Formerly [facility], 1928–1983) Acetaminophen 325 MG / Hydrocodone [place] trate 5 MG Oral Tablet [[place]] [place] 5- 325 MG [place] 5-325 MG 06/24/2019 12:00:00 AM EST a ctive 1 tablet as needed eCW1 (Formerly [facility], 1928–1983) Acetaminophen 325 MG / Hydrocodone [place] trate 5 MG Oral Tablet [[place]] [place] 5- 325 MG [place] 5-325 MG 06/24/2019 12:00:00 AM EST a ctive 1 tablet as needed eCW1 (Formerly [facility], 1928–1983) Acetaminophen 325 MG / Hydrocodone [place] trate 5 MG Oral Tablet [[place]] [place] 5- 325 MG [place] 5-325 MG 06/24/2019 12:00:00 AM EST a ctive 1 tablet as needed eCW1 (Formerly [facility], 1928–1983) Acetaminophen 325 MG / Hydrocodone [place] trate 5 MG Oral Tablet [[place]] [place] 5- 325 MG [place] 5-325 MG 06/24/2019 12:00:00 AM EST s uspended 1 tablet as needed eCW1 (Formerly [facility], 1928–1983) 50 mcg/actuation 06/23/2019 12:00:00 AM EST spray,non-aeroso l 17 SPRAY TWO SPRAYS IN EACH NOSTRIL EVERY DAY SPRAY TWO SPRAYS IN EACH NOSTRIL EVERY DAY SOLD: 06/23/2019 [facility] Nebulizer Kit/Tubing/Mouthpiece 06/20/2019 12:00:00 AM EST active [facility] ([facility]) Compressor Nebulizer 06/20/2019 12:00:00 AM EST active [facility] ([facility]) Insurance Providers Payer name Policy type / Coverage type Policy ID Covered alliance party ID Covered alliance party's relationship to bobo Policy Bobo Plan Information RADHA [id number] SP [id number] [employer]ACH [employer] CO OF [place] [id number] SP [id number] [place]/307 [id number] SP [id number] [place] BC-BS PPO 306 [id number] SP [id number] RACH INSURANCE O [id number] S [id number] RACH [employer]ANCE O [id number] S [id number] RACH [employer] O [id number] S [id number] [place] PPO 302/307 [id number] SP [id number] [place]ACH [place] CO [place] [id number] SP [id number] [place] O [id number] S [id number] [place] BCBS B [id number] S [id number] [place] BC-BS PPO 306 [id number] SP [id number] [place] BCBS [id number] Emilia VYA [id number] [place] BC-BS PPO 306 [id number] SP [id number] ANSI-Medicaid [id number] ANSI-Commercial [id number]-k7b6-lkgb3g09p05j z5s47p33-g722-1d7n-e9b7-kzqo2b28n69i ANSI-Medicaid [id number] ANSI-Commercial 69s0l888-3cm8-9yma-6xt6-jh5191p85sj7 13f9l560-6vy5-3ndw-0oz2-lx2641d98rn3 ANSI-Medicaid [id number] ANSI-Commercial f138v409-53r9-80ys-c4z8-8k3b971czwcz d372y873-93c9-65gv-j8g0-8h3c994wbiac ANSI-Commercial 32t9n5vh-0bs7-4m73-5262-1763z0x72598 63f3e0zq-2bn4-0q07-1639-9319x8k80008 ANSI-Medicaid [id number] ANSI-Medicaid [id number] ANSI-Commercial [id number]-96hc-482g-[id number]-g88s-67ng-009x-[id number] [facility] Community [id number] Preferred Provider Organization (PPO) [id number] ANSI-Commercial [id number]-4rz8-7w59-32j0-w4ra0n4v207h 04y4130u-2oo7-8u96-37i6-b3wm6o7n676h ANSI-Commercial 39gpd143-34xr-2w03-w402-86q6obe1iw4x 14bln226-80yi-1n80-i087-18y1fbc9im1k ANSI-Commercial 47h6ec41-srgl-1lk6-dbm4-r2bc9n398dqe 85e5vc62-tqrb-3lt3-oxg3-c7rn0a366bho ANSI-Commercial jmd457d5-v6w5-9o1o-4a4k-0j990c616jb2 pwi969u6-u6e4-6g9t-8k9u-0h434s172yg5 [facility] [id number] SP [id number] ANSI-Commercial 3f199c2e-053r-5w8v-s4e1-12876p60ib1o 4t073i9g-640i-6m3x-h4m4-04704t18jy9u ANSI-Commercial is461067-4968-0269-ao38-8k7lcnmqe62h ym966175-8169-3076-nu30-7d9ybinct47g ANSI-Commercial i2pwr110-7wp0-448d-967l-k28540au2wpw r4qbc613-3fh3-814c-310p-x34361gy2wxu ANSI-Commercial 02y01ms4-2w3i-82y4-6sc8-60695mvpgdvx 60b55dc3-8j1o-51n0-1tn6-10515fjnylvz ANSI-Commercial 58up0009-44oa-4037-k5ci-l4yh3379k084 82ys4696-85lj-5426-u7rb-k6uj7819c625 ANSI-Commercial 413t43e4-3027-4x9k-57e8-8899999527l3 149e48g5-8238-1k9p-84h3-1277427521b6 ANSI-Commercial d71q616z-7v0c-464b-6631-1127457qcg92 t54s467s-5x2d-024n-4989-6728002jos49 ANSI-Commercial 29y17ja4-1k11-1443-u254-94vkt0j948k8 34m40hf3-8g30-7284-j511-07jcb8b388n8 ANSI-Commercial 3vj7t437-op81-0b91-62y0-v18e6y86085t 8eu5u588-gw91-7v27-76p6-e54c4n68364o ANSI-Commercial j6n60h58-688t-9s32-6751-3q6f44734ka1 z7o16m69-788b-7d86-6917-5p5u45883kl5 ANSI-Commercial fy825tt8-6e10-40jh-dm3k-31t26lo05sp6 yg768ax8-8a41-09me-vq8h-92t37zm85nk8 ANSI-Commercial 443nkqe8-182j-6whk-h87i-cm757zoguhz8 357nrdw8-954t-6ahw-t23b-pl281zrctmf8 ANSI-Commercial q2c74446-t6i1-52e0-3q39-d46ruwu7a8mn s5j07761-c8g8-17b7-8y05-f43ihpf9h3ze ANSI-Commercial g876dtd1-a3ij-20lz-3457-91mrd4q31m1c y994fgv2-v1gu-62ey-1613-53jqg1k56b5f ANSI-Commercial re754bb7-0d2w-5z32-x444-0f3ibb06207d dx682bk6-4e8s-6u96-t571-5x1str29284v ANSI-Commercial 5ddn19wh-w862-83r8-495d-2cl340g82j52 5ffc69fp-l627-59y5-692l-9ys471f35b18 ANSI-Commercial 50h4xon5-329m-9643-d77w-ukzd58n85194 32m6myh9-157p-4761-a35h-pkek51w69403 ANSI-Commercial 4a4949e9-481o-4263-017n-l819g2a04179 3m4943c8-826q-6083-803o-s108b2h64208 ANSI-Commercial 82tfbwym-p424-2596j932-9288-3061-ec8yg8g758s3 62sbqzqf-c437-7735s381-0700-7703-ya5iq4o167e0 ANSI-Commercial 3a64l0f1-z0sw-7606-pt9t-5n2u836ujn4l 5a97f2z5-i9cx-3736-ng9u-6f5v424zck1x ANSI-Commercial 727i96cz-hjy8-103m-z34z-d7q413w96yme 651p95cv-smq4-508v-o05k-w2g406e78yiu ANSI-Commercial 50286kx2-kxt7-0s99-d6ux-9296r7z7g856 85918ne8-jqd9-6o95-g8ht-5562d9v7h749 [facility] [id number] SP [id number] [place] 306/806 [id number] SP [id number] ANSI-Commercial n10k4y6v-7170-477c-i052-8bn47u885107 z83r4m5r-3030-724i-w600-7bn83s206844 ANSI-Commercial 376qm36s-7276-2o08-928t-239xi26i89s2 130sg43y-7264-6e83-053x-290ck98e63w1 ANSI-Commercial v90wj95q-a9y1-1bx6-43a6-k8et2b068386 s09zx43q-i2c9-9to3-37u9-s9mh2y526964 ANSI-Commercial 1epsq016-q736-7a45-wh18-72q05xfsz60d 7qcoh893-y351-1c78-eo15-72h10zhwq50e BCBS/Blue Card Commercial [id number] Self V [id number] MEDICARE BLUE PPO 306 SP ANSI-Commercial 88390a81-526g-12o2-74j6-0mf761z056v3 43388y92-484i-28l5-43t6-5sd684g524b8 ANSI-Medicaid [id number] [facility] O [id number] S [id number] ANSI-Medicaid [id number] ANSI-Commercial 43dz4058-70ga-11v5-j04o-60e9ru634jd0 30em1041-87tj-99e4-z03d-66c9kj031jf7 [facility] [id number] ANSI-Commercial 1l7gm935-p2zu-830h-9b50-bnoy6pnswy9a 3l4bt974-i4uh-059n-8t90-tuql2zbvhe0w [facility] [id number]-lh3f-qk585l1f4kk6 ANSI-Commercial lj5d75vb-0ew6-3452-k56v-59481f9l5s80 aq4c49cc-8dh9-0338-v59p-74246r7s3m25 [facility] [id number] ANSI-Commercial 280h477w-x557-11je-uu4f-1gbi7nl5077p 415g617x-s542-23sh-jj5y-5chl3lh5257a ANSI-Commercial 178457l4-35g7-7q63-x206-m5nucl03t54e 807538x9-16v9-9b35-b373-w5vbac56t75n [facility] [id number] [facility]-Medicaid [id number] [facility] 6914c119-ecdu-54h5-9569-j1c1w0b0zlmc 5856r430-argu-80j2-7236-t2q3o5o0hzxy ANSI-Commercial zy8344m0-57t2-51h7-13v1-6w2cr344ek8p ru8639e2-44p9-45p6-69i5-4b9ub534qk7e ANSI-Medicaid [id number] ANSI-Commercial hg0d042m-a492-61b3-90b2-57hx7659j3c2 zk1w424g-h938-52r8-56s1-04sx6597e7n5 [facility] [id number] ANSI-Commercial 1s730v64-4v6b-5619-894q-k09zv6f8dr9m 4f933f71-4q4y-8447-368w-f58tn0r7qq4z [facility]-Medicaid [id number] [facility]-Medicaid [id number] ANSI-Commercial y711c117-26v4-3z37-wa05-24c574jeom79 k443l768-39h5-8k16-rj65-36c468gnjn39 [facility] [id number] ANSI-Commercial 7m0s991k-k2ip-9v70-316e-180l1i2v114k 7j5m237r-f4ku-7d66-802l-424m4s2z343j [employer] COMMUNITY PLAN MCDHMO [id number] SP [id number] ANSI-Commercial 73h11n1f-330j-938o-w33n-487ob79413f0 08b28u8m-447b-322g-u12t-676ye46568b3 ANSI-Medicaid [id number] ANSI-Medicaid [id number] ANSI-Commercial 0199m4r0-xz2q-10p3-g114-xq7utn0qdfa3 0382b9e3-rf2g-23g9-s932-fb6yjx0hgwu5 ANSI-Medicaid [id number] ANSI-Commercial a08s30le-v047-77kw-5330-bt826y5xx480 f37z65mx-a503-11yq-4970-is433n6la043 [facility] Comm Plan Medicaid F [id number] SELF [id number] [facility] H O [id number] S [id number] [facility] O [id number] S [id number] [facility] [id number] SP [id number] [facility] [id number] SP [id number] [facility] MEDICAID [place] HMO [id number] S [id number] [facility] [id number] SP [id number] [facility] [id number] SP [id number] UNHC COMMUNITY PLAN MCDHMO [id number] SP [id number] [facility] [employer]bel/MCR Health Maintenance Organization (HMO) [id number] Self [id number] UN COMMUNITY PLAN MCDHMO [id number] SP [id number] [facility] [employer]/MCR Health Maintenance Organization (HMO) Self [facility] HEA [id number] MEDICAID [id number] SP [id number] MEDICAID GME W [id number] S [id number] D [facility] COMM PLAN [place] W [id number] S [id number] [facility] [employer]UAL UNAVAILABLE SP UNAVAIL ABLE [facility] [id number] SP [id number] MEDICAID M [id number] S [id number] SELF PAY UNAVAILABLE SP UNAVAILA BLE Problems, Conditions, and Diagnoses Code Display Name Description Problem Type Effective Dates Data Source(s) 116017102 Dizziness and giddiness Dizziness and giddiness Proble m 07/04/2020 12:00:00 AM EST [facility] ([facility]) [id number] Chronic intractable migraine without aur a Chronic intractable migraine without aura Problem 07/04/2020 12:00:00 AM EST [facility] ([facility]) E04.9 3308095 Enlarged thyroid Problem 03/08/2020 12:00:00 AM EDT eCW1 ([facility]ly [facility], [facility]) M51.24 [id number] Thoracic disc herniation Problem 03/07/2020 12:00:00 AM EDT eCW1 ([facility]ly [facility], [facility]) M51.26 103748163 Lumbar disc herniation Problem 03/07/2020 12 :00:00 AM EDT eCW1 ([facility]ly [facility], [facility]) M22.2X1 123797328 Patellofemoral disorders, right knee Prob titus 06/22/2019 12:00:00 AM EST eCW1 ([facility], [facility]) M22.2X2 [id number] Patellofemoral disorders, left knee Pr oblem 06/22/2019 12:00:00 AM EST eCW1 ([facility]ly [facility], [facility]) M22.2X1 104873158 Patellofemoral disorders, right knee Prob titus 06/22/2019 12:00:00 AM EST eCW1 ([facility], [facility]) M22.2X2 [id number] Patellofemoral disorders, left knee Pr oblem 06/22/2019 12:00:00 AM EST eCW1 ([facility], [facility]) [id number] Allergic rhinitis caused by mold Allergi c rhinitis caused by mold Problem 06/20/2019 12:00:00 AM EST [facility] ([facility]) Note: (2+ reaction to mold spores on int radermal test 03/19/2016) I10 Essential (primary) hypertension Essential (primary) h ypertension Diagnosis 08/04/2019 10:47:28 AM [facility] Z13.220 Encounter for screening for lipoid disor ders Encounter for screening for lipoid disor Diagnosis 08/04/2019 10:47:28 AM [facility] R07.9 Chest pain, unspecified Chest pain, unspecified Diagno sis 08/04/2019 10:47:28 AM [facility] R06.09 Other forms of dyspnea Other forms of dyspnea Diagnosi s 08/04/2019 10:47:28 AM [facility] R00.2 Palpitations Palpitations Diagnosis 08/04/2019 10:47:28 A M [facility] Surgeries/Procedures Procedure Description Date Indications Data Source(s) X-Ray Spine Lumbosacral Complete Inc Bending Views Min Of 6 05/09/2020 12:00:00 AM EST [facility] ([facility]) Physical Therapy Eval - Mod Complexity 04/25/2020 12:0 0:00 AM EST [facility] ([facility]) Immunization: Flublok Quadrivalent (18 years & older) 0.5mL IM (Influenza) 04/05/2020 12:00:00 AM EDT eCW1 ([facility]) PNEUMOCOCCAL POLYSAC VACCINE 23-V 2 />YR SUBQ/IM 04/05 12:00:00 AM EDT eCW1 (Formerly [facility], 1928–1983) RADEX SPINE CRV COMPL W/OBLQ&FLEX&/XTN STDS 03/20/2020 12:00:00 AM EDT [facility] ([facility]) RADEX SPINE CRV COMPL W/OBLQ&FLEX&/XTN STDS 03/20/2020 12:00:00 AM EDT [facility] ([facility] ) TeleMedicine Est. Pt. Level 3 10/19/2019 12:00:00 AM E DT eCW1 (Formerly [facility], 1928–1983) TeleMedicine New Pt. Level 3 09/13/2019 12:00:00 AM ED T eCW1 (Formerly [facility], 1928–1983) ESTABILISHED PATIENT [facility] FACILITY CHARGE 020 12:00:00 AM EDT eCW1 (Formerly [facility], [facility]1983) Physical Therapy Eval - Low Complexity 07/20/2019 12:0 0:00 AM EST [facility] ([facility]) BRNCDILAT RSPSE SPMTRY PRE&POST-BRNCDILAT ADMN 12:00:00 AM EST [facility] ([facility]) INJECT SACROILIAC JOINT 06/15/2019 12:00:00 AM EST eCW1 (Formerly [facility], 1928–1983) RADXPS IN END [id number] PXD 06/15/2019 12:00:00 AM ES T eCW1 ([facility]ly [facility], [facility]1983) PSYTX W PT 45 MINUTES 06/13/2019 12:00:00 AM EST eCW1 ([facility]ly [facility], [facility]1983) Results ID Date Data Source [id number] 04/19/2020 12:00:00 AM EST [facility] Kayden Schaffer MD Patient Name: BLACK [id number] [facility] Date of : 1960[place] [address] Date of Exam: 04/19/2020PH#: Fax: [phone] EXAM: [...] rce(s) Supporting Document(s) ID Date Data Source [id number] 04/10/2020 12:00:00 AM [facility] Kayden Schaffer MD Patient Name: LESLIE [id number] [facility] Date of : 1960[place] [address] Date of Exam: 04/10/2020#: Fax: [phone] EXAM: [...] caliber and signal intensity on T1 and O2nwytxiij scans. Post contrast images show no significant [...] C5-6. No suspicious Gadolinium enhancement.Accredited by the [employer] in .ANITA Pedraza/Nikko you for referring JOSE EDUARDO DICK to our office. Electronically Signed - DALIA BOWDEN MD 04/10/20 14:53 Name Value Range Interpretation Code Description Data Salima rce(s) Supporting Document(s) ID Date Data Source [id number] 02/03/2020 12:00:00 PM EDT [facility] Name Value Range Interpretation Code Description Data Salima rce(s) Supporting Document(s) SARS coronavirus 2 RNA [facility] This lab was ordered by [facility] and reported by [facility]. ID Date Data Source [id number] 10/18/2019 01:20:00 PM EDT [facility] Name Value Range Interpretation Code Description Data Salima rce(s) Supporting Document(s) SARS CORONAVIRUS 2 RNA [facility] This lab was ordered by [facility] and reported by [facility]. ID Date Data Source [id number] 08/31/2019 04:19:[address] [facility] Name Value Range Interpretation Code Description Data Salima rce(s) Supporting Document(s) &PDF [facility] CFTWDb3gQgVDChRn55/PWQhbINHeu6GuNLpmGEc7DCfkXUUzC6IxuArbSPNEQVDNUvSHFhnESLlGRJ2F yZW [file] 5FZXSzKF3SMTHbQgJrJEJDQmMnLFHwAfTdRFNkIPQH Jj1SKeUhJ0jENnyoG1StPVvkV0faNvUmXJefIPXATLmtKCLrZ2zfShCnENtzKLSISp8ESfTaI5B2oCtV xWY5BVA0IR5PMiYEOxZkCYi7S4Z0wKTbO2D9fSmXgCV5LS9HUR2RSRTvLO5+SkBkF7FGJWwTVVN3JY6B rTDxEF0FaECSF7FcoHRuCi9dRHDvbBkakGl+PiAvU1 MHBTKKWNT2XQ0PwBDkVL8IcZCGW6SvrVSsZp8lBXhrPfZmZL7xMH8+IG4FDUROXfGHRuHiHWciCMgbSX AzLCz9R3N4ATGzH8JCL7Y4V7i5i5vdks2+NY4YEGLxT8TGZHPWYpEyEZoyLCgpSGYoIIb0A3U8FTTeI0 JGT0bkA5k4CM4+PiANCiAgID4+DQo+Iz7GPN2gq1Xq JSrhCKKwYO6fkr8VMRsdKJTsM0WoOPRwLThjO3TmbFglGT0QCFjwZDbhHR5BMCFfFYY7KZ3+DQpzdHJl HI7BDfb/iHGrS6yhwBYcJYhvas4o81d/GbDgKR9kFwZOQZ6tJ5KdjLj9ofCUlq0SR4fkYeskRf5+DQog OVv7TcfsjS9mnIBdgLb6bQR8yg2gUo6sZYtcKCqqlU 2wpmQ2dD7pMGXqOhJ4xxH0wGR5UI9fVu4REZFzHQmaVSZ5LmCTSGeaiU4sMpVbCd7zeDR9rWarQ3f7bs 06Rp2kvqipPMs9AW8jGc6wMm5uVNRmm6tkmXQ0OB3sObj+TBukSLHaPU4bMSS2JzKRTq2GBAE2D2d1cD 0gcVN3DV2YRnCiVFZrGPGdFMFkFRTwPXIeUTMxXZRg ICAgICAgICAgICAgICAgICAgICAgICAgICAgICAgICAgICAgICAgICAgICAgICAgICAgICAgICAgICAg ICAgICAgICAgICAgICAgICANCiAgICAgICAgICAgICAgICAgICAgICAgICAgICAgICAgICAgICAgICAg ICAgICAgICAgICAgICAgICAgICAgICAgICAgICAgIC AgICAgICAgICAgICAgICAgICAgICAgICAgICANCiAgICAgICAgICAgICAgICAgICAgICAgICAgICAgIC AgICAgICAgICAgICAgICAgICAgICAgICAgICAgICAgICAgICAgICAgICAgICAgICAgICAgICAgICAgIC AgICAgICAgICANCiAgICAgICAgICAgICAgICAgICAg ICAgICAgICAgICAgICAgICAgICAgICAgICAgICAgICAgICAgICAgICAgICAgICAgICAgICAgICAgICAg ICAgICAgICAgICAgICAgICAgICANCiAgICAgICAgICAgICAgICAgICAgICAgICAgICAgICAgICAgICAg ICAgICAgICAgICAgICAgICAgICAgICAgICAgICAgIC AgICAgICAgICAgICAgICAgICAgICAgICAgICAgICANCiAgICAgICAgICAgICAgICAgICAgICAgICAgIC AgICAgICAgICAgICAgICAgICAgICAgICAgICAgICAgICAgICAgICAgICAgICAgICAgICAgICAgICAgIC AgICAgICAgICAgICANCiAgICAgICAgICAgICAgICAg ICAgICAgICAgICAgICAgICAgICAgICAgICAgICAgICAgICAgICAgICAgICAgICAgICAgICAgICAgICAg ICAgICAgICAgICAgICAgICAgICAgICANCiAgICAgICAgICAgICAgICAgICAgICAgICAgICAgICAgICAg ICAgICAgICAgICAgICAgICAgICAgICAgICAgICAgIC AgICAgICAgICAgICAgICAgICAgICAgICAgICAgICAgICANCiAgICAgICAgICAgICAgICAgICAgICAgIC AgICAgICAgICAgICAgICAgICAgICAgICAgICAgICAgICAgICAgICAgICAgICAgICAgICAgICAgICAgIC AgICAgICAgICAgICAgICANCiAgICAgICAgICAgICAg ICAgICAgICAgICAgICAgICAgICAgICAgICAgICAgICAgICAgICAgICAgICAgICAgICAgICAgICAgICAg ICAgICAgICAgICAgICAgICAgICAgICAgICANCjw/gFUhM9bbrWNwadZ0Y8vmSv6JHb3CKH9mn8GdMRKz EAacykCwKcrKMgNrTXCvQchDZaf3OSqjBA4LmFOsN5 VjE1UsYJdpMY2BCUYiXFJfyQCrVHNpIYBuPbP4HZTpILzuNA5LkBNyPHntBCKuYZWiGfFrVHRlBM3PXH JzJ413elAvJa5LXa6FJkNcHJ1jwz8PYlWiDXJnZppVKkq6VQkkSM5WkWTqQ9VkeODkg5uGFaKrN3JJUP X6ZQKoZv3GLPOqUgJrLRJxXHrdRR6qUCSoHICRqQtd riO2AJ7QZE7cacMqZM1AJyCzIj3hPz6CFnEhJ7HcA6CqEVDfACSGQVxdQY9NSSCnCUJ2PQRrGSDpAEHE MvLiR75vRF2UI7Jsl58bMyF6SWOjZqXdUXaiJC06gHqxlsBpnSYvmWmcBU5QLy6+DQplbmRvYmoNCnhy SQACCdKmTjIQYaTgKEViICUkTHLeNbG2VyGtQn9JBC LcGDXjQGMgPmXrHHXbCTVyYEdnCNPqRIJ6BPS1ZSIhRSMpDG2NIeGmHPIxKEn4MMBeTIVdKWOjql0JNZ AnZRExNQP3LdZwZMMjWHRhXLrtZOUrGJKtGAbuJMZfNICkLJ8CTdZvWVXwLRIoRImyUIFiKYWnpd1MJE YsCFZdPQCbEvZcUTRtTULcGWrpMRGlVEP5YHL4IXFr RURyFS2CZvIpTHAjLYEkXuUrHBQuKZOauq7DICNfJMHzIHQ2DPRqXIFmCCCaJPuyPUAyYAL5ObCmIGYh WTKdNX7JCeHrOJSyLAU9SRRaZQJnPWSdwr8KNVCpHPIqPwjqWbTxGQMwPLVmIPppRQLvTMH7MBmfRURm EWPtSK5JLfYaAFHcPBxqUEfnYJWsLKTwgf6PWZLeRD IcIXA0TILjYWMhQNXsAWraQRHdPKW6CIK5JGKbPVAyYS4KDmRdQXMfEYGhZuiwIRAtNCIlvy5MYQMkJU JuAsF5SUDvEERsNHPiCMvhKIEfVQD2AEm8ULTvOMXoKV8CWiYuQFRsKSyiZkJkTKLkBWLbqr8LuOCxcB byee7TINyTQd4MvLjmJJNrLFyqOq3caXMaFCErLISA Kh9HurSwNCVwJLIQOYksKHNbDIX0FGw7SETqOFBrAMYlBeVwJCYhUTUeOQD9BPRxGGUkFnJ2OTC5AFq3 D9YkHAO7N2A8IjB3OQV8AsV2SbA6VFFqGrG+UM6wMTw+Ql6Xx0LjwlY7udAdLPuvURPeYv6FJNCUE1YQ Cg== ID Date Data Source [id number] 08/31/2019 04:16:[address] [facility] Name Value Range Interpretation Code Description Data Salima rce(s) Supporting Document(s) &PDF [facility] LPWDNs1mZeXNLdLc23/PSXhaEOGtf9FeWGmuIXj0RSehUUPoY9NztXoaJZHCMHSZThZTPerOIJnVYI4W yZW [file] ICAgICAgICAgICAgICAgICAgICAgICAgICAgICAgIC AcHKZwCBLdLBGgIQYjSZQaJOWyVCCfQCLqRJRvKBVbMQDmJDGiGPFcCC3AEKYnXREyYWSkXXXgBZFiNV AgICAgICAgICAgICAgICAgICAgICAgICAgICAgICAgICAgICAgICAgICAgICAgICAgICAgICAgICAgIC CpRADoCMSrTVFaGPJgLOQwMPVzOQZbXI4KQJBcHXPn ICAgICAgICAgICAgICAgICAgICAgICAgICAgICAgICAgICAgICAgICAgICAgICAgICAgICAgICAgICAg QHMmIJWqLJPoBYJoDZYrFKLzOIIkLGQhPOZsQUMmPEHaXH7LWPEoQWTzGETxNRFcRQDiTSAbFIKxJPKy ICAgICAgICAgICAgICAgICAgICAgICAgICAgICAgIC PcENBiUZJoTNZmONNuTRWiJMCyIXFfIFEyFHJiSFZaWWQrPOAbLETtYXHyXT3MTIEzZJJiFUWuOWEzKD AgICAgICAgICAgICAgICAgICAgICAgICAgICAgICAgICAgICAgICAgICAgICAgICAgICAgICAgICAgIC DxQLSjCKEoRBYgVRJoZEYqXKNiWSZqMFMtRS3BCHLe ICAgICAgICAgICAgICAgICAgICAgICAgICAgICAgICAgICAgICAgICAgICAgICAgICAgICAgICAgICAg XFQwCFJtBPNhWFIfAGTgBRKsHZAqKARgTIYwNDWaFNErKHUyNT6BDRAsQOYuITOmDMJjIPJfHFXoMPAa ICAgICAgICAgICAgICAgICAgICAgICAgICAgICAgIC DwNWAxDTYfGXCtBUXxCCMuTFXjMUElAYHiXCUhSMTeYKVjLPXeJYBwWYFrVEVlSE4GYUGzYEIsJGZoSX AgICAgICAgICAgICAgICAgICAgICAgICAgICAgICAgICAgICAgICAgICAgICAgICAgICAgICAgICAgIC QcAFJuXPBvEIDdRCTtVALbDYJpDTEpTJXdJTFmFR1D ICAgICAgICAgICAgICAgICAgICAgICAgICAgICAgICAgICAgICAgICAgICAgICAgICAgICAgICAgICAg TVUtVFKgBAGgHSTkPYQmPCRcOYKoEFAdDWPfGMQdXFTcHJZfOLBrLH6RWAZfAMNxBVAwIAVvOHNiNANt ICAgICAgICAgICAgICAgICAgICAgICAgICAgICAgIC EySKRnBMHkFNCjPLUgXTAyMMPgVWZiZUYeXJGzYTChJCHfFDEeRYIwFPVdPZWhJDApVX4OEZ39bQAaj8 E0XGBsPU3okcq/Na3BVIkpsaQzsPAyKJ9IZmJaCG1vbc2UZxOzHC5yje3IBPwAMzGaZ1Q3mCZrSUYwVC YSWhMkO73lYZfrFs42OPhaBWEdEhFvVWh2Kp9FGxDh V4fdIFQdKsP0OHFsHsY2DZSxIhQfRLnwBT5My9VemGPlQUj+Rf4NLI6rg6PcFUqqLWTbCW6snj6APVlE JqXnA1E1hEZkI4R4BRpdNe6GSXZqEZCqCPrnAEMPGFoeJG7MGW1kdxI4LR0EbKDrUBTcGFAjgOClKLv1 O85eqDYjVJfrIV1JIVC+Fang+Zi0VGJUsJWGmOTMgGz MiZXQEDzZaX20rpPHrMDDwPYGbCZStEo1FGNCbY6KbwjPxcLlrllKgBCShVSEAPX1ZIMldayCprUQbsN xeIO17dYdlIB3QWb3QBpXtSM1sws6FpDRsKb5HAUZlGm3XRVWjXYEyXNRwKZN9RLFnGrEdKGfjCOYiZC WgTKL7ZUPbDJRlMA3JNcBgNMMpWOzoNDFkXVPlLOVb be9LVLElDYXaFCj3LYFwUZGzKKEwEEvkOJZiYZAhLTe7UNXoEZMtNX8DNqDsSDHpXHKzYrZeFHPiKGSs av8HMKHnLUCtWjF7VnJsTWQzWGRmPRwoFVTbWIF4LxR0JJJlLRNxIA5BHuReNCEsHQP6TbRwOJXoFAEf xx1PEKRdPGNqGcB6EOQmMCOfGZZiDEsfAKLmHZG3HX l4JNNcLHDiZM4EZkUaGAYwLWD1ZtbzOSEsOKXdtx8RJTVnFIBoVaarZsVtUIKiJSFwBWlbJIQhGBR9XE P2KWGtCZKaDM4GUeQjWJUfNZgsCAAsOYLvTRQamw2VSMByGVKaEAF4ZXAcONRgEYEcRShgCENfFGU1Mi r2USPnRUTnFT5NCpEdMRKkEJn0HkUhVVNmMIJxls3W ZPZhIFSkEOG5PvWkHCObMGDaNTdhKGEiNYX7NFwdRAPqQYMqGL6ICnSlIKFoTSg2WDKpDYFjQGEdvl6S VZKmJQOrNHB3ZXGpWFCbLOClCCi4xnHlpWHqIOp3SD6FY2SxukFsOwYZRh0Oi870HTRvLUGiTi0XW2qi Mf4gOEYbHMHEBr5NWSt0WyTuVWXbAJKtT4BvGmgoJJ LoSvH2DNK0LQTnGCMeUCN+NBsyK4CfE9KfAlV2GNKrYgZ3NBFqXtP5JnTwNtL5RcRoBK9oTKAOQx6+DQ iioBTgfTqtOGRITzSpUvBeLCiaAYLJXr9R ID Date Data Source [id number] 08/14/2019 08:42:[address] [facility] Name Value Range Interpretation Code Description Data Salima rce(s) Supporting Document(s) &PDF [facility] TQESGe0hFzTRWgNb69/MVRgnYXSpa5UmRGrjPPv1NOxsKSFxF4AngBtvKVDERGWBMpEGMssHJLvHXM0P lYX [file] ICAgICAgICAgICAgICAgICAgICAgICAgICAgICAgICAgICAgICAgICAgICAgICAgICAgICAgICAgICAg XYEzWEAuOHStQQEvTBCxQC4DZWMvAGHdNXGoTETgZESeLILnKVWoFCLjFWMyONChTMGxXXOtZFLeVFBx ICAgICAgICAgICAgICAgICAgICAgICAgICAgICAgIC NpWSGdZJHmSVNgJVLoGFYkGKQgEWJjEDQdBM1BBDHlMKCrAUTbZMRyNPGsXEQjBWPwNXLkYPAsDUYvBA AgICAgICAgICAgICAgICAgICAgICAgICAgICAgICAgICAgICAgICAgICAgICAgICAgICAgICAgICAgIC PyELTuZNXlAV9EUPKpYIHuCQBjSKKfCWPiQZXrRIGm ICAgICAgICAgICAgICAgICAgICAgICAgICAgICAgICAgICAgICAgICAgICAgICAgICAgICAgICAgICAg AUBeGQSyYSIsOVViDYOaVPZcYL2KKDTmVAEgLSBjOSPcGKIkGVQdZOPuBMWmSOLqVKTtKDBqMQCdHOEe ICAgICAgICAgICAgICAgICAgICAgICAgICAgICAgIC VxKLOdEELkSUBfMVZaKJBdKJItCGMcJHAlSUFdQE5CHJMeJUCwVABfAPHbWSRrOPHzPURrADGgTTZsBY AgICAgICAgICAgICAgICAgICAgICAgICAgICAgICAgICAgICAgICAgICAgICAgICAgICAgICAgICAgIC UfFJHsEPJqOHVvJB6JZCSlXEVhTBSsYFQmKCBoZFTl ICAgICAgICAgICAgICAgICAgICAgICAgICAgICAgICAgICAgICAgICAgICAgICAgICAgICAgICAgICAg CDOaSKJuDERkJLWpSEDyTZQwIQNaUZ4SOZNpLHTnCYJqFKPsDXIrXMShKLTqXXOwKHXtNYEoIUUlSQMz ICAgICAgICAgICAgICAgICAgICAgICAgICAgICAgIC BcGWTpAAYdPWIbAWSuROMkBKQvHRLaZQHuURIyUXGsUC4LBGSiNSBmUMQpUZZzAANtDIKkVTSdJGWsGE AgICAgICAgICAgICAgICAgICAgICAgICAgICAgICAgICAgICAgICAgICAgICAgICAgICAgICAgICAgIC QnPKRhWPImAKXlVBRtSX1XTNGbAQMpCJFpVKArJGTs ICAgICAgICAgICAgICAgICAgICAgICAgICAgICAgICAgICAgICAgICAgICAgICAgICAgICAgICAgICAg IRXsZWDvHZZjBZRyENNcUHLgTOHwUJIyMA3SXY23wYDfc5N0DLHeQY3bofz/Dp0PNDabtgNbxFPaIG1A ByNeNV3zjj9IRoRdCN8lzk5UNVrGHvMbG0O6yKSaRI AePLLRQmKeO55jMJwgHk52RZhqIYWaVhKqDHn2Pf8OIzDkR1mfOYZbIpZ5WFOlDmJ1YRJnIoEdVDmzNW 8Ge2XdmMFxDTv+Ve9BKJ2jc3FfEHxoNOLpLH8dxu3WSQmIFdLbJ9B3sFUeY6C8MOmiMn0ABGTfIVYeWN unEBECBQykBH7DMJ8zqfD7TR3DnHVeRZZlELMmeDHs EAf6Y84riCVxOAeaJY9CHFR+Fang+Rr7VHZIaLAQtWEJcNnWjSXSZHwDxX25tkFRfRDCkCHPoGABmCa2T NCPfG1FmnjWkuLbympGbQCFyNWYFIT0RGWkacnPrmXNsxOiqBP19fYjeJV6EXr9CMuSuAT5ogn9MnEIg Nd4MXHRaVv9RXSCiQMSvPWFnLVH2MZBgRtSiAZaePM JvQXKeEDK4WABkJFImNN8THaUqZVSnWZI0OxNsGWQrYBArby2BPFRdPOUeCABsBcFpZLKgYMIgBAwvOQ OeEFJiCLo7VYLoAJXxDI8IJoFsVIFkIGAvCBRxDTOqHMBvmu8XPICiMJTxIdW6CVSlDIDiZCHiWOeuPI YgQGCyESl5MSDcHXJvJN5WAjUxICGkXEYsFSIlZPMk TSDirg7IGCVgGSSvMOC2HDVcGCKsZYVmXZgaCSBrLMO4FaV2XWFxXCNaZB0AWnKtVQLhBSQ4CgtuUOKg BMWugs0KSJYcFILjXyS1MkOeFHDfJBMoCUluRIUpWZO4OAr8RDRuHXFnCA2ZFfNaCUSvZYB7JImcEXQf FCJiar4AODKxDSCvMfm5TIHwCHAjGVLmOVayJTQxMS X1INR2VVVpZSRuFN3QHkBsOQOjOIuhOuHuSKPxQHKuza3HGKKnJXXrYqvcScFoEWTsUZXtYHdpXOGpOH X8FRUeWDKvLXZhLM4MKqSsOGNpKMjkEhDdKGHqTFYqdn6BVOTuREPkNFtuSnEsZJUoTIBzETl1qcJduO ZtTWn9UW2SG9QyzqAkWiVFLn4Jd835WSFwTVLfIz6I E1xyMf4qBZUxNOTJJx2MBSj7UmTsGAN8KXTwV3AiEyUoQrUlASSsEGLpELG4ToY2FBY+AYu5EHY2SPOd SSRsGvBnMwHwG2NeSmHjUoEaYOmzZnU5Vs0gZCOEWj5+KRcwdLOgzPceQIARTpH1ENEwKPrmYCUMVd7F Procedure Social History Code Duration Value Status Description Data Source(s ) Smoking 04/05/2020 12:00:00 AM EDT Never Smoker completed Never S moker eCW1 (Formerly [facility], 1928–1983) Smoking 04/05/2020 12:00:00 AM EDT Never Smoker completed Never S moker eCW1 (Formerly [facility], 1928–1983) Smoking 04/05/2020 12:00:00 AM EDT Never Smoker completed Never S moker eCW1 (Formerly [facility], 1928–1983) Smoking 04/05/2020 12:00:00 AM EDT Never Smoker completed Never S moker eCW1 (Formerly [facility], 1928–1983) Smoking 04/05/2020 12:00:00 AM EDT Never Smoker completed Never S moker eCW1 (Formerly [facility], 1928–1983) Smoking 04/05/2020 12:00:00 AM EDT Never Smoker completed Never S moker eCW1 (Formerly [facility], 1928–1983) Smoking 03/08/2020 12:00:00 AM EDT Never Smoker completed Never S moker eCW1 (Formerly [facility], 1928–1983) Smoking 03/08/2020 12:00:00 AM EDT Never Smoker completed Never S moker eCW1 (Formerly [facility], 1928–1983) Smoking 03/08/2020 12:00:00 AM EDT Never Smoker completed Never S moker eCW1 (Formerly [facility], 1928–1983) Smoking 03/08/2020 12:00:00 AM EDT Never Smoker completed Never S moker eCW1 (Formerly [facility], 1928–1983) Smoking 12/12/2019 12:00:00 AM EDT Never Smoker completed Never S moker eCW1 (Formerly [facility], 1928–1983) Smoking 12/12/2019 12:00:00 AM EDT Never Smoker completed Never S moker eCW1 (Formerly [facility], 1928–1983) Smoking 12/12/2019 12:00:00 AM EDT Never Smoker completed Never S moker eCW1 (Formerly [facility], 1928–1983) Smoking 12/12/2019 12:00:00 AM EDT Never Smoker completed Never S moker eCW1 (Formerly [facility], 1928–1983) Smoking 10/19/2019 12:00:00 AM EDT Never Smoker completed Never S moker eCW1 (Formerly [facility], 1928–1983) Smoking 10/08/2019 12:00:00 AM EDT Patient has never smoked co mpleted Patient has never smoked MEDENT ([facility]) Vital Signs ID Date Data Source UNK Name Value Range Interpretation Code Description Data Source(s) [place] body weight 115 [lb_av] 115 [lb_av] MEDEN T ([facility], ) Body mass index (BMI) [Ratio] 34.7 kg/m2 34.7 k g/m2 MEDENT ([facility], ) Body weight 196.00 [lb_av] 196.00 [lb_av] MEDEN T ([facility], ) Body height 63 [in_i] 63 [in_i] MEDENT ([facility], ) 5'3" Respiratory rate 12 /min 12 /min MEDENT ( [facility], ) Body temperature 97.5 [degF] 97.5 [degF] MEDENT ([facility]) Body mass index (BMI) [Ratio] 35.9 kg/m2 35.9 k g/m2 MEDENT ([facility]) Body weight 199.38 [lb_av] 199.38 [lb_av] MEDEN T ([facility]) Body height 62.5 [in_i] 62.5 [in_i] MEDENT ([facility]) 5'2.50" Body temperature 96.8 [degF] 96.8 [degF] MEDENT ([facility]) Body temperature 96.9 [degF] 96.9 [degF] MEDENT ([facility] ) Diastolic blood pressure 84 mm[Hg] 84 mm[Hg] eCW1 (Formerly [facility], 1928–1983) Systolic blood pressure 154 mm[Hg] 154 mm[Hg] e CW1 (Formerly [facility], 1928–1983) Body temperature 98.7 [degF] 98.7 [degF] eCW1 ( Formerly [facility], 1928–1983) Respiratory rate 16 /min 16 /min eCW1 ([facility]) Heart rate 70 /min 70 /min eCW1 ([facility]) Body mass index (BMI) [Ratio] 35.96 kg/m2 35.96 kg/m2 eCW1 (Formerly [facility], 1928–1983) Body height 63 [in_i] 63 [in_i] eCW1 (Formerly [facility]) Body weight 203 [lb_av] 203 [lb_av] eCW1 ([facility]) Body mass index (BMI) [Ratio] 33.8 kg/m2 33.8 k g/m2 MEDENT ([facility]) Body weight 194.00 [lb_av] 194.00 [lb_av] MEDEN T ([facility]) Body height 63.5 [in_i] 63.5 [in_i] MEDENT ([facility]) 5'3.50" Body temperature 97.5 [degF] 97.5 [degF] MEDENT ([facility]) Diastolic blood pressure 103 mm[Hg] 103 mm[Hg] eCW1 (Formerly [facility], 1928–1983) Systolic blood pressure 152 mm[Hg] 152 mm[Hg] e CW1 (Formerly [facility], 1928–1983) Body temperature 98.7 [degF] 98.7 [degF] eCW1 ( Formerly [facility], 1928–1983) Respiratory rate 16 /min 16 /min eCW1 ([facility]) Heart rate 87 /min 87 /min eCW1 ([facility]) Body mass index (BMI) [Ratio] 35.42 kg/m2 35.42 kg/m2 eCW1 (Formerly [facility], 1928–1983) Body height 63 [in_i] 63 [in_i] eCW1 (Formerly [facility]) Body weight 200 [lb_av] 200 [lb_av] eCW1 ([facility]) Diastolic blood pressure 107 mm[Hg] 107 mm[Hg] eCW1 (Formerly [facility], 1928–1983) Systolic blood pressure 151 mm[Hg] 151 mm[Hg] e CW1 (Formerly [facility], 1928–1983) Body temperature 97.9 [degF] 97.9 [degF] eCW1 ( Formerly [facility], 1928–1983) Respiratory rate 18 /min 18 /min eCW1 ([facility]) Heart rate 88 /min 88 /min eCW1 ([facility]) Body mass index (BMI) [Ratio] 36.13 kg/m2 36.13 kg/m2 eCW1 (Formerly [facility], 1928–1983) Body height 63 [in_i] 63 [in_i] eCW1 (Formerly [facility]) Body weight 204 [lb_av] 204 [lb_av] eCW1 ([facility]) Body mass index (BMI) [Ratio] 34.7 kg/m2 34.7 k g/m2 MEDENT ([facility] [place], [facility]) Body height 63 [in_i] 63 [in_i] MEDENT ([facility], [facility]) 5'3" Body weight 196.00 [lb_av] 196.00 [lb_av] MEDEN T ([facility], [facility]) Body temperature 97.3 [degF] 97.3 [degF] MEDENT ([facility], [facility]) Oxygen saturation in Arterial blood by Pulse oximetry 98 % 98 % MEDENT ([facility], [facility]) Respiratory rate 16 /min 16 /min MEDENT ( [facility], [facility]) Heart rate 79 /min 79 /min MEDENT ([facility] [place], [facility]) Diastolic blood pressure 92 mm[Hg] 92 mm[Hg] MEDENT ([facility], [facility]) Systolic blood pressure 136 mm[Hg] 136 mm[Hg] M EDENT ([facility], [facility]) Diastolic blood pressure 78 mm[Hg] 78 mm[Hg] eCW1 (Formerly [facility], 1928–1983) Systolic blood pressure 149 mm[Hg] 149 mm[Hg] e CW1 (Formerly [facility], 1928–1983) Body temperature 97.6 [degF] 97.6 [degF] eCW1 ( Formerly [facility], 1928–1983) Respiratory rate 18 /min 18 /min eCW1 ([facility]) Heart rate 78 /min 78 /min eCW1 ([facility]) Body mass index (BMI) [Ratio] 36.31 kg/m2 36.31 kg/m2 eCW1 (Formerly [facility], 1928–1983) Body height 63 [in_us] 63 [in_us] eCW1 (Formerly [facility]) Body weight Measured 205 [lb_av] 205 [lb_av] eC W1 (Formerly [facility], 1928–1983) Diastolic blood pressure 77 mm[Hg] 77 mm[Hg] eCW1 (Formerly [facility], 1928–1983) Systolic blood pressure 119 mm[Hg] 119 mm[Hg] e CW1 (Formerly [facility], 1928–1983) Body temperature 97.9 [degF] 97.9 [degF] eCW1 ( Formerly [facility], 1928–1983) Respiratory rate 18 /min 18 /min eCW1 ([facility]) Heart rate 88 /min 88 /min eCW1 ([facility]) Body mass index (BMI) [Ratio] 35.07 kg/m2 35.07 kg/m2 eCW1 (Formerly [facility], 1928–1983) Body height 63 [in_us] 63 [in_us] eCW1 (Formerly [facility]) Body weight Measured 198 [lb_av] 198 [lb_av] eC W1 (Formerly [facility], 1928–1983) Systolic blood pressure 126 mm[Hg] 126 mm[Hg] e CW1 (Formerly [facility], 1928–1983) Body temperature 97.2 [degF] 97.2 [degF] eCW1 ( Formerly [facility], 1928–1983) Respiratory rate 18 /min 18 /min eCW1 ([facility]) Heart rate 86 /min 86 /min eCW1 ([facility]) Body mass index (BMI) [Ratio] 34.72 kg/m2 34.72 kg/m2 eCW1 (Formerly [facility], 1928–1983) Body height 63 [in_us] 63 [in_us] eCW1 (Formerly [facility]) Body weight Measured 196 [lb_av] 196 [lb_av] eC W1 (Formerly [facility], 1928–1983) Diastolic blood pressure 64 mm[Hg] 64 mm[Hg] eCW1 (Formerly [facility], 1928–1983) Body weight 89.870 kg 89.870 kg KINGSLEY ([facility], ) Body mass index (BMI) [Ratio] 35.1 kg/m2 35.1 k g/m2 MEDENT ([facility], ) Body weight 198.12 [lb_av] 198.12 [lb_av] WILLIEEN T ([facility], ) Body height 63 [in_i] 63 [in_i] KINGSLEY ([facility], ) 5'3" Oxygen saturation in Arterial blood by Pulse oximetry 98 % 98 % [facility] ([facility], ) Room Air Heart rate 79 /min 79 /min MEDENT ([facility], ) Diastolic blood pressure 88 mm[Hg] 88 mm[Hg] MEDENT ([facility], ) Systolic blood pressure 142 mm[Hg] 142 mm[Hg] M EDENT ([facility], ) Body mass index (BMI) [Ratio] 33.5 kg/m2 33.5 k g/m2 MEDENT ([facility]) Body weight 189.00 [lb_av] 189.00 [lb_av] MEDEN T ([facility]) Body height 63 [in_i] 63 [in_i] MEDENT ([facility]) 5'3" Body temperature 98.0 [degF] 98.0 [degF] MEDENT ([facility]) Diastolic blood pressure 81 mm[Hg] 81 mm[Hg] eCW1 (Formerly [facility], 1928–1983) Systolic blood pressure 120 mm[Hg] 120 mm[Hg] e CW1 (Formerly [facility], 1928–1983) Body temperature 98.2 [degF] 98.2 [degF] eCW1 ( Formerly [facility], 1928–1983) Respiratory rate 18 /min 18 /min eCW1 ([facility]) Heart rate 80 /min 80 /min eCW1 ([facility]) Body mass index (BMI) [Ratio] 34.36 kg/m2 34.36 kg/m2 W1 (Formerly [facility], 1928–1983) Body height 63 [in_us] 63 [in_us] eCW1 (Formerly [facility]) Body weight Measured 194 [lb_av] 194 [lb_av] eC W1 (Formerly [facility], 1928–1983) Diastolic blood pressure 85 mm[Hg] 85 mm[Hg] eCW1 (Formerly [facility], 1928–1983) Systolic blood pressure 135 mm[Hg] 135 mm[Hg] e CW1 (Formerly [facility], 1928–1983) Body temperature 97.8 [degF] 97.8 [degF] eCW1 ( Formerly [facility], 1928–1983) Respiratory rate 18 /min 18 /min eCW1 ([facility]) Heart rate 81 /min 81 /min eCW1 ([facility]) Body mass index (BMI) [Ratio] 34.72 kg/m2 34.72 kg/m2 eCW1 (Formerly [facility], 1928–1983) Body height 63 [in_i] 63 [in_i] eCW1 (Formerly [facility]) Body weight 196 [lb_av] 196 [lb_av] eCW1 ([facility]) Diastolic blood pressure 79 mm[Hg] 79 mm[Hg] eCW1 (Formerly [facility], 1928–1983) Systolic blood pressure 137 mm[Hg] 137 mm[Hg] e CW1 (Formerly [facility], 1928–1983) Body temperature 97.0 [degF] 97.0 [degF] eCW1 ( Formerly [facility], 1928–1983) Respiratory rate 18 /min 18 /min eCW1 ([facility]) Heart rate 69 /min 69 /min eCW1 ([facility]) Body mass index (BMI) [Ratio] 34.36 kg/m2 34.36 kg/m2 eCW1 (Formerly [facility], 1928–1983) Body height 63 [in_us] 63 [in_us] eCW1 (Formerly [facility]) Body weight Measured 194 [lb_av] 194 [lb_av] eC W1 (Formerly [facility], 1928–1983) Diastolic blood pressure 83 mm[Hg] 83 mm[Hg] eCW1 (Formerly [facility], 1928–1983) Systolic blood pressure 132 mm[Hg] 132 mm[Hg] e CW1 (Formerly [facility], 1928–1983) Body temperature 96.9 [degF] 96.9 [degF] eCW1 ( Formerly [facility], 1928–1983) Respiratory rate 18 /min 18 /min eCW1 ([facility]) Heart rate 74 /min 74 /min eCW1 ([facility]) Body mass index (BMI) [Ratio] 35.28 kg/m2 35.28 kg/m2 eCW1 (Formerly [facility], 1928–1983) Body height 63 [in_us] 63 [in_us] eCW1 (Formerly [facility]) Body weight Measured 199.2 [lb_av] 199.2 [lb_av ] eCW1 (Formerly [facility], 1928–1983) Body mass index (BMI) [Ratio] 34.9 kg/m2 [...] blood pressure 82 mm[Hg] 82 mm[Hg] eCW1 (Formerly [facility], 1928–1983) Systolic blood pressure 141 mm[Hg] 141 mm[Hg] e CW1 (Formerly [facility], 1928–1983) Body temperature 96.9 [degF] 96.9 [degF] eCW1 ( Formerly [facility], 1928–1983) Respiratory rate 18 /min 18 /min eCW1 ([facility]) Heart rate 70 /min 70 /min eCW1 ([facility]) Body mass index (BMI) [Ratio] 35.14 kg/m2 35.14 kg/m2 W1 (Formerly [facility], 1928–1983) Body height 63 [in_us] 63 [in_us] eCW1 (Formerly [facility]) Body weight Measured 198.4 [lb_av] 198.4 [lb_av ] eCW1 (Formerly [facility], 1928–1983) Diastolic blood pressure 81 mm[Hg] 81 mm[Hg] eCW1 (Formerly [facility], 1928–1983) Systolic blood pressure 144 mm[Hg] 144 mm[Hg] e CW1 (Formerly [facility], 1928–1983) Body temperature 97.3 [degF] 97.3 [degF] eCW1 ( Formerly [facility], 1928–1983) Respiratory rate 18 /min 18 /min eCW1 ([facility]) Heart rate 84 /min 84 /min eCW1 ([facility]) Body mass index (BMI) [Ratio] 35.32 kg/m2 35.32 kg/m2 eCW1 (Formerly [facility], 1928–1983) Body height 63 [in_us] 63 [in_us] eCW1 (Formerly [facility]) Body weight Measured 199.4 [lb_av] 199.4 [lb_av ] eCW1 (Formerly [facility], 1928–1983) Patient Treatment Plan of Care Planned Activity Planned Date Details Description Data Source (s) Acetaminophen 325 MG / Hydrocodone Bitartrate 5 MG Ora l Tablet 05/24/2020 12:00:00 AM EST eCW1 ([facility]) Acetaminophen 325 MG / Hydrocodone Bitartrate 5 MG Ora l Tablet 05/24/2020 12:00:00 AM EST eCW1 ([facility]) Acetaminophen 325 MG / Hydrocodone Bitartrate 5 MG Ora l Tablet 05/24/2020 12:00:00 AM EST eCW1 ([facility]) Acetaminophen 300 MG / Codeine Phosphate 30 MG Oral Ta blet 03/08/2020 12:00:00 AM EDT eCW1 ([facility]) Acetaminophen 300 MG / Codeine Phosphate 30 MG Oral Ta blet 03/08/2020 12:00:00 AM EDT eCW1 ([facility]) Acetaminophen 300 MG / Codeine Phosphate 30 MG Oral Ta blet 03/08/2020 12:00:00 AM EDT eCW1 ([facility]) Acetaminophen 300 MG / Codeine Phosphate 30 MG Oral Ta blet 03/08/2020 12:00:00 AM EDT eCW1 ([facility]) Acetaminophen 325 MG / Hydrocodone Bitartrate 5 MG Ora l Tablet 03/08/2020 12:00:00 AM EDT eCW1 ([facility]) Acetaminophen 300 MG / Codeine Phosphate 30 MG Oral Ta blet 03/08/2020 12:00:00 AM EDT eCW1 ([facility]) Acetaminophen 300 MG / Codeine Phosphate 30 MG Oral Ta blet 03/08/2020 12:00:00 AM EDT eCW1 ([facility]) Acetaminophen 325 MG / Hydrocodone Bitartrate 5 MG Ora l Tablet 03/08/2020 12:00:00 AM EDT eCW1 ([facility]) Acetaminophen 300 MG / Codeine Phosphate 30 MG Oral Ta blet 03/08/2020 12:00:00 AM EDT eCW1 ([facility]) Acetaminophen 325 MG / Hydrocodone Bitartrate 5 MG Ora l Tablet 03/08/2020 12:00:00 AM EDT eCW1 ([facility]) Acetaminophen 300 MG / Codeine Phosphate 30 MG Oral Ta blet 03/08/2020 12:00:00 AM EDT eCW1 ([facility]) Acetaminophen 325 MG / Hydrocodone Bitartrate 5 MG Ora l Tablet 03/08/2020 12:00:00 AM EDT eCW1 ([facility]) Acetaminophen 300 MG / Codeine Phosphate 30 MG Oral Ta blet 03/08/2020 12:00:00 AM EDT eCW1 ([facility]) Acetaminophen 300 MG / Codeine Phosphate 30 MG Oral Ta blet 03/08/2020 12:00:00 AM EDT eCW1 ([facility]) Prednisone 10 MG Oral Tablet 12/19/2019 12:00:00 AM EDT eCW1 (Formerly [facility], 1928–1983) Prednisone 10 MG Oral Tablet 12/19/2019 12:00:00 AM EDT eCW1 (Formerly [facility], 1928–1983) Prednisone 10 MG Oral Tablet 12/19/2019 12:00:00 AM EDT eCW1 (Formerly [facility], 1928–1983) Prednisone 10 MG Oral Tablet 12/19/2019 12:00:00 AM EDT eCW1 (Formerly [facility], 1928–1983) Prednisone 10 MG Oral Tablet 12/19/2019 12:00:00 AM EDT eCW1 (Formerly [facility], 1928–1983) Prednisone 10 MG Oral Tablet 12/19/2019 12:00:00 AM EDT eCW1 (Formerly [facility], 1928–1983) Prednisone 10 MG Oral Tablet 12/19/2019 12:00:00 AM EDT eCW1 (Formerly [facility], 1928–1983) Prednisone 10 MG Oral Tablet 12/19/2019 12:00:00 AM EDT eCW1 (Formerly [facility], 1928–1983) Prednisone 10 MG Oral Tablet 12/19/2019 12:00:00 AM EDT eCW1 (Formerly [facility], 1928–1983) Prednisone 10 MG Oral Tablet 12/19/2019 12:00:00 AM EDT eCW1 (Formerly [facility], 1928–1983) Acetaminophen 325 MG / Hydrocodone Bitartrate 5 MG Ora l Tablet [[place]] 12/13/2019 12:00:00 AM EDT eCW1 (Formerly [facility]) Acetaminophen 325 MG / Hydrocodone Bitartrate 5 MG Ora l Tablet [[place]] 12/13/2019 12:00:00 AM EDT eCW1 (Formerly [facility]) Acetaminophen 325 MG / Hydrocodone Bitartrate 5 MG Ora l Tablet [[place]] 12/13/2019 12:00:00 AM EDT eCW1 (Formerly [facility]) Acetaminophen 325 MG / Hydrocodone Bitartrate 5 MG Ora l Tablet [[place]] 12/13/2019 12:00:00 AM EDT eCW1 (Formerly [facility]) Prednisone 20 MG Oral Tablet 12/12/2019 12:00:00 AM EDT eCW1 (Formerly [facility], 1928–1983) Prednisone 20 MG Oral Tablet 12/12/2019 12:00:00 AM EDT eCW1 (Formerly [facility], 1928–1983) Prednisone 20 MG Oral Tablet 12/12/2019 12:00:00 AM EDT eCW1 (Formerly [facility], 1928–1983) Prednisone 20 MG Oral Tablet 12/12/2019 12:00:00 AM EDT eCW1 (Formerly [facility], 1928–1983) Prednisone 20 MG Oral Tablet 12/12/2019 12:00:00 AM EDT eCW1 (Formerly [facility], [facility]–1983) Prednisone 20 MG Oral Tablet 12/12/2019 12:00:00 AM EDT eCW1 (Formerly [facility], [facility]–1983) Prednisone 20 MG Oral Tablet 12/12/2019 12:00:00 AM EDT eCW1 (Formerly [facility], [facility]–1983) Acetaminophen 325 MG / Hydrocodone Bitartrate 5 MG Ora l Tablet [[place]] 11/02/2019 12:00:00 AM EDT eCW1 (Formerly [facility]) Acetaminophen 325 MG / Hydrocodone Bitartrate 5 MG Ora l Tablet [[place]] 11/02/2019 12:00:00 AM EDT eCW1 (Formerly [facility]) Prednisone 20 MG Oral Tablet 10/19/2019 12:00:00 AM EDT eCW1 (Formerly [facility], 1928–1983) Prednisone 20 MG Oral Tablet 10/19/2019 12:00:00 AM EDT eCW1 (Formerly [facility], [facility]–1983) Nystatin 056254 UNT/ML Oral Suspension 09/20/2019 12:00:00 AM EDT eCW1 (Formerly [facility], [facility]–1983) Nystatin [id number] UNT/ML Oral Suspension 09/20/2019 12:00:00 AM EDT eCW1 (Formerly [facility], [facility]–1983) Prednisone 20 MG Oral Tablet 09/01/2019 12:00:00 AM EDT eCW1 (Formerly [facility], [facility]–1983) Acetaminophen 325 MG / Hydrocodone Bitartrate 5 MG Ora l Tablet [[place]] 06/24/2019 12:00:00 AM EST eCW1 (Formerly [facility]) Acetaminophen 325 MG / Hydrocodone Bitartrate 5 MG Ora l Tablet [[place]] 06/24/2019 12:00:00 AM EST eCW1 (Formerly [facility])
[2020-08-02 20:28] LABS: BASO # 0.1 10^3/uL (0.0-0.2); BASO % 0.7 % (0.0-1.0); EOS # 0.2 10^3/uL (0.0-0.5); EOS % 1.8 % (0.0-3.0); HEMATOCRIT 43.1 % (36.0-47.0); HEMOGLOBIN 13.6 g/dl (12.0-15.5); LYMPH % 23.6 % (24.0-44.0); MEAN CORPUSCULAR HGB CONC 31.6 g/dl (32.0-36.5); MEAN CORPUSCULAR VOLUME 85.5 fl (80.0-96.0); MONO # 0.5 10^3/uL (0.0-0.8); MONO % 6.4 % (2.0-8.0); NEUTROPHILS # 5.7 10^3/uL (1.5-8.5); PLATELET COUNT, AUTOMATED 234 10^3/uL (150-450); RED BLOOD COUNT 5.04 10^6/uL (4.00-5.40); WHITE BLOOD COUNT 8.5 10^3/uL (4.0-10.0)
--- NOTE | 2020-08-02 20:33 | REPVR ---
PROCEDURE INFORMATION: Exam: XR Chest Exam date and time: 08/02/2020 7:40 PM Age: 60 years old Clinical indication: Cough; Additional info: Dyspnea/cough TECHNIQUE: Imaging protocol: XR of the chest Views: 2 views. COMPARISON: CR Chest, 2 view PA, Lat 07/18/2019 2:30 PM FINDINGS: Lungs: Unremarkable. No consolidation. Pleural spaces: Unremarkable. No pleural effusion. No pneumothorax. Heart/Mediastinum: Unremarkable. No cardiomegaly. Bones/joints: Unremarkable. IMPRESSION: No acute findings. Electronically signed by: Jhony Stanley On 08/02/2020 20:33:29 PM
[2020-08-02] MEDS: IPRATROPIUM 0.5MG/ALBUTEROL 2.5MG INH SOL UD 3ML (DUONEB) NEB PRN ×3 (20:43→21:50)
[2020-08-02 21:03] LABS: CK-MB VALUE MASS < 1.0 NG/ML (<3.6); CPK CREATINE PHOSPHOKINASE 65 U/L (26-192); MB/CK RELATIVE INDEX 1.54 (< OR =4); TROPONIN I < 0.02 NG/ML (< 0.10)
[2020-08-02] MEDS ORDERED: PRED20TA PO (21:53)
[2020-08-02 22:03] VITALS: BP 156/77
== END 2020-08-02 22:04 | disposition home or self-care (01) ==
LOC: M ED 18:37
DX: J45.901 Unspecified asthma with (acute) exacerbation (principal); K58.9 Irritable bowel syndrome, unspecified; K90.0 Celiac disease; R56.9 Unspecified convulsions; Z88.0 Allergy status to penicillin; Z88.5 Allergy status to narcotic agent; Z88.8 Allergy status to other drugs, medicaments and biological substances; Z91.041 Radiographic dye allergy status
CPT/HCPCS: 71046; 80047; 82550; 82553; 85025; 94640; 94760; 96374; 99284; J2930

== ENCOUNTER → 2020-08-07 | Outpatient (REF) | payer OTHER | LOC: M SFHCLERA 15:59 | PROVIDERS: ATTEND Family Medicine | DX: J45.901 Unspecified asthma with (acute) exacerbation (principal) ==

== ENCOUNTER 2020-08-09 22:32 | Emergency (ER) | payer OTHER ==
[~2020-08-09] VITALS: Ht 160 cm; Wt 98.1 kg
[2020-08-10 00:49] VITALS: O2SAT 98
--- NOTE | 2020-08-10 01:12 | REPVR ---
PROCEDURE INFORMATION: Exam: XR Chest Exam date and time: 08/10/2020 12:43 AM Age: 60 years old Clinical indication: Other: Asthma TECHNIQUE: Imaging protocol: XR of the chest Views: 2 views. COMPARISON: CR Chest, 2 view PA, Lat 08/02/2020 7:48 PM FINDINGS: Lungs: There is decreased inflation of the lungs but is improved since a prior study. There are no interval infiltrates. Pleural spaces: Unremarkable. No pleural effusion. No pneumothorax. Heart/Mediastinum: Unremarkable. No cardiomegaly. Bones/joints: Unremarkable. IMPRESSION: Negative poor inspiratory chest with little change from 08/02/2020. Electronically signed by: Alex Palacios On 08/10/2020 01:12:09 AM
[2020-08-10 01:15] VITALS: BP 118/57
== END 2020-08-10 01:28 | disposition home or self-care (01) ==
LOC: M ED 22:32
DX: J45.901 Unspecified asthma with (acute) exacerbation (principal); F41.9 Anxiety disorder, unspecified; K90.0 Celiac disease; M79.7 Fibromyalgia; F33.9 Major depressive disorder, recurrent, unspecified; Z88.1 Allergy status to other antibiotic agents; Z88.6 Allergy status to analgesic agent; Z88.8 Allergy status to other drugs, medicaments and biological substances; Z79.899 Other long term (current) drug therapy

== ENCOUNTER 2020-09-27 16:58 | Emergency (ER) | payer OTHER ==
[~2020-09-27] VITALS: Ht 160 cm; Wt 93.3 kg
[2020-09-27] MEDS ORDERED: DICY20TA11 (17:09)
[2020-09-27] MEDS ORDERED: ASMA16.7 (17:09)
[2020-09-27] MEDS ORDERED: ATIV1TAB10 (17:09)
[2020-09-27] MEDS ORDERED: diazePAM 10 MG TAB PO ONE (17:30)
[2020-09-27] MEDS ORDERED: ACETAMINOPHEN 325 MG TAB PO ONE (17:30)
[2020-09-27] MEDS ORDERED: PILL CUTTER 1 EACH XX ONE (18:08)
[2020-09-27 22:30] VITALS: BP 117/67
--- NOTE | 2020-09-27 22:34 | REPVR ---
PROCEDURE INFORMATION: Exam: MR Lumbar Spine Without Contrast Exam date and time: 09/27/2020 9:47 PM Age: 60 years old Clinical indication: Patient HX: Lt sided siatica lbp. HX spinal stenosis. Lt sided labia numbness. Lt sided unbalance saitica. Arthritis R/O cuada equina; Additional info: C/O incontinence TECHNIQUE: Imaging protocol: Multiplanar magnetic resonance images of the lumbar spine without intravenous contrast. COMPARISON: 1. MRI-Spine, L.S. without con 2020-03-03 15:50 2. MRI-Spine, L.S. without con 2018-09-08 19:46 FINDINGS: Vertebrae: Normal lumbar lordosis, and vertebral body heights. Minimal degenerative L4-L5 anterolisthesis. Spinal cord: Normal signal. No cord compression. Multilevel findings: Diffuse degenerative disc desiccation, disc height loss, and associated degenerative endplate marrow signal changes most severe at L3-S1. L1-L2: No significant disc disease. No significant spinal canal stenosis. No neural foraminal stenosis. L2-L3: No significant disc disease. No significant spinal canal stenosis. No neural foraminal stenosis. L3-L4: Mild disc bulge and facet arthropathy causes mild foraminal and minimal spinal narrowing. L4-L5: Moderate facet arthropathy, ligamentum flavum thickening, and diffuse disc bulge. Left facet synovial cyst projecting into the posterior soft tissues measures 1 cm. Moderate spinal and left greater than right foraminal stenosis. L5-S1: Moderate right and mild left facet arthropathy with a diffuse disc bulge causes mild spinal and left and moderate to severe right foraminal stenosis. Disc material protrudes into the right foramina, correlate for right L5 radiculopathy. Soft tissues: Unremarkable. IMPRESSION: Mild moderate lumbar spondylosis greatest at L3-S1 as detailed. No findings that would suggest cauda equina syndrome. Electronically signed by: Kyle Knowles On 09/27/2020 22:32:57 PM
--- NOTE | 2020-09-29 09:31 | ED PDOC ---
Post-Departure Follow-Up radiology report faxed Taras Hopson-Nellie Sneed MD Sep 29, 2020 09:31
== END 2020-09-27 23:39 | disposition home or self-care (01) ==
LOC: M ED 16:58
DX: M54.16 Radiculopathy, lumbar region (principal); M54.17 Radiculopathy, lumbosacral region; M54.40 Lumbago with sciatica, unspecified side; G89.29 Other chronic pain; Z79.51 Long term (current) use of inhaled steroids; Z79.899 Other long term (current) drug therapy; Z91.048 Other nonmedicinal substance allergy status; Z91.041 Radiographic dye allergy status; Z88.0 Allergy status to penicillin; Z88.8 Allergy status to other drugs, medicaments and biological substances; Z88.1 Allergy status to other antibiotic agents; Z88.5 Allergy status to narcotic agent; Z98.890 Other specified postprocedural states

== ENCOUNTER → 2020-10-17 | Outpatient (CLI) | payer OTHER ==
[~2020-10-17] MED LIST changes: +ASMA16.7; +ATIV1TAB10; +DICY20TA11
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
== END ==
LOC: M PAIN 10:45
PROVIDERS: ATTEND Nurse Practitioner Family
DX: M46.1 Sacroiliitis, not elsewhere classified (principal); J45.20 Mild intermittent asthma, uncomplicated; M79.10 Myalgia, unspecified site; Z86.59 Personal history of other mental and behavioral disorders; Z88.1 Allergy status to other antibiotic agents; Z88.3 Allergy status to other anti-infective agents; Z88.5 Allergy status to narcotic agent; Z88.6 Allergy status to analgesic agent; Z88.7 Allergy status to serum and vaccine; Z88.8 Allergy status to other drugs, medicaments and biological substances; Z91.018 Allergy to other foods; Z91.041 Radiographic dye allergy status; Z79.899 Other long term (current) drug therapy

== ENCOUNTER → 2020-10-30 | Outpatient (CLI) | payer OTHER ==
--- NOTE | 2020-10-30 12:44 | REP ---
INDICATION: TRAMATIC INJURY OF HEAD COMPARISON: 11/08/2016 TECHNIQUE: Axial noncontrast images from the skull base to the vertex with coronal reformations. This CT examination was performed using the following dose reduction techniques: Automated exposure control, adjustment of mA and/or kv according to the patient's size, and use of iterative reconstruction technique. FINDINGS: The ventricles, sulci, and cisterns are normal in position and appearance. Lopez-white differentiation is maintained. No acute intracranial hemorrhage, mass/mass effect, pathology or trauma/injury. No evidence for acute infarction. No extra-axial fluid collection. Calvarium is intact. Paranasal sinuses and mastoid air cells are clear. IMPRESSION: Normal noncontrast head CT. No evidence for acute intracranial pathology or trauma/injury. <Electronically signed by Curtis Yu > 10/30/20 [id number]
== END ==
LOC: M RAD 12:24
PROVIDERS: ATTEND Family Medicine
DX: S09.90XA Unspecified injury of head, initial encounter (principal); X58.XXXA Exposure to other specified factors, initial encounter; Y92.9 Unspecified place or not applicable; Y93.9 Activity, unspecified; Y99.9 Unspecified external cause status

== ENCOUNTER → 2020-11-03 | Outpatient (CLI) | payer OTHER | LOC: M LABSMTC 11:19 | PROVIDERS: ATTEND Anesthesiology | DX: Z20.828 Contact with and (suspected) exposure to other viral communicable diseases (principal); Z11.59 Encounter for screening for other viral diseases ==

== ENCOUNTER → 2020-11-08 | Outpatient (CLI) | payer OTHER ==
[~2020-11-08] MED LIST changes: +BUPIVACAINE HCL 0.25% 30ML VIAL As Ordered ONE; +ISOVUE-M 300 61% 15ML VIAL As Ordered ONE; +LIDOCAINE 1% SDV 30ML VIAL As Ordered ONE; +NORCO, ANEXSIA 5/325MG TABLET (HYDROcodone/ACETAMINOPHEN) As Ordered ONE; +ONDANSETRON 4 MG ORAL DISINTEGRATING TAB As Ordered ONE; +TRIAMCINOLONE ACETONIDE SUSP 40 MG/ML VIAL (J3301) As Ordered ONE; +diazePAM 5MG TABLET As Ordered ONE
--- NOTE | 2020-11-08 12:42 | REP ---
INDICATION: LEFT SACROILIAC JOINT BLOCK. COMPARISON: None. TECHNIQUE: Intraoperative fluoroscopic imaging using portable C-arm technique. FINDINGS: Catheter overlies the sacroiliac joint. Total fluoroscopic time 22.8 seconds. IMPRESSION: Findings consistent with sacroiliac joint block. <Electronically signed by Curtis Yu > 11/08/20 [id number]
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
== END ==
LOC: M PAIN 10:20
PROVIDERS: ATTEND Anesthesiology
DX: M46.1 Sacroiliitis, not elsewhere classified (principal); J45.20 Mild intermittent asthma, uncomplicated; M79.7 Fibromyalgia; Z86.59 Personal history of other mental and behavioral disorders; Z88.1 Allergy status to other antibiotic agents; Z88.3 Allergy status to other anti-infective agents; Z88.5 Allergy status to narcotic agent; Z88.6 Allergy status to analgesic agent; Z88.7 Allergy status to serum and vaccine; Z88.8 Allergy status to other drugs, medicaments and biological substances; Z91.018 Allergy to other foods; Z91.041 Radiographic dye allergy status; Z79.899 Other long term (current) drug therapy
CPT/HCPCS: 27096; J3301; Q0162; Q9967

== ENCOUNTER → 2020-11-26 | Outpatient (CLI) | payer OTHER ==
[~2020-11-26] MED LIST changes: -BUPIVACAINE HCL 0.25% 30ML VIAL As Ordered ONE; -ISOVUE-M 300 61% 15ML VIAL As Ordered ONE; -LIDOCAINE 1% SDV 30ML VIAL As Ordered ONE; -NORCO, ANEXSIA 5/325MG TABLET (HYDROcodone/ACETAMINOPHEN) As Ordered ONE; -ONDANSETRON 4 MG ORAL DISINTEGRATING TAB As Ordered ONE; -TRIAMCINOLONE ACETONIDE SUSP 40 MG/ML VIAL (J3301) As Ordered ONE; -diazePAM 5MG TABLET As Ordered ONE
--- NOTE | 2020-11-26 17:20 | REP ---
INDICATION: PAIN IN RIGHT ELBOW. COMPARISON: None. TECHNIQUE: Four views of the right elbow are provided. FINDINGS: Four views of the right elbow demonstrate mild coronoid process spurring. There is no evidence of joint effusion. There is medial epicondylar spurring and some lateral epicondylar spurring noted as well on the frontal and oblique radiographs.. No fracture or subluxation is seen. No opaque foreign body noted. IMPRESSION: Medial and lateral epicondylar, as well as coronoid process spurring. No acute bony abnormality.. <Electronically signed by Burke Smith > 11/26/20 2150
== END ==
LOC: M RAD 16:41
PROVIDERS: ATTEND Family Medicine
DX: M25.521 Pain in right elbow (principal)

== ENCOUNTER → 2021-02-19 | Outpatient (CLI) | payer OTHER ==
--- NOTE | 2021-02-19 12:44 | REP ---
INDICATION: PAIN. COMPARISON: 09/08/2018. TECHNIQUE: Two views left hip. FINDINGS: There is no acute fracture, dislocation or intrinsic bone disease. There are mild degenerative changes at the hip joint, with mild joint space narrowing, subchondral sclerosis and spurring. There is mild tendinous calcification along the greater trochanter. IMPRESSION: Mild degenerative changes. No acute fracture or dislocation. <Electronically signed by Keo Lopez > 02/19/21 [id number]
== END ==
LOC: M WUC 12:20
PROVIDERS: ATTEND Nurse Practitioner Family
DX: M25.752 Osteophyte, left hip (principal)

== ENCOUNTER → 2021-02-21 | Outpatient (CLI) | payer OTHER ==
[~2021-02-21] MED LIST changes: -DICY20TA11; +DICY20TA20; -MOME50SP; +NASO50SP3
== END ==
LOC: M PAIN 13:30
PROVIDERS: ATTEND Anesthesiology
DX: M79.10 Myalgia, unspecified site (principal); M54.6 Pain in thoracic spine; J45.20 Mild intermittent asthma, uncomplicated; Z86.59 Personal history of other mental and behavioral disorders; Z88.1 Allergy status to other antibiotic agents; Z88.3 Allergy status to other anti-infective agents; Z88.5 Allergy status to narcotic agent; Z88.6 Allergy status to analgesic agent; Z88.7 Allergy status to serum and vaccine; Z88.8 Allergy status to other drugs, medicaments and biological substances; Z91.018 Allergy to other foods; Z91.041 Radiographic dye allergy status; Z79.899 Other long term (current) drug therapy

== ENCOUNTER → 2021-02-27 | Outpatient (CLI) | payer OTHER ==
[~2021-02-27] MED LIST changes: +DICY20TA11; -DICY20TA20; +MOME50SP; -NASO50SP3
[2021-02-27 12:15] LABS: HEMOGLOBIN A1c 5.7 %
[2021-02-27 14:24] LABS: BLOOD UREA NITROGEN 14 MG/DL (7-18); CALCIUM LEVEL 9.3 MG/DL (8.5-10.1); CARBON DIOXIDE LEVEL 28 MEQ/L (21-32); CHLORIDE LEVEL 107 MEQ/L (98-107); CHOLESTEROL LEVEL 171 MG/DL (<200); CHOLESTEROL RISK RATIO 2.478 (<5); CREATININE FOR GFR 0.84 MG/DL (0.55-1.30); GLOMERULAR FILTRATION RATE > 60.0 (>51); GLUCOSE, FASTING 85 MG/DL (70-100); HDL CHOLESTEROL 69 MG/DL (>40); LDL CHOLESTEROL 77 MG/DL (<100); NON-HDL-C 102 MG/DL; POTASSIUM SERUM 4.1 MEQ/L (3.5-5.1); SODIUM LEVEL 143 MEQ/L (136-145); TRIGLYCERIDES LEVEL 125 MG/DL (<150)
== END ==
LOC: M WUC 09:44
PROVIDERS: ATTEND Family Medicine
DX: Z13.1 Encounter for screening for diabetes mellitus (principal); E04.9 Nontoxic goiter, unspecified; Z13.220 Encounter for screening for lipoid disorders

== ENCOUNTER → 2021-03-06 | Outpatient (CLI) | payer OTHER ==
--- NOTE | 2021-03-07 08:11 | REP ---
INDICATION: ENLARGED THYROID. COMPARISON: None. TECHNIQUE: High-resolution bilateral thyroid sonography. FINDINGS: Thyroid isthmus is 0.6 cm in thickness. Right lobe dimensions on today's ultrasound of 4.7 x 2.6 x 2.0 cm. The left lobe measures 4.6 x 1.6 x 1.6 cm. There is a septated cyst with a very small mural nodule in the right lobe measuring 1.4 by 1.9 by 1.9 cm this does not have suspicious features. There are 2 tiny hypoechoic nodules in the lower pole the right lobe as well measuring 0.3 and 0.4 cm respectively. In the left lobe, there is a 0.9 cm hypoechoic nodule with ill-defined margins. It is possible at this represents a heterogeneous tissue rather than a actual nodule. In the event there is no evidence of microcalcification or other suspicious features. No extrathyroidal mass or adenopathy is seen. IMPRESSION: Multinodular thyroid. 1.9 cm cyst in the right lobe. <Electronically signed by Burke Smith > 03/07/21 0859
== END ==
LOC: M RAD 10:46
PROVIDERS: ATTEND Family Medicine
DX: E04.9 Nontoxic goiter, unspecified (principal)

== ENCOUNTER → 2021-03-07 | Outpatient (CLI) | payer OTHER | LOC: M LABSMTC 10:04 | PROVIDERS: ATTEND Anesthesiology | DX: Z01.812 Encounter for preprocedural laboratory examination (principal); Z20.822 Contact with and (suspected) exposure to COVID-19 ==

== ENCOUNTER → 2021-03-12 | Outpatient (CLI) | payer OTHER ==
[~2021-03-12] MED LIST changes: +BUPIVACAINE HCL 0.25% 10ML VIAL As Ordered ONE; +BUPIVACAINE HCL 0.25% 30ML VIAL As Ordered ONE; +NORCO, ANEXSIA 5/325MG TABLET (HYDROcodone/ACETAMINOPHEN) As Ordered ONE; +ONDANSETRON 4 MG ORAL DISINTEGRATING TAB As Ordered ONE; +TRIAMCINOLONE ACETONIDE SUSP 40 MG/ML VIAL (J3301) As Ordered ONE; +diazePAM 5MG TABLET As Ordered ONE
== END ==
LOC: M PAIN 08:30
PROVIDERS: ATTEND Anesthesiology
DX: M79.10 Myalgia, unspecified site (principal); J45.20 Mild intermittent asthma, uncomplicated; Z86.59 Personal history of other mental and behavioral disorders; Z88.1 Allergy status to other antibiotic agents; Z88.3 Allergy status to other anti-infective agents; Z88.5 Allergy status to narcotic agent; Z88.6 Allergy status to analgesic agent; Z88.7 Allergy status to serum and vaccine; Z88.8 Allergy status to other drugs, medicaments and biological substances; Z91.018 Allergy to other foods; Z91.041 Radiographic dye allergy status; Z79.899 Other long term (current) drug therapy
CPT/HCPCS: 20553; J3301; Q0162

== ENCOUNTER → 2021-04-05 | Outpatient (CLI) | payer OTHER ==
[~2021-04-05] MED LIST changes: -BUPIVACAINE HCL 0.25% 10ML VIAL As Ordered ONE; -BUPIVACAINE HCL 0.25% 30ML VIAL As Ordered ONE; -NORCO, ANEXSIA 5/325MG TABLET (HYDROcodone/ACETAMINOPHEN) As Ordered ONE; -ONDANSETRON 4 MG ORAL DISINTEGRATING TAB As Ordered ONE; -TRIAMCINOLONE ACETONIDE SUSP 40 MG/ML VIAL (J3301) As Ordered ONE; -diazePAM 5MG TABLET As Ordered ONE
--- NOTE | 2021-04-05 11:34 | DEXAMM ---
INDICATION: SCREENING FOR OSTEOPOROSIS. COMPARISON: 09/30/2018, 03/04/2016. TECHNIQUE: Bone density was measured using dual-energy x-ray absorptiometry (DEXA). FINDINGS: AP SPINE L1-L4 BMD 0.907 g/cm2 Young Adult T-Score -2.3 Age Matched Z-Score -1.2. LT FEMUR, TOTAL BMD 0.932 g/cm2 Young Adult T-Score -0.6 Age Matched Z-Score 0.2. LT NECK BMD 0.836 g/cm2 Young Adult T-Score -1.5 Age Matched Z-Score -0.3. RT FEMUR, TOTAL BMD 0.870 g/cm2 Young Adult T-Score -1.1 Age Matched Z-Score -0.2. RT NECK BMD 0.733 g/cm2 Young Adult T-Score -2.2 Age Matched Z-Score -1.0. IMPRESSION: There is low bone density of the spine. There is low bone density of the left hip. There is low bone density of the right hip. The density of the spine has decreased 21.0% since the initial exam on 03/04/2016. The density of the spine decreased 10.6% since most recent exam on 09/30/2018. The density of the left hip has decreased 9.0% since initial exam on 03/04/2016. The density of the left hip has decreased 6.8% since most recent exam on 09/30/2018. The density of the right hip has decreased 13.1% since the initial exam on 03/04/2016. The density of the right hip has decreased 8.4% since the most recent exam on 09/30/2018. FOLLOW-UP: Recommendation for the next bone density exam: 2 years. <Electronically signed by Keo Lopez > 04/05/21 [id number]
--- NOTE | 2021-04-05 16:07 | REP ---
INDICATION: BREAST CANCER SCREENING BY MAMMOGRAM. COMPARISON: Multiple prior screening examinations, the most recent, 09/30/2018 TECHNIQUE: Digital screening (2D) mammography was performed bilaterally in the CC and MLO projections. Additionally, breast tomosynthesis (3D mammography) was performed bilaterally in the CC and MLO projections. FINDINGS: By history, the patient has no complaints of a palpable breast abnormality or other significant breast complaints. The Volpara volumetric breast density pattern is b, there are scattered areas of fibroglandular density. In the middle 3rd of the left breast, directly deep to and below the nipple, at the 6 o'clock position, there is an oval, circumscribed, isodense mass measuring 6 mm in diameter. The right breast has a stable appearance. IMPRESSION: BIRADS/ACR : Category 0: Incomplete, need additional imaging evaluation. This patient's Tyrer-Cuzick lifetime breast cancer risk assessment score is 11.9%. This mammogram was interpreted with the aid of an FDA-approved computer-aided detection system. The patient states she has not had a clinical breast examination in more than 1 year. The patient letter being requested is M0. RECOMMENDATION: 2D and 3D focal compression of the left breast in the CC and MLO orientations and targeted left breast ultrasound. <Electronically signed by Axel Camacho > 04/05/21 [id number]
== END ==
LOC: M WHC 09:27
PROVIDERS: ATTEND Family Medicine
DX: R92.2 Inconclusive mammogram (principal); Z13.820 Encounter for screening for osteoporosis

== ENCOUNTER → 2021-04-24 | Outpatient (CLI) | payer OTHER ==
--- NOTE | 2021-04-25 07:58 | REP ---
INDICATION: LEFT BREAST ADD VIEWS. Left breast mass. COMPARISON: Screening mammogram, 04/05/2021. TECHNIQUE: 2D and 3D focal compression spot images were obtained of the left breast in the CC and MLO orientations. Targeted left breast ultrasound was performed. FINDINGS: The Volpara volumetric breast density pattern is b, there are scattered areas of fibroglandular density. In the posterior 3rd of the right breast, directly deep to the nipple in the center of the breast there are isodense focal asymmetry is, x2, measuring 8 x 6 and 8 x 4 mm, respectively. Left breast ultrasound: Retroareolar, 7 x 5 x 4 mm, complicated cyst. 6 o'clock, 5 cm from the nipple, 6 x 5 x 5 mm, complicated cyst. IMPRESSION: BIRADS/ACR : Category 3: Probably benign. This mammogram was interpreted with the aid of an FDA-approved computer-aided detection system. The patient letter being requested is M3. RECOMMENDATION: Six-month follow-up mammographic and ultrasound evaluation of the left breast. <Electronically signed by Axel Camacho > 04/25/21 0754
== END ==
LOC: M WHC 12:12
PROVIDERS: ATTEND Family Medicine
DX: N60.02 Solitary cyst of left breast (principal); Z12.31 Encounter for screening mammogram for malignant neoplasm of breast
CPT/HCPCS: 76642; 77065; G0279

== ENCOUNTER → 2021-05-22 | Outpatient (CLI) | payer OTHER | LOC: M PAIN 09:45 | PROVIDERS: ATTEND Anesthesiology | DX: M79.18 Myalgia, other site (principal); M54.50 Low back pain, unspecified; K90.0 Celiac disease; J45.20 Mild intermittent asthma, uncomplicated; F32.A Depression, unspecified; K58.9 Irritable bowel syndrome, unspecified; F41.9 Anxiety disorder, unspecified; M96.1 Postlaminectomy syndrome, not elsewhere classified; E66.9 Obesity, unspecified; Z68.37 Body mass index [BMI] 37.0-37.9, adult; Z79.891 Long term (current) use of opiate analgesic; Z79.899 Other long term (current) drug therapy; Z88.6 Allergy status to analgesic agent; Z88.5 Allergy status to narcotic agent; Z88.0 Allergy status to penicillin; Z88.7 Allergy status to serum and vaccine; Z91.018 Allergy to other foods; Z88.8 Allergy status to other drugs, medicaments and biological substances ==

== ENCOUNTER → 2021-06-26 | Outpatient (REF) ==
[~2021-06-26] MED LIST changes: -DICY20TA11; +DICY20TA20; -MOME50SP; +NASO50SP3
== END ==
LOC: M LABSMTC 09:25
PROVIDERS: ATTEND Pediatrics
DX: Z20.822 Contact with and (suspected) exposure to COVID-19 (principal)

== ENCOUNTER → 2021-07-11 | Outpatient (CLI) | payer OTHER | LOC: M LABSMTC 11:06 | PROVIDERS: ATTEND Anesthesiology | DX: Z01.812 Encounter for preprocedural laboratory examination (principal); Z20.822 Contact with and (suspected) exposure to COVID-19 ==

== ENCOUNTER → 2021-07-16 | Outpatient (CLI) | payer OTHER ==
[~2021-07-16] MED LIST changes: +BUPIVACAINE HCL 0.25% 10ML VIAL As Ordered ONE; +BUPIVACAINE HCL 0.25% 30ML VIAL As Ordered ONE; +NORCO, ANEXSIA 5/325MG TABLET (HYDROcodone/ACETAMINOPHEN) As Ordered ONE; +TRIAMCINOLONE ACETONIDE SUSP 40 MG/ML VIAL (J3301) As Ordered ONE; +diazePAM 5MG TABLET As Ordered ONE
== END ==
LOC: M PAIN 08:30
PROVIDERS: ATTEND Anesthesiology
DX: M79.18 Myalgia, other site (principal); J45.20 Mild intermittent asthma, uncomplicated; Z86.59 Personal history of other mental and behavioral disorders; Z88.1 Allergy status to other antibiotic agents; Z88.3 Allergy status to other anti-infective agents; Z88.5 Allergy status to narcotic agent; Z88.6 Allergy status to analgesic agent; Z88.7 Allergy status to serum and vaccine; Z88.8 Allergy status to other drugs, medicaments and biological substances; Z91.018 Allergy to other foods; Z91.041 Radiographic dye allergy status; Z79.899 Other long term (current) drug therapy
CPT/HCPCS: 20553; J3301

== ENCOUNTER → 2021-08-08 | Outpatient (CLI) | payer OTHER ==
[~2021-08-08] MED LIST changes: -BUPIVACAINE HCL 0.25% 10ML VIAL As Ordered ONE; -BUPIVACAINE HCL 0.25% 30ML VIAL As Ordered ONE; +FEXO-117 PO; -FEXO180T58 PO; -NORCO, ANEXSIA 5/325MG TABLET (HYDROcodone/ACETAMINOPHEN) As Ordered ONE; -TRIAMCINOLONE ACETONIDE SUSP 40 MG/ML VIAL (J3301) As Ordered ONE; -diazePAM 5MG TABLET As Ordered ONE
== END ==
LOC: M PAIN 14:45
PROVIDERS: ATTEND Nurse Practitioner Family
DX: M54.6 Pain in thoracic spine (principal); G89.29 Other chronic pain; J45.20 Mild intermittent asthma, uncomplicated; M79.10 Myalgia, unspecified site; Z86.59 Personal history of other mental and behavioral disorders; Z88.1 Allergy status to other antibiotic agents; Z88.3 Allergy status to other anti-infective agents; Z88.5 Allergy status to narcotic agent; Z88.6 Allergy status to analgesic agent; Z88.7 Allergy status to serum and vaccine; Z88.8 Allergy status to other drugs, medicaments and biological substances; Z91.018 Allergy to other foods; Z91.041 Radiographic dye allergy status; Z79.899 Other long term (current) drug therapy

== ENCOUNTER → 2021-08-23 | Outpatient (CLI) | payer OTHER | LOC: M PLAIMG 10:37 | PROVIDERS: ATTEND Nurse Practitioner Family | DX: M54.6 Pain in thoracic spine (principal) ==

== ENCOUNTER → 2021-09-30 | Outpatient (CLI) | payer OTHER ==
[~2021-09-30] MED LIST changes: -ACET1TAB16 PO; +ACET300T48 PO
== END ==
LOC: M RAD 13:35
PROVIDERS: ATTEND Family Medicine
DX: E04.1 Nontoxic single thyroid nodule (principal); Z53.9 Procedure and treatment not carried out, unspecified reason

== ENCOUNTER → 2021-10-07 | Outpatient (CLI) | payer OTHER | LOC: M WHC 13:41 | PROVIDERS: ATTEND Family Medicine | DX: R92.8 Other abnormal and inconclusive findings on diagnostic imaging of breast (principal) | CPT/HCPCS: 76642; 77065; G0279 ==

== ENCOUNTER → 2021-10-10 | Outpatient (CLI) | payer OTHER ==
[~2021-10-10] MED LIST changes: +ACET-716 PO; +HYDR-4571 PO; +LEVOTAB10 PO
== END ==
LOC: M PAIN 10:30
PROVIDERS: ATTEND Nurse Practitioner Family
DX: M46.1 Sacroiliitis, not elsewhere classified (principal); M79.10 Myalgia, unspecified site; J45.20 Mild intermittent asthma, uncomplicated; Z86.59 Personal history of other mental and behavioral disorders; Z88.1 Allergy status to other antibiotic agents; Z88.5 Allergy status to narcotic agent; Z88.6 Allergy status to analgesic agent; Z88.7 Allergy status to serum and vaccine; Z88.8 Allergy status to other drugs, medicaments and biological substances; Z91.018 Allergy to other foods; Z79.899 Other long term (current) drug therapy

== ENCOUNTER 2021-10-24 18:55 | Emergency (ER) | payer OTHER ==
[~2021-10-24] VITALS: Ht 160 cm; Wt 91.8 kg
[2021-10-24 18:56] VITALS: BP 137/94
[2021-10-24] MEDS ORDERED: PRED10TA2 (19:03)
== END 2021-10-24 21:30 | disposition left against medical advice (07) ==
LOC: M ED 18:55
DX: Z53.21 Procedure and treatment not carried out due to patient leaving prior to being seen by health care provider (principal)

== ENCOUNTER → 2021-11-05 | Outpatient (CLI) | payer OTHER | LOC: M RAD 07:36 | PROVIDERS: ATTEND Nurse Practitioner Family | DX: M46.1 Sacroiliitis, not elsewhere classified (principal) ==

== ENCOUNTER → 2021-11-14 | Outpatient (CLI) | payer OTHER | LOC: M RAD 08:13 | PROVIDERS: ATTEND Family Medicine | DX: E04.1 Nontoxic single thyroid nodule (principal) ==

== ENCOUNTER → 2021-11-18 | Outpatient (CLI) | payer OTHER ==
[2021-11-18 19:50] LABS: BASO # 0.1 10^3/uL (0.0-0.2); BASO % 0.7 % (0.0-1.0); EOS # 0.2 10^3/uL (0.0-0.5); EOS % 2.4 % (0.0-3.0); HEMATOCRIT 42.4 % (36.0-47.0); HEMOGLOBIN 13.3 g/dl (12.0-15.5); LYMPH # 2.1 10^3/uL (1.5-5.0); LYMPH % 25.9 % (24.0-44.0); MEAN CORPUSCULAR HEMOGLOBIN 27.1 pg (27.0-33.0); MEAN CORPUSCULAR HGB CONC 31.4 g/dl (32.0-36.5); MEAN CORPUSCULAR VOLUME 86.5 fl (80.0-96.0); MONO # 0.4 10^3/uL (0.0-0.8); MONO % 5.4 % (2.0-8.0); NEUTROPHILS # 5.3 10^3/uL (1.5-8.5); NEUTROPHILS % 65.1 % (36.0-66.0); PLATELET COUNT, AUTOMATED 235 10^3/uL (150-450); WHITE BLOOD COUNT 8.2 10^3/uL (4.0-10.0)
[2021-11-18 20:10] LABS: ERYTHROCYTE SEDIMENTATION RATE 6 mm/hr (0-30)
[2021-11-18 20:14] LABS: ALBUMIN 3.5 GM/DL (3.2-5.2); ALT/SGPT 39 U/L (12-78); BILIRUBIN,TOTAL 0.3 MG/DL (0.2-1.0); BLOOD UREA NITROGEN 12 MG/DL (7-18); C REACTIVE PROTEIN QUANTITATIV 1.59 MG/DL (0.00-0.30); CALCIUM LEVEL 8.9 MG/DL (8.5-10.1); CARBON DIOXIDE LEVEL 25 MEQ/L (21-32); CHLORIDE LEVEL 109 MEQ/L (98-107); CREATININE FOR GFR 1.06 MG/DL (0.55-1.30); GLOMERULAR FILTRATION RATE 56.5 (>51); GLUCOSE, FASTING 129 MG/DL (70-100); RHEUMATOID FACTOR QUANT < 10.0 IU/ML (<15.0); SODIUM LEVEL 142 MEQ/L (136-145); TOTAL PROTEIN 6.9 GM/DL (6.4-8.2)
[2021-11-20 19:07] LABS: ANA (HEP2) Negative (.)
== END ==
LOC: M WUC 15:29
PROVIDERS: ATTEND Family Medicine
DX: M06.4 Inflammatory polyarthropathy (principal)

== ENCOUNTER → 2021-12-16 | Outpatient (CLI) | payer OTHER ==
[~2021-12-16] MED LIST changes: +LIDOCAINE 1% MDV 20ML VIAL As Ordered ONE
[2021-12-16 08:50] VITALS: BP 193/107
== END ==
LOC: M IRPRO 08:48
PROVIDERS: ATTEND Family Medicine
DX: E04.1 Nontoxic single thyroid nodule (principal)

== ENCOUNTER → 2021-12-31 | Outpatient (CLI) | payer OTHER ==
[~2021-12-31] MED LIST changes: -LIDOCAINE 1% MDV 20ML VIAL As Ordered ONE
[2021-12-31 21:09] LABS: FREE T4 0.92 NG/DL (0.76-1.46); THYROID STIMULATING HORMONE 0.889 uIU/ML (0.358-3.740)
== END ==
LOC: M WUC 15:01
PROVIDERS: ATTEND Family Medicine
DX: M06.4 Inflammatory polyarthropathy (principal); E04.1 Nontoxic single thyroid nodule

== ENCOUNTER → 2022-01-22 | Outpatient (CLI) | payer OTHER | LOC: M PAIN 09:45 | PROVIDERS: ATTEND Nurse Practitioner Family | DX: M46.1 Sacroiliitis, not elsewhere classified (principal); M54.6 Pain in thoracic spine; G89.29 Other chronic pain; K90.0 Celiac disease; J45.20 Mild intermittent asthma, uncomplicated; F32.A Depression, unspecified; M54.12 Radiculopathy, cervical region; K58.9 Irritable bowel syndrome, unspecified; M54.50 Low back pain, unspecified; F41.9 Anxiety disorder, unspecified; M79.10 Myalgia, unspecified site; M79.7 Fibromyalgia; M96.1 Postlaminectomy syndrome, not elsewhere classified; E66.9 Obesity, unspecified; M25.562 Pain in left knee; Z79.891 Long term (current) use of opiate analgesic; Z79.899 Other long term (current) drug therapy; Z88.6 Allergy status to analgesic agent; Z88.5 Allergy status to narcotic agent; Z88.0 Allergy status to penicillin; Z88.8 Allergy status to other drugs, medicaments and biological substances; Z88.7 Allergy status to serum and vaccine; Z91.018 Allergy to other foods; Z91.041 Radiographic dye allergy status ==

== ENCOUNTER 2022-02-03 08:29 | Outpatient (RCR) | payer OTHER | END 2022-02-05 | LOC: M PT 08:29 | PROVIDERS: ATTEND Family Medicine | DX: M46.1 Sacroiliitis, not elsewhere classified (principal) ==

== ENCOUNTER 2022-02-26 08:16 | Outpatient (RCR) | payer OTHER | END 2022-03-07 | LOC: M PT 08:16 | PROVIDERS: ATTEND Family Medicine | DX: M46.1 Sacroiliitis, not elsewhere classified (principal) ==

== ENCOUNTER → 2022-02-27 | Outpatient (CLI) | payer OTHER | LOC: M PLARAD 10:07 | PROVIDERS: ATTEND Nurse Practitioner Family | DX: M54.6 Pain in thoracic spine (principal) ==

== ENCOUNTER → 2022-03-20 | Outpatient (CLI) | payer OTHER | LOC: M PAIN 09:45 | PROVIDERS: ATTEND Nurse Practitioner Family | DX: M46.1 Sacroiliitis, not elsewhere classified (principal); M54.6 Pain in thoracic spine; G89.29 Other chronic pain; J45.20 Mild intermittent asthma, uncomplicated; M79.7 Fibromyalgia; Z86.59 Personal history of other mental and behavioral disorders; Z88.1 Allergy status to other antibiotic agents; Z88.3 Allergy status to other anti-infective agents; Z88.5 Allergy status to narcotic agent; Z88.6 Allergy status to analgesic agent; Z88.7 Allergy status to serum and vaccine; Z88.8 Allergy status to other drugs, medicaments and biological substances; Z91.018 Allergy to other foods; Z91.041 Radiographic dye allergy status; Z79.899 Other long term (current) drug therapy ==

== ENCOUNTER → 2022-03-27 | Outpatient (CLI) | payer OTHER | LOC: M PAIN 15:15 | PROVIDERS: ATTEND Nurse Practitioner Family | DX: M46.1 Sacroiliitis, not elsewhere classified (principal); M54.6 Pain in thoracic spine; G89.29 Other chronic pain; J45.20 Mild intermittent asthma, uncomplicated; M79.7 Fibromyalgia; Z86.59 Personal history of other mental and behavioral disorders; Z88.1 Allergy status to other antibiotic agents; Z88.3 Allergy status to other anti-infective agents; Z88.5 Allergy status to narcotic agent; Z88.6 Allergy status to analgesic agent; Z88.7 Allergy status to serum and vaccine; Z88.8 Allergy status to other drugs, medicaments and biological substances; Z91.018 Allergy to other foods; Z91.041 Radiographic dye allergy status; Z79.899 Other long term (current) drug therapy ==

== ENCOUNTER → 2022-04-25 | Outpatient (CLI) | payer OTHER | LOC: M RAD 07:18 | PROVIDERS: ATTEND Family Medicine | DX: K76.9 Liver disease, unspecified (principal) ==

== ENCOUNTER → 2022-04-29 | Outpatient (CLI) | payer OTHER ==
[~2022-04-29] MED LIST changes: +ALBU8.5H INH; +META1TAB22 PO
== END ==
LOC: M PAIN 14:15
PROVIDERS: ATTEND Nurse Practitioner Family
DX: M46.1 Sacroiliitis, not elsewhere classified (principal); G89.29 Other chronic pain; J45.20 Mild intermittent asthma, uncomplicated; M79.7 Fibromyalgia; M96.1 Postlaminectomy syndrome, not elsewhere classified; Z86.59 Personal history of other mental and behavioral disorders; Z88.1 Allergy status to other antibiotic agents; Z88.3 Allergy status to other anti-infective agents; Z88.5 Allergy status to narcotic agent; Z88.6 Allergy status to analgesic agent; Z88.7 Allergy status to serum and vaccine; Z88.8 Allergy status to other drugs, medicaments and biological substances; Z91.018 Allergy to other foods; Z91.041 Radiographic dye allergy status; Z79.899 Other long term (current) drug therapy

== ENCOUNTER → 2022-05-14 | Outpatient (CLI) | payer OTHER | LOC: M LABSMTC 09:10 | PROVIDERS: ATTEND Anesthesiology | DX: Z01.812 Encounter for preprocedural laboratory examination (principal); Z20.822 Contact with and (suspected) exposure to COVID-19 ==

== ENCOUNTER → 2022-05-16 | Outpatient (CLI) | payer OTHER ==
[2022-05-16 17:40] LABS: BASO % 0.5 % (0.0-1.0); EOS # 0.2 10^3/uL (0.0-0.5); EOS % 2.6 % (0.0-3.0); HEMATOCRIT 43.6 % (36.0-47.0); HEMOGLOBIN 13.6 g/dl (12.0-15.5); LYMPH # 2.3 10^3/uL (1.5-5.0); LYMPH % 30.5 % (24.0-44.0); MEAN CORPUSCULAR HEMOGLOBIN 26.7 pg (27.0-33.0); MEAN CORPUSCULAR HGB CONC 31.2 g/dl (32.0-36.5); MEAN CORPUSCULAR VOLUME 85.7 fl (80.0-96.0); MONO # 0.5 10^3/uL (0.0-0.8); MONO % 6.6 % (2.0-8.0); NEUTROPHILS # 4.5 10^3/uL (1.5-8.5); NEUTROPHILS % 59.3 % (36.0-66.0); PLATELET COUNT, AUTOMATED 215 10^3/uL (150-450); RED BLOOD COUNT 5.09 10^6/uL (4.00-5.40); WHITE BLOOD COUNT 7.6 10^3/uL (4.0-10.0)
[2022-05-16 18:02] LABS: ALBUMIN 3.7 G/DL (3.2-5.2); ALKALINE PHOSPHATASE 109 U/L (46-116); ALT/SGPT 27 U/L (7.0-40); AST/SGOT 14 U/L (<34); BILIRUBIN,DIRECT 0.1 MG/DL (<0.4); BILIRUBIN,TOTAL 0.4 MG/DL (0.3-1.2); BLOOD UREA NITROGEN 10 MG/DL (9-23); CALCIUM LEVEL 9.4 MG/DL (8.5-10.1); CARBON DIOXIDE LEVEL 28 MMOL/L (20-31); CHLORIDE LEVEL 105 MMOL/L (98-107); CREATININE FOR GFR 0.89 MG/DL (0.55-1.30); GLOMERULAR FILTRATION RATE > 60.0 (>51); GLUCOSE, FASTING 83 MG/DL (60-100); IRON (FE) 40 UG/DL (50-170); PERCENT SATURATION 11.6 % (13.2-45.0); POTASSIUM SERUM 4.3 MMOL/L (3.5-5.1); SODIUM LEVEL 141 MMOL/L (136-145); TOTAL IRON BINDING CAPACITY 344 UG/DL (250-425); TOTAL PROTEIN 6.9 G/DL (5.7-8.2)
[2022-05-16 18:05] LABS: FERRITIN 59.3 NG/ML (7.3-270.7)
== END ==
LOC: M PLALAB 14:59
PROVIDERS: ATTEND Internal Medicine Gastroenterology
DX: R19.7 Diarrhea, unspecified (principal)

== ENCOUNTER 2022-05-19 08:25 | Day surgery (SDC) | payer OTHER ==
[~2022-05-19] VITALS: Ht 160 cm; Wt 93.2 kg
[2022-05-19] MEDS ORDERED: LR 1,000 ML IV SCH ×3 (09:55→13:30)
[2022-05-19] MEDS ORDERED: ROCURONIUM BROMIDE 50MG/5ML VIAL As Ordered ONE ×2 (10:31→11:34)
[2022-05-19] MEDS ORDERED: propofoL 200 MG/20 ML VIAL As Ordered ONE ×2 (10:31→12:01)
[2022-05-19] MEDS ORDERED: LIDOCAINE 2% 100MG/5ML SDV (FOR ANES.) As Ordered ONE (10:31)
[2022-05-19] MEDS ORDERED: ACETAMINOPHEN 1000MG 100ML IV BAG As Ordered ONE (10:31)
[2022-05-19] MEDS ORDERED: ONDANSETRON 4MG 2ML VIAL As Ordered ONE (10:31)
[2022-05-19] MEDS ORDERED: fentaNYL 100 MCG/2 ML INJECTION As Ordered ONE (10:32)
[2022-05-19] MEDS ORDERED: MIDAZOLAM INJ 2MG/2ML VIAL (J2250 PER 1MG) As Ordered ONE (10:32)
[2022-05-19] MEDS ORDERED: SUGAMMADEX SODIUM 500 MG/5 ML VIAL (BRIDION) As Ordered ONE (10:35)
[2022-05-19] MEDS ORDERED: LIDOCAINE W/EPINEPHRINE 1% 20ML VIAL As Ordered ONE (10:55)
[2022-05-19] MEDS ORDERED: OXYMETAZOLINE 0.05% NASAL SPRAY (AFRIN) As Ordered ONE (10:55)
[2022-05-19] MEDS ORDERED: COCAINE 4% 4ML NASAL SOLUTION BTL As Ordered ONE (10:55)
[2022-05-19] MEDS ORDERED: HYDROmorphone HCL 2MG/ML 1ML VIAL As Ordered ONE (11:07)
[2022-05-19] MEDS ORDERED: ONDANSETRON 4MG 2ML VIAL IV PRN ×2 (12:20→13:30)
[2022-05-19] MEDS ORDERED: oxyCODONE 5MG TAB PO PRN (12:20)
[2022-05-19] MEDS ORDERED: HYDROMORPHONE HCL 0.5 MG/ 0.5 ML SYRINGE (J1170 PER 1) IV PRN (12:20)
[2022-05-19] MEDS ORDERED: ACETAMINOPH W/CODEINE #3 TAB UD PO PRN (13:35)
[2022-05-19 14:29] VITALS: BP 168/86
== END 2022-05-19 15:20 | disposition home or self-care (01) ==
LOC: M SDC 08:25
PROVIDERS: ATTEND Otolaryngology
DX: J34.2 Deviated nasal septum (principal); J34.3 Hypertrophy of nasal turbinates; K57.92 Diverticulitis of intestine, part unspecified, without perforation or abscess without bleeding; K58.8 Other irritable bowel syndrome; F43.10 Post-traumatic stress disorder, unspecified; G43.909 Migraine, unspecified, not intractable, without status migrainosus; J45.909 Unspecified asthma, uncomplicated; Z86.73 Personal history of transient ischemic attack (TIA), and cerebral infarction without residual deficits; Z79.51 Long term (current) use of inhaled steroids; Z79.899 Other long term (current) drug therapy; F41.9 Anxiety disorder, unspecified; F32.A Depression, unspecified; Z88.5 Allergy status to narcotic agent; Z88.0 Allergy status to penicillin; Z88.8 Allergy status to other drugs, medicaments and biological substances; J30.2 Other seasonal allergic rhinitis; Z91.041 Radiographic dye allergy status
CPT/HCPCS: 30140; 30520; C9046; J0131; J1100; J1170; J2250; J2405

== ENCOUNTER 2022-05-21 14:05 | Emergency (ER) | payer OTHER ==
[~2022-05-21] VITALS: Ht 160 cm; Wt 92.3 kg
[2022-05-21] MEDS ORDERED: ACET300T48 (14:16)
[2022-05-21] MEDS ORDERED: DOXY-443 (14:16)
[2022-05-21] MEDS ORDERED: FLUC100T3 (14:16)
[2022-05-21] MEDS ORDERED: BENZONATATE 100MG CAPSULE PO ONE (14:55)
[2022-05-21] MEDS ORDERED: predniSONE 20 MG TAB PO ONE (14:55)
[2022-05-21] MEDS ORDERED: PRED20TA PO (17:18)
[2022-05-21] MEDS ORDERED: BENZ200C70 PO (17:19)
[2022-05-21 17:34] VITALS: BP 123/65
== END 2022-05-21 17:36 | disposition home or self-care (01) ==
LOC: M ED 14:05
DX: J06.9 Acute upper respiratory infection, unspecified (principal); J45.909 Unspecified asthma, uncomplicated; K58.9 Irritable bowel syndrome, unspecified; K90.0 Celiac disease; Z88.1 Allergy status to other antibiotic agents; Z88.8 Allergy status to other drugs, medicaments and biological substances; Z88.6 Allergy status to analgesic agent; Z91.041 Radiographic dye allergy status; Z79.82 Long term (current) use of aspirin; Z79.51 Long term (current) use of inhaled steroids; Z79.52 Long term (current) use of systemic steroids; Z79.899 Other long term (current) drug therapy
CPT/HCPCS: 71046; 99283; J7512

== ENCOUNTER → 2022-06-04 | Outpatient (REF) | payer OTHER ==
[~2022-06-04] MED LIST changes: +ACET300T48; +BENZ200C70 PO; +DOXY-443; +FLUC100T3
== END ==
LOC: M LAB REF 14:34
PROVIDERS: ATTEND Physician Assistant Medical
DX: J01.90 Acute sinusitis, unspecified (principal)

== ENCOUNTER 2022-06-15 20:10 | Emergency (ER) | payer OTHER ==
[~2022-06-15] VITALS: Ht 160 cm; Wt 92.3 kg
[2022-06-15 21:07] LABS: BASO % 0.4 % (0.0-1.0); EOS # 0.2 10^3/uL (0.0-0.5); EOS % 1.4 % (0.0-3.0); HEMATOCRIT 44.6 % (36.0-47.0); HEMOGLOBIN 13.9 g/dl (12.0-15.5); LYMPH # 2.4 10^3/uL (1.5-5.0); LYMPH % 22.2 % (24.0-44.0); MEAN CORPUSCULAR HEMOGLOBIN 26.5 pg (27.0-33.0); MEAN CORPUSCULAR HGB CONC 31.2 g/dl (32.0-36.5); MEAN CORPUSCULAR VOLUME 85.1 fl (80.0-96.0); MONO # 0.8 10^3/uL (0.0-0.8); MONO % 7.1 % (2.0-8.0); NEUTROPHILS # 7.4 10^3/uL (1.5-8.5); NEUTROPHILS % 68.4 % (36.0-66.0); PLATELET COUNT, AUTOMATED 213 10^3/uL (150-450); RED BLOOD COUNT 5.24 10^6/uL (4.00-5.40); WHITE BLOOD COUNT 10.8 10^3/uL (4.0-10.0)
[2022-06-15 21:11] LABS: LIPASE 28 U/L (12-53)
[2022-06-15 21:12] LABS: BILIRUBIN,DIRECT 0.1 MG/DL (<0.4)
[2022-06-15 21:13] LABS: ALBUMIN 3.5 G/DL (3.2-5.2); ALKALINE PHOSPHATASE 103 U/L (46-116); ALT/SGPT 27 U/L (7.0-40); AST/SGOT 13 U/L (<34); BILIRUBIN,TOTAL 0.4 MG/DL (0.3-1.2); BLOOD UREA NITROGEN 12 MG/DL (9-23); CALCIUM LEVEL 9.4 MG/DL (8.3-10.6); CARBON DIOXIDE LEVEL 28 MMOL/L (20-31); CHLORIDE LEVEL 106 MMOL/L (98-107); CK-MB VALUE MASS < 1.0 NG/ML (<3.6); CPK CREATINE PHOSPHOKINASE 34 U/L (34-145); CREATININE FOR GFR 0.88 MG/DL (0.55-1.30); GLOMERULAR FILTRATION RATE > 60.0 (>45); GLUCOSE, FASTING 101 MG/DL (74-106); MB/CK RELATIVE INDEX 2.94 (< OR =4); POTASSIUM SERUM 4.4 MMOL/L (3.5-5.1); SODIUM LEVEL 142 MMOL/L (136-145); TOTAL PROTEIN 6.6 G/DL (5.7-8.2)
[2022-06-15 21:16] LABS: THYROID STIMULATING HORMONE 0.775 uIU/ML (0.55-4.78)
[2022-06-15 22:15] LABS: CK-MB VALUE MASS < 1.0 NG/ML (<3.6)
[2022-06-15 22:16] LABS: CPK CREATINE PHOSPHOKINASE 35 U/L (34-145); MB/CK RELATIVE INDEX 2.85 (< OR =4)
[2022-06-16 00:19] VITALS: BP 135/88
== END 2022-06-16 03:18 | disposition left against medical advice (07) ==
LOC: M ED 20:10
DX: Z53.21 Procedure and treatment not carried out due to patient leaving prior to being seen by health care provider (principal)

== ENCOUNTER → 2022-06-23 | Outpatient (CLI) | payer OTHER | LOC: M LABSMTC 09:39 | PROVIDERS: ATTEND Anesthesiology | DX: Z01.812 Encounter for preprocedural laboratory examination (principal); Z11.52 Encounter for screening for COVID-19 ==

== ENCOUNTER → 2022-06-27 | Outpatient (CLI) | payer OTHER ==
[~2022-06-27] MED LIST changes: +BUPIVACAINE HCL 0.25% 30ML VIAL As Ordered ONE; +ISOVUE-M 300 61% 15ML VIAL As Ordered ONE; +LIDOCAINE 1% SDV 30ML VIAL As Ordered ONE; +NORCO, ANEXSIA 5/325MG TABLET (HYDROcodone/ACETAMINOPHEN) As Ordered ONE; +ONDANSETRON 4MG ORAL DISINTEGRATING TAB As Ordered ONE; +TRIAMCINOLONE ACETONIDE SUSP 40MG/ML 1ML VIAL As Ordered ONE; +diazePAM 5MG TABLET As Ordered ONE
== END ==
LOC: M PAIN 08:15
PROVIDERS: ATTEND Anesthesiology
DX: M46.1 Sacroiliitis, not elsewhere classified (principal); G89.29 Other chronic pain; J45.20 Mild intermittent asthma, uncomplicated; M79.7 Fibromyalgia; M96.1 Postlaminectomy syndrome, not elsewhere classified; Z88.1 Allergy status to other antibiotic agents; Z88.3 Allergy status to other anti-infective agents; Z88.5 Allergy status to narcotic agent; Z88.6 Allergy status to analgesic agent; Z88.7 Allergy status to serum and vaccine; Z88.8 Allergy status to other drugs, medicaments and biological substances; Z91.018 Allergy to other foods; Z91.041 Radiographic dye allergy status; Z79.899 Other long term (current) drug therapy

== ENCOUNTER → 2022-07-11 | Outpatient (CLI) | payer OTHER ==
[~2022-07-11] MED LIST changes: -BUPIVACAINE HCL 0.25% 30ML VIAL As Ordered ONE; -ISOVUE-M 300 61% 15ML VIAL As Ordered ONE; -LIDOCAINE 1% SDV 30ML VIAL As Ordered ONE; -NORCO, ANEXSIA 5/325MG TABLET (HYDROcodone/ACETAMINOPHEN) As Ordered ONE; -ONDANSETRON 4MG ORAL DISINTEGRATING TAB As Ordered ONE; -TRIAMCINOLONE ACETONIDE SUSP 40MG/ML 1ML VIAL As Ordered ONE; -diazePAM 5MG TABLET As Ordered ONE
[2022-07-11 17:04] LABS: BLOOD UREA NITROGEN 16 MG/DL (9-23); CREATININE FOR GFR 0.99 MG/DL (0.55-1.30); GLOMERULAR FILTRATION RATE > 60.0 (>45)
== END ==
LOC: M WUC 11:00
PROVIDERS: ATTEND Ophthalmology
DX: D31.60 Benign neoplasm of unspecified site of unspecified orbit (principal)

== ENCOUNTER → 2022-07-15 | Outpatient (CLI) | payer OTHER | LOC: M WHC 13:14 | PROVIDERS: ATTEND Otolaryngology | DX: E04.1 Nontoxic single thyroid nodule (principal) ==

== ENCOUNTER → 2022-07-17 | Outpatient (CLI) | payer OTHER | LOC: M LABSMTC 10:26 | PROVIDERS: ATTEND Anesthesiology | DX: Z01.818 Encounter for other preprocedural examination (principal) ==

== ENCOUNTER → 2022-07-17 | Outpatient (CLI) | payer OTHER | LOC: M RAD 15:24 | PROVIDERS: ATTEND Ophthalmology | DX: R22.0 Localized swelling, mass and lump, head (principal) ==

== ENCOUNTER 2022-07-22 10:08 | Day surgery (SDC) | payer OTHER ==
[~2022-07-22] VITALS: Ht 157.5 cm; Wt 92.0 kg
[~2022-07-22 10:08] MED LIST changes: +NS 1,000 ML IV ONE
[2022-07-22] MEDS ORDERED: LIDOCAINE 2% 100MG/5ML SDV (FOR ANES.) As Ordered ONE (12:43)
[2022-07-22] MEDS ORDERED: propofoL 200 MG/20 ML VIAL As Ordered ONE ×3 (12:43→13:21)
[2022-07-22 13:52] VITALS: BP 147/87
== END 2022-07-22 14:08 | disposition home or self-care (01) ==
LOC: M OPP 10:08
PROVIDERS: ATTEND Internal Medicine Gastroenterology
DX: D12.5 Benign neoplasm of sigmoid colon (principal); K64.4 Residual hemorrhoidal skin tags; K64.8 Other hemorrhoids; K57.30 Diverticulosis of large intestine without perforation or abscess without bleeding; K52.9 Noninfective gastroenteritis and colitis, unspecified; K92.1 Melena; K44.9 Diaphragmatic hernia without obstruction or gangrene; K21.00 Gastro-esophageal reflux disease with esophagitis, without bleeding; K31.A29 Gastric intestinal metaplasia with dysplasia, unspecified; K90.1 Tropical sprue; M79.7 Fibromyalgia; G43.909 Migraine, unspecified, not intractable, without status migrainosus; G47.33 Obstructive sleep apnea (adult) (pediatric); Z79.51 Long term (current) use of inhaled steroids; Z79.52 Long term (current) use of systemic steroids; Z79.899 Other long term (current) drug therapy; Z88.1 Allergy status to other antibiotic agents; Z88.5 Allergy status to narcotic agent; Z88.6 Allergy status to analgesic agent; Z88.8 Allergy status to other drugs, medicaments and biological substances; Z91.041 Radiographic dye allergy status

== ENCOUNTER → 2022-07-30 | Outpatient (CLI) | payer OTHER ==
[~2022-07-30] MED LIST changes: -NS 1,000 ML IV ONE
== END ==
LOC: M PAIN 11:15
PROVIDERS: ATTEND Anesthesiology
DX: M53.3 Sacrococcygeal disorders, not elsewhere classified (principal); G89.29 Other chronic pain; J45.20 Mild intermittent asthma, uncomplicated; M79.7 Fibromyalgia; Z86.59 Personal history of other mental and behavioral disorders; Z88.1 Allergy status to other antibiotic agents; Z88.3 Allergy status to other anti-infective agents; Z88.5 Allergy status to narcotic agent; Z88.6 Allergy status to analgesic agent; Z88.7 Allergy status to serum and vaccine; Z88.8 Allergy status to other drugs, medicaments and biological substances; Z91.018 Allergy to other foods; Z91.041 Radiographic dye allergy status; Z79.899 Other long term (current) drug therapy

== ENCOUNTER → 2022-09-29 | Outpatient (CLI) | payer OTHER ==
[~2022-09-29] MED LIST changes: -ASMA16.7; +MOME13HF4; +MONT-5 PO; -SING10TA32 PO
== END ==
LOC: M PAIN 09:15
PROVIDERS: ATTEND Nurse Practitioner Family
DX: M54.6 Pain in thoracic spine (principal); M79.10 Myalgia, unspecified site; G89.29 Other chronic pain; J45.20 Mild intermittent asthma, uncomplicated; M79.7 Fibromyalgia; M96.1 Postlaminectomy syndrome, not elsewhere classified; Z86.59 Personal history of other mental and behavioral disorders; Z88.1 Allergy status to other antibiotic agents; Z88.3 Allergy status to other anti-infective agents; Z88.5 Allergy status to narcotic agent; Z88.6 Allergy status to analgesic agent; Z88.7 Allergy status to serum and vaccine; Z88.8 Allergy status to other drugs, medicaments and biological substances; Z91.018 Allergy to other foods; Z91.041 Radiographic dye allergy status; Z79.899 Other long term (current) drug therapy

== ENCOUNTER → 2022-10-28 | Outpatient (CLI) | payer OTHER | LOC: M RAD 07:43 | PROVIDERS: ATTEND Nurse Practitioner Family | DX: M54.6 Pain in thoracic spine (principal) ==

== ENCOUNTER → 2022-10-29 | Outpatient (CLI) | payer OTHER | LOC: M RAD 16:58 | PROVIDERS: ATTEND Family Medicine | DX: M79.671 Pain in right foot (principal); M25.571 Pain in right ankle and joints of right foot ==

== ENCOUNTER → 2022-11-28 | Outpatient (CLI) | payer OTHER | LOC: M PAIN 14:00 | PROVIDERS: ATTEND Nurse Practitioner Family | DX: M79.10 Myalgia, unspecified site (principal); M54.6 Pain in thoracic spine; G89.29 Other chronic pain; J45.20 Mild intermittent asthma, uncomplicated; M79.7 Fibromyalgia; Z86.59 Personal history of other mental and behavioral disorders; Z88.1 Allergy status to other antibiotic agents; Z88.3 Allergy status to other anti-infective agents; Z88.5 Allergy status to narcotic agent; Z88.6 Allergy status to analgesic agent; Z88.7 Allergy status to serum and vaccine; Z88.8 Allergy status to other drugs, medicaments and biological substances; Z91.018 Allergy to other foods; Z91.041 Radiographic dye allergy status; Z79.899 Other long term (current) drug therapy ==

== ENCOUNTER → 2023-01-27 | Outpatient (CLI) | payer OTHER ==
[~2023-01-27] MED LIST changes: +NORCO, ANEXSIA 5/325MG TABLET (HYDROcodone/ACETAMINOPHEN) As Ordered ONE; +ONDANSETRON 4MG ORAL DISINTEGRATING TAB As Ordered ONE; +TRIAMCINOLONE ACETONIDE SUSP 40MG/ML 1ML VIAL As Ordered ONE; +diazePAM 5MG TABLET As Ordered ONE
== END ==
LOC: M PAIN 08:00
PROVIDERS: ATTEND Anesthesiology
DX: M79.18 Myalgia, other site (principal); G89.29 Other chronic pain; J45.20 Mild intermittent asthma, uncomplicated; M79.7 Fibromyalgia; Z86.59 Personal history of other mental and behavioral disorders; Z88.1 Allergy status to other antibiotic agents; Z88.3 Allergy status to other anti-infective agents; Z88.5 Allergy status to narcotic agent; Z88.6 Allergy status to analgesic agent; Z88.8 Allergy status to other drugs, medicaments and biological substances; Z91.018 Allergy to other foods; Z91.041 Radiographic dye allergy status; Z79.899 Other long term (current) drug therapy
CPT/HCPCS: 20552; J0665; J3301

== ENCOUNTER → 2023-01-30 | Outpatient (CLI) | payer OTHER ==
[~2023-01-30] MED LIST changes: -NORCO, ANEXSIA 5/325MG TABLET (HYDROcodone/ACETAMINOPHEN) As Ordered ONE; -ONDANSETRON 4MG ORAL DISINTEGRATING TAB As Ordered ONE; -TRIAMCINOLONE ACETONIDE SUSP 40MG/ML 1ML VIAL As Ordered ONE; -diazePAM 5MG TABLET As Ordered ONE
== END ==
LOC: M PAIN 09:30
PROVIDERS: ATTEND Anesthesiology
DX: M79.10 Myalgia, unspecified site (principal); M79.2 Neuralgia and neuritis, unspecified; J45.20 Mild intermittent asthma, uncomplicated; M79.7 Fibromyalgia; M96.1 Postlaminectomy syndrome, not elsewhere classified; Z86.59 Personal history of other mental and behavioral disorders; Z88.1 Allergy status to other antibiotic agents; Z88.3 Allergy status to other anti-infective agents; Z88.5 Allergy status to narcotic agent; Z88.6 Allergy status to analgesic agent; Z88.8 Allergy status to other drugs, medicaments and biological substances; Z91.018 Allergy to other foods; Z91.041 Radiographic dye allergy status; Z79.899 Other long term (current) drug therapy

== ENCOUNTER → 2023-04-28 | Outpatient (CLI) | payer OTHER | LOC: M PAIN 11:15 | PROVIDERS: ATTEND Nurse Practitioner Family | DX: M47.818 Spondylosis without myelopathy or radiculopathy, sacral and sacrococcygeal region (principal); M54.6 Pain in thoracic spine; G89.29 Other chronic pain; M79.10 Myalgia, unspecified site; Z88.1 Allergy status to other antibiotic agents; Z88.3 Allergy status to other anti-infective agents; Z88.5 Allergy status to narcotic agent; Z88.6 Allergy status to analgesic agent; Z88.8 Allergy status to other drugs, medicaments and biological substances; Z91.018 Allergy to other foods; Z91.041 Radiographic dye allergy status; Z79.899 Other long term (current) drug therapy ==

== ENCOUNTER → 2023-05-04 | Outpatient (CLI) | payer OTHER | LOC: M PAIN 12:30 | PROVIDERS: ATTEND Nurse Practitioner Family | DX: Z79.891 Long term (current) use of opiate analgesic (principal) ==

== ENCOUNTER → 2023-05-21 | Outpatient (CLI) | payer OTHER | LOC: M PAIN 11:30 | PROVIDERS: ATTEND Nurse Practitioner Family | DX: M79.10 Myalgia, unspecified site (principal); G89.29 Other chronic pain; Z80.8 Family history of malignant neoplasm of other organs or systems; Z88.1 Allergy status to other antibiotic agents; Z88.3 Allergy status to other anti-infective agents; Z88.5 Allergy status to narcotic agent; Z88.6 Allergy status to analgesic agent; Z88.8 Allergy status to other drugs, medicaments and biological substances; Z91.018 Allergy to other foods; Z91.041 Radiographic dye allergy status; Z79.899 Other long term (current) drug therapy ==

== ENCOUNTER → 2023-06-17 | Outpatient (CLI) | payer OTHER | LOC: M PAIN 11:30 | PROVIDERS: ATTEND Anesthesiology | DX: M79.18 Myalgia, other site (principal); M54.6 Pain in thoracic spine; M54.50 Low back pain, unspecified; K90.0 Celiac disease; J45.20 Mild intermittent asthma, uncomplicated; F32.A Depression, unspecified; M54.12 Radiculopathy, cervical region; M96.1 Postlaminectomy syndrome, not elsewhere classified; E66.9 Obesity, unspecified; Z79.891 Long term (current) use of opiate analgesic; Z79.899 Other long term (current) drug therapy; Z88.6 Allergy status to analgesic agent; Z88.5 Allergy status to narcotic agent; Z88.8 Allergy status to other drugs, medicaments and biological substances; Z91.041 Radiographic dye allergy status; Z88.0 Allergy status to penicillin; Z91.02 Food additives allergy status; Z68.36 Body mass index [BMI] 36.0-36.9, adult ==

== ENCOUNTER → 2023-07-01 | Outpatient (CLI) | payer OTHER | LOC: M PAIN 10:30 | PROVIDERS: ATTEND Anesthesiology | DX: M79.18 Myalgia, other site (principal); M54.50 Low back pain, unspecified; J45.20 Mild intermittent asthma, uncomplicated; K90.0 Celiac disease; M54.12 Radiculopathy, cervical region; F41.9 Anxiety disorder, unspecified; M96.1 Postlaminectomy syndrome, not elsewhere classified; E66.9 Obesity, unspecified; Z79.891 Long term (current) use of opiate analgesic; Z79.899 Other long term (current) drug therapy; Z88.5 Allergy status to narcotic agent; Z88.0 Allergy status to penicillin; Z88.6 Allergy status to analgesic agent; Z88.8 Allergy status to other drugs, medicaments and biological substances ==

== ENCOUNTER → 2023-09-23 | Outpatient (CLI) | payer OTHER | LOC: M PAIN 14:00 | PROVIDERS: ATTEND Anesthesiology | DX: M79.18 Myalgia, other site (principal); G89.29 Other chronic pain; J45.909 Unspecified asthma, uncomplicated; Z79.1 Long term (current) use of non-steroidal anti-inflammatories (NSAID); Z79.51 Long term (current) use of inhaled steroids; Z79.891 Long term (current) use of opiate analgesic; Z79.899 Other long term (current) drug therapy; Z88.1 Allergy status to other antibiotic agents; Z88.5 Allergy status to narcotic agent; Z88.6 Allergy status to analgesic agent; Z88.8 Allergy status to other drugs, medicaments and biological substances; Z91.018 Allergy to other foods; Z91.040 Latex allergy status; Z91.041 Radiographic dye allergy status ==

== ENCOUNTER → 2023-10-13 | Outpatient (CLI) | payer OTHER ==
[~2023-10-13] MED LIST changes: +DOXY-323; -DOXY-443; +OMEGA-3 1000MG CAPSULE ONE
== END ==
LOC: M PLAIMG 09:26
PROVIDERS: ATTEND Anesthesiology
DX: M51.34 Other intervertebral disc degeneration, thoracic region (principal)

== ENCOUNTER → 2023-10-22 | Outpatient (CLI) | payer OTHER ==
[~2023-10-22] MED LIST changes: -OMEGA-3 1000MG CAPSULE ONE
== END ==
LOC: M PAIN 16:00
PROVIDERS: ATTEND Nurse Practitioner Family
DX: M79.18 Myalgia, other site (principal); Z79.891 Long term (current) use of opiate analgesic; M47.818 Spondylosis without myelopathy or radiculopathy, sacral and sacrococcygeal region; G89.29 Other chronic pain; K90.0 Celiac disease; J45.20 Mild intermittent asthma, uncomplicated; F32.A Depression, unspecified; M54.12 Radiculopathy, cervical region; F41.9 Anxiety disorder, unspecified; M54.50 Low back pain, unspecified; M96.1 Postlaminectomy syndrome, not elsewhere classified; E66.9 Obesity, unspecified; Z68.36 Body mass index [BMI] 36.0-36.9, adult; Z79.899 Other long term (current) drug therapy; Z88.6 Allergy status to analgesic agent; Z88.0 Allergy status to penicillin; Z88.8 Allergy status to other drugs, medicaments and biological substances; Z88.5 Allergy status to narcotic agent; Z91.018 Allergy to other foods; Z91.041 Radiographic dye allergy status

== ENCOUNTER 2023-11-22 11:21 | Emergency (ER) | payer OTHER ==
[~2023-11-22] VITALS: Ht 160 cm; Wt 90.7 kg
[2023-11-22 11:21] VITALS: TEMP 97.1
[~2023-11-22 11:21] MED LIST changes: +ONDA-282 PO; -ONDA4TAB6 PO
[2023-11-22] MEDS ORDERED: HYDR-4571 (11:45)
[2023-11-22] MEDS ORDERED: LIDO1PAD (11:45)
[2023-11-22] MEDS: ACETAMINOPHEN 500 MG TAB PO ONE (13:21)
[2023-11-22 13:22] VITALS: BP 139/74; O2SAT 96
== END 2023-11-22 13:27 | disposition home or self-care (01) ==
LOC: M ED 11:21
DX: S90.121A Contusion of right lesser toe(s) without damage to nail, initial encounter (principal); W22.09XA Striking against other stationary object, initial encounter; J45.909 Unspecified asthma, uncomplicated; K58.9 Irritable bowel syndrome, unspecified; N80.9 Endometriosis, unspecified; M79.7 Fibromyalgia; M54.12 Radiculopathy, cervical region; F41.9 Anxiety disorder, unspecified; F32.A Depression, unspecified; Z79.52 Long term (current) use of systemic steroids; Z79.899 Other long term (current) drug therapy; Y92.009 Unspecified place in unspecified non-institutional (private) residence as the place of occurrence of the external cause; Y93.89 Activity, other specified; Y99.9 Unspecified external cause status; Z91.041 Radiographic dye allergy status; Z88.1 Allergy status to other antibiotic agents; Z88.2 Allergy status to sulfonamides; Z88.5 Allergy status to narcotic agent; Z88.6 Allergy status to analgesic agent; Z88.8 Allergy status to other drugs, medicaments and biological substances

== ENCOUNTER → 2023-11-26 | Outpatient (CLI) | payer OTHER ==
[~2023-11-26] MED LIST changes: +HYDR-4571; +LIDO1PAD
== END ==
LOC: M WUC 15:21
PROVIDERS: ATTEND Family Medicine
DX: M79.671 Pain in right foot (principal)

== ENCOUNTER → 2023-12-23 | Outpatient (CLI) | payer OTHER | LOC: M PAIN 09:30 | PROVIDERS: ATTEND Anesthesiology | DX: R10.2 Pelvic and perineal pain (principal); M53.3 Sacrococcygeal disorders, not elsewhere classified; M54.6 Pain in thoracic spine; M54.50 Low back pain, unspecified; K90.0 Celiac disease; J45.20 Mild intermittent asthma, uncomplicated; F32.A Depression, unspecified; F41.9 Anxiety disorder, unspecified; K58.9 Irritable bowel syndrome, unspecified; E66.9 Obesity, unspecified; Z79.891 Long term (current) use of opiate analgesic; Z79.899 Other long term (current) drug therapy; Z88.6 Allergy status to analgesic agent; Z88.0 Allergy status to penicillin; Z88.5 Allergy status to narcotic agent; Z88.8 Allergy status to other drugs, medicaments and biological substances; Z68.36 Body mass index [BMI] 36.0-36.9, adult ==

== ENCOUNTER → 2024-01-09 | Outpatient (CLI) | payer OTHER | LOC: M RAD 12:25 | PROVIDERS: ATTEND Anesthesiology | DX: M46.1 Sacroiliitis, not elsewhere classified (principal) ==

== ENCOUNTER → 2024-02-24 | Outpatient (CLI) | payer OTHER | LOC: M PAIN 11:00 | PROVIDERS: ATTEND Anesthesiology | DX: M54.6 Pain in thoracic spine (principal); M79.10 Myalgia, unspecified site; M79.18 Myalgia, other site; R10.2 Pelvic and perineal pain; M53.3 Sacrococcygeal disorders, not elsewhere classified; K90.0 Celiac disease; J45.20 Mild intermittent asthma, uncomplicated; F32.A Depression, unspecified; M54.50 Low back pain, unspecified; M96.1 Postlaminectomy syndrome, not elsewhere classified; E66.9 Obesity, unspecified; Z68.37 Body mass index [BMI] 37.0-37.9, adult; Z88.6 Allergy status to analgesic agent; Z88.5 Allergy status to narcotic agent; Z88.0 Allergy status to penicillin; Z91.018 Allergy to other foods; Z79.891 Long term (current) use of opiate analgesic; Z79.899 Other long term (current) drug therapy ==

== ENCOUNTER → 2024-03-03 | Outpatient (CLI) | payer OTHER | LOC: M WHC 14:04 | PROVIDERS: ATTEND Family Medicine | DX: Z12.31 Encounter for screening mammogram for malignant neoplasm of breast (principal); M81.0 Age-related osteoporosis without current pathological fracture ==

== ENCOUNTER → 2024-04-20 | Outpatient (CLI) | payer OTHER ==
[~2024-04-20] MED LIST changes: -DOXY-323; +DOXY-441; +META-10 PO; -META1TAB22 PO
== END ==
LOC: M PAIN 09:30
PROVIDERS: ATTEND Anesthesiology
DX: M54.50 Low back pain, unspecified (principal); M53.3 Sacrococcygeal disorders, not elsewhere classified; G89.29 Other chronic pain; K90.0 Celiac disease; J45.20 Mild intermittent asthma, uncomplicated; F32.A Depression, unspecified; M54.12 Radiculopathy, cervical region; K58.9 Irritable bowel syndrome, unspecified; F41.9 Anxiety disorder, unspecified; M79.7 Fibromyalgia; M96.1 Postlaminectomy syndrome, not elsewhere classified; E66.9 Obesity, unspecified; Z88.0 Allergy status to penicillin; Z88.5 Allergy status to narcotic agent; Z88.6 Allergy status to analgesic agent; Z88.8 Allergy status to other drugs, medicaments and biological substances; Z91.018 Allergy to other foods; Z68.37 Body mass index [BMI] 37.0-37.9, adult; Z79.891 Long term (current) use of opiate analgesic; Z79.899 Other long term (current) drug therapy

== ENCOUNTER → 2024-07-25 | Outpatient (CLI) | payer OTHER, MEDICAID ==
[~2024-07-25] MED LIST changes: -ALIG4CAP PO; +ALIG4CAP3 PO; +CARI-555; -CARI1TAB7; -FEXO-117 PO; +FEXO-193 PO
[2024-07-25 18:55] LABS: BASO % 0.5 % (0.0-1.0); EOS # 0.2 10^3/uL (0.0-0.5); EOS % 2.7 % (0.0-3.0); HEMATOCRIT 43.1 % (36.0-47.0); HEMOGLOBIN 13.8 g/dl (12.0-15.5); LYMPH % 25.2 % (24.0-44.0); MEAN CORPUSCULAR VOLUME 87.4 fl (80.0-96.0); MONO # 0.5 10^3/uL (0.0-0.8); MONO % 6.3 % (2.0-8.0); NEUTROPHILS # 5.2 10^3/uL (1.5-8.5); NEUTROPHILS % 64.9 % (36.0-66.0); PLATELET COUNT, AUTOMATED 217 10^3/uL (150-450); RED BLOOD COUNT 4.93 10^6/uL (4.00-5.40); WHITE BLOOD COUNT 8.1 10^3/uL (4.0-10.0)
[2024-07-25 19:00] LABS: ERYTHROCYTE SEDIMENTATION RATE 6 mm/hr (0-30)
[2024-07-25 19:07] LABS: APPEARANCE, URINE HAZY (CLEAR); BACTERIA, URINE AUTO NEGATIVE (NEGATIVE); BILIRUBIN, URINE AUTO NEGATIVE (NEGATIVE); BLOOD, URINE BLOOD 1+ (NEGATIVE); COLOR, URINE YELLOW (YELLOW); GLUCOSE, URINE (UA) AUTO NEGATIVE (NEGATIVE); KETONE, URINE AUTO NEGATIVE (NEGATIVE); LEUKOCYTE ESTERASE, URINE AUTO NEGATIVE (NEGATIVE); MUCUS, URINE SMALL (NEGATIVE); NITRITE, URINE AUTO NEGATIVE (NEGATIVE); PROTEIN, URINE AUTO NEGATIVE (NEGATIVE); RBC, URINE AUTO 1 /HPF (0-3); SPECIFIC GRAVITY URINE AUTO 1.012 (1.002-1.035); SQUAMOUS EPITHELIAL CELL UR AU 2 /HPF (0-6); UROBILINOGEN, URINE AUTO 0.2 mg/dL (0.0-2.0); WBC, URINE AUTO 2 /HPF (0-3)
[2024-07-25 19:28] LABS: URIC ACID 7.2 MG/DL (3.1-7.8)
[2024-07-25 19:31] LABS: C REACTIVE PROTEIN QUANTITATIV 1.18 MG/DL (<1.0)
[2024-07-25 19:32] LABS: ALBUMIN 3.6 G/DL (3.2-5.2); ALKALINE PHOSPHATASE 106 U/L (35-104); ALT/SGPT 31 U/L (7.0-40); AST/SGOT 15 U/L (<34); BILIRUBIN,TOTAL 0.4 MG/DL (0.3-1.2); BLOOD UREA NITROGEN 9 MG/DL (9-23); CALCIUM LEVEL 9.2 MG/DL (8.3-10.6); CARBON DIOXIDE LEVEL 29 MMOL/L (20-31); CHLORIDE LEVEL 106 MMOL/L (98-107); CREATININE FOR GFR 0.81 MG/DL (0.55-1.30); CREATININE, URINE 112.2 MG/DL; GLOMERULAR FILTRATION RATE > 60.0 (>45); GLUCOSE, FASTING 95 MG/DL (74-106); MAU/CREAT RATIO 9.8 MCG/MG (0.0-30.0); POTASSIUM SERUM 3.7 MMOL/L (3.5-5.1); SODIUM LEVEL 145 MMOL/L (136-145); TOTAL PROTEIN 6.9 G/DL (5.7-8.2)
[2024-07-25 19:55] LABS: RHEUMATOID FACTOR QUANT 4.9 IU/ML (<14)
[2024-07-27 12:47] LABS: CYCLIC CITRULLINATED PEPTIDE < 16 UNITS (<20)
[2024-07-27 14:47] LABS: ANA SCREEN, IFA NEGATIVE (NEGATIVE)
== END ==
LOC: M WUC 15:14
PROVIDERS: ATTEND Family Medicine
DX: M25.50 Pain in unspecified joint (principal); R21 Rash and other nonspecific skin eruption

== ENCOUNTER 2024-10-06 03:34 | Emergency (ER) | payer MEDICAID, OTHER ==
[~2024-10-06] VITALS: Ht 160 cm; Wt 95.7 kg
[2024-10-06] MEDS ORDERED: VALI5TAB PO (04:56)
[2024-10-06 06:05] VITALS: BP 134/70; TEMP 96.8; O2SAT 98
[2024-10-06] MEDS: diazePAM 5MG TABLET PO ONE (06:06)
== END 2024-10-06 06:07 | disposition home or self-care (01) ==
LOC: M ED 03:34
DX: S29.012A Strain of muscle and tendon of back wall of thorax, initial encounter (principal); X50.0XXA Overexertion from strenuous movement or load, initial encounter; K58.9 Irritable bowel syndrome, unspecified; N80.00 Endometriosis of the uterus, unspecified; M79.7 Fibromyalgia; F41.9 Anxiety disorder, unspecified; J45.909 Unspecified asthma, uncomplicated; F10.10 Alcohol abuse, uncomplicated; Z79.52 Long term (current) use of systemic steroids; Z79.899 Other long term (current) drug therapy; Z88.1 Allergy status to other antibiotic agents; Z88.2 Allergy status to sulfonamides; Z88.5 Allergy status to narcotic agent; Z88.6 Allergy status to analgesic agent; Z88.8 Allergy status to other drugs, medicaments and biological substances; Z91.041 Radiographic dye allergy status; Z91.048 Other nonmedicinal substance allergy status; Y92.9 Unspecified place or not applicable; Y93.89 Activity, other specified; Y99.9 Unspecified external cause status

== ENCOUNTER → 2025-03-21 | Outpatient (REF) | payer OTHER ==
[~2025-03-21] MED LIST changes: +VALI5TAB PO
[2025-03-21 18:30] LABS: APPEARANCE, URINE CLEAR (CLEAR); BACTERIA, URINE AUTO NEGATIVE (NEGATIVE); BILIRUBIN, URINE AUTO NEGATIVE (NEGATIVE); BLOOD, URINE BLOOD 1+ (NEGATIVE); GLUCOSE, URINE (UA) AUTO NEGATIVE (NEGATIVE); KETONE, URINE AUTO NEGATIVE (NEGATIVE); LEUKOCYTE ESTERASE, URINE AUTO NEGATIVE (NEGATIVE); NITRITE, URINE AUTO NEGATIVE (NEGATIVE); PROTEIN, URINE AUTO NEGATIVE (NEGATIVE); RBC, URINE AUTO 0 /HPF (0-3); SPECIFIC GRAVITY URINE AUTO 1.010 (1.002-1.035); SQUAMOUS EPITHELIAL CELL UR AU 0 /HPF (0-6); UROBILINOGEN, URINE AUTO 0.2 mg/dL (0.0-2.0); WBC, URINE AUTO 0 /HPF (0-3)
[2025-03-21 18:37] LABS: BASO # 0.1 10^3/uL (0.0-0.2); BASO % 0.7 % (0.0-1.0); EOS # 0.2 10^3/uL (0.0-0.5); EOS % 2.1 % (0.0-3.0); LYMPH # 1.9 10^3/uL (1.5-5.0); LYMPH % 26.5 % (24.0-44.0); MONO # 0.5 10^3/uL (0.0-0.8); MONO % 6.4 % (2.0-8.0); NEUTROPHILS # 4.7 10^3/uL (1.5-8.5); NEUTROPHILS % 64.0 % (36.0-66.0); PLATELET COUNT, AUTOMATED 238 10^3/uL (150-450)
[2025-03-21 18:51] LABS: ERYTHROCYTE SEDIMENTATION RATE 14 mm/hr (0-30)
[2025-03-21 18:56] LABS: ALT/SGPT 32 U/L (7.0-40); AST/SGOT 21 U/L (<34); C REACTIVE PROTEIN QUANTITATIV 0.98 MG/DL (<1.0); CALCIUM LEVEL 9.5 MG/DL (8.3-10.6); CARBON DIOXIDE LEVEL 27 MMOL/L (20-31); CHLORIDE LEVEL 104 MMOL/L (98-107); CREATININE FOR GFR 0.85 MG/DL (0.55-1.30); GLOMERULAR FILTRATION RATE 77.4 (>45); POTASSIUM SERUM 3.9 MMOL/L (3.5-5.1); SODIUM LEVEL 143 MMOL/L (136-145)
[2025-03-21 19:01] LABS: TOTAL PROTEIN,RANDOM URINE < 6.0 MG/DL (0.0-14.0)
[2025-03-21 19:42] LABS: HEPATITIS B SURFACE ANTIBODY NEGATIVE (POSITIVE)
[2025-03-21 20:12] LABS: HEPATITIS C VIRUS ABY INDEX < 0.02 INDEX (<0.8)
[2025-03-23 15:16] LABS: HEPATITIS B CORE ANTIBODY IGG NON-REACTIVE (NON-REACTIVE)
== END ==
LOC: M SFHCRHEU 15:40
PROVIDERS: ATTEND Internal Medicine
DX: M06.4 Inflammatory polyarthropathy (principal); Z11.59 Encounter for screening for other viral diseases

== ENCOUNTER → 2025-03-29 | Outpatient (CLI) | payer OTHER | LOC: M WUC 12:29 | PROVIDERS: ATTEND Internal Medicine | DX: M06.4 Inflammatory polyarthropathy (principal); Z18.10 Retained metal fragments, unspecified; M16.0 Bilateral primary osteoarthritis of hip ==

== ENCOUNTER → 2025-04-20 | Outpatient (REF) | payer MEDICAID, OTHER | LOC: M SFHCLERA 17:14 | PROVIDERS: ATTEND Student in an Organized Health Care Education/Training Program | DX: R09.89 Other specified symptoms and signs involving the circulatory and respiratory systems (principal) ==